=== PATIENT | male | born 1940 | race Caucasian/White ===

== ENCOUNTER 2020-11-05 03:50 | Observation (INO) | payer MEDICARE, OTHER ==
[2020-11-05] MEDS ORDERED: DUONEB 0.5-3 MG/3 ml Neb IH ONE ×2 (03:55→04:02)
[2020-11-05] MEDS ORDERED: solu-MEDROL 125 MG, Sterile H2O 10 ml 2 ML IV ONE ×2 (03:55)
[2020-11-05] MEDS ORDERED: Zithromax 500 MG/ 250 ML NaCl Premix 500 MG/250 ML IVPB IV STA (03:56)
[2020-11-05] MEDS ORDERED: ROCEPHIN 2 Gm-D5w 50ML BAG** 2 G/50 ML IVPB IV STA (03:56)
--- NOTE | 2020-11-05 04:14 | ERPHSYRPT ---
- History of Present Illness Time Seen by Provider: 11/05/20 03:50 Source: patient, EMS Exam Limitations: no limitations Physician History: 79 years old male with history of colon cancer status post resection with colostomy, diabetes mellitus, hypertension, coronary artery disease status post stenting, congestive heart failure, atrial fibrillation, COPD presented to the ER with chief complaint of increasing shortness of breath with associated cough productive of minimal clear white sputum. Reports some chest tightness with wheezing but no fever or chills reported on EMS arrival patient oxygen saturation more than upper 80s, given MDI inhaler and placed on oxygen and improved with 94%. Timing/Duration: day(s) (2), gradual onset, worse Activities at Onset: activity Severity of Dyspnea-Max: moderate Severity of Dyspnea-Current: moderate Possible Cause: unknown cause Modifying Factors: Improves With: albuterol inhaler. Worsens With: coughing, exertion Associated Symptoms: cough, wheezing, productive cough, tightness, No chest pain/discomfort, No fever Allergies/Adverse Reactions: No Known Drug Allergies Allergy (Verified 11/05/20 04:13) Home Medications: Amiodarone HCl 200 mg [Cordarone 200 MG] 200 mg PO UD 02/27/14 [History] Amlodipine Besylate 5 mg [Norvasc 5 mg] 5 mg PO DAILY 02/27/14 [History] Clopidogrel Bisulfate [Plavix] 75 mg PO DAILY 02/27/14 [History] Furosemide 20 mg PO UD 02/27/14 [History] Glimepiride 2 mg PO BID 02/27/14 [History] Lisinopril 10 mg [Zestril 10 MG] 10 mg PO DAILY 02/27/14 [History] Metoprolol Tartrate 50 mg PO BID 02/27/14 [History] Simvastatin [Zocor] 20 mg PO HS 02/27/14 [History] Tamsulosin HCl 0.4 mg [Flomax 0.4 MG] 0.4 mg PO BID 02/27/14 [History] Multivitamin [Multivitamins] 1 each PO DAILY 11/09/14 [History] Acetaminophen [Tylenol] 325 mg PO Q4H PRN PRN 11/05/20 [History] Aspirin 81 mg PO DAILY 11/05/20 [History] Calcium Carbonate [Calcium] 2 tab PO DAILY 11/05/20 [History] Cholecalciferol (Vitamin D3) [Vitamin D3] 5,000 unit PO UD 11/05/20 [History] Clotrimazole Cream 30 gm [Lotrimin Cream 30 gm] 30 gm TOP BID 11/05/20 [History] Fexofenadine/Pseudoephedrine [Cristina-D 24 Hour Tablet] 1 tab PO DAILY 11/05/20 [History] Finasteride 5 mg [Proscar 5 MG] 1 tab PO DAILY 11/05/20 [History] Gabapentin 300 mg [Neurontin 300 mg] 300 mg PO BID 11/05/20 [History] Metformin HCl 500 mg [Glucophage 500 MG] 500 mg PO BID 11/05/20 [History] Nitroglycerin 0.4 mg Tablet [Nitrostat 0.4 MG Tablet] 1 tab SL UD 11/05/20 [History] Hx Tetanus, Diphtheria Vaccination/Date Given: Yes (UNKNOWN) Hx Influenza Vaccination/Date Given: Yes Hx Pneumococcal Vaccination/Date Given: No - Review of Systems Constitutional: Fatigue Eyes: No Symptoms Ears, Nose, & Throat: No Symptoms Respiratory: Cough, Dyspnea, Dyspnea on Exertion (UMANA), Wheezing Cardiac: No Symptoms Abdominal/Gastrointestinal: No Symptoms Genitourinary Symptoms: No Symptoms Musculoskeletal: No Symptoms Skin: No Symptoms Neurological: No Symptoms Psychological: No Symptoms Endocrine: No Symptoms Hematologic/Lymphatic: No Symptoms Immunological/Allergic: No Symptoms - Past Medical History Pertinent Past Medical History: Yes Neurological History: Stroke ENT History: No Pertinent History Cardiac History: Arrhythmia, Coronary Artery Disease, High Cholesterol, Hypertension, Myocardial Infarction (ND), Peripheral Vascular Disease Respiratory History: CHF Endocrine Medical History: Diabetes Type II Musculoskeletal History: No Pertinent History GI Medical History: GERD, Hernia History: No Pertinent History Psycho-Social History: Depression Male Reproductive Disorders: Prostate Problems Other Medical History: PARTIAL PROSTATE REMOVED. HX OF AFIB. SEVERAL STENTS. COLON CANCER-REMISSION AT THIS TIME. anemia - Past Surgical History Past Surgical History: Yes Neuro Surgical History: No Pertinent History Cardiac: Cardiac Catheterization, Cardiac Stent Respiratory: No Pertinent History Gastrointestinal: Bowel Surgery, Colon Resection, Hernia Repair Genitourinary: No Pertinent History Musculoskeletal: No Pertinent History Male Surgical History: Prostate Surgery Other Surgical History: PART OF COLON REMOVED. COLOSTOMY - Social History Smoking Status: Former smoker Exposure to second hand smoke: No Alcohol Use: None Drug Use: none Patient Lives Alone: No Significant Family History: no pertinent family hx - Nursing Vital Signs Nursing Vital Signs: Initial Vital Signs Temperature 98.5 F 11/05/20 03:52 Pulse Rate 90 11/05/20 03:52 Respiratory Rate 28 H 11/05/20 03:52 Blood Pressure 129/50 11/05/20 03:52 O2 Sat by Pulse Oximetry 95 11/05/20 03:52 Pain Scale Pain Intensity 0 - Physical Exam General Appearance: no apparent distress, alert Eye Exam: PERRL/EOMI, eyes nml inspection Ears, Nose, Throat Exam: hearing grossly normal, normal ENT inspection, normal pharynx Neck Exam: normal inspection, supple, full range of motion Respiratory Exam: diminished breath sounds, rhonchi, wheezing Cardiovascular/Chest Exam: normal heart sounds, regular rate/rhythm Abdominal/Gastrointestinal Exam: soft, normal bowel sounds, other (Colostomy bag well applied) Extremity Exam: non-tender, normal range of motion Neurologic Exam: alert, oriented x 3, cooperative Skin Exam: normal color SpO2 Interpretation: O2 applied SpO2: 95 O2 Delivery: Nasal Cannula - Course EKG Interpreted by Me: RATE (89), Sinus Rhythm, NORMAL AXIS, Q-wave (Anterior), Non-specific ST Changes Ordered Tests: Active Orders 24 hr Category Date Time Status Oxygen-ED Only Nasal Cannula 2 lpm Care 11/05/20 03:55 Active CHEST 1 VIEW (PORTABLE) Stat Exams 11/05/20 03:55 Taken BLOOD CULTURE Stat Lab 11/05/20 04:15 Received CBC W DIFF Stat Lab 11/05/20 04:15 Completed CMP Stat Lab 11/05/20 04:15 Completed Lactic Acid Stat Lab 11/05/20 04:30 Completed MAGNESIUM Stat Lab 11/05/20 04:15 Completed NT PRO BNP Stat Lab 11/05/20 04:15 Completed TROPONIN Q3H Lab 11/05/20 04:15 Completed TROPONIN Q3H Lab 11/05/20 07:00 Ordered TROPONIN Q3H Lab 11/05/20 10:00 Ordered TROPONIN Q3H Lab 11/05/20 13:00 Ordered TROPONIN Q3H Lab 11/05/20 16:00 Ordered Respiratory Therapy Assessment DAILY RT 11/05/20 04:21 Completed Medication Summary Discontinued Medications Generic Name Dose Route Start Last Admin Trade Name Devon YAP Reason Stop Dose Admin Albuterol/Ipratropium 3 ml 11/05/20 03:55 11/05/20 04:22 Duoneb 0.5-3 Mg/3 Ml Neb IH 11/05/20 03:56 3 ml STAT ONE Administration Albuterol/Ipratropium Confirm 11/05/20 04:02 Duoneb 0.5-3 Mg/3 Ml Neb Administered 11/05/20 04:03 Dose 3 ml IH .STK-MED ONE Methylprednisolone Sodium 0 mg 11/05/20 03:55 11/05/20 04:22 Succinate 125 mg/ Sterile IV 11/05/20 03:56 125 mg Water 2 ml STAT ONE Administration Ceftriaxone Sodium/Dextrose 2 g in 50 mls @ 100 mls/hr 11/05/20 03:56 11/05/20 06:55 Rocephin 2 Gm-D5w 50ml Bag IV 11/05/20 04:25 Infused STAT STA Infusion Azithromycin 500 mg in 250 mls @ 250 mls/hr 11/05/20 03:56 11/05/20 06:55 Zithromax 500 Mg/ 250 Ml Nacl Premix IV 11/05/20 04:55 Infused STAT STA Infusion Azithromycin Confirm 11/05/20 04:15 Zithromax 500 Mg/ 250 Ml Nacl Premix Administered 11/05/20 04:16 Dose 500 mg in 250 mls @ ud IV .STK-MED ONE Ceftriaxone Sodium/Dextrose Confirm 11/05/20 04:15 Rocephin 2 Gm-D5w 50ml Bag Administered 11/05/20 04:16 Dose 2 g in 50 mls @ ud IV .STK-MED ONE Methylprednisolone Sodium Succinate Confirm 11/05/20 04:15 Solu-Medrol Administered 11/05/20 04:16 Dose 125 mg .ROUTE .STK-MED ONE Sterile Water Confirm 11/05/20 04:16 Sterile H2o 10 Ml Administered 11/05/20 04:17 Dose 10 ml IJ .STK-MED ONE Lab/Rad Data: Laboratory Result Diagrams 11/05/20 04:15 11/05/20 04:15 Laboratory Results 11/05/20 11/05/20 11/05/20 Range/Units 05:26 04:30 04:15 WBC (4.0-10.5) K/mm3 RBC (4.1-5.6) M/mm3 Hgb (12.5-18.0) gm/dl Hct (42-50) % MCV (78-100) fl MCH (26-32) pg MCHC (32-36) g/dl RDW (11.5-14.0) % Plt Count (150-450) K/mm3 MPV (7.5-11.0) fl Gran % (36.0-66.0) % Eos # (Auto) (0-0.5) Absolute Lymphs (auto) (1.0-4.6) Absolute Monos (auto) (0.0-1.3) Lymphocytes % (24.0-44.0) % Monocytes % (0.0-12.0) % Eosinophils % (0.00-5.0) % Basophils % (0.0-0.4) % Absolute Granulocytes (1.4-6.9) Basophils # (0-0.4) Sodium (137-145) mmol/L Potassium (3.5-5.1) mmol/L Chloride (98-107) mmol/L Carbon Dioxide (22-30) mmol/L Anion Gap (5-15) MEQ/L BUN (9-20) mg/dL Creatinine (0.66-1.25) mg/dL Estimated GFR ML/MIN Glucose (74-106) mg/dL Lactic Acid 1.3 (0.4-2.0) Calcium (8.4-10.2) mg/dL Magnesium (1.6-2.3) mg/dL Total Bilirubin (0.2-1.3) mg/dL AST (17-59) U/L ALT (0-50) U/L Alkaline Phosphatase (38-126) U/L Troponin I 0.026 (0.000-0.034) ng/mL NT-Pro-B Natriuret Pep (0-1800) pg/mL Serum Total Protein (6.3-8.2) g/dL Albumin (3.5-5.0) g/dL SARS-CoV-2 (PCR) NEGATIVE (NEGATIVE) 11/05/20 11/05/20 Range/Units 04:15 04:15 WBC 9.7 (4.0-10.5) K/mm3 RBC 3.88 L (4.1-5.6) M/mm3 Hgb 11.9 L (12.5-18.0) gm/dl Hct 37.9 L (42-50) % MCV 97.7 (78-100) fl MCH 30.7 (26-32) pg MCHC 31.4 L (32-36) g/dl RDW 14.1 H (11.5-14.0) % Plt Count 239 (150-450) K/mm3 MPV 9.9 (7.5-11.0) fl Gran % 71.4 H (36.0-66.0) % Eos # (Auto) 0.06 (0-0.5) Absolute Lymphs (auto) 1.67 (1.0-4.6) Absolute Monos (auto) 1.01 (0.0-1.3) Lymphocytes % 17.3 L (24.0-44.0) % Monocytes % 10.5 (0.0-12.0) % Eosinophils % 0.6 (0.00-5.0) % Basophils % 0.2 (0.0-0.4) % Absolute Granulocytes 6.90 (1.4-6.9) Basophils # 0.02 (0-0.4) Sodium 133 L (137-145) mmol/L Potassium 4.8 (3.5-5.1) mmol/L Chloride 100 (98-107) mmol/L Carbon Dioxide 22 (22-30) mmol/L Anion Gap 14.9 (5-15) MEQ/L BUN 26 H (9-20) mg/dL Creatinine 1.62 H (0.66-1.25) mg/dL Estimated GFR 43.8 ML/MIN Glucose 257 H (74-106) mg/dL Lactic Acid (0.4-2.0) Calcium 9.6 (8.4-10.2) mg/dL Magnesium 1.7 (1.6-2.3) mg/dL Total Bilirubin 0.70 (0.2-1.3) mg/dL AST 22 (17-59) U/L ALT 16 (0-50) U/L Alkaline Phosphatase 67 (38-126) U/L Troponin I (0.000-0.034) ng/mL NT-Pro-B Natriuret Pep 3560 H (0-1800) pg/mL Serum Total Protein 6.9 (6.3-8.2) g/dL Albumin 4.0 (3.5-5.0) g/dL SARS-CoV-2 (PCR) (NEGATIVE) - Progress Progress: improved Air Movement: good Progress Note: 11/05/20 06:53 79 years old is evaluated for increasing shortness of breath. Patient is on 2 L oxygen and saturation around 93%. Given DuoNeb and steroid. Chest x-ray showed bilateral airspace disease. Was normal white count. Mild FELICIA on CKD. Started on antibiotics. COVID-19 is negative. Discuss[address] with Dr. Chase and patient is being admitted. Blood Culture(s) Obtained: Yes Antibiotics given: Yes Discussed with DrRios: Jose Juan Will see patient in: hospital (observation) Counseled pt/family regarding: lab results, diagnosis, rad results - Departure Departure Disposition: Observation Clinical Impression: Bilateral pneumonia Qualifiers: Pneumonia type: due to unspecified organism Lung location: unspecified part of lung Qualified Code(s): J18.9 - Pneumonia, unspecified organism Respiratory failure Qualifiers: Chronicity: acute Respiratory failure complication: hypoxia Qualified Code(s): J96.01 - Acute respiratory failure with hypoxia Condition: Stable Critical Care Time: Yes Critical Care Time(excluding separately billable procedures): Critical 30-74 mins Referrals: DAIJA MARTE NP [Primary Care Provider] -
[2020-11-05] MEDS ORDERED: ROCEPHIN 2 Gm-D5w 50ML BAG** 2 G/50 ML IVPB IV ONE (04:15)
[2020-11-05] MEDS ORDERED: solu-MEDROL ONE ×2 (04:15→17:10)
[2020-11-05] MEDS ORDERED: Zithromax 500 MG/ 250 ML NaCl Premix 500 MG/250 ML IVPB IV ONE (04:15)
[2020-11-05] MEDS ORDERED: Sterile H2O 10 ml IJ ONE (04:16)
[2020-11-05 04:40] LABS: BASOPHIL % 0.2 % (0.0-0.4); Basophil (Absolute #) 0.02 (0-0.4); Eosinophil % 0.6 % (0.00-5.0); Eosinophil (Absolute #) 0.06 (0-0.5); Hematocrit 37.9 % (42-50); Hemoglobin 11.9 gm/dl (12.5-18.0); Lymphocyte (Absolute #) 1.67 (1.0-4.6); Lymphocytes % 17.3 % (24.0-44.0); Mean Cell Volume 97.7 fl (78-100); Mean Corpuscular Hemoglobin 30.7 pg (26-32); Mean Corpuscular Hgb Concent. 31.4 g/dl (32-36); Mean Platelet Volume 9.9 fl (7.5-11.0); Monocyte (Absolute #) 1.01 (0.0-1.3); Monocytes % 10.5 % (0.0-12.0); Neutrophil % 71.4 % (36.0-66.0); Platelet Count 239 K/mm3 (150-450); Red Blood Count 3.88 M/mm3 (4.1-5.6); Red Cell Distribution Width 14.1 % (11.5-14.0); White Blood Count 9.7 K/mm3 (4.0-10.5)
[2020-11-05 04:54] LABS: ANION GAP 14.9 MEQ/L (5-15); BILIRUBIN,TOTAL 0.7 mg/dL (0.2-1.3); Calcium 9.6 mg/dL (8.4-10.2); Creatinine 1 1.62 mg/dL (0.66-1.25); EST GLOMERULAR FILTRATION RATE 43.8 ML/MIN; MAGNESIUM 1.7 mg/dL (1.6-2.3); Potassium 4.8 mmol/L (3.5-5.1); Total Protein 6.9 g/dL (6.3-8.2)
[2020-11-05] MEDS ORDERED: DUONEB 0.5-3 MG/3 ml Neb IH SCH (08:17)
[2020-11-05] MEDS ORDERED: TYLENOL 325 MG PO PRN ×2 (08:17→10:42)
[2020-11-05] MEDS ORDERED: VITAMIN D PO SCH (10:00)
[2020-11-05] MEDS ORDERED: LASIX 20 MG PO SCH (10:00)
[2020-11-05] MEDS ORDERED: Cordarone 200 MG PO SCH (10:00)
[2020-11-05] MEDS ORDERED: Nitrostat 0.4 MG Tablet SL PRN (10:45)
[2020-11-05] MEDS ORDERED: NON-FORMULARY ITEM (Cholecalciferol (Vitamin D3) [Vitamin D3] 5,000 UNIT) PO SCH (10:45)
[2020-11-05] MEDS: PROTONIX 40 MG IV IV SCH (10:48)
[2020-11-05] MEDS: ENOXAPARIN SODIUM SQ SCH (10:48)
[2020-11-05] MEDS ORDERED: VENTOLIN COMMON CANISTER IH SCH (11:00)
[2020-11-05] MEDS: Ventolin Hfa MDI IH SCH ×4 (11:17→22:31)
[2020-11-05] MEDS: Zestril 10 MG PO SCH (11:41)
[2020-11-05] MEDS: Calcium 500MG W/Vit D Tablet PO SCH (11:41)
[2020-11-05] MEDS: THERAGRAN MULTIVITAMIN PO SCH (11:41)
[2020-11-05] MEDS: NEURONTIN 300 MG PO SCH ×2 (11:42→21:11)
[2020-11-05] MEDS: ECOTRIN 81 MG PO SCH (11:42)
[2020-11-05] MEDS: Proscar 5 MG PO SCH (11:42)
[2020-11-05] MEDS: Glucophage 500 MG PO SCH ×2 (11:42→17:18)
[2020-11-05] MEDS: NORVASC 5 MG PO SCH (11:42)
[2020-11-05] MEDS: Flomax 0.4 MG PO SCH ×2 (11:42→21:10)
[2020-11-05] MEDS: CLARITIN-D 24HR TABLET PO SCH (11:42)
[2020-11-05] MEDS: Lopressor 50 MG PO SCH ×2 (11:42→21:11)
[2020-11-05] MEDS: Amaryl 2 MG PO SCH ×2 (11:42→17:18)
[2020-11-05] MEDS: PLAVIX 75 MG Tablet PO SCH (11:42)
[2020-11-05] MEDS: solu-MEDROL 60 MG, Sterile H2O 10 ml 2 ML IV SCH ×6 (11:43→23:05)
[2020-11-05] MEDS: LOTRIMIN CREAM 30 GM TOP SCH ×2 (11:43→21:11)
[2020-11-05] MEDS: Sterile H2O 10 ml IJ SCH ×3 (11:47→23:06)
[2020-11-05] MEDS: HUMALOG SQ PRN ×3 (12:27→21:12)
--- NOTE | 2020-11-05 15:30 | XRAY ---
Indication: Short of breath. Suspect Covid 19. Comparison: December 10, 2014. Portable chest demonstrates new diffuse bilateral airspace disease without consolidation/large effusion. Heart not enlarged with stable subcarinal calcified node. Bony thorax intact again with mild osteopenia and degenerative changes.
--- NOTE | 2020-11-05 20:42 | PCM.HP ---
History of Present Illness - Chief Complaint Chief Complaint: c/o shortness of breath for 2-3 days History of Present Illness: is a 79 year old male.with history of colon cancer status post resection with colostomy, diabetes mellitus, hypertension, coronary artery disease status post stenting, congestive heart failure, atrial fibrillation, COPD presented to the ER with chief complaint of increasing shortness of breath with associated cough productive of minimal clear white sputum. Reports some chest tightness with wheezing but no fever or chills reported on EMS arrival patient oxygen saturation more than upper 80s, given MDI inhaler and placed on oxygen and improved with 94%. Timing/Duration: day(s) (2), gradual onset, worse Activities at Onset: activity Severity of Dyspnea-Max: moderate Severity of Dyspnea-Current: moderate Possible Cause: unknown cause Modifying Factors: Improves With: albuterol inhaler. Worsens With: coughing, exertion Associated Symptoms: cough, wheezing, productive cough, tightness, No chest pain/discomfort, No fever - Review of Systems Constitutional: No Fever, No Chills Eyes: No Symptoms Ears, Nose, & Throat: No Symptoms Respiratory: Cough, Orthopnea, Short Of Breath, Wheezing Cardiac: Chest Pain, No Edema, No Syncope Abdominal/Gastrointestinal: No Abdominal Pain, No Nausea, No Vomiting, No Diarr hea Genitourinary Symptoms: No Dysuria Musculoskeletal: No Back Pain, No Neck Pain Skin: No Rash Neurological: No Dizziness, No Focal Weakness, No Sensory Changes Psychological: No Symptoms Endocrine: No Symptoms Hematologic/Lymphatic: No Symptoms Immunological/Allergic: No Symptoms Medications & Allergies Home Medications: Home Medication List Amiodarone HCl 200 mg [Cordarone 200 MG] 200 mg PO UD 02/27/14 [History Confirmed 11/05/20] Amlodipine Besylate 5 mg [Norvasc 5 mg] 5 mg PO DAILY 02/27/14 [History Confirmed 11/05/20] Clopidogrel Bisulfate [Plavix] 75 mg PO DAILY 02/27/14 [History Confirmed 11/05/20] Furosemide 20 mg PO UD 02/27/14 [History Confirmed 11/05/20] Glimepiride 2 mg PO BID 02/27/14 [History Confirmed 11/05/20] Lisinopril 10 mg [Zestril 10 MG] 10 mg PO DAILY 02/27/14 [History Confirmed 11/05/20] Metoprolol Tartrate 50 mg PO BID 02/27/14 [History Confirmed 11/05/20] Simvastatin [Zocor] 20 mg PO HS 02/27/14 [History Confirmed 11/05/20] Tamsulosin HCl 0.4 mg [Flomax 0.4 MG] 0.4 mg PO BID 02/27/14 [History Confirmed 11/05/20] Multivitamin [Multivitamins] 1 each PO DAILY 11/09/14 [History Confirmed 11/05] Acetaminophen [Tylenol] 325 mg PO Q4H PRN PRN 11/05/20 [History Confirmed 11/05/20] Aspirin 81 mg PO DAILY 11/05/20 [History Confirmed 11/05/20] Calcium Carbonate [Calcium] 2 tab PO DAILY 11/05/20 [History Confirmed 11/05/20] Cholecalciferol (Vitamin D3) [Vitamin D3] 5,000 unit PO UD 11/05/20 [History Confirmed 11/05/20] Clotrimazole Cream 30 gm [Lotrimin Cream 30 gm] 30 gm TOP BID 11/05/20 [History Confirmed 11/05/20] Fexofenadine/Pseudoephedrine [Cristina-D 24 Hour Tablet] 1 tab PO DAILY 11/05/20 [History Confirmed 11/05/20] Finasteride 5 mg [Proscar 5 MG] 1 tab PO DAILY 11/05/20 [History Confirmed 11/05/20] Gabapentin 300 mg [Neurontin 300 mg] 300 mg PO BID 11/05/20 [History Confirmed 11/05/20] Metformin HCl 500 mg [Glucophage 500 MG] 500 mg PO TID 11/05/20 [History Confirmed 11/05/20] Nitroglycerin 0.4 mg Tablet [Nitrostat 0.4 MG Tablet] 1 tab SL UD 11/05/20 [History Confirmed 11/05/20] Allergies/Adverse Reactions: Allergies Allergy/AdvReac Type Severity Reaction Status Date / Time No Known Drug Allergies Allergy Verified 11/05/20 04:13 - Past Medical History Past Medical History: Yes Neurological History: Stroke ENT History: No Pertinent History Cardiac History: Arrhythmia, Coronary Artery Disease, High Cholesterol, Hypertension, Myocardial Infarction (MS), Peripheral Vascular Disease Respiratory History: CHF Endocrine Medical History: Diabetes Type II Musculoskelatal History: No Pertinent History GI Medical History: GERD, Hernia History: No Pertinent History Pyscho-Social History: Depression Male Reproductive Disorders: Prostate Problems Comment: PARTIAL PROSTATE REMOVED. HX OF AFIB. SEVERAL STENTS. COLON CANCER- REMISSION AT THIS TIME. anemia - Past Surgical History Past Surgical History: Yes Neuro Surgical History: No Pertinent History Cardiac History: Cardiac Catheterization, Cardiac Stent Respiratory Surgery: No Pertinent History GI Surgical History: Bowel Surgery, Colon Resection, Hernia Repair Genitourinary Surgical Hx: No Pertinent History Musculskeletal Surgical Hx: No Pertinent History Male Surgical History: Prostate Surgery Other Surgical History: PART OF COLON REMOVED. COLOSTOMY - Social History Smoking Status: Former smoker Exposure to second hand smoke: No Alcohol: None Drug Use: none Significant Family History: no pertinent family hx - Physical Exam Vital Signs: Vital Signs - 24 hr Temp Pulse Resp BP Pulse Ox 11/05/20 18:54 76 18 93 L 11/05/20 15:57 98.0 F 86 18 132/59 95 11/05/20 15:13 95 11/05/20 12:32 97.1 F 80 20 144/74 96 11/05/20 11:17 80 20 94 L 11/05/20 10:22 80 20 94 L 11/05/20 08:35 97.2 F 84 20 150/68 95 11/05/20 07:48 67 21 127/49 92 L 11/05/20 07:00 95 11/05/20 06:00 71 22 115/56 97 11/05/20 05:00 83 22 119/57 94 L 11/05/20 04:52 82 18 124/52 95 11/05/20 04:20 91 H 24 96 11/05/20 03:57 28 H 95 11/05/20 03:52 98.5 F 90 28 H 129/50 95 General Appearance: no apparent distress, alert Neurologic Exam: alert, oriented x 3, cooperative, normal mood/affect, No motor deficits Eye Exam: PERRL/EOMI, eyes nml inspection Ears, Nose, Throat Exam: normal ENT inspection, TMs normal, pharynx normal, moist mucous membranes Neck Exam: normal inspection, non-tender, supple, full range of motion Respiratory Exam: diminished breath sounds, crackles/rales, rhonchi, wheezing, No respiratory distress Cardiovascular Exam: regular rate/rhythm, normal heart sounds, normal peripheral pulses Gastrointestinal/Abdomen Exam: soft, normal bowel sounds, No tenderness, No mass Back Exam: normal inspection, normal range of motion, No CVA tenderness, No vertebral tenderness Extremity Exam: normal inspection, normal range of motion, pelvis stable Skin Exam: normal color, warm, dry, No rash Lymphatic Exam: No adenopathy Results - Labs Lab/Micro Results: Lab Results-Last 24 Hours 11/05/20 11/05/20 11/05/20 Range/Units 03:00 04:15 04:15 WBC 9.7 (4.0-10.5) K/mm3 RBC 3.88 L (4.1-5.6) M/mm3 Hgb 11.9 L (12.5-18.0) gm/dl Hct 37.9 L (42-50) % MCV 97.7 (78-100) fl MCH 30.7 (26-32) pg MCHC 31.4 L (32-36) g/dl RDW 14.1 H (11.5-14.0) % Plt Count 239 (150-450) K/mm3 MPV 9.9 (7.5-11.0) fl Gran % 71.4 H (36.0-66.0) % Eos # (Auto) 0.06 (0-0.5) Absolute Lymphs (auto) 1.67 (1.0-4.6) Absolute Monos (auto) 1.01 (0.0-1.3) Lymphocytes % 17.3 L (24.0-44.0) % Monocytes % 10.5 (0.0-12.0) % Eosinophils % 0.6 (0.00-5.0) % Basophils % 0.2 (0.0-0.4) % Absolute Granulocytes 6.90 (1.4-6.9) Basophils # 0.02 (0-0.4) Sodium 133 L (137-145) mmol/L Potassium 4.8 (3.5-5.1) mmol/L Chloride 100 (98-107) mmol/L Carbon Dioxide 22 (22-30) mmol/L Anion Gap 14.9 (5-15) MEQ/L BUN 26 H (9-20) mg/dL Creatinine 1.62 H (0.66-1.25) mg/dL Estimated GFR 43.8 ML/MIN Glucose 257 H (74-106) mg/dL POC Glucometer (74 to 106) mg/dL Hemoglobin A1c 7.42 H (4.5-6.0) % Lactic Acid (0.4-2.0) Calcium 9.6 (8.4-10.2) mg/dL Magnesium 1.7 (1.6-2.3) mg/dL Total Bilirubin 0.70 (0.2-1.3) mg/dL AST 22 (17-59) U/L ALT 16 (0-50) U/L Alkaline Phosphatase 67 (38-126) U/L Troponin I (0.000-0.034) ng/mL NT-Pro-B Natriuret Pep 3560 H (0-1800) pg/mL Serum Total Protein 6.9 (6.3-8.2) g/dL Albumin 4.0 (3.5-5.0) g/dL SARS-CoV-2 (PCR) (NEGATIVE) 11/05/20 11/05/20 11/05/20 Range/Units 04:15 04:30 05:26 WBC (4.0-10.5) K/mm3 RBC (4.1-5.6) M/mm3 Hgb (12.5-18.0) gm/dl Hct (42-50) % MCV (78-100) fl MCH (26-32) pg MCHC (32-36) g/dl RDW (11.5-14.0) % Plt Count (150-450) K/mm3 MPV (7.5-11.0) fl Gran % (36.0-66.0) % Eos # (Auto) (0-0.5) Absolute Lymphs (auto) (1.0-4.6) Absolute Monos (auto) (0.0-1.3) Lymphocytes % (24.0-44.0) % Monocytes % (0.0-12.0) % Eosinophils % (0.00-5.0) % Basophils % (0.0-0.4) % Absolute Granulocytes (1.4-6.9) Basophils # (0-0.4) Sodium (137-145) mmol/L Potassium (3.5-5.1) mmol/L Chloride (98-107) mmol/L Carbon Dioxide (22-30) mmol/L Anion Gap (5-15) MEQ/L BUN (9-20) mg/dL Creatinine (0.66-1.25) mg/dL Estimated GFR ML/MIN Glucose (74-106) mg/dL POC Glucometer (74 to 106) mg/dL Hemoglobin A1c (4.5-6.0) % Lactic Acid 1.3 (0.4-2.0) Calcium (8.4-10.2) mg/dL Magnesium (1.6-2.3) mg/dL Total Bilirubin (0.2-1.3) mg/dL AST (17-59) U/L ALT (0-50) U/L Alkaline Phosphatase (38-126) U/L Troponin I 0.026 (0.000-0.034) ng/mL NT-Pro-B Natriuret Pep (0-1800) pg/mL Serum Total Protein (6.3-8.2) g/dL Albumin (3.5-5.0) g/dL SARS-CoV-2 (PCR) NEGATIVE (NEGATIVE) 11/05/20 11/05/20 11/05/20 Range/Units 07:00 09:57 11:58 WBC (4.0-10.5) K/mm3 RBC (4.1-5.6) M/mm3 Hgb (12.5-18.0) gm/dl Hct (42-50) % MCV (78-100) fl MCH (26-32) pg MCHC (32-36) g/dl RDW (11.5-14.0) % Plt Count (150-450) K/mm3 MPV (7.5-11.0) fl Gran % (36.0-66.0) % Eos # (Auto) (0-0.5) Absolute Lymphs (auto) (1.0-4.6) Absolute Monos (auto) (0.0-1.3) Lymphocytes % (24.0-44.0) % Monocytes % (0.0-12.0) % Eosinophils % (0.00-5.0) % Basophils % (0.0-0.4) % Absolute Granulocytes (1.4-6.9) Basophils # (0-0.4) Sodium (137-145) mmol/L Potassium (3.5-5.1) mmol/L Chloride (98-107) mmol/L Carbon Dioxide (22-30) mmol/L Anion Gap (5-15) MEQ/L BUN (9-20) mg/dL Creatinine (0.66-1.25) mg/dL Estimated GFR ML/MIN Glucose (74-106) mg/dL POC Glucometer 461 H (74 to 106) mg/dL Hemoglobin A1c (4.5-6.0) % Lactic Acid (0.4-2.0) Calcium (8.4-10.2) mg/dL Magnesium (1.6-2.3) mg/dL Total Bilirubin (0.2-1.3) mg/dL AST (17-59) U/L ALT (0-50) U/L Alkaline Phosphatase (38-126) U/L Troponin I 0.038 H* 0.035 H (0.000-0.034) ng/mL NT-Pro-B Natriuret Pep (0-1800) pg/mL Serum Total Protein (6.3-8.2) g/dL Albumin (3.5-5.0) g/dL SARS-CoV-2 (PCR) (NEGATIVE) 11/05/20 11/05/20 11/05/20 Range/Units 13:15 16:10 16:30 WBC (4.0-10.5) K/mm3 RBC (4.1-5.6) M/mm3 Hgb (12.5-18.0) gm/dl Hct (42-50) % MCV (78-100) fl MCH (26-32) pg MCHC (32-36) g/dl RDW (11.5-14.0) % Plt Count (150-450) K/mm3 MPV (7.5-11.0) fl Gran % (36.0-66.0) % Eos # (Auto) (0-0.5) Absolute Lymphs (auto) (1.0-4.6) Absolute Monos (auto) (0.0-1.3) Lymphocytes % (24.0-44.0) % Monocytes % (0.0-12.0) % Eosinophils % (0.00-5.0) % Basophils % (0.0-0.4) % Absolute Granulocytes (1.4-6.9) Basophils # (0-0.4) Sodium (137-145) mmol/L Potassium (3.5-5.1) mmol/L Chloride (98-107) mmol/L Carbon Dioxide (22-30) mmol/L Anion Gap (5-15) MEQ/L BUN (9-20) mg/dL Creatinine (0.66-1.25) mg/dL Estimated GFR ML/MIN Glucose (74-106) mg/dL POC Glucometer 435 H (74 to 106) mg/dL Hemoglobin A1c (4.5-6.0) % Lactic Acid (0.4-2.0) Calcium (8.4-10.2) mg/dL Magnesium (1.6-2.3) mg/dL Total Bilirubin (0.2-1.3) mg/dL AST (17-59) U/L ALT (0-50) U/L Alkaline Phosphatase (38-126) U/L Troponin I 0.024 0.028 (0.000-0.034) ng/mL NT-Pro-B Natriuret Pep (0-1800) pg/mL Serum Total Protein (6.3-8.2) g/dL Albumin (3.5-5.0) g/dL SARS-CoV-2 (PCR) (NEGATIVE) Accuchecks Date 11/05/20 Date 11/05/20 Time 16:36 Time 11:30 - Radiology Impressions Radiology Exams & Impressions: Radiology Procedures Category Date Time Status CHEST 1 VIEW (PORTABLE) Stat Exams 11/05/20 03:55 Completed - Other Procedures and Tests Respiratory Therapy 11/05/20 08:17 Oxygen Nasal Cannula 2 lpm 11/06/20 07:00 Respiratory Therapy Assessment DAILY Assessment/Plan (1) Bilateral pneumonia Current Visit: Yes Status: Acute Qualifiers: Pneumonia type: due to unspecified organism Lung location: lower lobe of lung Qualified Code(s): J18.9 - Pneumonia, unspecified organism Assessment & Plan: Chief Complaint Diagnosis bilateral pneumonia Allergies Allergy/AdvReac Type Severity Reaction Status Date / Time No Known Drug Allergies Allergy Verified 11/05/20 04:13 Vital Signs (Last 24 hours) Temp Pulse Resp BP Pulse Ox 11/05/20 18:54 76 18 93 L 11/05/20 15:57 98.0 F 86 18 132/59 95 11/05/20 15:13 95 11/05/20 12:32 97.1 F 80 20 144/74 96 11/05/20 11:17 80 20 94 L 11/05/20 10:22 80 20 94 L 11/05/20 08:35 97.2 F 84 20 150/68 95 11/05/20 07:48 67 21 127/49 92 L 11/05/20 07:00 95 11/05/20 06:00 71 22 115/56 97 11/05/20 05:00 83 22 119/57 94 L 11/05/20 04:52 82 18 124/52 95 11/05/20 04:20 91 H 24 96 11/05/20 03:57 28 H 95 11/05/20 03:52 98.5 F 90 28 H 129/50 95 Home Medications Medication Instructions Recorded Confirmed Last Taken Type Acetaminophen [Tylenol] 325 mg PO Q4H PRN PRN 11/05/20 11/05/20 Unknown History Aspirin 81 mg PO DAILY 11/05/20 11/05/20 11/04/20 History Calcium Carbonate [Calcium] 2 tab PO DAILY 11/05/20 11/05/20 11/04/20 History Cholecalciferol (Vitamin D3) 5,000 unit PO UD 11/05/20 11/05/20 11/02/20 08:00 History [Vitamin D3] Clotrimazole Cream 30 gm 30 gm TOP BID 11/05/20 11/05/20 11/04/20 History [Lotrimin Cream 30 gm] Fexofenadine/Pseudoephedrine 1 tab PO DAILY 11/05/20 11/05/20 11/04/20 08:00 History [Cristina-D 24 Hour Tablet] Finasteride 5 mg [Proscar 5 1 tab PO DAILY 11/05/20 11/05/20 11/04/20 History MG] Gabapentin 300 mg [Neurontin 300 mg PO BID 11/05/20 11/05/20 11/04/20 18:00 History 300 mg] Metformin HCl 500 mg 500 mg PO TID 11/05/20 11/05/20 11/04/20 History [Glucophage 500 MG] Nitroglycerin 0.4 mg Tablet 1 tab SL UD 11/05/20 11/05/20 Unknown History [Nitrostat 0.4 MG Tablet] Current Medications Generic Name Dose Route Start Last Admin Trade Name Freq PRN Reason Stop Dose Admin Acetaminophen 325 mg 11/05/20 10:42 Tylenol 325 Mg PO 12/05/20 10:41 Q4H PRN PRN PAIN Albuterol Sulfate 4 gm 11/05/20 11:00 11/05/20 18:49 Ventolin Hfa Mdi IH 12/05/20 10:59 4 gm Q4HRT EDEL Administration Amiodarone HCl 200 mg 11/05/20 10:00 11/05/20 11:41 Cordarone 200 Mg PO 12/05/20 09:59 200 mg QOD EDEL Administration Amlodipine Besylate 5 mg 11/05/20 11:00 11/05/20 11:42 Norvasc 5 Mg PO 12/05/20 10:59 5 mg DAILY EDEL Administration Aspirin 81 mg 11/05/20 11:00 11/05/20 11:42 Ecotrin 81 Mg PO 12/05/20 10:59 81 mg DAILY EDEL Administration Calcium Carbonate 2 tab 11/05/20 11:00 11/05/20 11:41 Calcium 500mg W/Vit D Tablet PO 12/05/20 10:59 2 tab DAILY EDEL Administration Cholecalciferol 5,000 unit 11/05/20 10:00 11/05/20 11:54 Vitamin D PO 12/05/20 09:59 5,000 unit TuSa EDEL Administration Clopidogrel Bisulfate 75 mg 11/05/20 11:00 11/05/20 11:42 Plavix 75 Mg Tablet PO 12/05/20 10:59 75 mg DAILY EDEL Administration Clotrimazole 0 gm 11/05/20 11:00 11/05/20 11:43 Lotrimin Cream 30 Gm TOP 12/05/20 10:59 30 gm BID EDEL Administration Methylprednisolone Sodium 0 mg 11/05/20 12:00 11/05/20 17:21 Succinate 60 mg/ Sterile Water IV 12/05/20 11:59 60 mg 2 ml Q6HT EDEL Administration Enoxaparin Sodium 40 mg 11/05/20 10:00 11/05/20 10:48 Enoxaparin Sodium SQ 12/05/20 09:59 40 mg DAILY EDEL Administration Finasteride 5 mg 11/05/20 11:00 11/05/20 11:42 Proscar 5 Mg PO 12/05/20 10:59 5 mg DAILY EDEL Administration Furosemide 20 mg 11/05/20 10:00 11/05/20 11:41 Lasix 20 Mg PO 12/05/20 09:59 20 mg QOD EDEL Administration Gabapentin 300 mg 11/05/20 11:00 11/05/20 11:42 Neurontin 300 Mg PO 12/05/20 10:59 300 mg BID EDEL Administration Glimepiride 2 mg 11/05/20 11:00 11/05/20 17:18 Amaryl 2 Mg PO 12/05/20 10:59 2 mg BIDWM EDEL Administration Azithromycin 500 mg in 250 mls @ 250 mls/hr 11/06/20 10:00 Zithromax 500 Mg/ 250 Ml Nacl Premix IV 12/06/20 09:59 Q24H10 EDEL Ceftriaxone Sodium/Dextrose 1 g in 50 mls @ 100 mls/hr 11/06/20 10:00 Rocephin 1 Gm-D5w 50 Ml Bag IV 11/09/20 09:59 Q24H10 EDEL Insulin Human Lispro 0 unit 11/05/20 08:17 11/05/20 17:19 Humalog SQ 12/05/20 08:16 13 unit UD PRN Administration HYPERGLYCEMIA Lisinopril 10 mg 11/05/20 11:00 11/05/20 11:41 Zestril 10 Mg PO 12/05/20 10:59 10 mg DAILY EDEL Administration Loratadine/Pseudoephedrine Sulfate 1 each 11/05/20 11:00 11/05/20 11:42 Claritin-D 24hr Tablet PO 12/05/20 10:59 1 each DAILY EDEL Administration Metformin HCl 500 mg 11/05/20 12:00 11/05/20 17:18 Glucophage 500 Mg PO 12/05/20 11:59 500 mg TIDWM EDEL Administration Metoprolol Tartrate 50 mg 11/05/20 11:00 11/05/20 11:42 Lopressor 50 Mg PO 12/05/20 10:59 50 mg BID EDEL Administration Multivitamins Therapeutic 1 tab 11/05/20 11:00 11/05/20 11:41 Theragran Multivitamin PO 12/05/20 10:59 1 tab DAILY EDEL Administration Nitroglycerin 0.4 mg 11/05/20 10:45 Nitrostat 0.4 Mg Tablet SL 12/05/20 10:44 UD PRN Pantoprazole Sodium 40 mg 11/05/20 10:00 11/05/20 10:48 Protonix 40 Mg Iv IV 12/05/20 09:59 40 mg Q24H10 EDEL Administration Simvastatin 20 mg 11/05/20 22:00 Zocor 20mg PO 12/05/20 21:59 HS EDEL Sterile Water 2 ml 11/05/20 12:00 11/05/20 18:17 Sterile H2o 10 Ml IJ 12/05/20 11:59 2 ml Q6HT EDEL Administration Tamsulosin HCl 0.4 mg 11/05/20 11:00 11/05/20 11:42 Flomax 0.4 Mg PO 12/05/20 10:59 0.4 mg BID EDEL Administration Discontinued Medications Generic Name Dose Route Start Last Admin Trade Name Freq PRN Reason Stop Dose Admin Acetaminophen 650 mg 11/05/20 08:17 Tylenol 325 Mg PO 12/05/20 08:16 Q4H PRN PRN PAIN AND/OR FEVER Albuterol Sulfate 4 puff 11/05/20 11:00 Ventolin Common Canister IH 12/05/20 10:59 Q4HRT EDEL Albuterol/Ipratropium 3 ml 11/05/20 03:55 11/05/20 04:22 Duoneb 0.5-3 Mg/3 Ml Neb IH 11/05/20 03:56 3 ml STAT ONE Administration Albuterol/Ipratropium Confirm 11/05/20 04:02 Duoneb 0.5-3 Mg/3 Ml Neb Administered 11/05/20 04:03 Dose 3 ml IH .STK-MED ONE Albuterol/Ipratropium 3 ml 11/05/20 08:17 Duoneb 0.5-3 Mg/3 Ml Neb IH 12/05/20 08:16 Q4HRT EDEL Methylprednisolone Sodium 0 mg 11/05/20 03:55 11/05/20 04:22 Succinate 125 mg/ Sterile IV 11/05/20 03:56 125 mg Water 2 ml STAT ONE Administration Ceftriaxone Sodium/Dextrose 2 g in 50 mls @ 100 mls/hr 11/05/20 03:56 11/05/20 06:55 Rocephin 2 Gm-D5w 50ml Bag IV 11/05/20 04:25 Infused STAT STA Infusion Azithromycin 500 mg in 250 mls @ 250 mls/hr 11/05/20 03:56 11/05/20 06:55 Zithromax 500 Mg/ 250 Ml Nacl Premix IV 11/05/20 04:55 Infused STAT STA Infusion Azithromycin Confirm 11/05/20 04:15 Zithromax 500 Mg/ 250 Ml Nacl Premix Administered 11/05/20 04:16 Dose 500 mg in 250 mls @ ud IV .STK-MED ONE Ceftriaxone Sodium/Dextrose Confirm 11/05/20 04:15 Rocephin 2 Gm-D5w 50ml Bag Administered 11/05/20 04:16 Dose 2 g in 50 mls @ ud IV .STK-MED ONE Methylprednisolone Sodium Succinate Confirm 11/05/20 04:15 Solu-Medrol Administered 11/05/20 04:16 Dose 125 mg .ROUTE .STK-MED ONE Methylprednisolone Sodium Succinate Confirm 11/05/20 17:10 Solu-Medrol Administered 11/05/20 17:11 Dose 125 mg .ROUTE .STK-MED ONE Sterile Water Confirm 11/05/20 04:16 Sterile H2o 10 Ml Administered 11/05/20 04:17 Dose 10 ml IJ .STK-MED ONE Intake & Output (Last 24 hours) 11/03/20 11/04/20 11/05/20 11/06/20 11:59 11:59 11:59 11:59 Intake Total 2060 Output Total 850 Balance 1210 Weight 98.1 kg Microbiology Results (Last 24 hours) 11/05/20 04:15 Blood Blood Culture Gram Stain - Pending 11/05/20 04:15 Blood Blood Culture - Pending 11/05/20 04:20 Blood Blood Culture Gram Stain - Pending 11/05/20 04:20 Blood Blood Culture - Pending Laboratory Results (Last 24 hours) 11/05/20 11/05/20 11/05/20 16:30 16:10 13:15 WBC RBC Hgb Hct MCV MCH MCHC RDW Plt Count MPV Gran % Eos # (Auto) Absolute Lymphs (auto) Absolute Monos (auto) Lymphocytes % Monocytes % Eosinophils % Basophils % Absolute Granulocytes Basophils # Sodium Potassium Chloride Carbon Dioxide Anion Gap BUN Creatinine Estimated GFR Glucose POC Glucometer 435 H Hemoglobin A1c Lactic Acid Calcium Magnesium Total Bilirubin AST ALT Alkaline Phosphatase Troponin I 0.028 0.024 NT-Pro-B Natriuret Pep Serum Total Protein Albumin SARS-CoV-2 (PCR) 11/05/20 11/05/20 11/05/20 11:58 09:57 07:00 WBC RBC Hgb Hct MCV MCH MCHC RDW Plt Count MPV Gran % Eos # (Auto) Absolute Lymphs (auto) Absolute Monos (auto) Lymphocytes % Monocytes % Eosinophils % Basophils % Absolute Granulocytes Basophils # Sodium Potassium Chloride Carbon Dioxide Anion Gap BUN Creatinine Estimated GFR Glucose POC Glucometer 461 H Hemoglobin A1c Lactic Acid Calcium Magnesium Total Bilirubin AST ALT Alkaline Phosphatase Troponin I 0.035 H 0.038 H* NT-Pro-B Natriuret Pep Serum Total Protein Albumin SARS-CoV-2 (PCR) 11/05/20 11/05/20 11/05/20 05:26 04:30 04:15 WBC RBC Hgb Hct MCV MCH MCHC RDW Plt Count MPV Gran % Eos # (Auto) Absolute Lymphs (auto) Absolute Monos (auto) Lymphocytes % Monocytes % Eosinophils % Basophils % Absolute Granulocytes Basophils # Sodium Potassium Chloride Carbon Dioxide Anion Gap BUN Creatinine Estimated GFR Glucose POC Glucometer Hemoglobin A1c Lactic Acid 1.3 Calcium Magnesium Total Bilirubin AST ALT Alkaline Phosphatase Troponin I 0.026 NT-Pro-B Natriuret Pep Serum Total Protein Albumin SARS-CoV-2 (PCR) NEGATIVE 11/05/20 11/05/20 11/05/20 04:15 04:15 03:00 WBC 9.7 RBC 3.88 L Hgb 11.9 L Hct 37.9 L MCV 97.7 MCH 30.7 MCHC 31.4 L RDW 14.1 H Plt Count 239 MPV 9.9 Gran % 71.4 H Eos # (Auto) 0.06 Absolute Lymphs (auto) 1.67 Absolute Monos (auto) 1.01 Lymphocytes % 17.3 L Monocytes % 10.5 Eosinophils % 0.6 Basophils % 0.2 Absolute Granulocytes 6.90 Basophils # 0.02 Sodium 133 L Potassium 4.8 Chloride 100 Carbon Dioxide 22 Anion Gap 14.9 BUN 26 H Creatinine 1.62 H Estimated GFR 43.8 Glucose 257 H POC Glucometer Hemoglobin A1c 7.42 H Lactic Acid Calcium 9.6 Magnesium 1.7 Total Bilirubin 0.70 AST 22 ALT 16 Alkaline Phosphatase 67 Troponin I NT-Pro-B Natriuret Pep 3560 H Serum Total Protein 6.9 Albumin 4.0 SARS-CoV-2 (PCR) Orders (Last 24 hours) Category Date Time Status Bedrest ROUTINE Activity 11/05/20 08:17 Active Up With Assistance ROUTINE Activity 11/05/20 08:17 Active Code Status Order ROUTINE Care 11/05/20 08:17 Active Fall Protocol ROUTINE Care 11/05/20 08:17 Active IV Care Q6H Care 11/05/20 08:17 Active Oxygen-ED Only Nasal Cannula 2 lpm Care 11/05/20 03:55 Completed POCT Glucose Check ACHS Care 11/05/20 08:[address] in Observation ROUTINE Care 11/05/20 08:17 Active Torri Jeronimo ROUTINE Care 11/05/20 08:17 Active Telemetry q6h Care 11/05/20 08:17 Active Weight,Daily 0600 Care 11/05/20 08:17 Active 1800 Calorie Carbohydrate Diet [Consistent Carbohydrate Diet 11/06/20 Breakfast Active Diet 1800 Calorie] Consistent Carbohydrate Diet 1800 Calorie Diet 11/05/20 Breakfast Active CHEST 1 VIEW (PORTABLE) Stat Exams 11/05/20 03:55 Completed BLOOD CULTURE Stat Lab 11/05/20 04:15 Received CBC W DIFF AM.LAB Lab 11/06/20 04:00 Ordered CBC W DIFF Stat Lab 11/05/20 04:15 Completed CMP AM.LAB Lab 11/06/20 04:00 Ordered CMP Stat Lab 11/05/20 04:15 Completed HEMOGLOBIN A1C Urgent Lab 11/05/20 03:00 Completed Lactic Acid Stat Lab 11/05/20 04:30 Completed MAGNESIUM Stat Lab 11/05/20 04:15 Completed NT PRO BNP Stat Lab 11/05/20 04:15 Completed POCT GLUCOSE Stat Lab 11/05/20 11:58 Completed POCT GLUCOSE Stat Lab 11/05/20 16:30 Completed TROPONIN Q3H Lab 11/05/20 04:15 Completed TROPONIN Q3H Lab 11/05/20 07:00 Completed TROPONIN Q3H Lab 11/05/20 09:57 Completed TROPONIN Q3H Lab 11/05/20 13:15 Completed TROPONIN Q3H Lab 11/05/20 16:10 Completed Acetaminophen 325 mg [Tylenol 325 mg] Med 11/05/20 10:42 Active 325 mg PO Q4H PRN PRN Acetaminophen 325 mg [Tylenol 325 mg] Med 11/05/20 08:17 Discontinued 650 mg PO Q4H PRN PRN Albuterol 8 gm Mdi Hfa [Ventolin Hfa MDI] Med 11/05/20 11:00 Active 4 gm IH Q4HRT Albuterol Common Canister [Ventolin Common Canister* Med 11/05/20 11:00 Discontinued ] 4 puff IH Q4HRT Albuterol/Ipratropium 3ml Neb* [DUONEB 0.5-3 MG/3 ml Med 11/05/20 04:02 Discontinued Neb] 3 ml IH .STK-MED ONE Albuterol/Ipratropium 3ml Neb* [DUONEB 0.5-3 MG/3 ml Med 11/05/20 08:17 Discontinued Neb] 3 ml IH Q4HRT Albuterol/Ipratropium 3ml Neb* [DUONEB 0.5-3 MG/3 ml Med 11/05/20 03:55 Discontinued Neb] 3 ml IH STAT ONE Amiodarone HCl 200 mg [Cordarone 200 MG] Med 11/05/20 10:00 Active 200 mg PO QOD Amlodipine Besylate 5 mg [Norvasc 5 mg] Med 11/05/20 11:00 Active 5 mg PO DAILY Aspirin EC 81 mg [Ecotrin 81 mg] Med 11/05/20 11:00 Active 81 mg PO DAILY Azithromycin 500 mg/250 ml [Zithromax 500 MG/ 250 ML Med 11/06/20 10:00 Active NaCl Premix] 500 mg in 250 ml IV Q24H10 Azithromycin 500 mg/250 ml [Zithromax 500 MG/ 250 ML Med 11/05/20 03:56 Discontinued NaCl Premix] 500 mg in 250 ml IV STAT Azithromycin 500 mg/250 ml [Zithromax 500 MG/ 250 ML Med 11/05/20 04:15 Discontinued NaCl Premix] 500 mg in 250 ml IV UD Calcium Carb/Vitamin D 500 mg* [Calcium 500MG W/Vit D Med 11/05/20 11:00 Active Tablet] 2 tab PO DAILY Ceftriaxone 1 GM/50 ML PREMIX* [ROCEPHIN 1 Gm-D5w 50 ml Med 11/06/20 10:00 Active Bag] 1 g in 50 ml IV Q24H10 Ceftriaxone 2 GM/50 ML PREMIX* [ROCEPHIN 2 Gm-D5w 50ML Med 11/05/20 03:56 Discontinued BAG] 2 g in 50 ml IV STAT Ceftriaxone 2 GM/50 ML PREMIX* [ROCEPHIN 2 Gm-D5w 50ML Med 11/05/20 04:15 Discontinued BAG] 2 g in 50 ml IV UD Cholecalciferol (Vitamin D3) [Vitamin D] Med 11/05/20 10:00 Active 5,000 unit PO TuSa Clopidogrel Bisulfate 75 mg [PLAVIX 75 MG Tablet] Med 11/05/20 11:00 Active 75 mg PO DAILY Clotrimazole Cream 30 gm [Lotrimin Cream 30 gm] Med 11/05/20 11:00 Active 0 gm TOP BID Enoxaparin Sodium [Enoxaparin Sodium] Med 11/05/20 10:00 Active 40 mg SQ DAILY Finasteride 5 mg [Proscar 5 MG] Med 11/05/20 11:00 Active 5 mg PO DAILY Furosemide 20 mg [Lasix 20 mg] Med 11/05/20 10:00 Active 20 mg PO QOD Gabapentin 300 mg [Neurontin 300 mg] Med 11/05/20 11:00 Active 300 mg PO BID Glimepiride 2 mg [Amaryl 2 MG] Med 11/05/20 11:00 Active 2 mg PO BIDWM Insulin Lispro [Humalog] Med 11/05/20 08:17 Active See Dose Instructions SQ UD PRN Lisinopril 10 mg [Zestril 10 MG] Med 11/05/20 11:00 Active 10 mg PO DAILY Metformin HCl 500 mg [Glucophage 500 MG] Med 11/05/20 12:00 Active 500 mg PO TIDWM Methylprednis Sod Succ 125 mg* [solu-MEDROL] Med 11/05/20 04:15 Discontinued 125 mg .ROUTE .STK-MED ONE Methylprednis Sod Succ 125 mg* [solu-MEDROL] Med 11/05/20 17:10 Discontinued 125 mg .ROUTE .STK-MED ONE Methylprednis Sod Succ 125 mg* [solu-MEDROL] 125 mg Med 11/05/20 03:55 Discontinued Water For Injection,Sterile [Sterile H2O 10 ml] 2 ml IV STAT Methylprednis Sod Succ 125 mg* [solu-MEDROL] 60 mg Med 11/05/20 12:00 Active Water For Injection,Sterile [Sterile H2O 10 ml] 2 ml IV Q6HT Metoprolol Tartrate 50 mg [Lopressor 50 MG] Med 11/05/20 11:00 Active 50 mg PO BID Multivitamins,Therapeutic Tab* [Theragran Multivitamin* Med 11/05/20 11:00 Active ] 1 tab PO DAILY Nitroglycerin 0.4 mg Tablet [Nitrostat 0.4 MG Tablet Med 11/05/20 10:45 Active ] 0.4 mg SL UD PRN P-Ephed Sul/Loratadine 24Hr [Claritin-D 24Hr Tablet* Med 11/05/20 11:00 Active ] 1 each PO DAILY Pantoprazole 40 mg [Protonix 40 mg IV] Med 11/05/20 10:00 Active 40 mg IV Q24H10 Simvastatin 20Mg [Zocor 20Mg] Med 11/05/20 22:00 Active 20 mg PO HS Tamsulosin HCl 0.4 mg [Flomax 0.4 MG] Med 11/05/20 11:00 Active 0.4 mg PO BID Water For Injection,Sterile [Sterile H2O 10 ml] Med 11/05/20 04:16 Discontinued 10 ml IJ .STK-MED ONE Water For Injection,Sterile [Sterile H2O 10 ml] Med 11/05/20 12:00 Active 2 ml IJ Q6HT Oxygen Nasal Cannula 2 lpm RT 11/05/20 08:17 Active Pulse Oximetry ROUTINE RT 11/05/20 10:22 Active Respiratory Therapy Assessment DAILY RT 11/05/20 04:21 Completed Respiratory Therapy Assessment DAILY RT 11/06/20 07:00 Active Transfer Order Routine Transfer 11/05/20 Completed Patient Care Notes (Last 24 hours) 11/05/20 13:16 Pharmacy Note by Refugio Naylor Please be aware of possible drug interaction with Amiodarone and Zithromax. May prolong QT interval. Initialized on 11/05/20 13:16 - END OF NOTE 11/05/20 09:24 Nursing Note by Jazz Ledbetter called Dr Oviedo to report pt elevated troponin. left message, waiting for call back Initialized on 11/05/20 09:24 - END OF NOTE Code(s): J18.9 - PNEUMONIA, UNSPECIFIED ORGANISM (2) Respiratory failure Current Visit: Yes Status: Acute Qualifiers: Chronicity: acute on chronic Respiratory failure complication: hypoxia and hypercapnia Qualified Code(s): J96.21 - Acute and chronic respiratory failure with hypoxia; J96.22 - Acute and chronic respiratory failure with hypercapnia Code(s): J96.90 - RESPIRATORY FAILURE, UNSP, UNSP W HYPOXIA OR HYPERCAPNIA (3) CHF (congestive heart failure), NYHA class II Current Visit: No Status: Acute Code(s): I50.9 - HEART FAILURE, UNSPECIFIED
[2020-11-05] MEDS ORDERED: GLIMEPIRIDE 2 MG PO SCH (22:00)
[2020-11-05] MEDS ORDERED: ZOCOR 20MG PO SCH (22:00)
[2020-11-06] MEDS: Ventolin Hfa MDI IH SCH ×3 (02:24→10:16)
[2020-11-06] MEDS: solu-MEDROL 60 MG, Sterile H2O 10 ml 2 ML IV SCH ×2 (05:15)
[2020-11-06] MEDS: Sterile H2O 10 ml IJ SCH (05:16)
[2020-11-06] MEDS: HUMALOG SQ PRN (07:44)
[2020-11-06] MEDS: Glucophage 500 MG PO SCH (07:44)
[2020-11-06] MEDS: Amaryl 2 MG PO SCH (07:44)
[2020-11-06 08:07] LABS: Absolute Neutrophil Ct (ANC) 10.57 (1.4-6.9); BASOPHIL % 0.3 % (0.0-0.4); Basophil (Absolute #) 0.03 (0-0.4); Eosinophil (Absolute #) 0 (0-0.5); Hematocrit 37.7 % (42-50); Hemoglobin 11.8 gm/dl (12.5-18.0); Lymphocyte (Absolute #) 0.41 (1.0-4.6); Lymphocytes % 3.6 % (24.0-44.0); Mean Cell Volume 97.2 fl (78-100); Mean Corpuscular Hemoglobin 30.4 pg (26-32); Mean Corpuscular Hgb Concent. 31.3 g/dl (32-36); Mean Platelet Volume 10.1 fl (7.5-11.0); Monocyte (Absolute #) 0.33 (0.0-1.3); Monocytes % 2.9 % (0.0-12.0); Neutrophil % 93.2 % (36.0-66.0); Platelet Count 284 K/mm3 (150-450); Red Blood Count 3.88 M/mm3 (4.1-5.6); Red Cell Distribution Width 13.9 % (11.5-14.0); White Blood Count 11.3 K/mm3 (4.0-10.5)
[2020-11-06 08:57] VITALS: BP 141/60
[2020-11-06 09:15] LABS: ANION GAP 19.9 MEQ/L (5-15); BILIRUBIN,TOTAL 0.4 mg/dL (0.2-1.3); Calcium 9.5 mg/dL (8.4-10.2); Creatinine 1 1.68 mg/dL (0.66-1.25); Potassium 4.4 mmol/L (3.5-5.1)
[2020-11-06] MEDS: CLARITIN-D 24HR TABLET PO SCH (09:33)
[2020-11-06] MEDS: Calcium 500MG W/Vit D Tablet PO SCH (09:33)
[2020-11-06] MEDS: Flomax 0.4 MG PO SCH (09:34)
[2020-11-06] MEDS: NEURONTIN 300 MG PO SCH (09:34)
[2020-11-06] MEDS: PROTONIX 40 MG IV IV SCH (09:34)
[2020-11-06] MEDS: PLAVIX 75 MG Tablet PO SCH (09:34)
[2020-11-06] MEDS: ENOXAPARIN SODIUM SQ SCH (09:34)
[2020-11-06] MEDS: NORVASC 5 MG PO SCH (09:34)
[2020-11-06] MEDS: ECOTRIN 81 MG PO SCH (09:34)
[2020-11-06] MEDS: THERAGRAN MULTIVITAMIN PO SCH (09:34)
[2020-11-06] MEDS: Lopressor 50 MG PO SCH (09:34)
[2020-11-06] MEDS: Zestril 10 MG PO SCH (09:34)
[2020-11-06] MEDS: Proscar 5 MG PO SCH (09:35)
[2020-11-06] MEDS: LOTRIMIN CREAM 30 GM TOP SCH (09:35)
[2020-11-06] MEDS ORDERED: CALCIUM CARBONATE PO SCH (10:00)
[2020-11-06] MEDS ORDERED: PSEUDOEPHEDRINE PO SCH (10:00)
[2020-11-06] MEDS ORDERED: FEXOFENADINE PO SCH (10:00)
[2020-11-06] MEDS ORDERED: NON-FORMULARY ITEM (Aspirin [Aspirin] 81 MG) PO SCH (10:00)
[2020-11-06] MEDS ORDERED: ROCEPHIN 1 Gm-D5w 50 ml Bag** 1 G/50 ML IVPB IV SCH (10:00)
[2020-11-06] MEDS ORDERED: Zithromax 500 MG/ 250 ML NaCl Premix 500 MG/250 ML IVPB IV SCH (10:00)
[2020-11-06] MEDS ORDERED: NON-FORMULARY ITEM (Multivitamin [Multivitamins] 1 EACH) PO SCH (10:00)
[2020-11-06 10:18] VITALS: PULSE 67; O2SAT 96
[2020-11-06 11:43] LABS: Slide Review 1 YES
== END 2020-11-06 12:02 | disposition home or self-care (01) ==
LOC: ED 03:50 → MED SURG 08:05
PROVIDERS: ADMIT General Practice; ATTEND General Practice
DX: J18.9 Pneumonia, unspecified organism (principal); I50.9 Heart failure, unspecified; J96.21 Acute and chronic respiratory failure with hypoxia; J96.22 Acute and chronic respiratory failure with hypercapnia; E11.9 Type 2 diabetes mellitus without complications; I10 Essential (primary) hypertension; R07.89 Other chest pain; I25.10 Atherosclerotic heart disease of native coronary artery without angina pectoris; Z79.899 Other long term (current) drug therapy; Z79.01 Long term (current) use of anticoagulants; Z85.038 Personal history of other malignant neoplasm of large intestine; Z90.49 Acquired absence of other specified parts of digestive tract; E78.00 Pure hypercholesterolemia, unspecified; Z20.822 Contact with and (suspected) exposure to COVID-19
CPT/HCPCS: 36000; 36415; 71045; 80053; 82947; 83036; 83605; 83735; 83880; 84484; 85025; 87040; 93268; 94640; 94760; 96365; 96374; 99284; 99291; G0378; U0003; J0456; J0696; J1650; J1817; J2930; A9270-GY

== ENCOUNTER 2021-01-23 22:03 | Inpatient (IN) | payer MEDICARE, OTHER ==
[2021-01-23] MEDS ORDERED: DUONEB 0.5-3 MG/3 ml Neb IH ONE ×2 (22:13→22:29)
[2021-01-23] MEDS ORDERED: BABY ASPIRIN 81 MG CHEW PO ONE (22:14)
--- NOTE | 2021-01-23 22:18 | ERPHSYRPT ---
- History of Present Illness Time Seen by Provider: 01/23/21 22:05 Source: patient, EMS Exam Limitations: no limitations Physician History: 80-year-old male with multiple medical problems including coronary artery disease status post stenting, atrial fibrillation not anticoagulated, congestive heart failure, diabetes mellitus, COPD with chronic respiratory failure on 2 L oxygen presented in the ER with increasing shortness of breath since morning, initially with activity and now even resting. Patient report he was having increasing shortness of breath with minimal activity like going to the bathroom and this evening its got worse to the point that he was feeling short of breath even resting. Has minimal productive cough with some chest tightness but no pain. Denies any lower extremity swellings. No fever or chills reported. Did receive his booster Covid vaccine 2 days ago and was not feeling well since then. Timing/Duration: today, constant, gradual onset, worse Activities at Onset: activity, rest Severity of Dyspnea-Max: moderate Severity of Dyspnea-Current: moderate Possible Cause: unknown cause Modifying Factors: Improves With: albuterol nebulizer, oxygen, rest. Worsens With: coughing, exertion Associated Symptoms: cough, wheezing, tightness, No edema, No heart racing, No lightheadedness, No muscle spasms feet, No painful breathing Allergies/Adverse Reactions: No Known Drug Allergies Allergy (Verified 01/23/21 22:07) Home Medications: Amiodarone HCl 200 mg [Cordarone 200 MG] 200 mg PO UD 02/27/14 [History] Amlodipine Besylate 5 mg [Norvasc 5 mg] 5 mg PO DAILY 02/27/14 [History] Clopidogrel Bisulfate [Plavix] 75 mg PO DAILY 02/27/14 [History] Furosemide 20 mg PO UD 02/27/14 [History] Glimepiride 2 mg PO BID 02/27/14 [History] Lisinopril 10 mg [Zestril 10 MG] 10 mg PO DAILY 02/27/14 [History] Metoprolol Tartrate 50 mg PO BID 02/27/14 [History] Simvastatin [Zocor] 20 mg PO HS 02/27/14 [History] Tamsulosin HCl 0.4 mg [Flomax 0.4 MG] 0.4 mg PO BID 02/27/14 [History] Multivitamin [Multivitamins] 1 each PO DAILY 11/09/14 [History] Acetaminophen [Tylenol] 325 mg PO Q4H PRN PRN 11/05/20 [History] Aspirin 81 mg PO DAILY 11/05/20 [History] Calcium Carbonate [Calcium] 2 tab PO DAILY 11/05/20 [History] Cholecalciferol (Vitamin D3) [Vitamin D3] 5,000 unit PO UD 11/05/20 [History] Clotrimazole Cream 30 gm [Lotrimin Cream 30 gm] 30 gm TOP BID 11/05/20 [History] Fexofenadine/Pseudoephedrine [Cristina-D 24 Hour Tablet] 1 tab PO DAILY 11/05/20 [History] Finasteride 5 mg [Proscar 5 MG] 1 tab PO DAILY 11/05/20 [History] Gabapentin 300 mg [Neurontin 300 mg] 300 mg PO BID 11/05/20 [History] Metformin HCl 500 mg [Glucophage 500 MG] 500 mg PO TID 11/05/20 [History] Nitroglycerin 0.4 mg Tablet [Nitrostat 0.4 MG Tablet] 1 tab SL UD 11/05/20 [History] Hx Tetanus, Diphtheria Vaccination/Date Given: Yes (UNKNOWN) Hx Influenza Vaccination/Date Given: Yes Hx Pneumococcal Vaccination/Date Given: No Travel Risk - Vaccine Status Have you recieved a Covid-19 vaccination: Yes 3Rd Pressman: Cleo - Review of Systems Constitutional: Fatigue, Weakness Eyes: No Symptoms Ears, Nose, & Throat: No Symptoms Respiratory: Cough, Dyspnea, Dyspnea on Exertion (UMANA), Wheezing Cardiac: No Symptoms Abdominal/Gastrointestinal: No Symptoms Genitourinary Symptoms: No Symptoms Musculoskeletal: Arthralgias Skin: No Symptoms Neurological: No Symptoms Psychological: No Symptoms Endocrine: No Symptoms Hematologic/Lymphatic: No Symptoms Immunological/Allergic: No Symptoms - Past Medical History Pertinent Past Medical History: Yes Neurological History: Stroke ENT History: No Pertinent History Cardiac History: Arrhythmia, Coronary Artery Disease, High Cholesterol, Hypertension, Myocardial Infarction ([place]), Peripheral Vascular Disease Respiratory History: CHF Endocrine Medical History: Diabetes Type II Musculoskeletal History: No Pertinent History GI Medical History: GERD, Hernia History: No Pertinent History Psycho-Social History: Depression Male Reproductive Disorders: Prostate Problems Other Medical History: PARTIAL PROSTATE REMOVED. HX OF AFIB. SEVERAL STENTS. COLON CANCER-REMISSION AT THIS TIME. anemia - Past Surgical History Past Surgical History: Yes Neuro Surgical History: No Pertinent History Cardiac: Cardiac Catheterization, Cardiac Stent Respiratory: No Pertinent History Gastrointestinal: Bowel Surgery, Colon Resection, Hernia Repair Genitourinary: No Pertinent History Musculoskeletal: No Pertinent History Male Surgical History: Prostate Surgery Other Surgical History: PART OF COLON REMOVED. COLOSTOMY - Social History Smoking Status: Former smoker Exposure to second hand smoke: No Alcohol Use: None Drug Use: none Patient Lives Alone: No Significant Family History: no pertinent family hx - Nursing Vital Signs Nursing Vital Signs: Initial Vital Signs Temperature 99.4 F 01/23/21 22:08 Pulse Rate 92 H 01/23/21 22:08 Respiratory Rate 20 01/23/21 22:08 Blood Pressure 144/59 01/23/21 22:08 O2 Sat by Pulse Oximetry 95 01/23/21 22:08 Pain Scale Pain Intensity 0 - Physical Exam General Appearance: mild distress, alert Eye Exam: PERRL/EOMI, eyes nml inspection Ears, Nose, Throat Exam: hearing grossly normal, normal pharynx Neck Exam: normal inspection, supple, full range of motion Respiratory Exam: diminished breath sounds, wheezing Cardiovascular/Chest Exam: normal heart sounds, regular rate/rhythm Abdominal/Gastrointestinal Exam: soft, normal bowel sounds Extremity Exam: non-tender, normal range of motion, normal inspection, normal capillary refill Neurologic Exam: alert, oriented x 3, cooperative, web 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 developer II-XII nml as tested Skin Exam: normal color SpO2 Interpretation: normal, O2 applied SpO2: 94 O2 Delivery: Nasal Cannula - Course EKG Interpreted by Me: RATE (90), Sinus Rhythm, NORMAL AXIS, prolonged QT interval, Q-wave, Non-specific ST Changes Ordered Tests: Active Orders 24 hr Category Date Time Status 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 Machine 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 STAT Care 01/23/21 22:14 Active EKG-ER Only STAT Care 01/23/21 22:13 Active IV Insertion STAT Care 01/23/21 22:13 Active Oxygen-ED Only Nasal Cannula 2 lpm Care 01/23/21 22:13 Active CHEST 1 VIEW (PORTABLE) Stat Exams 01/23/21 22:14 Taken BLOOD CULTURE Stat Lab 01/23/21 22:35 Received CBC W DIFF Stat Lab 01/23/21 22:25 Completed CMP Stat Lab 01/23/21 22:25 Completed MAGNESIUM Stat Lab 01/23/21 22:25 Completed NT PRO BNP Stat Lab 01/23/21 22:25 Completed TROPONIN Q3H Lab 01/23/21 22:25 Completed TROPONIN Q3H Lab 01/24/21 01:15 Ordered TROPONIN Q3H Lab 01/24/21 04:15 Ordered TROPONIN Q3H Lab 01/24/21 07:15 Ordered TROPONIN Q3H Lab 01/24/21 10:15 Ordered Respiratory Therapy Assessment DAILY RT 01/23/21 22:28 Completed Transfer Order Routine Transfer 01/23/21 Ordered Medication Summary Generic Name Dose Route Start Last Admin Trade Name Freq PRN Reason Stop Dose Admin Azithromycin 500 mg in 250 mls @ 250 mls/hr 01/23/21 23:19 01/23/21 23:28 Zithromax 500 Mg/ 250 Ml Nacl Premix IV 01/24/21 00:18 250 mls/hr STAT STA 250 mls/hr Administration Discontinued Medications Generic Name Dose Route Start Last Admin Trade Name Freq PRN Reason Stop Dose Admin Albuterol/Ipratropium 3 ml 01/23/21 22:13 01/23/21 22:36 Ipratropium/Albuterol Sulfate 3 Ml Ampul.Neb IH 01/23/21 22:14 3 ml STAT ONE Administration Albuterol/Ipratropium Confirm 01/23/21 22:29 Ipratropium/Albuterol Sulfate 3 Ml Ampul.Neb Administered 01/23/21 22:30 Dose 3 ml IH .STK-MED ONE Aspirin 324 mg 01/23/21 22:14 01/23/21 23:33 Aspirin 81 Mg Tab.Chew PO 01/23/21 22:15 324 mg STAT ONE Administration Aspirin Confirm 01/23/21 23:27 Aspirin 81 Mg Tab.Chew Administered 01/23/21 23:28 Dose 324 mg .ROUTE .STK-MED ONE Furosemide 40 mg 01/23/21 23:19 01/23/21 23:32 Furosemide 40 Mg/4 Ml Vial IV 01/23/21 23:20 40 mg STAT ONE Administration Furosemide Confirm 01/23/21 23:27 Furosemide 40 Mg/4 Ml Vial Administered 01/23/21 23:28 Dose 40 mg .ROUTE .STK-MED ONE Ceftriaxone Sodium/Dextrose 2 g in 50 mls @ 100 mls/hr 01/23/21 23:19 01/23/21 23:32 Rocephin 2 Gm-D5w 50ml Bag IV 01/23/21 23:48 100 mls/hr STAT STA 100 mls/hr Administration Azithromycin Confirm 01/23/21 23:27 Zithromax 500 Mg/ 250 Ml Nacl Premix Administered 01/23/21 23:28 Dose 500 mg in 250 mls @ ud IV .STK-MED ONE Ceftriaxone Sodium/Dextrose Confirm 01/23/21 23:27 Rocephin 2 Gm-D5w 50ml Bag Administered 01/23/21 23:28 Dose 2 g in 50 mls @ ud IV .STK-MED ONE Lab/Rad Data: Laboratory Result Diagrams 01/23/21 22:25 01/23/21 22:25 Laboratory Results 01/23/21 01/23/21 01/23/21 Range/Units 22:25 22:25 22:25 WBC 12.8 H (4.0-10.5) K/mm3 RBC 3.92 L (4.1-5.6) M/mm3 Hgb 11.3 L (12.5-18.0) gm/dl Hct 37.5 L (42-50) % MCV 95.7 (78-100) fl MCH 28.8 (26-32) pg MCHC 30.1 L (32-36) g/dl RDW 14.5 H (11.5-14.0) % Plt Count 340 (150-450) K/mm3 MPV 9.2 (7.5-11.0) fl Gran % 81.3 H (36.0-66.0) % Eos # (Auto) 0.16 (0-0.5) Absolute Lymphs (auto) 1.03 (1.0-4.6) Absolute Monos (auto) 1.16 (0.0-1.3) Lymphocytes % 8.0 L (24.0-44.0) % Monocytes % 9.1 (0.0-12.0) % Eosinophils % 1.2 (0.00-5.0) % Basophils % 0.4 (0.0-0.4) % Absolute Granulocytes 10.41 H (1.4-6.9) Basophils # 0.05 (0-0.4) Sodium 135 L (137-145) mmol/L Potassium 4.1 (3.5-5.1) mmol/L Chloride 96 L (98-107) mmol/L Carbon Dioxide 25 (22-30) mmol/L Anion Gap 18.3 H (5-15) MEQ/L BUN 28 H (9-20) mg/dL Creatinine 1.70 H (0.66-1.25) mg/dL Estimated GFR 41.3 ML/MIN Glucose 247 H (74-106) mg/dL Calcium 9.0 (8.4-10.2) mg/dL Magnesium 1.6 (1.6-2.3) mg/dL Total Bilirubin 0.60 (0.2-1.3) mg/dL AST 18 (17-59) U/L ALT 15 (0-50) U/L Alkaline Phosphatase 77 (38-126) U/L Troponin I 0.018 (0.000-0.034) ng/mL NT-Pro-B Natriuret Pep 5030 H (0-1800) pg/mL Serum Total Protein 7.2 (6.3-8.2) g/dL Albumin 4.1 (3.5-5.0) g/dL - Progress Progress: improved Air Movement: good Progress Note: 01/23/21 23:46 given another breathing treatment along with a dose of Lasix. On reevaluation feeling better. EKG showed sinus rhythm with PACs and no acute ST elevation. Negative initial troponins. Elevated BNP. Chest x-ray showed bilateral airspace disease and given a dose of antibiotics. Discussed with Dr. Cain and patient is accepted for admission. Blood Culture(s) Obtained: Yes Antibiotics given: Yes Discussed with : Karl Counseled pt/family regarding: lab results, diagnosis, need for follow-up, rad results - Departure Departure Disposition: Observation Clinical Impression: Bilateral pneumonia, CHF (congestive heart failure) Condition: Stable Critical Care Time: No Referrals: DAIJA MARTE [employer] SALES REPRESENTATIVE [Primary Care Provider] - Follow up/PCP as directed Instructions: Heart Failure
[2021-01-23 22:40] LABS: Absolute Neutrophil Ct (ANC) 10.41 (1.4-6.9); BASOPHIL % 0.4 % (0.0-0.4); Basophil (Absolute #) 0.05 (0-0.4); Eosinophil % 1.2 % (0.00-5.0); Eosinophil (Absolute #) 0.16 (0-0.5); Hematocrit 37.5 % (42-50); Hemoglobin 11.3 gm/dl (12.5-18.0); Lymphocyte (Absolute #) 1.03 (1.0-4.6); Mean Cell Volume 95.7 fl (78-100); Mean Corpuscular Hemoglobin 28.8 pg (26-32); Mean Corpuscular Hgb Concent. 30.1 g/dl (32-36); Mean Platelet Volume 9.2 fl (7.5-11.0); Monocyte (Absolute #) 1.16 (0.0-1.3); Monocytes % 9.1 % (0.0-12.0); Neutrophil % 81.3 % (36.0-66.0); Platelet Count 340 K/mm3 (150-450); Red Blood Count 3.92 M/mm3 (4.1-5.6); Red Cell Distribution Width 14.5 % (11.5-14.0); White Blood Count 12.8 K/mm3 (4.0-10.5)
[2021-01-23 23:00] LABS: ALBUMIN 4.1 g/dL (3.5-5.0); ANION GAP 18.3 MEQ/L (5-15); BILIRUBIN,TOTAL 0.6 mg/dL (0.2-1.3); Creatinine 1 1.7 mg/dL (0.66-1.25); EST GLOMERULAR FILTRATION RATE 41.3 ML/MIN; MAGNESIUM 1.6 mg/dL (1.6-2.3); Potassium 4.1 mmol/L (3.5-5.1); Total Protein 7.2 g/dL (6.3-8.2)
[2021-01-23] MEDS ORDERED: Lasix 40 MG/4 ML IV ONE (23:19)
[2021-01-23] MEDS ORDERED: ROCEPHIN 2 Gm-D5w 50ML BAG** 2 G/50 ML IVPB IV STA (23:19)
[2021-01-23] MEDS ORDERED: Zithromax 500 MG/ 250 ML NaCl Premix 500 MG/250 ML IVPB IV STA (23:19)
[2021-01-23] MEDS ORDERED: Lasix 40 MG/4 ML ONE (23:27)
[2021-01-23] MEDS ORDERED: ROCEPHIN 2 Gm-D5w 50ML BAG** 2 G/50 ML IVPB IV ONE (23:27)
[2021-01-23] MEDS ORDERED: BABY ASPIRIN 81 MG CHEW ONE (23:27)
[2021-01-23] MEDS ORDERED: Zithromax 500 MG/ 250 ML NaCl Premix 500 MG/250 ML IVPB IV ONE (23:27)
[2021-01-24 01:15] LABS: INFLUENZA A NEGATIVE (NEGATIVE); INFLUENZA B NEGATIVE (NEGATIVE); RESPIRATORY SYNCTIAL VIRUS NEGATIVE (Negative); SARS-CoV-2 Xpert Express NEGATIVE (NEGATIVE)
[2021-01-24] MEDS ORDERED: MORPHINE SULFATE 2 MG INJ IV PRN (01:36)
[2021-01-24] MEDS ORDERED: Zofran 4 MG/2 ML VIAL IV PRN (01:36)
[2021-01-24] MEDS ORDERED: DUONEB 0.5-3 MG/3 ml Neb IH SCH (01:36)
[2021-01-24] MEDS ORDERED: DUONEB 0.5-3 MG/3 ml Neb IH PRN (04:32)
[2021-01-24 05:48] LABS: Absolute Neutrophil Ct (ANC) 5.89 (1.4-6.9); BASOPHIL % 0.4 % (0.0-0.4); Basophil (Absolute #) 0.03 (0-0.4); Eosinophil % 1.5 % (0.00-5.0); Eosinophil (Absolute #) 0.13 (0-0.5); Hematocrit 31.8 % (42-50); Hemoglobin 9.4 gm/dl (12.5-18.0); Lymphocyte (Absolute #) 1.25 (1.0-4.6); Lymphocytes % 14.7 % (24.0-44.0); Mean Cell Volume 96.7 fl (78-100); Mean Corpuscular Hemoglobin 28.6 pg (26-32); Mean Corpuscular Hgb Concent. 29.6 g/dl (32-36); Mean Platelet Volume 9.5 fl (7.5-11.0); Monocyte (Absolute #) 1.19 (0.0-1.3); Neutrophil % 69.4 % (36.0-66.0); Platelet Count 342 K/mm3 (150-450); Red Blood Count 3.29 M/mm3 (4.1-5.6); Red Cell Distribution Width 14.5 % (11.5-14.0); White Blood Count 8.5 K/mm3 (4.0-10.5)
[2021-01-24 06:10] LABS: ALBUMIN 3.2 g/dL (3.5-5.0); ANION GAP 15.6 MEQ/L (5-15); BILIRUBIN,TOTAL 0.5 mg/dL (0.2-1.3); Calcium 8.8 mg/dL (8.4-10.2); Creatinine 1 1.74 mg/dL (0.66-1.25); EST GLOMERULAR FILTRATION RATE 40.2 ML/MIN; Potassium 4.7 mmol/L (3.5-5.1); Total Protein 5.6 g/dL (6.3-8.2)
--- NOTE | 2021-01-24 09:08 | XRAY ---
Indication: Short of breath. Comparison: November 19, 2020. Portable apical lordotic chest demonstrates new diffuse bilateral airspace disease and tiny right effusion. Heart not enlarged for AP portable technique. Bony thorax intact. Comment: Preliminary interpretation made by C. No critical discrepancy.
--- NOTE | 2021-01-24 09:56 | PCM.HP ---
History of Present Illness - Chief Complaint Chief Complaint: pnuemonia History of Present Illness: is a 80 year old male who presented to the ER with acute onset of shortness of breath, he was having difficulty ambulating in the home, he was admitted for bilateral pneumonia 2 months ago and has been on oxygen therapy since then, was reduced to just at night but was wearing yesterday and continued to worsen. he has no cough or shortness, no chest pain. - Review of Systems Constitutional: No Symptoms Respiratory: Short Of Breath, No Cough Cardiac: PND, No Chest Pain, No Edema Abdominal/Gastrointestinal: No Abdominal Pain, No Nausea, No Vomiting, No Diarrhea Skin: No Rash All Other Systems: Reviewed and Negative Medications & Allergies Home Medications: Home Medication List Amiodarone HCl 200 mg [Cordarone 200 MG] 200 mg PO UD 02/27/14 [History Confirmed 01/24/21] Amlodipine Besylate 5 mg [Norvasc 5 mg] 5 mg PO DAILY 02/27/14 [History Confirmed 01/24/21] Clopidogrel Bisulfate [Plavix] 75 mg PO DAILY 02/27/14 [History Confirmed 01/24/21] Furosemide 20 mg PO UD 02/27/14 [History Confirmed 01/24/21] Glimepiride 2 mg PO BID 02/27/14 [History Confirmed 01/24/21] Lisinopril 10 mg [Zestril 10 MG] 10 mg PO DAILY 02/27/14 [History Confirmed 01/24/21] Metoprolol Tartrate 50 mg PO BID 02/27/14 [History Confirmed 01/24/21] Simvastatin [Zocor] 20 mg PO HS 02/27/14 [History Confirmed 01/24/21] Tamsulosin HCl 0.4 mg [Flomax 0.4 MG] 0.4 mg PO BID 02/27/14 [History Confirmed 01/24/21] Multivitamin [Multivitamins] 1 each PO DAILY 11/09/14 [History Confirmed 01/24/21] Acetaminophen [Tylenol] 325 mg PO Q4H PRN PRN 11/05/20 [History Confirmed ] Aspirin 81 mg PO DAILY 11/05/20 [History Confirmed 01/24/21] Calcium Carbonate [Calcium] 2 tab PO DAILY 11/05/20 [History Confirmed 01/24/21] Cholecalciferol (Vitamin D3) [Vitamin D3] 5,000 unit PO UD 11/05/20 [History Confirmed 01/24/21] Fexofenadine/Pseudoephedrine [Cristina-D 24 Hour Tablet] 1 tab PO DAILY 11/05/20 [History Confirmed 01/24/21] Finasteride 5 mg [Proscar 5 MG] 1 tab PO DAILY 11/05/20 [History Confirmed 01/24/21] Gabapentin 300 mg [Neurontin 300 mg] 300 mg PO BID 11/05/20 [History Confirmed 01/24/21] Metformin HCl 500 mg [Glucophage 500 MG] 500 mg PO TID 11/05/20 [History Confirmed 01/24/21] Nitroglycerin 0.4 mg Tablet [Nitrostat 0.4 MG Tablet] 1 tab SL UD 11/05/20 [History Confirmed 01/24/21] Allergies/Adverse Reactions: Allergies Allergy/AdvReac Type Severity Reaction Status Date / Time No Known Drug Allergies Allergy Verified 01/23/21 22:07 - Past Medical History Past Medical History: Yes Neurological History: Stroke ENT History: No Pertinent History Cardiac History: Arrhythmia, Coronary Artery Disease, High Cholesterol, Hypertension, Myocardial Infarction (OR), Peripheral Vascular Disease Respiratory History: CHF Endocrine Medical History: Diabetes Type II Musculoskelatal History: No Pertinent History GI Medical History: GERD, Hernia History: No Pertinent History Pyscho-Social History: Depression Male Reproductive Disorders: Prostate Problems Comment: PARTIAL PROSTATE REMOVED. HX OF AFIB. SEVERAL STENTS. COLON CANCER- REMISSION AT THIS TIME. anemia - Past Surgical History Past Surgical History: Yes Neuro Surgical History: No Pertinent History Cardiac History: Cardiac Catheterization, Cardiac Stent Respiratory Surgery: No Pertinent History GI Surgical History: Bowel Surgery, Colon Resection, Hernia Repair Genitourinary Surgical Hx: No Pertinent History Musculskeletal Surgical Hx: No Pertinent History Male Surgical History: Prostate Surgery Other Surgical History: PART OF COLON REMOVED. COLOSTOMY - Social History Smoking Status: Former smoker Exposure to second hand smoke: No Alcohol: None Drug Use: none Significant Family History: no pertinent family hx - Physical Exam Vital Signs: Vital Signs - 24 hr Temp Pulse Resp BP Pulse Ox 01/24/21 07:46 96.9 F 57 L 16 110/56 96 01/24/21 05:36 62 22 91 L 01/24/21 02:49 97.3 F 98 H 22 111/53 95 01/24/21 02:08 60 103/47 94 L 01/24/21 01:07 63 112/59 95 01/24/21 00:09 82 24 140/48 96 01/23/21 23:54 94 L 01/23/21 22:37 85 20 94 L 01/23/21 22:08 99.4 F 92 H 20 144/59 95 General Appearance: no apparent distress, alert Neurologic Exam: alert, oriented x 3 Respiratory Exam: crackles/rales, No respiratory distress, No accessory muscle use Cardiovascular Exam: regular rate/rhythm, normal heart sounds, normal peripheral pulses Gastrointestinal/Abdomen Exam: soft, normal bowel sounds, No tenderness, No mass Extremity Exam: normal inspection, normal range of motion, pelvis stable Skin Exam: normal color, warm, dry, No rash Results - Labs Lab/Micro Results: Lab Results-Last 24 Hours 01/23/21 01/23/21 01/23/21 Range/Units 22:25 22:25 22:25 WBC 12.8 H (4.0-10.5) K/mm3 RBC 3.92 L (4.1-5.6) M/mm3 Hgb 11.3 L (12.5-18.0) gm/dl Hct 37.5 L (42-50) % MCV 95.7 (78-100) fl MCH 28.8 (26-32) pg MCHC 30.1 L (32-36) g/dl RDW 14.5 H (11.5-14.0) % Plt Count 340 (150-450) K/mm3 MPV 9.2 (7.5-11.0) fl Gran % 81.3 H (36.0-66.0) % Eos # (Auto) 0.16 (0-0.5) Absolute Lymphs (auto) 1.03 (1.0-4.6) Absolute Monos (auto) 1.16 (0.0-1.3) Lymphocytes % 8.0 L (24.0-44.0) % Monocytes % 9.1 (0.0-12.0) % Eosinophils % 1.2 (0.00-5.0) % Basophils % 0.4 (0.0-0.4) % Absolute Granulocytes 10.41 H (1.4-6.9) Basophils # 0.05 (0-0.4) Sodium 135 L (137-145) mmol/L Potassium 4.1 (3.5-5.1) mmol/L Chloride 96 L (98-107) mmol/L Carbon Dioxide 25 (22-30) mmol/L Anion Gap 18.3 H (5-15) MEQ/L BUN 28 H (9-20) mg/dL Creatinine 1.70 H (0.66-1.25) mg/dL Estimated GFR 41.3 ML/MIN Glucose 247 H (74-106) mg/dL POC Glucometer (74 to 106) mg/dL Calcium 9.0 (8.4-10.2) mg/dL Magnesium 1.6 (1.6-2.3) mg/dL Total Bilirubin 0.60 (0.2-1.3) mg/dL AST 18 (17-59) U/L ALT 15 (0-50) U/L Alkaline Phosphatase 77 (38-126) U/L Troponin I 0.018 (0.000-0.034) ng/mL NT-Pro-B Natriuret Pep 5030 H (0-1800) pg/mL Serum Total Protein 7.2 (6.3-8.2) g/dL Albumin 4.1 (3.5-5.0) g/dL Influenza Type A Ag (NEGATIVE) Influenza Type B Ag (NEGATIVE) RSV (PCR) (Negative) SARS-CoV-2 (PCR) (NEGATIVE) 01/24/21 01/24/21 01/24/21 Range/Units 00:14 01:15 04:55 WBC (4.0-10.5) K/mm3 RBC (4.1-5.6) M/mm3 Hgb (12.5-18.0) gm/dl Hct (42-50) % MCV (78-100) fl MCH (26-32) pg MCHC (32-36) g/dl RDW (11.5-14.0) % Plt Count (150-450) K/mm3 MPV (7.5-11.0) fl Gran % (36.0-66.0) % Eos # (Auto) (0-0.5) Absolute Lymphs (auto) (1.0-4.6) Absolute Monos (auto) (0.0-1.3) Lymphocytes % (24.0-44.0) % Monocytes % (0.0-12.0) % Eosinophils % (0.00-5.0) % Basophils % (0.0-0.4) % Absolute Granulocytes (1.4-6.9) Basophils # (0-0.4) Sodium (137-145) mmol/L Potassium (3.5-5.1) mmol/L Chloride (98-107) mmol/L Carbon Dioxide (22-30) mmol/L Anion Gap (5-15) MEQ/L BUN (9-20) mg/dL Creatinine (0.66-1.25) mg/dL Estimated GFR ML/MIN Glucose (74-106) mg/dL POC Glucometer (74 to 106) mg/dL Calcium (8.4-10.2) mg/dL Magnesium (1.6-2.3) mg/dL Total Bilirubin (0.2-1.3) mg/dL AST (17-59) U/L ALT (0-50) U/L Alkaline Phosphatase (38-126) U/L Troponin I 0.020 0.050 H* (0.000-0.034) ng/mL NT-Pro-B Natriuret Pep (0-1800) pg/mL Serum Total Protein (6.3-8.2) g/dL Albumin (3.5-5.0) g/dL Influenza Type A Ag NEGATIVE (NEGATIVE) Influenza Type B Ag NEGATIVE (NEGATIVE) RSV (PCR) NEGATIVE (Negative) SARS-CoV-2 (PCR) NEGATIVE (NEGATIVE) 01/24/21 01/24/21 01/24/21 Range/Units 04:55 04:55 07:13 WBC 8.5 (4.0-10.5) K/mm3 RBC 3.29 L (4.1-5.6) M/mm3 Hgb 9.4 L (12.5-18.0) gm/dl Hct 31.8 L (42-50) % MCV 96.7 (78-100) fl MCH 28.6 (26-32) pg MCHC 29.6 L (32-36) g/dl RDW 14.5 H (11.5-14.0) % Plt Count 342 (150-450) K/mm3 MPV 9.5 (7.5-11.0) fl Gran % 69.4 H (36.0-66.0) % Eos # (Auto) 0.13 (0-0.5) Absolute Lymphs (auto) 1.25 (1.0-4.6) Absolute Monos (auto) 1.19 (0.0-1.3) Lymphocytes % 14.7 L (24.0-44.0) % Monocytes % 14.0 H (0.0-12.0) % Eosinophils % 1.5 (0.00-5.0) % Basophils % 0.4 (0.0-0.4) % Absolute Granulocytes 5.89 (1.4-6.9) Basophils # 0.03 (0-0.4) Sodium 136 L (137-145) mmol/L Potassium 4.7 (3.5-5.1) mmol/L Chloride 100 (98-107) mmol/L Carbon Dioxide 25 (22-30) mmol/L Anion Gap 15.6 H (5-15) MEQ/L BUN 29 H (9-20) mg/dL Creatinine 1.74 H (0.66-1.25) mg/dL Estimated GFR 40.2 ML/MIN Glucose 150 H (74-106) mg/dL POC Glucometer 146 H (74 to 106) mg/dL Calcium 8.8 (8.4-10.2) mg/dL Magnesium (1.6-2.3) mg/dL Total Bilirubin 0.50 (0.2-1.3) mg/dL AST 16 L (17-59) U/L ALT 13 (0-50) U/L Alkaline Phosphatase 55 (38-126) U/L Troponin I (0.000-0.034) ng/mL NT-Pro-B Natriuret Pep (0-1800) pg/mL Serum Total Protein 5.6 L (6.3-8.2) g/dL Albumin 3.2 L (3.5-5.0) g/dL Influenza Type A Ag (NEGATIVE) Influenza Type B Ag (NEGATIVE) RSV (PCR) (Negative) SARS-CoV-2 (PCR) (NEGATIVE) 01/24/21 Range/Units 07:15 WBC (4.0-10.5) K/mm3 RBC (4.1-5.6) M/mm3 Hgb (12.5-18.0) gm/dl Hct (42-50) % MCV (78-100) fl MCH (26-32) pg MCHC (32-36) g/dl RDW (11.5-14.0) % Plt Count (150-450) K/mm3 MPV (7.5-11.0) fl Gran % (36.0-66.0) % Eos # (Auto) (0-0.5) Absolute Lymphs (auto) (1.0-4.6) Absolute Monos (auto) (0.0-1.3) Lymphocytes % (24.0-44.0) % Monocytes % (0.0-12.0) % Eosinophils % (0.00-5.0) % Basophils % (0.0-0.4) % Absolute Granulocytes (1.4-6.9) Basophils # (0-0.4) Sodium (137-145) mmol/L Potassium (3.5-5.1) mmol/L Chloride (98-107) mmol/L Carbon Dioxide (22-30) mmol/L Anion Gap (5-15) MEQ/L BUN (9-20) mg/dL Creatinine (0.66-1.25) mg/dL Estimated GFR ML/MIN Glucose (74-106) mg/dL POC Glucometer (74 to 106) mg/dL Calcium (8.4-10.2) mg/dL Magnesium (1.6-2.3) mg/dL Total Bilirubin (0.2-1.3) mg/dL AST (17-59) U/L ALT (0-50) U/L Alkaline Phosphatase (38-126) U/L Troponin I 0.059 H* (0.000-0.034) ng/mL NT-Pro-B Natriuret Pep (0-1800) pg/mL Serum Total Protein (6.3-8.2) g/dL Albumin (3.5-5.0) g/dL Influenza Type A Ag (NEGATIVE) Influenza Type B Ag (NEGATIVE) RSV (PCR) (Negative) SARS-CoV-2 (PCR) (NEGATIVE) Accuchecks Date 01/24/21 Time 07:44 - Radiology Impressions Radiology Exams & Impressions: Radiology Procedures Category Date Time Status CHEST 1 VIEW (PORTABLE) Stat Exams 01/23/21 22:14 Completed - Other Procedures and Tests Respiratory Therapy 01/23/21 22:28 Respiratory Therapy Assessment DAILY 01/24/21 01:36 Oxygen Nasal Cannula 2 lpm Assessment/Plan (1) Acute exacerbation of CHF (congestive heart failure) Current Visit: Yes Status: Acute Assessment & Plan: xray reviewed by me, appears to have more congestion and minimal patchy airspace disease, no signs of current pneumonia and recent hospital stay noted. I feel like CHF is the primary issue and not pneumonia at this time. will diurese, resume lisinopril 10mg daily and metoprolol 50mg bid, will monitor Code(s): I50.9 - HEART FAILURE, UNSPECIFIED (2) CAD (coronary artery disease) Current Visit: No Status: Acute Code(s): I25.10 - ATHSCL HEART DISEASE OF [place] CORONARY ARTERY W/O ANG PCTRS
[2021-01-24] MEDS: PROTONIX 40 MG IV IV SCH (11:16)
[2021-01-24] MEDS: Klor Con 10 MEQ PO SCH ×2 (11:16→21:03)
[2021-01-24] MEDS: Lasix 20 MG/2 ML IV SCH ×2 (11:16→17:30)
[2021-01-24] MEDS ORDERED: TYLENOL 325 MG PO PRN (11:44)
[2021-01-24] MEDS ORDERED: Cordarone 200 MG PO SCH (11:45)
[2021-01-24] MEDS ORDERED: Nitrostat 0.4 MG Tablet SL PRN (11:45)
[2021-01-24] MEDS: Zestril 10 MG PO SCH (12:56)
[2021-01-24] MEDS: Cordarone 200 MG PO SCH (12:56)
[2021-01-24] MEDS: Lopressor 50 MG PO SCH ×2 (12:57→21:03)
[2021-01-24] MEDS: ECOTRIN 81 MG PO SCH (12:57)
[2021-01-24] MEDS: Flomax 0.4 MG PO SCH ×2 (12:57→21:03)
[2021-01-24] MEDS: PLAVIX 75 MG Tablet PO SCH (12:57)
[2021-01-24] MEDS: NORVASC 5 MG PO SCH (12:57)
[2021-01-24] MEDS: NEURONTIN 300 MG PO SCH ×2 (12:57→21:03)
[2021-01-24] MEDS ORDERED: Proscar 5 MG PO SCH (13:00)
[2021-01-24] MEDS: HUMALOG SQ PRN ×3 (13:04→20:58)
[2021-01-24] MEDS: Tessalon Perles 100 MG PO PRN (17:30)
[2021-01-24] MEDS: TYLENOL 325 MG PO PRN (20:09)
[2021-01-24] MEDS: ZOCOR 20MG PO SCH (21:03)
[2021-01-24] MEDS: ROCEPHIN 1 Gm-D5w 50 ml Bag** 1 G/50 ML IVPB IV SCH (21:03)
[2021-01-24] MEDS: Proscar 5 MG PO SCH (21:04)
[2021-01-24] MEDS: Zithromax 500 MG/ 250 ML NaCl Premix 500 MG/250 ML IVPB IV SCH (21:38)
[2021-01-24 23:17] LABS: Appearance TURBID (CLEAR); Bacteria RARE /HPF (NEGATIVE); Bilirubin NEGATIVE (NEGATIVE); Blood NEGATIVE Ery/ul (0-5); Glucose NEGATIVE (NEGATIVE); Ketones NEGATIVE (NEGATIVE); Leukocyte Esterase LARGE (NEGATIVE); Mucus SLIGHT /HPF (NEGATIVE); Nitrite NEGATIVE (NEGATIVE); Protein,Urine Dip 30 (Negative); Urobilinogen NEGATIVE mg/dL (0-1); WBC >100 /HPF (0-5)
[2021-01-25] MEDS: Tessalon Perles 100 MG PO PRN ×2 (05:39→21:30)
[2021-01-25 06:44] LABS: BASOPHIL % 0.4 % (0.0-0.4); Basophil (Absolute #) 0.03 (0-0.4); Eosinophil % 5.4 % (0.00-5.0); Eosinophil (Absolute #) 0.45 (0-0.5); Hematocrit 32.8 % (42-50); Hemoglobin 9.6 gm/dl (12.5-18.0); Lymphocyte (Absolute #) 1.23 (1.0-4.6); Lymphocytes % 14.8 % (24.0-44.0); Mean Cell Volume 96.2 fl (78-100); Mean Corpuscular Hemoglobin 28.2 pg (26-32); Mean Corpuscular Hgb Concent. 29.3 g/dl (32-36); Mean Platelet Volume 9.3 fl (7.5-11.0); Monocyte (Absolute #) 0.89 (0.0-1.3); Monocytes % 10.7 % (0.0-12.0); Neutrophil % 68.7 % (36.0-66.0); Platelet Count 349 K/mm3 (150-450); Red Blood Count 3.41 M/mm3 (4.1-5.6); Red Cell Distribution Width 14.6 % (11.5-14.0); White Blood Count 8.3 K/mm3 (4.0-10.5)
[2021-01-25 08:11] LABS: ANION GAP 16.5 MEQ/L (5-15); Calcium 8.7 mg/dL (8.4-10.2); Creatinine 1 1.92 mg/dL (0.66-1.25); EST GLOMERULAR FILTRATION RATE 35.9 ML/MIN; Potassium 4.3 mmol/L (3.5-5.1); TROPONIN 0.026 ng/mL (0.000-0.034)
[2021-01-25] MEDS: Lasix 20 MG/2 ML IV SCH ×2 (08:51→16:09)
[2021-01-25] MEDS: Lopressor 50 MG PO SCH ×2 (08:52→21:17)
[2021-01-25] MEDS: Klor Con 10 MEQ PO SCH ×2 (08:52→21:17)
[2021-01-25] MEDS: ECOTRIN 81 MG PO SCH (08:52)
[2021-01-25] MEDS: Flomax 0.4 MG PO SCH ×2 (08:52→21:17)
[2021-01-25] MEDS: NORVASC 5 MG PO SCH (08:52)
[2021-01-25] MEDS: PLAVIX 75 MG Tablet PO SCH (08:52)
[2021-01-25] MEDS: NEURONTIN 300 MG PO SCH ×2 (08:52→21:17)
[2021-01-25] MEDS: PROTONIX 40 MG IV IV SCH (08:52)
[2021-01-25] MEDS: Zestril 10 MG PO SCH (08:53)
[2021-01-25] MEDS ORDERED: NON-FORMULARY ITEM (Aspirin [Aspirin] 81 MG Tablet) PO SCH (10:00)
--- NOTE | 2021-01-25 11:37 | PCM.NOTE ---
Date and Time: 01/25/21 1132 Subjective Assessment: Ptn C/O feeling weak. Was up in chair this morning and is back in bed. Troponins were mildly elevated but wnl this morning. BNP is elevated but down to 3,000 from 5,000. Admitted with pneumonia dg but has CHF. Is followed by Dr Marcio Lutz and states he had an ECHO just 3 weeks ago at [facility]. Denies chest pain. States appetite is ok and denies abd pain. Has colostomy bag Hx colon cancer. Objective Exam General Appearance: no apparent distress (low energy) Neurologic Exam: alert, oriented x 3, cooperative, normal mood/affect (a little lethargic) Skin Exam: warm, dry, pale Neck Exam: normal inspection Respiratory Exam: diminished breath sounds (no rales or ronchi or wheezing,is still requiring O2) Cardiovascular Exam: bradycardia (regular,no pitting edema) Gastrointestinal/Abdomen Exam: soft, normal bowel sounds, other (colostomy with soft brown stool) Extremity Exam: normal inspection Back Exam: normal inspection OBJECTIVE DATA Vital Signs: Vital Signs - 24 hr Temp Pulse Resp BP Pulse Ox 01/25/21 08:20 87 16 96 01/25/21 08:00 97.1 F 59 L 19 106/51 96 01/25/21 04:00 97.0 F 56 L 18 107/54 97 01/25/21 00:00 97.1 F 57 L 18 104/53 92 L 01/24/21 19:45 97.3 F 63 20 122/56 94 L 01/24/21 18:40 63 20 94 L 01/24/21 16:00 97.3 F 61 16 122/56 98 01/24/21 15:08 92 L Pain Assessment - Last Documented Pain Intensity 0 Pain Scale Used 0-10 Pain Scale Intake and Output: Intake & Output 01/22/21 01/23/21 01/24/21 01/25/21 11:59 11:59 11:59 11:59 Intake Total 240 1440 Output Total 200 2300 Balance 40 -860 Weight 72.7 kg 80.5 kg Lab Results: Lab Results-Last 24 Hours 01/24/21 01/24/21 01/24/21 Range/Units 16:30 20:54 23:09 WBC (4.0-10.5) K/mm3 RBC (4.1-5.6) M/mm3 Hgb (12.5-18.0) gm/dl Hct (42-50) % MCV (78-100) fl MCH (26-32) pg MCHC (32-36) g/dl RDW (11.5-14.0) % Plt Count (150-450) K/mm3 MPV (7.5-11.0) fl Gran % (36.0-66.0) % Eos # (Auto) (0-0.5) Absolute Lymphs (auto) (1.0-4.6) Absolute Monos (auto) (0.0-1.3) Lymphocytes % (24.0-44.0) % Monocytes % (0.0-12.0) % Eosinophils % (0.00-5.0) % Basophils % (0.0-0.4) % Absolute Granulocytes (1.4-6.9) Basophils # (0-0.4) Sodium (137-145) mmol/L Potassium (3.5-5.1) mmol/L Chloride (98-107) mmol/L Carbon Dioxide (22-30) mmol/L Anion Gap (5-15) MEQ/L BUN (9-20) mg/dL Creatinine (0.66-1.25) mg/dL Estimated GFR ML/MIN Glucose (74-106) mg/dL POC Glucometer 158 H 164 H (74 to 106) mg/dL Calcium (8.4-10.2) mg/dL Troponin I (0.000-0.034) ng/mL NT-Pro-B Natriuret Pep (0-1800) pg/mL Urine Color YELLOW (YELLOW) Urine Appearance TURBID (CLEAR) Urine pH 5.0 (5-6) Ur Specific [place] 1.010 (1.005-1.025) Urine Protein 30 (Negative) Urine Ketones NEGATIVE (NEGATIVE) Urine Blood NEGATIVE (0-5) Tobias/ul Urine Nitrite NEGATIVE (NEGATIVE) Urine Bilirubin NEGATIVE (NEGATIVE) Urine Urobilinogen NEGATIVE (0-1) mg/dL Ur Leukocyte Esterase LARGE (NEGATIVE) Urine WBC (Auto) >100 (0-5) /HPF Urine RBC (Auto) 6-10 (0-2) /HPF Urine Bacteria (Auto) RARE (NEGATIVE) /HPF Urine Mucus (Auto) SLIGHT (NEGATIVE) /HPF Urine Culture Reflexed YES (NO) Urine Glucose NEGATIVE (NEGATIVE) mg/dL 01/25/21 01/25/21 01/25/21 Range/Units 06:00 06:00 07:47 WBC 8.3 (4.0-10.5) K/mm3 RBC 3.41 L (4.1-5.6) M/mm3 Hgb 9.6 L (12.5-18.0) gm/dl Hct 32.8 L (42-50) % MCV 96.2 (78-100) fl MCH 28.2 (26-32) pg MCHC 29.3 L (32-36) g/dl RDW 14.6 H (11.5-14.0) % Plt Count 349 (150-450) K/mm3 MPV 9.3 (7.5-11.0) fl Gran % 68.7 H (36.0-66.0) % Eos # (Auto) 0.45 (0-0.5) Absolute Lymphs (auto) 1.23 (1.0-4.6) Absolute Monos (auto) 0.89 (0.0-1.3) Lymphocytes % 14.8 L (24.0-44.0) % Monocytes % 10.7 (0.0-12.0) % Eosinophils % 5.4 H (0.00-5.0) % Basophils % 0.4 (0.0-0.4) % Absolute Granulocytes 5.70 (1.4-6.9) Basophils # 0.03 (0-0.4) Sodium 141 (137-145) mmol/L Potassium 4.3 (3.5-5.1) mmol/L Chloride 101 (98-107) mmol/L Carbon Dioxide 28 (22-30) mmol/L Anion Gap 16.5 H (5-15) MEQ/L BUN 34 H (9-20) mg/dL Creatinine 1.92 H (0.66-1.25) mg/dL Estimated GFR 35.9 ML/MIN Glucose 116 H (74-106) mg/dL POC Glucometer 108 H (74 to 106) mg/dL Calcium 8.7 (8.4-10.2) mg/dL Troponin I 0.026 (0.000-0.034) ng/mL NT-Pro-B Natriuret Pep 3330 H (0-1800) pg/mL Urine Color (YELLOW) Urine Appearance (CLEAR) Urine pH (5-6) Ur Specific [place] (1.005-1.025) Urine Protein (Negative) Urine Ketones (NEGATIVE) Urine Blood (0-5) Tobias/ul Urine Nitrite (NEGATIVE) Urine Bilirubin (NEGATIVE) Urine Urobilinogen (0-1) mg/dL Ur Leukocyte Esterase (NEGATIVE) Urine WBC (Auto) (0-5) /HPF Urine RBC (Auto) (0-2) /HPF Urine Bacteria (Auto) (NEGATIVE) /HPF Urine Mucus (Auto) (NEGATIVE) /HPF Urine Culture Reflexed (NO) Urine Glucose (NEGATIVE) mg/dL 01/25/21 01/25/21 Range/Units 07:50 11:27 WBC (4.0-10.5) K/mm3 RBC (4.1-5.6) M/mm3 Hgb (12.5-18.0) gm/dl Hct (42-50) % MCV (78-100) fl MCH (26-32) pg MCHC (32-36) g/dl RDW (11.5-14.0) % Plt Count (150-450) K/mm3 MPV (7.5-11.0) fl Gran % (36.0-66.0) % Eos # (Auto) (0-0.5) Absolute Lymphs (auto) (1.0-4.6) Absolute Monos (auto) (0.0-1.3) Lymphocytes % (24.0-44.0) % Monocytes % (0.0-12.0) % Eosinophils % (0.00-5.0) % Basophils % (0.0-0.4) % Absolute Granulocytes (1.4-6.9) Basophils # (0-0.4) Sodium (137-145) mmol/L Potassium (3.5-5.1) mmol/L Chloride (98-107) mmol/L Carbon Dioxide (22-30) mmol/L Anion Gap (5-15) MEQ/L BUN (9-20) mg/dL Creatinine (0.66-1.25) mg/dL Estimated GFR ML/MIN Glucose (74-106) mg/dL POC Glucometer 129 H 239 H (74 to 106) mg/dL Calcium (8.4-10.2) mg/dL Troponin I (0.000-0.034) ng/mL NT-Pro-B Natriuret Pep (0-1800) pg/mL Urine Color (YELLOW) Urine Appearance (CLEAR) Urine pH (5-6) Ur Specific [place] (1.005-1.025) Urine Protein (Negative) Urine Ketones (NEGATIVE) Urine Blood (0-5) Tobias/ul Urine Nitrite (NEGATIVE) Urine Bilirubin (NEGATIVE) Urine Urobilinogen (0-1) mg/dL Ur Leukocyte Esterase (NEGATIVE) Urine WBC (Auto) (0-5) /HPF Urine RBC (Auto) (0-2) /HPF Urine Bacteria (Auto) (NEGATIVE) /HPF Urine Mucus (Auto) (NEGATIVE) /HPF Urine Culture Reflexed (NO) Urine Glucose (NEGATIVE) mg/dL Radiology Exams: Radiology Procedures Category Date Time Status CHEST 1 VIEW (PORTABLE) Stat Exams 01/23/21 22:14 Completed Assessment/Plan (1) CHF (congestive heart failure) Current Visit: Yes Status: Acute Qualifiers: Heart failure type: unspecified Assessment & Plan: ECHO results requested done 3 weeks ago. (Dr Marcio Lutz is [facility]) Code(s): I50.9 - HEART FAILURE, UNSPECIFIED (2) Lethargy Current Visit: Yes Status: Acute Assessment & Plan: CHF,UTI,elevated troponins now wnl-not able to go home safely. Will admit to inpatient. Code(s): R53.83 - OTHER FATIGUE (3) UTI (urinary tract infection) Current Visit: No Status: Acute Assessment & Plan: 100 WBC in UA yesterday,cult is pending Code(s): N39.0 - URINARY TRACT INFECTION, SITE NOT SPECIFIED (4) Elevated troponin Current Visit: Yes Status: Resolved Code(s): R77.8 - OTHER SPECIFIED ABNORMALITIES OF PLASMA PROTEINS
[2021-01-25] MEDS: TYLENOL 325 MG PO PRN ×2 (17:39→23:05)
[2021-01-25] MEDS: HUMALOG SQ PRN ×2 (17:40→21:18)
[2021-01-25] MEDS: ROCEPHIN 1 Gm-D5w 50 ml Bag** 1 G/50 ML IVPB IV SCH (21:17)
[2021-01-25] MEDS: ZOCOR 20MG PO SCH (21:17)
[2021-01-25] MEDS: Proscar 5 MG PO SCH (21:18)
[2021-01-25] MEDS: Zithromax 500 MG/ 250 ML NaCl Premix 500 MG/250 ML IVPB IV SCH (21:18)
[2021-01-26] MEDS: Klor Con 10 MEQ PO SCH ×2 (08:54→21:08)
[2021-01-26] MEDS: Lasix 20 MG/2 ML IV SCH (08:54)
[2021-01-26] MEDS: Cordarone 200 MG PO SCH (08:54)
[2021-01-26] MEDS: Lopressor 50 MG PO SCH ×2 (08:54→21:08)
[2021-01-26] MEDS: Zestril 10 MG PO SCH (08:54)
[2021-01-26] MEDS: ECOTRIN 81 MG PO SCH (08:54)
[2021-01-26] MEDS: PROTONIX 40 MG IV IV SCH (08:54)
[2021-01-26] MEDS: Flomax 0.4 MG PO SCH ×2 (08:54→21:08)
[2021-01-26] MEDS: PLAVIX 75 MG Tablet PO SCH (08:54)
[2021-01-26] MEDS: NORVASC 5 MG PO SCH (08:54)
[2021-01-26] MEDS: NEURONTIN 300 MG PO SCH ×2 (08:54→21:08)
[2021-01-26] MEDS: Tessalon Perles 100 MG PO PRN (08:56)
[2021-01-26] MEDS: HUMALOG SQ PRN ×2 (13:01→21:11)
[2021-01-26] MEDS: TYLENOL 325 MG PO PRN ×2 (14:05→19:51)
[2021-01-26] MEDS ORDERED: DUONEB 0.5-3 MG/3 ml Neb IH SCH (15:30)
--- NOTE | 2021-01-26 15:30 | PCM.NOTE ---
Date and Time: 01/26/21 1516 Subjective Assessment: Patient c/o dry cough-"wearing me out", nonproductive. Objective Exam General Appearance: mild distress (coughing spell dry,non productive), other (girlfriend at bedside) Neurologic Exam: alert, oriented x 3, cooperative Skin Exam: warm, dry, pale Eye Exam: eyes nml inspection Ears, Nose, Throat Exam: normal ENT inspection Neck Exam: normal inspection Respiratory Exam: wheezing (eew left mid) Cardiovascular Exam: other (rate 60) Gastrointestinal/Abdomen Exam: distention (nontender) Extremity Exam: pedal edema (1+/4) Back Exam: other (no CVA) OBJECTIVE DATA Vital Signs: Vital Signs - 24 hr Temp Pulse Resp BP BP Pulse Ox 01/26/21 12:00 97 F 62 20 135/63 95 01/26/21 08:00 97.3 F 68 17 118/57 92 L 01/26/21 04:00 97.5 F 61 17 110/54 93 L 01/25/21 23:47 97.7 F 59 L 24 109/53 92 L 01/25/21 20:15 66 20 96 01/25/21 20:00 97.7 F 66 24 123/60 94 L 01/25/21 16:00 97.5 F 65 22 122/58 Pain Assessment - Last Documented Pain Intensity 0 Pain Scale Used FLACC Intake and Output: Intake & Output 01/24/21 01/25/21 01/26/21 01/27/21 11:59 11:59 11:59 11:59 Intake Total 240 1440 2561 360 Output Total 200 2600 2400 800 Balance 40 -1160 161 -440 Weight 72.7 kg 80.5 kg 83.8 kg Lab Results: Lab Results-Last 24 Hours 01/25/21 01/25/21 01/26/21 Range/Units 16:24 20:49 06:54 POC Glucometer 249 H 203 H 154 H (74 to 106) mg/dL 01/26/21 Range/Units 12:19 POC Glucometer 232 H (74 to 106) mg/dL Assessment/Plan (1) CHF (congestive heart failure) Current Visit: Yes Status: Acute Qualifiers: Heart failure type: unspecified Code(s): I50.9 - HEART FAILURE, UNSPECIFIED (2) Lethargy Current Visit: Yes Status: Acute Code(s): R53.83 - OTHER FATIGUE (3) UTI (urinary tract infection) Current Visit: No Status: Acute Assessment & Plan: gram neg bacteria growing Code(s): N39.0 - URINARY TRACT INFECTION, SITE NOT SPECIFIED (4) Elevated troponin Current Visit: Yes Status: Resolved Code(s): R77.8 - OTHER SPECIFIED ABNORMALITIES OF PLASMA PROTEINS (5) Wheezing Current Visit: Yes Status: Acute Assessment & Plan: RT albuterol neb QID Code(s): R06.2 - WHEEZING
[2021-01-26 16:22] LABS: Absolute Neutrophil Ct (ANC) 5.18 (1.4-6.9); BASOPHIL % 0.5 % (0.0-0.4); Basophil (Absolute #) 0.04 (0-0.4); Eosinophil (Absolute #) 0.24 (0-0.5); Hematocrit 32.4 % (42-50); Hemoglobin 9.7 gm/dl (12.5-18.0); Lymphocyte (Absolute #) 1.54 (1.0-4.6); Lymphocytes % 19.5 % (24.0-44.0); Mean Cell Volume 95.6 fl (78-100); Mean Corpuscular Hemoglobin 28.6 pg (26-32); Mean Corpuscular Hgb Concent. 29.9 g/dl (32-36); Monocyte (Absolute #) 0.88 (0.0-1.3); Monocytes % 11.2 % (0.0-12.0); Neutrophil % 65.8 % (36.0-66.0); Platelet Count 331 K/mm3 (150-450); Red Blood Count 3.39 M/mm3 (4.1-5.6); Red Cell Distribution Width 14.5 % (11.5-14.0); White Blood Count 7.9 K/mm3 (4.0-10.5)
[2021-01-26 16:40] LABS: ALBUMIN 3.4 g/dL (3.5-5.0); ANION GAP 12.1 MEQ/L (5-15); BILIRUBIN,TOTAL 0.5 mg/dL (0.2-1.3); Calcium 8.2 mg/dL (8.4-10.2); Creatinine 1 1.59 mg/dL (0.66-1.25); EST GLOMERULAR FILTRATION RATE 44.6 ML/MIN; Potassium 4.6 mmol/L (3.5-5.1); Total Protein 5.9 g/dL (6.3-8.2)
[2021-01-26] MEDS: Robitussin 100 MG/5 ML PO PRN ×2 (17:29→21:12)
[2021-01-26] MEDS ORDERED: PROVENTIL 2.5 MG/3 ML NEB IH SCH (19:00)
[2021-01-26] MEDS: DUONEB 0.5-3 MG/3 ml Neb IH SCH (19:13)
[2021-01-26] MEDS: Zithromax 500 MG/ 250 ML NaCl Premix 500 MG/250 ML IVPB IV SCH (21:08)
[2021-01-26] MEDS: ZOCOR 20MG PO SCH (21:08)
[2021-01-26] MEDS: Proscar 5 MG PO SCH (21:09)
[2021-01-26] MEDS: ROCEPHIN 1 Gm-D5w 50 ml Bag** 1 G/50 ML IVPB IV SCH (21:09)
[2021-01-27] MEDS: DUONEB 0.5-3 MG/3 ml Neb IH SCH ×4 (01:40→18:52)
[2021-01-27 06:04] LABS: Absolute Neutrophil Ct (ANC) 4.81 (1.4-6.9); BASOPHIL % 0.4 % (0.0-0.4); Basophil (Absolute #) 0.03 (0-0.4); Eosinophil % 4.2 % (0.00-5.0); Eosinophil (Absolute #) 0.29 (0-0.5); Hemoglobin 8.7 gm/dl (12.5-18.0); Lymphocytes % 14.5 % (24.0-44.0); Mean Cell Volume 97.1 fl (78-100); Mean Corpuscular Hemoglobin 28.2 pg (26-32); Monocyte (Absolute #) 0.77 (0.0-1.3); Monocytes % 11.2 % (0.0-12.0); Neutrophil % 69.7 % (36.0-66.0); Platelet Count 318 K/mm3 (150-450); Red Blood Count 3.09 M/mm3 (4.1-5.6); Red Cell Distribution Width 14.5 % (11.5-14.0); White Blood Count 6.9 K/mm3 (4.0-10.5)
[2021-01-27 06:32] LABS: ANION GAP 13.3 MEQ/L (5-15); Calcium 7.9 mg/dL (8.4-10.2); Creatinine 1 1.74 mg/dL (0.66-1.25); EST GLOMERULAR FILTRATION RATE 40.2 ML/MIN; Potassium 4.5 mmol/L (3.5-5.1)
[2021-01-27] MEDS: Robitussin 100 MG/5 ML PO PRN ×3 (07:18→22:12)
--- NOTE | 2021-01-27 08:42 | PCM.NOTE ---
Date and Time: 01/27/21 0840 Subjective Assessment: patient feeling poorly still but states he has improved, he is weak Objective Exam General Appearance: no apparent distress Neurologic Exam: alert, oriented x 3 Respiratory Exam: crackles/rales, No respiratory distress Cardiovascular Exam: regular rate/rhythm, normal heart sounds Gastrointestinal/Abdomen Exam: soft, No tenderness, No mass Extremity Exam: normal inspection, normal range of motion OBJECTIVE DATA Vital Signs: Vital Signs - 24 hr Temp Pulse Resp BP Pulse Ox 01/27/21 07:53 97.7 F 62 16 118/56 95 01/27/21 07:25 68 24 94 L 01/27/21 04:00 97.5 F 60 24 114/53 91 L 01/27/21 01:43 67 20 88 L 01/27/21 00:00 97.1 F 56 L 20 107/53 91 L 01/26/21 20:00 97.8 F 85 24 126/62 92 L 01/26/21 19:18 68 24 91 L 01/26/21 15:33 61 22 95 01/26/21 15:29 97.4 F 64 20 127/61 96 01/26/21 12:00 97 F 62 20 135/63 95 Pain Assessment - Last Documented Pain Intensity 8 Pain Scale Used [facility] Intake and Output: Intake & Output 01/24/21 01/25/21 01/26/21 01/27/21 11:59 11:59 11:59 11:59 Intake Total 240 1440 2561 2048 Output Total 200 2600 2400 1950 Balance 40 -1160 161 98 Weight 72.7 kg 80.5 kg 83.8 kg 86 kg Lab Results: Lab Results-Last 24 Hours 01/26/21 01/26/21 01/26/21 Range/Units 12:19 16:11 16:11 WBC 7.9 (4.0-10.5) K/mm3 RBC 3.39 L (4.1-5.6) M/mm3 Hgb 9.7 L (12.5-18.0) gm/dl Hct 32.4 L (42-50) % MCV 95.6 (78-100) fl MCH 28.6 (26-32) pg MCHC 29.9 L (32-36) g/dl RDW 14.5 H (11.5-14.0) % Plt Count 331 (150-450) K/mm3 MPV 9.0 (7.5-11.0) fl Gran % 65.8 (36.0-66.0) % Eos # (Auto) 0.24 (0-0.5) Absolute Lymphs (auto) 1.54 (1.0-4.6) Absolute Monos (auto) 0.88 (0.0-1.3) Lymphocytes % 19.5 L (24.0-44.0) % Monocytes % 11.2 (0.0-12.0) % Eosinophils % 3.0 (0.00-5.0) % Basophils % 0.5 (0.0-0.4) % Absolute Granulocytes 5.18 (1.4-6.9) Basophils # 0.04 (0-0.4) Sodium (137-145) mmol/L Potassium (3.5-5.1) mmol/L Chloride (98-107) mmol/L Carbon Dioxide (22-30) mmol/L Anion Gap (5-15) MEQ/L BUN (9-20) mg/dL Creatinine (0.66-1.25) mg/dL Estimated GFR ML/MIN Glucose (74-106) mg/dL POC Glucometer 232 H (74 to 106) mg/dL Calcium (8.4-10.2) mg/dL Total Bilirubin (0.2-1.3) mg/dL AST (17-59) U/L ALT (0-50) U/L Alkaline Phosphatase (38-126) U/L NT-Pro-B Natriuret Pep 4340 H (0-1800) pg/mL Serum Total Protein (6.3-8.2) g/dL Albumin (3.5-5.0) g/dL 01/26/21 01/26/21 01/26/21 Range/Units 16:11 16:32 19:53 WBC (4.0-10.5) K/mm3 RBC (4.1-5.6) M/mm3 Hgb (12.5-18.0) gm/dl Hct (42-50) % MCV (78-100) fl MCH (26-32) pg MCHC (32-36) g/dl RDW (11.5-14.0) % Plt Count (150-450) K/mm3 MPV (7.5-11.0) fl Gran % (36.0-66.0) % Eos # (Auto) (0-0.5) Absolute Lymphs (auto) (1.0-4.6) Absolute Monos (auto) (0.0-1.3) Lymphocytes % (24.0-44.0) % Monocytes % (0.0-12.0) % Eosinophils % (0.00-5.0) % Basophils % (0.0-0.4) % Absolute Granulocytes (1.4-6.9) Basophils # (0-0.4) Sodium 134 L (137-145) mmol/L Potassium 4.6 (3.5-5.1) mmol/L Chloride 99 (98-107) mmol/L Carbon Dioxide 27 (22-30) mmol/L Anion Gap 12.1 (5-15) MEQ/L BUN 35 H (9-20) mg/dL Creatinine 1.59 H (0.66-1.25) mg/dL Estimated GFR 44.6 ML/MIN Glucose 138 H (74-106) mg/dL POC Glucometer 124 H 236 H (74 to 106) mg/dL Calcium 8.2 L (8.4-10.2) mg/dL Total Bilirubin 0.50 (0.2-1.3) mg/dL AST 20 (17-59) U/L ALT 18 (0-50) U/L Alkaline Phosphatase 62 (38-126) U/L NT-Pro-B Natriuret Pep (0-1800) pg/mL Serum Total Protein 5.9 L (6.3-8.2) g/dL Albumin 3.4 L (3.5-5.0) g/dL 01/27/21 01/27/21 01/27/21 Range/Units 04:43 04:43 06:51 WBC 6.9 (4.0-10.5) K/mm3 RBC 3.09 L (4.1-5.6) M/mm3 Hgb 8.7 L (12.5-18.0) gm/dl Hct 30.0 L (42-50) % MCV 97.1 (78-100) fl MCH 28.2 (26-32) pg MCHC 29.0 L (32-36) g/dl RDW 14.5 H (11.5-14.0) % Plt Count 318 (150-450) K/mm3 MPV 10.0 (7.5-11.0) fl Gran % 69.7 H (36.0-66.0) % Eos # (Auto) 0.29 (0-0.5) Absolute Lymphs (auto) 1.00 (1.0-4.6) Absolute Monos (auto) 0.77 (0.0-1.3) Lymphocytes % 14.5 L (24.0-44.0) % Monocytes % 11.2 (0.0-12.0) % Eosinophils % 4.2 (0.00-5.0) % Basophils % 0.4 (0.0-0.4) % Absolute Granulocytes 4.81 (1.4-6.9) Basophils # 0.03 (0-0.4) Sodium 135 L (137-145) mmol/L Potassium 4.5 (3.5-5.1) mmol/L Chloride 99 (98-107) mmol/L Carbon Dioxide 27 (22-30) mmol/L Anion Gap 13.3 (5-15) MEQ/L BUN 33 H (9-20) mg/dL Creatinine 1.74 H (0.66-1.25) mg/dL Estimated GFR 40.2 ML/MIN Glucose 161 H (74-106) mg/dL POC Glucometer 189 H (74 to 106) mg/dL Calcium 7.9 L (8.4-10.2) mg/dL Total Bilirubin (0.2-1.3) mg/dL AST (17-59) U/L ALT (0-50) U/L Alkaline Phosphatase (38-126) U/L NT-Pro-B Natriuret Pep (0-1800) pg/mL Serum Total Protein (6.3-8.2) g/dL Albumin (3.5-5.0) g/dL Assessment/Plan (1) Acute exacerbation of CHF (congestive heart failure) Current Visit: Yes Status: Acute Assessment & Plan: increase lasix from 20mg to 40mg IV daily Code(s): I50.9 - HEART FAILURE, UNSPECIFIED (2) CAD (coronary artery disease) Current Visit: No Status: Acute Code(s): I25.10 - ATHSCL HEART DISEASE OF [place] CORONARY ARTERY W/O ANG PCTRS (3) Pseudomonas urinary tract infection Current Visit: Yes Status: Acute Assessment & Plan: start meropenem, stop rocephin/zithromax Code(s): N39.0 - URINARY TRACT INFECTION, SITE NOT SPECIFIED; B96.5 - PSEUDOM ONAS ([place]) CAUSING DISEASES CLASSD ELSWHR
[2021-01-27] MEDS: PROTONIX 40 MG IV IV SCH (08:58)
[2021-01-27] MEDS: Zestril 10 MG PO SCH (08:58)
[2021-01-27] MEDS: NEURONTIN 300 MG PO SCH ×2 (08:58→22:10)
[2021-01-27] MEDS: Lopressor 50 MG PO SCH ×2 (08:58→22:10)
[2021-01-27] MEDS: Klor Con 10 MEQ PO SCH ×2 (08:58→22:10)
[2021-01-27] MEDS: Flomax 0.4 MG PO SCH ×2 (08:58→22:10)
[2021-01-27] MEDS: NORVASC 5 MG PO SCH (08:58)
[2021-01-27] MEDS: PLAVIX 75 MG Tablet PO SCH (08:58)
[2021-01-27] MEDS: ECOTRIN 81 MG PO SCH (08:58)
--- NOTE | 2021-01-27 09:11 | XRAY ---
Indication: Short of breath. CHF. Pneumonia. Comparison: January 23, 2021. Portable apical lordotic chest now demonstrates borderline cardiomegaly and tiny left effusion concerning for mild cardiac decompensation/fluid overload. Remaining chest unchanged again demonstrating diffuse bilateral airspace disease and tiny right effusion.
[2021-01-27] MEDS: Lasix 40 MG/4 ML IV SCH (09:16)
[2021-01-27] MEDS ORDERED: Lasix 20 MG/2 ML IV SCH (10:00)
[2021-01-27] MEDS: HUMALOG SQ PRN ×3 (12:07→22:28)
[2021-01-27] MEDS: TYLENOL 325 MG PO PRN ×2 (12:08→22:24)
[2021-01-27] MEDS: MERREM 500MG 500 MG in Sodium Chloride 100ML MINI-BAG PLUS 100 ML IV SCH ×2 (13:37→22:18)
[2021-01-27] MEDS: ZOCOR 20MG PO SCH (22:10)
[2021-01-27] MEDS: Proscar 5 MG PO SCH (22:10)
[2021-01-27] MEDS: Tessalon Perles 100 MG PO PRN (23:50)
[2021-01-28] MEDS: DUONEB 0.5-3 MG/3 ml Neb IH SCH ×4 (01:58→18:15)
[2021-01-28] MEDS: MERREM 500MG 500 MG in Sodium Chloride 100ML MINI-BAG PLUS 100 ML IV SCH ×3 (05:32→21:10)
[2021-01-28] MEDS: TYLENOL 325 MG PO PRN ×2 (05:41→16:50)
[2021-01-28 06:24] LABS: Hemoglobin 8.7 gm/dl (12.5-18.0); Mean Cell Volume 96.8 fl (78-100); Mean Corpuscular Hemoglobin 28.1 pg (26-32); Mean Platelet Volume 9.4 fl (7.5-11.0); Platelet Count 342 K/mm3 (150-450); Red Cell Distribution Width 14.5 % (11.5-14.0); White Blood Count 6.4 K/mm3 (4.0-10.5)
[2021-01-28 07:16] LABS: ANION GAP 12.8 MEQ/L (5-15); Creatinine 1 1.52 mg/dL (0.66-1.25); Potassium 4.5 mmol/L (3.5-5.1)
--- NOTE | 2021-01-28 08:54 | PCM.NOTE ---
Date and Time: 01/28/21850 Subjective Assessment: Pt continues to cough, like a tickle in his throat per RT. Vin po. Up with assistance. At home, lives with his friend. - Review of Systems Constitutional: Fatigue, No Fever Respiratory: Cough, Short Of Breath Objective Exam General Appearance: no apparent distress, obese Neurologic Exam: alert, oriented x 3, cooperative Skin Exam: normal color, warm, dry, No rash Eye Exam: eyes nml inspection Ears, Nose, Throat Exam: moist mucous membranes Neck Exam: normal inspection Respiratory Exam: lungs clear, diminished breath sounds (good air exchange), No crackles/rales, No rhonchi, No wheezing Cardiovascular Exam: regular rate/rhythm, normal heart sounds, No murmur Gastrointestinal/Abdomen Exam: soft, normal bowel sounds, No tenderness, No mass, No guarding, No rebound Extremity Exam: other (dry skin anterior lower legs bilat), No pedal edema, No swelling OBJECTIVE DATA Vital Signs: Vital Signs - 24 hr Temp Pulse Resp BP BP Pulse Ox 01/28/21 07:42 97.7 F 80 22 128/59 92 L 01/28/21 05:48 70 20 92 L 01/28/21 04:00 97.5 F 64 20 125/59 94 L 01/28/21 01:58 60 16 91 L 01/28/21 00:00 97.3 F 62 20 100/49 91 L 01/27/21 20:00 97.5 F 80 24 132/60 94 L 01/27/21 18:52 96 H 18 95 01/27/21 16:00 97 F 60 18 129/59 94 L 01/27/21 13:07 58 L 22 93 L 01/27/21 12:00 96 F 63 16 118/58 95 Pain Assessment - Last Documented Pain Intensity 3 Pain Scale Used 0-10 Pain Scale Intake and Output: Intake & Output 01/25/21 01/26/21 01/27/21 01/28/21 11:59 11:59 11:59 11:59 Intake Total 1440 2561 2288 720 Output Total 2600 2400 2150 2500 Balance -1160 161 138 -1780 Weight 80.5 kg 83.8 kg 86 kg 97.5 kg Lab Results: Lab Results-Last 24 Hours 01/27/21 01/27/21 01/27/21 Range/Units 10:59 15:56 22:24 WBC (4.0-10.5) K/mm3 RBC (4.1-5.6) M/mm3 Hgb (12.5-18.0) gm/dl Hct (42-50) % MCV (78-100) fl MCH (26-32) pg MCHC (32-36) g/dl RDW (11.5-14.0) % Plt Count (150-450) K/mm3 MPV (7.5-11.0) fl Sodium (137-145) mmol/L Potassium (3.5-5.1) mmol/L Chloride (98-107) mmol/L Carbon Dioxide (22-30) mmol/L Anion Gap (5-15) MEQ/L BUN (9-20) mg/dL Creatinine (0.66-1.25) mg/dL Estimated GFR ML/MIN Glucose (74-106) mg/dL POC Glucometer 296 H 225 H 247 H (74 to 106) mg/dL Calcium (8.4-10.2) mg/dL NT-Pro-B Natriuret Pep (0-1800) pg/mL 01/28/21 01/28/21 01/28/21 Range/Units 05:14 05:14 05:14 WBC 6.4 (4.0-10.5) K/mm3 RBC 3.10 L (4.1-5.6) M/mm3 Hgb 8.7 L (12.5-18.0) gm/dl Hct 30.0 L (42-50) % MCV 96.8 (78-100) fl MCH 28.1 (26-32) pg MCHC 29.0 L (32-36) g/dl RDW 14.5 H (11.5-14.0) % Plt Count 342 (150-450) K/mm3 MPV 9.4 (7.5-11.0) fl Sodium 135 L (137-145) mmol/L Potassium 4.5 (3.5-5.1) mmol/L Chloride 101 (98-107) mmol/L Carbon Dioxide 26 (22-30) mmol/L Anion Gap 12.8 (5-15) MEQ/L BUN 30 H (9-20) mg/dL Creatinine 1.52 H (0.66-1.25) mg/dL Estimated GFR 47.0 ML/MIN Glucose 183 H (74-106) mg/dL POC Glucometer (74 to 106) mg/dL Calcium 8.0 L (8.4-10.2) mg/dL NT-Pro-B Natriuret Pep 4100 H (0-1800) pg/mL Radiology Exams: Radiology Procedures Category Date Time Status CHEST 1 VIEW (PORTABLE) Routine Exams 01/27/21 08:42 Completed Multi-Disciplinary Progress Notes: Multi-Disciplinary Progress Notes 01/27/21 13:11 Case Management Note by Cheyenne Verduzco REFERRAL FAXED TO [facility] AT THIS TIME Initialized on 01/27/21 13:11 - END OF NOTE Assessment/Plan (1) Cough Current Visit: Yes Status: Acute Assessment & Plan: Will d/c ACEi in the event it is contributing. otherwise, has signs (incl BNP elevation) of CHF exacerbation. WBC nl. Code(s): R05.9 - COUGH, UNSPECIFIED (2) Acute exacerbation of CHF (congestive heart failure) Current Visit: Yes Status: Acute Code(s): I50.9 - HEART FAILURE, UNSPECIFIED (3) Renal insufficiency Current Visit: No Status: Chronic Assessment & Plan: eGFR 47.0, which is the highest since he's been admitted. (4) Muscular deconditioning Current Visit: Yes Status: Acute Assessment & Plan: consult PT Code(s): R29.898 - OTH SYMPTOMS AND SIGNS INVOLVING THE MUSCULOSKELETAL SYSTEM
[2021-01-28] MEDS: NEURONTIN 300 MG PO SCH ×2 (09:01→21:11)
[2021-01-28] MEDS: NORVASC 5 MG PO SCH (09:01)
[2021-01-28] MEDS: Tessalon Perles 100 MG PO PRN (09:01)
[2021-01-28] MEDS: Flomax 0.4 MG PO SCH ×2 (09:01→21:11)
[2021-01-28] MEDS: PLAVIX 75 MG Tablet PO SCH (09:02)
[2021-01-28] MEDS: Lopressor 50 MG PO SCH ×2 (09:02→21:11)
[2021-01-28] MEDS: ECOTRIN 81 MG PO SCH (09:02)
[2021-01-28] MEDS: Klor Con 10 MEQ PO SCH ×2 (09:02→21:11)
[2021-01-28] MEDS: Lasix 40 MG/4 ML IV SCH (09:02)
[2021-01-28] MEDS: PROTONIX 40 MG IV IV SCH (09:02)
[2021-01-28] MEDS: Cordarone 200 MG PO SCH (09:02)
[2021-01-28] MEDS: Robitussin 100 MG/5 ML PO PRN ×2 (09:03→16:50)
[2021-01-28] MEDS: APRESOLINE 20 MG/ML INJ IV SCH ×4 (09:24→21:36)
[2021-01-28 11:20] LABS: Eosinophil 3 % (0.00-3.0); Lymphocytes 17 % (24-44); Monocyte 6 % (0.0-12.0); Neutrophils 74 % (36.-66.); Total Cells Counted 100
[2021-01-28 11:22] LABS: ANISOCYTOSIS 1+; Platelet Estimate NORMAL (NORMAL)
[2021-01-28] MEDS: HUMALOG SQ PRN ×2 (12:40→21:12)
[2021-01-28] MEDS: ZOCOR 20MG PO SCH (21:11)
[2021-01-28] MEDS: Proscar 5 MG PO SCH (21:12)
[2021-01-29] MEDS: DUONEB 0.5-3 MG/3 ml Neb IH SCH ×4 (00:06→19:18)
[2021-01-29] MEDS: Tessalon Perles 100 MG PO PRN ×2 (05:01→19:50)
[2021-01-29] MEDS: MERREM 500MG 500 MG in Sodium Chloride 100ML MINI-BAG PLUS 100 ML IV SCH ×3 (05:01→21:42)
[2021-01-29 05:35] LABS: Absolute Neutrophil Ct (ANC) 4.81 (1.4-6.9); BASOPHIL % 0.9 % (0.0-0.4); Basophil (Absolute #) 0.06 (0-0.4); Eosinophil (Absolute #) 0.35 (0-0.5); Hematocrit 31.3 % (42-50); Hemoglobin 9.2 gm/dl (12.5-18.0); Lymphocyte (Absolute #) 1.04 (1.0-4.6); Mean Cell Volume 96.6 fl (78-100); Mean Corpuscular Hemoglobin 28.4 pg (26-32); Mean Corpuscular Hgb Concent. 29.4 g/dl (32-36); Mean Platelet Volume 9.1 fl (7.5-11.0); Monocyte (Absolute #) 0.68 (0.0-1.3); Monocytes % 9.8 % (0.0-12.0); Neutrophil % 69.3 % (36.0-66.0); Platelet Count 379 K/mm3 (150-450); Red Blood Count 3.24 M/mm3 (4.1-5.6); Red Cell Distribution Width 14.5 % (11.5-14.0); White Blood Count 6.9 K/mm3 (4.0-10.5)
[2021-01-29 06:05] LABS: ANION GAP 12.9 MEQ/L (5-15); Calcium 8.2 mg/dL (8.4-10.2); Creatinine 1 1.42 mg/dL (0.66-1.25); EST GLOMERULAR FILTRATION RATE 50.9 ML/MIN; Potassium 4.7 mmol/L (3.5-5.1)
--- NOTE | 2021-01-29 09:10 | PCM.NOTE ---
Date and Time: 01/29/21 09 Subjective Assessment: patient reports he is feeling better, still weak and had some trouble breathing this morning. requiring oxygen via nasal cannula, only wore oxygen at night prior to admission. Objective Exam General Appearance: no apparent distress Neurologic Exam: alert, oriented x 3 Respiratory Exam: crackles/rales Cardiovascular Exam: regular rate/rhythm, normal heart sounds Gastrointestinal/Abdomen Exam: soft, No tenderness, No mass Extremity Exam: normal inspection, normal range of motion OBJECTIVE DATA Vital Signs: Vital Signs - 24 hr Temp Pulse Resp BP BP Pulse Ox 01/29/21 06:58 96.9 F 86 18 124/59 93 L 01/29/21 06:48 77 22 95 01/29/21 04:00 98.1 F 59 L 16 126/61 125/59 93 L 01/29/21 00:07 94 H 18 91 L 01/28/21 23:43 96.9 F 61 18 133/59 90 L 01/28/21 19:47 96.5 F 81 19 130/60 93 L 01/28/21 18:15 70 20 95 01/28/21 16:00 97.9 F 65 20 148/62 95 01/28/21 13:03 74 18 94 L 01/28/21 12:00 97.5 F 80 20 134/61 95 Pain Assessment - Last Documented Pain Intensity 3 Pain Scale Used 0-10 Pain Scale Intake and Output: Intake & Output 01/26/21 01/27/21 01/28/21 01/29/21 11:59 11:59 11:59 11:59 Intake Total 2561 2288 950 735 Output Total 2400 2150 2500 1950 Balance 161 138 -1550 -1215 Weight 83.8 kg 86 kg 97.5 kg Lab Results: Lab Results-Last 24 Hours 01/28/21 01/28/21 01/28/21 Range/Units 05:14 12:03 15:55 WBC (4.0-10.5) K/mm3 RBC (4.1-5.6) M/mm3 Hgb (12.5-18.0) gm/dl Hct (42-50) % MCV (78-100) fl MCH (26-32) pg MCHC (32-36) g/dl RDW (11.5-14.0) % Plt Count (150-450) K/mm3 MPV (7.5-11.0) fl Gran % (36.0-66.0) % Eos # (Auto) (0-0.5) Absolute Lymphs (auto) (1.0-4.6) Absolute Monos (auto) (0.0-1.3) Lymphocytes % (24.0-44.0) % Monocytes % (0.0-12.0) % Eosinophils % (0.00-5.0) % Basophils % (0.0-0.4) % Absolute Granulocytes (1.4-6.9) Segmented Neutrophils 74 H (36.-66.) % Lymphocytes (Manual) 17 L (24-44) % Monocytes (Manual) 6 (0.0-12.0) % Eosinophils (Manual) 3 (0.00-3.0) % Basophils # (0-0.4) Platelet Estimate NORMAL (NORMAL) RBC Morphology ABNORMAL Anisocytosis 1+ Sodium (137-145) mmol/L Potassium (3.5-5.1) mmol/L Chloride (98-107) mmol/L Carbon Dioxide (22-30) mmol/L Anion Gap (5-15) MEQ/L BUN (9-20) mg/dL Creatinine (0.66-1.25) mg/dL Estimated GFR ML/MIN Glucose (74-106) mg/dL POC Glucometer 256 H 168 H (74 to 106) mg/dL Calcium (8.4-10.2) mg/dL 01/28/21 01/29/21 01/29/21 Range/Units 20:25 05:24 05:24 WBC 6.9 (4.0-10.5) K/mm3 RBC 3.24 L (4.1-5.6) M/mm3 Hgb 9.2 L (12.5-18.0) gm/dl Hct 31.3 L (42-50) % MCV 96.6 (78-100) fl MCH 28.4 (26-32) pg MCHC 29.4 L (32-36) g/dl RDW 14.5 H (11.5-14.0) % Plt Count 379 (150-450) K/mm3 MPV 9.1 (7.5-11.0) fl Gran % 69.3 H (36.0-66.0) % Eos # (Auto) 0.35 (0-0.5) Absolute Lymphs (auto) 1.04 (1.0-4.6) Absolute Monos (auto) 0.68 (0.0-1.3) Lymphocytes % 15.0 L (24.0-44.0) % Monocytes % 9.8 (0.0-12.0) % Eosinophils % 5.0 (0.00-5.0) % Basophils % 0.9 (0.0-0.4) % Absolute Granulocytes 4.81 (1.4-6.9) Segmented Neutrophils (36.-66.) % Lymphocytes (Manual) (24-44) % Monocytes (Manual) (0.0-12.0) % Eosinophils (Manual) (0.00-3.0) % Basophils # 0.06 (0-0.4) Platelet Estimate (NORMAL) RBC Morphology Anisocytosis Sodium 135 L (137-145) mmol/L Potassium 4.7 (3.5-5.1) mmol/L Chloride 101 (98-107) mmol/L Carbon Dioxide 26 (22-30) mmol/L Anion Gap 12.9 (5-15) MEQ/L BUN 26 H (9-20) mg/dL Creatinine 1.42 H (0.66-1.25) mg/dL Estimated GFR 50.9 ML/MIN Glucose 179 H (74-106) mg/dL POC Glucometer 229 H (74 to 106) mg/dL Calcium 8.2 L (8.4-10.2) mg/dL 01/29/21 Range/Units 07:13 WBC (4.0-10.5) K/mm3 RBC (4.1-5.6) M/mm3 Hgb (12.5-18.0) gm/dl Hct (42-50) % MCV (78-100) fl MCH (26-32) pg MCHC (32-36) g/dl RDW (11.5-14.0) % Plt Count (150-450) K/mm3 MPV (7.5-11.0) fl Gran % (36.0-66.0) % Eos # (Auto) (0-0.5) Absolute Lymphs (auto) (1.0-4.6) Absolute Monos (auto) (0.0-1.3) Lymphocytes % (24.0-44.0) % Monocytes % (0.0-12.0) % Eosinophils % (0.00-5.0) % Basophils % (0.0-0.4) % Absolute Granulocytes (1.4-6.9) Segmented Neutrophils (36.-66.) % Lymphocytes (Manual) (24-44) % Monocytes (Manual) (0.0-12.0) % Eosinophils (Manual) (0.00-3.0) % Basophils # (0-0.4) Platelet Estimate (NORMAL) RBC Morphology Anisocytosis Sodium (137-145) mmol/L Potassium (3.5-5.1) mmol/L Chloride (98-107) mmol/L Carbon Dioxide (22-30) mmol/L Anion Gap (5-15) MEQ/L BUN (9-20) mg/dL Creatinine (0.66-1.25) mg/dL Estimated GFR ML/MIN Glucose (74-106) mg/dL POC Glucometer 188 H (74 to 106) mg/dL Calcium (8.4-10.2) mg/dL Radiology Exams: Radiology Procedures Category Date Time Status CHEST 1 VIEW (PORTABLE) Routine Exams 01/27/21 08:42 Completed Multi-Disciplinary Progress Notes: Multi-Disciplinary Progress Notes 01/28/21 12:09 Case Management Note by Cheyenne Verduzco NO CHANGE IN DC PLANS AT THIS TIME. WILL CONTINUE TO FOLLOW Initialized on 01/28/21 12:09 - END OF NOTE 01/28/21 12:07 Case Management Note by Cheyenne Verduzco ACCEPTED PATIENT. THEY WILL NEED NOTIFIED AT TIME OF DC AT [phone]. THEY WILL NEED FAXED THE DC INSTRUCTIONS, DC MED LIST, DC SUMMARY (IF AVAILABLE) TO [phone] Initialized on 01/28/21 12:07 - END OF NOTE Assessment/Plan (1) Acute exacerbation of CHF (congestive heart failure) Current Visit: Yes Status: Acute Assessment & Plan: increase lasix from 40mg iv daily to bid, repeat chest xray tomorrow. patient still has some crackles and signs of vascular congestion but seems to be near euvolemic. likely home tomorrow or Wednesday with [facility] Code(s): I50.9 - HEART FAILURE, UNSPECIFIED (2) CAD (coronary artery disease) Current Visit: No Status: Acute Code(s): I25.10 - ATHSCL HEART DISEASE OF [place] CORONARY ARTERY W/O ANG PCTRS (3) Pseudomonas urinary tract infection Current Visit: Yes Status: Acute Assessment & Plan: day 3 of meropenem, po route not feasible based on culture, would like for him to complete 3-5 days of parenteral therapy based on simple cystitis caused by pseudomonas guidelines. will continue treatment, might be able to discharge tomorrow or Wednesday depending on volume status. Code(s): N39.0 - URINARY TRACT INFECTION, SITE NOT SPECIFIED; B96.5 - PSEUDOMONAS ([place]) CAUSING DISEASES CLASSD ELSWHR
[2021-01-29] MEDS: NORVASC 5 MG PO SCH (09:31)
[2021-01-29] MEDS: PLAVIX 75 MG Tablet PO SCH (09:31)
[2021-01-29] MEDS: PROTONIX 40 MG IV IV SCH (09:31)
[2021-01-29] MEDS: Lasix 40 MG/4 ML IV SCH ×2 (09:31→16:17)
[2021-01-29] MEDS: NEURONTIN 300 MG PO SCH ×2 (09:31→21:43)
[2021-01-29] MEDS: Klor Con 10 MEQ PO SCH ×2 (09:31→21:43)
[2021-01-29] MEDS: Flomax 0.4 MG PO SCH ×2 (09:31→21:43)
[2021-01-29] MEDS: Lopressor 50 MG PO SCH ×2 (09:31→21:43)
[2021-01-29] MEDS: ECOTRIN 81 MG PO SCH (09:31)
[2021-01-29] MEDS: APRESOLINE 20 MG/ML INJ IV SCH ×4 (09:42→21:48)
[2021-01-29] MEDS: HUMALOG SQ PRN ×2 (12:12→21:42)
[2021-01-29] MEDS: Proscar 5 MG PO SCH (21:43)
[2021-01-29] MEDS: ZOCOR 20MG PO SCH (21:43)
[2021-01-30] MEDS: DUONEB 0.5-3 MG/3 ml Neb IH SCH ×2 (00:27→05:37)
[2021-01-30] MEDS: MERREM 500MG 500 MG in Sodium Chloride 100ML MINI-BAG PLUS 100 ML IV SCH (05:04)
[2021-01-30 06:04] LABS: Hematocrit 30.8 % (42-50); Hemoglobin 8.9 gm/dl (12.5-18.0); Mean Cell Volume 96.9 fl (78-100); Mean Corpuscular Hgb Concent. 28.9 g/dl (32-36); Mean Platelet Volume 9.1 fl (7.5-11.0); Platelet Count 428 K/mm3 (150-450); Red Blood Count 3.18 M/mm3 (4.1-5.6); Red Cell Distribution Width 14.6 % (11.5-14.0); White Blood Count 7.5 K/mm3 (4.0-10.5)
[2021-01-30] MEDS: Tessalon Perles 100 MG PO PRN (06:08)
[2021-01-30 06:23] LABS: ANION GAP 10.5 MEQ/L (5-15); Calcium 8.4 mg/dL (8.4-10.2); Creatinine 1 1.38 mg/dL (0.66-1.25); EST GLOMERULAR FILTRATION RATE 52.6 ML/MIN; Potassium 5.1 mmol/L (3.5-5.1)
[2021-01-30 08:12] LABS: Eosinophil 4 % (0.00-3.0); Lymphocytes 17 % (24-44); Monocyte 6 % (0.0-12.0); Neutrophils 73 % (36.-66.); Platelet Estimate NORMAL (NORMAL); Total Cells Counted 100
[2021-01-30] MEDS: HUMALOG SQ PRN (08:17)
[2021-01-30 08:28] VITALS: BP 135/59; PULSE 64; O2SAT 95
--- NOTE | 2021-01-30 08:43 | PCM.DS ---
Discharge Summary Date of Admission: 01/25/21 11:40 Admitting Physician: NATHANIEL BAUTISTA Primary Care Provider: DAIJA MARTE NP Allergies Allergies No Known Drug Allergies Allergy (Verified 01/23/21 22:07) Hospital Summary - Hospital Course Hospital Course: patient was admitted with swelling and shortness of breath, treated for chf exacerbation. also grew pseudomonas in urine culture, simple cystitis fully treated with 4 days of therapy now. he is doing well, was on 2L oxygen during the night but will go home on 2L at all times. - Vitals & Intake/Output Vital Signs: Vital Signs Temperature 97.7 F 01/30/21 08:00 Pulse Rate 64 01/30/21 08:00 Respiratory Rate 21 01/30/21 08:00 Blood Pressure 135/59 01/30/21 08:00 O2 Sat by Pulse Oximetry 95 01/30/21 08:00 Intake & Output: Intake & Output 01/27/21 01/28/21 01/29/21 01/30/21 11:59 11:59 11:59 11:59 Intake Total 2288 157 821 3970 Output Total 2150 2500 1950 2160 Balance 138 -1550 -1095 -580 Weight 86 kg 97.5 kg 98.9 kg - Lab Result Diagrams: 01/30/21 05:51 01/30/21 05:51 Lab Results-Last 24 Hrs: Lab Results-Last 24 Hours 01/29/21 01/29/21 01/29/21 Range/Units 11:25 16:02 21:27 WBC (4.0-10.5) K/mm3 RBC (4.1-5.6) M/mm3 Hgb (12.5-18.0) gm/dl Hct (42-50) % MCV (78-100) fl MCH (26-32) pg MCHC (32-36) g/dl RDW (11.5-14.0) % Plt Count (150-450) K/mm3 MPV (7.5-11.0) fl Segmented Neutrophils (36.-66.) % Lymphocytes (Manual) (24-44) % Monocytes (Manual) (0.0-12.0) % Eosinophils (Manual) (0.00-3.0) % Platelet Estimate (NORMAL) RBC Morphology Sodium (137-145) mmol/L Potassium (3.5-5.1) mmol/L Chloride (98-107) mmol/L Carbon Dioxide (22-30) mmol/L Anion Gap (5-15) MEQ/L BUN (9-20) mg/dL Creatinine (0.66-1.25) mg/dL Estimated GFR ML/MIN Glucose (74-106) mg/dL POC Glucometer 301 H 123 H 193 H (74 to 106) mg/dL Calcium (8.4-10.2) mg/dL NT-Pro-B Natriuret Pep (0-1800) pg/mL 01/30/21 01/30/21 01/30/21 Range/Units 05:51 05:51 07:31 WBC 7.5 (4.0-10.5) K/mm3 RBC 3.18 L (4.1-5.6) M/mm3 Hgb 8.9 L (12.5-18.0) gm/dl Hct 30.8 L (42-50) % MCV 96.9 (78-100) fl MCH 28.0 (26-32) pg MCHC 28.9 L (32-36) g/dl RDW 14.6 H (11.5-14.0) % Plt Count 428 (150-450) K/mm3 MPV 9.1 (7.5-11.0) fl Segmented Neutrophils 73 H (36.-66.) % Lymphocytes (Manual) 17 L (24-44) % Monocytes (Manual) 6 (0.0-12.0) % Eosinophils (Manual) 4 H (0.00-3.0) % Platelet Estimate NORMAL (NORMAL) RBC Morphology NORMAL Sodium 136 L (137-145) mmol/L Potassium 5.1 (3.5-5.1) mmol/L Chloride 101 (98-107) mmol/L Carbon Dioxide 30 (22-30) mmol/L Anion Gap 10.5 (5-15) MEQ/L BUN 23 H (9-20) mg/dL Creatinine 1.38 H (0.66-1.25) mg/dL Estimated GFR 52.6 ML/MIN Glucose 184 H (74-106) mg/dL POC Glucometer 200 H (74 to 106) mg/dL Calcium 8.4 (8.4-10.2) mg/dL NT-Pro-B Natriuret Pep 4160 H (0-1800) pg/mL Micro Results-Entire Visit: Microbiology 01/23/21 22:25 Blood Culture Gram Stain - Final Blood Not Reportable Blood Culture - Final NO GROWTH 01/23/21 22:35 Blood Culture Gram Stain - Final Blood Not Reportable Blood Culture - Final NO GROWTH 01/24/21 23:09 Urine Culture - Final Urine, Void Pseudomonas Aeruginosa Accuchecks Date 01/30/21 Date 01/29/21 Date 01/29/21 Time 07:00 Time 12:11 Time 12:11 - Radiology Exams Ordered Rad Exams-Entire Visit: Radiology Procedures Category Date Time Status CHEST 1 VIEW (PORTABLE) Routine Exams 01/30/21 07:00 Taken - Procedures and Test Procedures and Tests throughout Hospitalization: Therapy Orders & Screens 01/23/21 22:28 Respiratory Therapy Assessment DAILY Comment: 01/24/21 01:36 Oxygen Nasal Cannula 2 lpm Comment: 01/24/21 03:05 RT Screen per Nursing Assess ONCE Comment: Protocol Order Physician Instructions: Greater than 3 points order RT Admission Screen Reason For Exam: Triggered on Admission Diagnosis: pnuemonia Diagnosis: pnuemonia Pneumonia: Yes Home O2: Yes Asthma: No CHF: Yes Home CPAP/BIPAP: No Home Nebs/MDI: No Total Points: 11 01/28/21 08:54 PT Eval & Treat (MD Order) ONCE Reason for Eval:: deconditioning; pt lives at home Diagnosis: pnuemonia, chf Discharge Exam General Appearance: no apparent distress, alert Neurologic Exam: alert, oriented x 3 Respiratory Exam: normal breath sounds, lungs clear, No respiratory distress Cardiovascular Exam: regular rate/rhythm, normal heart sounds Gastrointestinal/Abdomen Exam: soft, No tenderness, No mass Extremity Exam: normal inspection, normal range of motion Skin Exam: normal color, warm, dry Final Diagnosis/Problem List - Final Discharge Diagnosis/Problem (1) Acute exacerbation of CHF (congestive heart failure) Current Visit: Yes Status: Acute Assessment & Plan: appears euvolemic at this time, advised to wear 2L oxygen at all times at home and f/u with Dr Shavon Harp in 1 week Code(s): I50.9 - HEART FAILURE, UNSPECIFIED (2) CAD (coronary artery disease) Current Visit: No Status: Acute Code(s): I25.10 - ATHSCL HEART DISEASE OF [place] CORONARY ARTERY W/O ANG PCTRS (3) Pseudomonas urinary tract infection Current Visit: Yes Status: Acute Assessment & Plan: completed 4 days of meropenem based on culture Code(s): N39.0 - URINARY TRACT INFECTION, SITE NOT SPECIFIED; B96.5 - PSEUDOMONAS (MALLEI) CAUSING DISEASES CLASSD [id number] - Discharge Disposition: Home, Self-Care Condition: Stable Prescriptions: New Furosemide 20 mg [Lasix 20 mg] 20 mg PO DAILY #30 tablet Potassium Chloride 10 meq PO DAILY #30 tab Continue Amiodarone HCl 200 mg [Cordarone 200 MG] 200 mg PO UD Tamsulosin HCl 0.4 mg [Flomax 0.4 MG] 0.4 mg PO BID Simvastatin [Zocor] 20 mg PO HS Metoprolol Tartrate 50 mg PO BID Amlodipine Besylate 5 mg [Norvasc 5 mg] 5 mg PO DAILY Clopidogrel Bisulfate [Plavix] 75 mg PO DAILY Glimepiride 2 mg PO BID Lisinopril 10 mg [Zestril 10 MG] 10 mg PO DAILY Multivitamin [Multivitamins] 1 each PO DAILY Nitroglycerin 0.4 mg Tablet [Nitrostat 0.4 MG Tablet] 1 tab SL UD Metformin HCl 500 mg [Glucophage 500 MG] 500 mg PO TID Gabapentin 300 mg [Neurontin 300 mg] 300 mg PO BID Finasteride 5 mg [Proscar 5 MG] 1 tab PO HS Fexofenadine/Pseudoephedrine [Cristina-D 24 Hour Tablet] 1 tab PO DAILY Cholecalciferol (Vitamin D3) [Vitamin D3] 5,000 unit PO UD Calcium Carbonate [Calcium] 2 tab PO DAILY Aspirin 81 mg PO DAILY Acetaminophen [Tylenol] 325 mg PO Q4H PRN PRN PRN Reason: Pain Discontinued Furosemide 20 mg PO UD Instructions: Heart Failure, Adult (DC) Additional Instructions: [facility] WILL FOLLOW UP AFTER DC. THEIR PHONE NUMBER IS [phone] Follow up with: TOMAS HARP [CONSULTING PHYSICIAN] - DAIJA MARTE NP [Primary Care Provider] -
--- NOTE | 2021-01-30 08:46 | XRAY ---
Indication: Follow-up CHF. Comparison: January 27, 2021. Portable chest again demonstrates borderline cardiomegaly with interval worsening moderate diffuse bilateral interstitial pulmonary edema and worsening small bibasilar effusions again favoring cardiac decompensation/fluid overload. Superimposed pneumonia not completely excluded.
[2021-01-30] MEDS: PROTONIX 40 MG IV IV SCH (09:39)
[2021-01-30] MEDS: PLAVIX 75 MG Tablet PO SCH (09:40)
[2021-01-30] MEDS: ECOTRIN 81 MG PO SCH (09:40)
[2021-01-30] MEDS: Lasix 40 MG/4 ML IV SCH (09:40)
[2021-01-30] MEDS: Flomax 0.4 MG PO SCH (09:40)
[2021-01-30] MEDS: Lopressor 50 MG PO SCH (09:40)
[2021-01-30] MEDS: Klor Con 10 MEQ PO SCH (09:40)
[2021-01-30] MEDS: NORVASC 5 MG PO SCH (09:40)
[2021-01-30] MEDS: NEURONTIN 300 MG PO SCH (09:40)
[2021-01-30] MEDS: Cordarone 200 MG PO SCH (09:41)
== END 2021-01-30 10:50 | disposition home health service (06) | DRG 292 ==
LOC: ED 22:03 → MED SURG 01-24 01:34 → OBSVTOIN 01-25 11:40
PROVIDERS: ADMIT Family Medicine; ATTEND Family Medicine
DX: I11.0 Hypertensive heart disease with heart failure (principal); N39.0 Urinary tract infection, site not specified; I25.10 Atherosclerotic heart disease of native coronary artery without angina pectoris; B96.5 Pseudomonas (aeruginosa) (mallei) (pseudomallei) as the cause of diseases classified elsewhere; R53.1 Weakness; N28.9 Disorder of kidney and ureter, unspecified; R29.898 Other symptoms and signs involving the musculoskeletal system; E11.9 Type 2 diabetes mellitus without complications; E78.00 Pure hypercholesterolemia, unspecified; I25.2 Old myocardial infarction; I73.9 Peripheral vascular disease, unspecified; R77.8 Other specified abnormalities of plasma proteins; R79.89 Other specified abnormal findings of blood chemistry; Z79.899 Other long term (current) drug therapy; Z85.038 Personal history of other malignant neoplasm of large intestine; Z20.828 Contact with and (suspected) exposure to other viral communicable diseases; Z79.01 Long term (current) use of anticoagulants
CPT/HCPCS: 0241U; 36000; 36415; 71045; 80048; 80053; 81001; 82947; 83735; 83880; 84484; 85025; 87040; 87077; 87086; 87186; 93005; 93041; 93268; 94640; 94760; 96360; 96374; 97161; 97530; 99285; G0378; J0456; J0696; J1817; J1940; A9270-GY

== ENCOUNTER 2021-07-03 19:41 | Emergency (ER) | payer MEDICARE, OTHER ==
[2021-07-03 22:14] VITALS: BP 160/88
--- NOTE | 2021-07-03 22:33 | ERPHSYRPT ---
- History of Present Illness Time Seen by Provider: 07/03/21 22:10 Source: patient Exam Limitations: no limitations Patient Subjective Stated Complaint: pt states he had midline placed today for antibiotic infusion outpatient, states he thinks it is bleeding too much and w ants it checked out. Triage Nursing Assessment: pt is alert and oriented, no sighns of swelling, pt states he is not having any pain, though there is blood under the dressing originall placed. Physician History: Patient is a 80-year-old male presents to our ED for evaluation of a midline that was placed today at [facility] for IV antibiotics. Patient has a history of pseudomonal infection in his urine. The midline was placed today. Patient was at home and felt it was bleeding more than expected. Upon arrival there was a small clot near the insertion site. No signs of infection. Extremity neurovascular intact distally. Compartments are soft. Cap refill less than 2 seconds. No active bleeding. Patient on Plavix. No other blood thinners. No dizziness. No weakness. No nausea or vomiting. No chest pain or shortness of breath. Patient otherwise feels well. at bedside. They will start infusions here at [facility]. Infusions will start tomorrow morning. They voiced no other complaints or concerns at this time. Timing/Duration: today Severity: mild Modifying Factors: Improves With: nothing Associated Symptoms: denies symptoms Allergies/Adverse Reactions: No Known Drug Allergies Allergy (Verified 07/03/21 22:14) Home Medications: Amiodarone HCl 200 mg [Cordarone 200 MG] 200 mg PO UD 02/27/14 [History] Amlodipine Besylate 5 mg [Norvasc 5 mg] 5 mg PO DAILY 02/27/14 [History] Clopidogrel Bisulfate [Plavix] 75 mg PO DAILY 02/27/14 [History] Metoprolol Tartrate 50 mg PO BID 02/27/14 [History] Tamsulosin HCl 0.4 mg [Flomax 0.4 MG] 0.4 mg PO BID 02/27/14 [History] Multivitamin [Multivitamins] 1 each PO DAILY 11/09/14 [History] Acetaminophen [Tylenol] 325 mg PO Q4H PRN PRN 11/05/20 [History] Aspirin 81 mg PO DAILY 11/05/20 [History] Cholecalciferol (Vitamin D3) [Vitamin D3] 5,000 unit PO UD 11/05/20 [History] Finasteride 5 mg [Proscar 5 MG] 1 tab PO HS 11/05/20 [History] Gabapentin 300 mg [Neurontin 300 mg] 300 mg PO BID 11/05/20 [History] Nitroglycerin 0.4 mg Tablet [Nitrostat 0.4 MG Tablet] 1 tab SL UD 11/05/20 [History] Albuterol Sulfate [Albuterol Sulfate Hfa] 8.5 gm IH Q6HPRN PRN 05/22/21 [History] Amiodarone HCl 200 mg PO UD 05/22/21 [History] Ascorbic Acid 500 mg [Vitamin C 500 MG] 500 mg PO DAILY 05/22/21 [History] Atorvastatin Calcium [Lipitor] 40 mg PO DAILY 05/22/21 [History] Baclofen 10 mg [Lioresal 10 mg] 10 mg PO TID 05/22/21 [History] Glimepiride [Amaryl] 1 mg PO BID 05/22/21 [History] Hydrocodone/Acetaminophen [Hydrocodone-Acetamin 5-300 mg] 1 each PO TIDPRN PRN 05/22/21 [History] Insulin Glargine,Hum.rec.anlog [Basaglar Kwikpen U-100] 40 unit SQ UD 05/22/21 [History] Isosorbide Mononitrate 30 mg [Imdur 30 MG] 30 mg PO DAILY 05/22/21 [Hi story] Lidocaine 1 each TP DAILY 05/22/21 [History] Tramadol HCl [Ultram] 50 mg PO Q8H 05/22/21 [History] Hx Tetanus, Diphtheria Vaccination/Date Given: No Hx Influenza Vaccination/Date Given: Yes Hx Pneumococcal Vaccination/Date Given: Yes Immunizations Up to Date: Yes Travel Risk - International Travel Have you traveled outside of the country in past 3 weeks: No - Coronavirus Screening Are you exhibiting any of the following symptoms?: No Close contact with a COVID-19 positive Pt in past 14-21 Days: No - Vaccine Status Have you recieved a Covid-19 vaccination: Yes Impregnation Operator: Moderna - Vaccination Dates Date of 2cond Vaccination (if applicable): unknown - Review of Systems Constitutional: No Symptoms, No Fever, No Chills Eyes: No Symptoms Ears, Nose, & Throat: No Symptoms Respiratory: No Symptoms, No Cough, No Dyspnea Cardiac: No Symptoms, No Chest Pain, No Edema, No Syncope Abdominal/Gastrointestinal: No Symptoms, No Abdominal Pain, No Nausea, No Vomiting, No Diarrhea Genitourinary Symptoms: No Symptoms, No Dysuria Musculoskeletal: No Symptoms, No Back Pain, No Neck Pain Skin: No Symptoms, No Rash Neurological: No Symptoms, No Dizziness, No Focal Weakness, No Sensory Changes Psychological: No Symptoms Endocrine: No Symptoms Hematologic/Lymphatic: No Symptoms Immunological/Allergic: No Symptoms All Other Systems: Reviewed and Negative - Past Medical History Pertinent Past Medical History: Yes Neurological History: Stroke ENT History: No Pertinent History Cardiac History: Arrhythmia, Coronary Artery Disease, High Cholesterol, Hyperten chayo, Myocardial Infarction (ME), Peripheral Vascular Disease Respiratory History: CHF Endocrine Medical History: Diabetes Type II Musculoskeletal History: No Pertinent History GI Medical History: Colorectal Cancer, GERD, Hernia History: No Pertinent History Psycho-Social History: Depression Male Reproductive Disorders: Prostate Problems Other Medical History: PARTIAL PROSTATE REMOVED. HX OF AFIB. SEVERAL STENTS. COLON CANCER-REMISSION AT THIS TIME. anemia - Past Surgical History Past Surgical History: Yes Neuro Surgical History: No Pertinent History Cardiac: Cardiac Catheterization, Cardiac Stent Respiratory: No Pertinent History Gastrointestinal: Bowel Surgery, Colon Resection, Hernia Repair Genitourinary: No Pertinent History Musculoskeletal: No Pertinent History Male Surgical History: Prostate Surgery Other Surgical History: PART OF COLON REMOVED. COLOSTOMY. femoral stents in legs - Social History Smoking Status: Former smoker Exposure to second hand smoke: No Alcohol Use: None Drug Use: none Patient Lives Alone: No Significant Family History: no pertinent family hx - Nursing Vital Signs Nursing Vital Signs: Initial Vital Signs Temperature 97.3 F 07/03/21 22:04 Pulse Rate 65 07/03/21 22:04 Respiratory Rate 18 07/03/21 22:04 Blood Pressure 160/88 07/03/21 22:04 O2 Sat by Pulse Oximetry 96 07/03/21 22:04 Pain Scale Pain Intensity 0 - Physical Exam General Appearance: no apparent distress, alert Eye Exam: PERRL/EOMI, eyes nml inspection Ears, Nose, Throat Exam: normal ENT inspection, TMs normal, pharynx normal, moist mucous membranes Neck Exam: normal inspection, non-tender, supple, full range of motion Respiratory Exam: normal breath sounds, lungs clear, airway intact, No respira tory distress Cardiovascular Exam: regular rate/rhythm, normal heart sounds, normal peripheral pulses Gastrointestinal/Abdomen Exam: soft, normal bowel sounds, other (Colostomy due to history of colon cancer), No tenderness, No mass Back Exam: normal inspection, normal range of motion, No CVA tenderness, No vertebral tenderness Extremity Exam: normal inspection, normal range of motion, pelvis stable Neurologic Exam: alert, oriented x 3, cooperative, normal mood/affect, nml cerebellar function, nml station & gait, sensation nml, No motor deficits Skin Exam: normal color, warm, dry, No rash Lymphatic Exam: No adenopathy SpO2 Interpretation: normal SpO2: 96 O2 Delivery: Room Air - Course Nursing assessment & vital signs reviewed: Yes - Progress Progress: improved Progress Note: Dressing was replaced by nursing staff. A Tegaderm was placed along with Coban. Patient observed for period of time. Bleeding resolved. Involved extremity neurovascular intact distally. Patient feels well. No dizziness. Vital stable. at bedside. They voiced no other complaints or concerns at this time. They state they are ready for discharge. They will follow-up in clinic tomorrow morning for an infusion. Portions of this note were created with voice recognition technology. There may be grammatical, spelling, punctuation or sound alike errors 07/03/21 22:32 Counseled pt/family regarding: lab results, diagnosis, need for follow-up - Departure Departure Disposition: Home Clinical Impression: Central line complication Condition: Stable Critical Care Time: No Referrals: DAIJA MARTE DAMPENER OPERATOR [Primary Care Provider] - Follow up/PCP as directed Additional Instructions: Discharge/Care Plan SHMUEL BENITEZ JALEN was seen on 07/03/21 in the Emergency Room. The patient was counseled regarding Diagnosis,Lab results, Imaging studies, need for follow up and when to return to the Emergency Room. Prescriptions given: Discharge Note I have spoken with the patient and/or caregivers. I have explained the patient's condition, diagnosis and treatment plan based on the information available to me at this time. I have answered the patient's and/or caregiver's questions and addressed any concerns. The patient and/or caregivers have as good understanding of the patient's diagnosis, condition and treatment plan as can be expected at this point. The vital signs have been stable. The patient's condition is stable and appropriate for discharge from the emergency department. The patient will pursue further outpatient evaluation with the primary care physician or other designated or consulting physician as outlined in the discharge instructions. The patient and/or caregivers are agreeable to this plan of care and follow-up instructions have been explained in detail. The patient and/or caregivers have received these instruction. The patient/and or caregivers are aware that any significant change in condition or worsening of symptoms should prompt an immediate return to this or the closest emergency department or call 911.
[2021-07-03 22:38] VITALS: PULSE 57; O2SAT 95
== END 2021-07-03 22:39 | disposition home or self-care (01) ==
LOC: ED 19:41
DX: T82.838A Hemorrhage due to vascular prosthetic devices, implants and grafts, initial encounter (principal); E78.5 Hyperlipidemia, unspecified; I10 Essential (primary) hypertension; E11.9 Type 2 diabetes mellitus without complications; Z79.01 Long term (current) use of anticoagulants; Z79.4 Long term (current) use of insulin; Z79.891 Long term (current) use of opiate analgesic; Z79.899 Other long term (current) drug therapy
CPT/HCPCS: 99283

== ENCOUNTER 2021-10-09 16:22 | Emergency (ER) | payer MEDICARE, OTHER ==
[2021-10-09 17:09] LABS: Absolute Neutrophil Ct (ANC) 9.72 x10^3/uL (1.4-6.9); Basophil (Absolute #) 0.04 x10^3/uL (0-0.4); Eosinophil % 1.5 % (0.00-5.0); Eosinophil (Absolute #) 0.19 x10^3/uL (0-0.5); Hematocrit 31.7 % (42-50); Lymphocyte (Absolute #) 1.65 x10^3/uL (1.0-4.6); Lymphocytes % 12.9 % (24.0-44.0); Mean Cell Volume 89.5 fL (78-100); Mean Corpuscular Hemoglobin 28.2 pg (26-32); Mean Corpuscular Hgb Concent. 31.5 g/dL (32-36); Mean Platelet Volume 9.4 fL (7.5-11.0); Monocyte (Absolute #) 1.16 x10^3/uL (0.0-1.3); Neutrophil % 75.8 % (36.0-66.0); Platelet Count 351 x10^3/uL (150-450); Red Blood Count 3.54 x10^6/uL (4.1-5.6); Red Cell Distribution Width 14.7 % (11.5-14.0); White Blood Count 12.8 x10^3/uL (4.0-10.5)
[2021-10-09 17:30] LABS: ALBUMIN 3.8 g/dL (3.5-5.0); ANION GAP 15.7 MEQ/L (5-15); BILIRUBIN,TOTAL 0.7 mg/dL (0.2-1.3); Calcium 9.4 mg/dL (8.4-10.2); Creatinine 1 2.21 mg/dL (0.66-1.25); EST GLOMERULAR FILTRATION RATE 30.5 ML/MIN; Potassium 3.9 mmol/L (3.5-5.1); Total Protein 7.4 g/dL (6.3-8.2)
--- NOTE | 2021-10-09 18:35 | ERPHSYRPT ---
- History of Present Illness Time Seen by Provider: 10/09/21 16:40 Source: patient Exam Limitations: no limitations Patient Subjective Stated Complaint: C/O cough and SOB for the past few days. States he had 2 cardiac stents placed last Wednesday at [facility]. Cardiol ogist is Dr. Marcio Lutz. Denies any pain or fever. Triage Nursing Assessment: Patient noted to be SOB and has an occassional, deep, dry, cough. Skin warm and loose. Patient able to voice wants and needs. Patient placed on 02 @ 3L per N/C once he arrived to ED. He arrived wearing 02 @ 2L per N/C at home and was sating 90% on the 2L. Patient states he never wears 02 during the daytime; only uses oxygen at noc normally. Physician History: Patient is a 80-year-old male presents to emergency department for evaluation of shortness of breath and a cough. Patient states he had 2 cardiac stents placed on Wednesday. Since then patient has had a ongoing cough. Cough is dry nonproductive. Patient also experiencing mild shortness of breath. No fabián chest pain. No nausea vomiting or diaphoresis. Patient's ultrasound technician is Dr. Lutz. Symptoms are mild to moderate in intensity. No specific worsening improving factors. Patient voices no other complaints or concerns at this time. \Portions of this note were created with voice recognition technology. There may be grammatical, spelling, punctuation or sound alike errors Timing/Duration: today Severity: moderate Modifying Factors: Improves With: nothing Allergies/Adverse Reactions: No Known Drug Allergies Allergy (Verified 10/09/21 16:24) Home Medications: Amiodarone HCl 200 mg [Cordarone 200 MG] 200 mg PO UD 02/27/14 [History] Amlodipine Besylate 5 mg [Norvasc 5 mg] 5 mg PO DAILY 02/27/14 [History] Clopidogrel Bisulfate [Plavix] 75 mg PO DAILY 02/27/14 [History] Metoprolol Tartrate 50 mg PO BID 02/27/14 [History] Multivitamin [Multivitamins] 1 each PO DAILY 11/09/14 [History] Acetaminophen [Tylenol] 325 mg PO Q4H PRN PRN 11/05/20 [History] Cholecalciferol (Vitamin D3) [Vitamin D3] 5,000 unit PO UD 11/05/20 [History] Finasteride 5 mg [Proscar 5 MG] 1 tab PO HS 11/05/20 [History] Gabapentin [Neurontin ] 300 mg PO BID 11/05/20 [History] Nitroglycerin 0.4 mg Tablet [Nitrostat 0.4 MG Tablet] 1 tab SL UD 11/05/20 [History] Albuterol Sulfate [Albuterol Sulfate Hfa] 8.5 gm IH Q6HPRN PRN 05/22/21 [History] Amiodarone HCl 200 mg PO UD 05/22/21 [History] Ascorbic Acid 500 mg [Vitamin C 500 MG] 500 mg PO DAILY 05/22/21 [History] Atorvastatin Calcium [Lipitor] 40 mg PO DAILY 05/22/21 [History] Glimepiride [Amaryl] 2 mg PO BID 05/22/21 [History] Hydrocodone/Acetaminophen [Hydrocodone-Acetamin 5-300 mg] 1 each PO TIDPRN PRN 05/22/21 [History] Insulin Glargine,Hum.rec.anlog [Basaglar Kwikpen U-100] 40 unit SQ UD 05/22/21 [History] Isosorbide Mononitrate 30 mg [Imdur 30 MG] 30 mg PO DAILY 05/22/21 [Hist ory] Lidocaine 1 each TP DAILY 05/22/21 [History] Hx Tetanus, Diphtheria Vaccination/Date Given: Yes Hx Influenza Vaccination/Date Given: Yes Hx Pneumococcal Vaccination/Date Given: Yes Immunizations Up to Date: Yes Travel Risk - International Travel Have you traveled outside of the country in past 3 weeks: No - Coronavirus Screening Are you exhibiting any of the following symptoms?: Yes Symptoms: Cough: New Onset, Shortness of Breath Close contact with a COVID-19 positive Pt in past 14-21 Days: No - Vaccine Status Have you recieved a Covid-19 vaccination: Yes Firestopper Technician: Moderna - Vaccination Dates Date of 2cond Vaccination (if applicable): 2020 - Review of Systems Constitutional: No Symptoms, No Fever, No Chills Eyes: No Symptoms Ears, Nose, & Throat: No Symptoms Respiratory: No Symptoms, No Cough, No Dyspnea Cardiac: No Chest Pain, No Edema, No Syncope Abdominal/Gastrointestinal: No Symptoms, No Abdominal Pain, No Nausea, No Vomiting, No Diarrhea Genitourinary Symptoms: No Symptoms, No Dysuria Musculoskeletal: No Symptoms, No Back Pain, No Neck Pain Skin: No Symptoms, No Rash Neurological: No Symptoms, No Dizziness, No Focal Weakness, No Sensory Changes Psychological: No Symptoms Endocrine: No Symptoms Hematologic/Lymphatic: No Symptoms Immunological/Allergic: No Symptoms All Other Systems: Reviewed and Negative - Past Medical History Pertinent Past Medical History: Yes Neurological History: Stroke ENT History: No Pertinent History Cardiac History: Arrhythmia, Coronary Artery Disease, High Cholesterol, Hyper tension, Myocardial Infarction (NH), Peripheral Vascular Disease Respiratory History: CHF Endocrine Medical History: Diabetes Type II Musculoskeletal History: No Pertinent History GI Medical History: Colorectal Cancer, GERD, Hernia History: No Pertinent History Psycho-Social History: Depression Male Reproductive Disorders: Prostate Problems Other Medical History: HX OF AFIB. COLON CANCER-REMISSION AT THIS TIME. anemia - Past Surgical History Past Surgical History: Yes Neuro Surgical History: No Pertinent History Cardiac: Cardiac Catheterization, Cardiac Stent Respiratory: No Pertinent History Gastrointestinal: Bowel Surgery, Colon Resection, Hernia Repair Genitourinary: No Pertinent History Musculoskeletal: No Pertinent History Male Surgical History: Prostate Surgery Other Surgical History: PART OF COLON REMOVED. COLOSTOMY. femoral stents in legs - Social History Smoking Status: Former smoker Exposure to second hand smoke: No Alcohol Use: None Drug Use: none Patient Lives Alone: No Significant Family History: no pertinent family hx - Nursing Vital Signs Nursing Vital Signs: Initial Vital Signs Temperature 99.2 F 10/09/21 16:24 Pulse Rate 76 10/09/21 16:24 Respiratory Rate 24 10/09/21 16:24 Blood Pressure 151/70 10/09/21 16:24 O2 Sat by Pulse Oximetry 96 10/09/21 16:24 Pain Scale Pain Intensity 4 - Physical Exam General Appearance: no apparent distress, alert Eye Exam: PERRL/EOMI, eyes nml inspection Ears, Nose, Throat Exam: normal ENT inspection, TMs normal, pharynx normal, moist mucous membranes Neck Exam: normal inspection, non-tender, supple, full range of motion Respiratory Exam: normal breath sounds, lungs clear, airway intact, No respiratory distress Cardiovascular Exam: regular rate/rhythm, normal heart sounds, normal peripheral pulses Gastrointestinal/Abdomen Exam: soft, normal bowel sounds, No tenderness, No mass Back Exam: normal inspection, normal range of motion, No CVA tenderness, No vertebral tenderness Extremity Exam: normal inspection, normal range of motion, pelvis stable Neurologic Exam: alert, oriented x 3, cooperative, normal mood/affect, nml cerebellar function, nml station & gait, sensation nml, No motor deficits Skin Exam: normal color, warm, dry, No rash Lymphatic Exam: No adenopathy SpO2 Interpretation: normal SpO2: 95 O2 Delivery: Room Air - Course Nursing assessment & vital signs reviewed: Yes EKG Interpreted by Me: RATE (65), Sinus Rhythm, NORMAL AXIS (Incomplete left bundle branch block) - Radiology Exams Chest X-ray Interpretation: Teleradiologist Report (CHF, worse than 02-18. Also new right base superimposed pneumonia) Ordered Tests: Active Orders 24 hr Category Date Time Status Librarian Helper STAT Care 10/09/21 16:57 Active EKG-ER Only STAT Care 10/09/21 16:57 Active IV Insertion STAT Care 10/09/21 16:57 Active Pulse Oximetry (ED) STAT Care 10/09/21 16:57 Active CHEST 1 VIEW (PORTABLE) Stat Exams 10/09/21 16:58 Taken BLOOD CULTURE Stat Lab 10/09/21 19:05 Received CBC W DIFF Stat Lab 10/09/21 17:00 Completed CMP Stat Lab 10/09/21 16:57 Completed NT PRO BNP Stat Lab 10/09/21 16:57 Completed POCT GLUCOSE Stat Lab 10/09/21 17:22 Completed TROPONIN Q4H Lab 10/09/21 17:00 Completed TROPONIN Q4H Lab 10/09/21 21:25 Completed TROPONIN Q4H Lab 10/10/21 01:00 Ordered Medication Summary Generic Name Dose Route Start Last Admin Trade Name Freq PRN Reason Stop Dose Admin Acetaminophen 1,000 mg 10/09/21 21:17 10/09/21 21:19 Acetaminophen 500 Mg Tablet PO 11/08/21 21:16 1,000 mg Q4H PRN PRN Administration HEADACHE Discontinued Medications Generic Name Dose Route Start Last Admin Trade Name Freq PRN Reason Stop Dose Admin Furosemide 20 mg 10/10/21 10:00 Furosemide 20 Mg/Vial IV 11/09/21 09:59 DAILY EDEL Furosemide Confirm 10/09/21 18:48 Furosemide 40 Mg/4 Ml Vial Administered 10/09/21 18:49 Dose 40 mg .ROUTE .STK-MED ONE Furosemide 20 mg 10/09/21 19:00 10/09/21 19:01 Furosemide 40 Mg/4 Ml Vial IV 10/09/21 19:01 20 mg STAT ONE Administration Ceftriaxone Sodium/Dextrose 2 g in 50 mls @ 100 mls/hr 10/09/21 19:13 10/09/21 19:59 Rocephin 2 Gm-D5w 50ml Bag IV 10/09/21 19:42 Infused STAT STA Infusion Azithromycin 500 mg in 250 mls @ 250 mls/hr 10/09/21 19:13 10/09/21 21:04 Zithromax 500 Mg/ 250 Ml Nacl Premix IV 10/09/21 20:12 Infused STAT STA Infusion Ceftriaxone Sodium/Dextrose Confirm 10/09/21 19:24 Rocephin 2 Gm-D5w 50ml Bag Administered 10/09/21 19:25 Dose 2 g in 50 mls @ ud IV .STK-MED ONE Azithromycin Confirm 10/09/21 20:08 Zithromax 500 Mg/ 250 Ml Nacl Premix Administered 10/09/21 20:09 Dose 500 mg in 250 mls @ ud IV .STK-MED ONE Lab/Rad Data: Laboratory Result Diagrams 10/09/21 17:00 10/09/21 16:57 Laboratory Results 10/09/21 10/09/21 10/09/21 Range/Units 21:25 19:05 17:22 WBC (4.0-10.5) x10^3/uL RBC (4.1-5.6) x10^6/uL Hgb (12.5-18.0) g/dL Hct (42-50) % MCV (78-100) fL MCH (26-32) pg MCHC (32-36) g/dL RDW (11.5-14.0) % Plt Count (150-450) x10^3/uL MPV (7.5-11.0) fL Gran % (36.0-66.0) % Immature Gran % (Auto) (0.00-0.4) % Nucleat RBC Rel Count (0.00-0.1) % Eos # (Auto) (0-0.5) x10^3/uL Immature Gran # (Auto) (0.00-0.03) x10^3u/L Absolute Lymphs (auto) (1.0-4.6) x10^3/uL Absolute Monos (auto) (0.0-1.3) x10^3/uL Absolute Nucleated RBC (0.00-0.01) x10^3u/L Lymphocytes % (24.0-44.0) % Monocytes % (0.0-12.0) % Eosinophils % (0.00-5.0) % Basophils % (0.0-0.4) % Absolute Granulocytes (1.4-6.9) x10^3/uL Basophils # (0-0.4) x10^3/uL Sodium (137-145) mmol/L Potassium (3.5-5.1) mmol/L Chloride (98-107) mmol/L Carbon Dioxide (22-30) mmol/L Anion Gap (5-15) MEQ/L BUN (9-20) mg/dL Creatinine (0.66-1.25) mg/dL Estimated GFR ML/MIN Glucose (74-106) mg/dL POC Glucometer 152 H (74 to 106) mg/dL Calcium (8.4-10.2) mg/dL Total Bilirubin (0.2-1.3) mg/dL AST (17-59) U/L ALT (0-50) U/L Alkaline Phosphatase (38-126) U/L Troponin I 0.031 (0.000-0.034) ng/mL NT-Pro-B Natriuret Pep (0-1800) pg/mL Serum Total Protein (6.3-8.2) g/dL Albumin (3.5-5.0) g/dL Influenza Type A Ag NEGATIVE (NEGATIVE) Influenza Type B Ag NEGATIVE (NEGATIVE) RSV (PCR) NEGATIVE (Negative) SARS-CoV-2 (PCR) NEGATIVE (NEGATIVE) 10/09/21 10/09/21 10/09/21 Range/Units 17:00 17:00 16:57 WBC 12.8 H (4.0-10.5) x10^3/uL RBC 3.54 L (4.1-5.6) x10^6/uL Hgb 10.0 L (12.5-18.0) g/dL Hct 31.7 L (42-50) % MCV 89.5 (78-100) fL MCH 28.2 (26-32) pg MCHC 31.5 L (32-36) g/dL RDW 14.7 H (11.5-14.0) % Plt Count 351 (150-450) x10^3/uL MPV 9.4 (7.5-11.0) fL Gran % 75.8 H (36.0-66.0) % Immature Gran % (Auto) 0.5 H (0.00-0.4) % Nucleat RBC Rel Count 0.0 (0.00-0.1) % Eos # (Auto) 0.19 (0-0.5) x10^3/uL Immature Gran # (Auto) 0.07 H (0.00-0.03) x10^3u/L Absolute Lymphs (auto) 1.65 (1.0-4.6) x10^3/uL Absolute Monos (auto) 1.16 (0.0-1.3) x10^3/uL Absolute Nucleated RBC 0.00 (0.00-0.01) x10^3u/L Lymphocytes % 12.9 L (24.0-44.0) % Monocytes % 9.0 (0.0-12.0) % Eosinophils % 1.5 (0.00-5.0) % Basophils % 0.3 (0.0-0.4) % Absolute Granulocytes 9.72 H (1.4-6.9) x10^3/uL Basophils # 0.04 (0-0.4) x10^3/uL Sodium 132 L (137-145) mmol/L Potassium 3.9 (3.5-5.1) mmol/L Chloride 97 L (98-107) mmol/L Carbon Dioxide 24 (22-30) mmol/L Anion Gap 15.7 H (5-15) MEQ/L BUN 27 H (9-20) mg/dL Creatinine 2.21 H (0.66-1.25) mg/dL Estimated GFR 30.5 ML/MIN Glucose 169 H (74-106) mg/dL POC Glucometer (74 to 106) mg/dL Calcium 9.4 (8.4-10.2) mg/dL Total Bilirubin 0.70 (0.2-1.3) mg/dL AST 22 (17-59) U/L ALT 17 (0-50) U/L Alkaline Phosphatase 89 (38-126) U/L Troponin I 0.023 (0.000-0.034) ng/mL NT-Pro-B Natriuret Pep 6510 H (0-1800) pg/mL Serum Total Protein 7.4 (6.3-8.2) g/dL Albumin 3.8 (3.5-5.0) g/dL Influenza Type A Ag (NEGATIVE) Influenza Type B Ag (NEGATIVE) RSV (PCR) (Negative) SARS-CoV-2 (PCR) (NEGATIVE) - Progress Progress: improved Progress Note: Case discussed with Dr. Abel who advised transfer to patient's ultrasound technician. Patient's ultrasound technician is Dr. Lutz. Dr. Lutz is currently being covered by Dr. Cheng. Case discussed with Dr. Cheng who accepts transfer. Case discussed with hospitalist Dr. Peter who accepts transfer. Plan of care discussed with patient. He agrees to transfer to [facility] for further evaluation and t reatment. Portions of this note were created with voice recognition technology. There may be grammatical, spelling, punctuation or sound alike errors 10/09/21 20:25 Discussed with : August Will see patient in: other Counseled pt/family regarding: lab results, diagnosis, rad results - Departure Departure Disposition: Transfer Clinical Impression: Cough, Shortness of breath, Leukocytosis, Normocytic anemia, Hyponatremia, Acute renal injury, Elevated brain natriuretic peptide (BNP) level, Pulmonary congestion, Pneumonia, Hypoxia Condition: Stable Critical Care Time: No Referrals: DAIJA MARTE PACKING ROOM SUPERVISOR [Primary Care Provider] - Follow up/PCP as directed
[2021-10-09] MEDS ORDERED: Lasix 40 MG/4 ML ONE (18:48)
[2021-10-09] MEDS ORDERED: Lasix 40 MG/4 ML IV ONE (19:00)
[2021-10-09] MEDS ORDERED: Zithromax 500 MG/ 250 ML NaCl Premix 500 MG/250 ML IVPB IV STA (19:13)
[2021-10-09] MEDS ORDERED: ROCEPHIN 2 Gm-D5w 50ML BAG** 2 G/50 ML IVPB IV STA (19:13)
[2021-10-09] MEDS ORDERED: ROCEPHIN 2 Gm-D5w 50ML BAG** 2 G/50 ML IVPB IV ONE (19:24)
[2021-10-09 19:51] LABS: INFLUENZA A NEGATIVE (NEGATIVE); INFLUENZA B NEGATIVE (NEGATIVE); RESPIRATORY SYNCTIAL VIRUS NEGATIVE (Negative); SARS-CoV-2 Xpert Express NEGATIVE (NEGATIVE)
[2021-10-09] MEDS ORDERED: Zithromax 500 MG/ 250 ML NaCl Premix 500 MG/250 ML IVPB IV ONE (20:08)
[2021-10-09] MEDS ORDERED: TYLENOL EXTRA STRENGTH 500 MG PO PRN (21:17)
[2021-10-09] MEDS ORDERED: TYLENOL EXTRA STRENGTH 500 MG ONE (21:18)
[2021-10-09 22:03] VITALS: BP 144/69; O2SAT 95
[2021-10-09 23:42] VITALS: PULSE 69
[2021-10-10] MEDS ORDERED: Zofran 4 MG/2 ML VIAL ONE (07:25)
[2021-10-10] MEDS ORDERED: MORPHINE SULFATE 2 MG INJ ONE (07:25)
--- NOTE | 2021-10-10 08:37 | XRAY ---
Indication: Cough and short of breath 3 days. History CHF. Comparison: January 30, 2021. Portable chest again demonstrates cardiomegaly, pulmonary edema, and small bibasilar effusions worsened on the right again favoring cardiac decompensation/CHF. New right base superimposed patchy airspace disease. Bony thorax intact.
[2021-10-10] MEDS ORDERED: Lasix 20 MG/2 ML IV SCH (10:00)
== END 2021-10-09 23:00 | disposition short-term general hospital (02) ==
LOC: ED 16:22
DX: J18.9 Pneumonia, unspecified organism (principal); N17.9 Acute kidney failure, unspecified; R05.9 Cough, unspecified; R06.02 Shortness of breath; D72.829 Elevated white blood cell count, unspecified; D64.9 Anemia, unspecified; E87.1 Hypo-osmolality and hyponatremia; R79.89 Other specified abnormal findings of blood chemistry; R09.89 Other specified symptoms and signs involving the circulatory and respiratory systems; R09.02 Hypoxemia; E78.5 Hyperlipidemia, unspecified; I10 Essential (primary) hypertension; E11.9 Type 2 diabetes mellitus without complications; Z79.02 Long term (current) use of antithrombotics/antiplatelets; Z79.891 Long term (current) use of opiate analgesic; Z79.4 Long term (current) use of insulin; Z79.899 Other long term (current) drug therapy; Z20.828 Contact with and (suspected) exposure to other viral communicable diseases
CPT/HCPCS: 0241U; 36000; 36415; 71045; 80053; 82947; 83880; 84484; 85025; 87040; 93005; 93041; 94760; 96365; 96367; 96374; 99285; 96375; J0456; J0696; J1940; J2270; J2405; A9270-GY

== ENCOUNTER 2022-02-28 22:46 | Inpatient (IN) | payer MEDICARE, OTHER ==
[2022-02-28] MEDS ORDERED: DUONEB 0.5-3 MG/3 ml Neb IH ONE (22:51)
[2022-02-28] MEDS: DUONEB 0.5-3 MG/3 ml Neb IH ONE (22:54)
[2022-02-28] MEDS ORDERED: solu-MEDROL 125 MG, Sterile H2O 10 ml 2 ML IV ONE ×2 (22:56)
[2022-02-28 23:13] LABS: A-aADO2 183; ABG POTASSIUM 4.2 (3.5-5.1); ARTERIAL BLD GAS O2 SATURATION 97.6 % (95-100); ARTERIAL BLOOD GAS BASE EXCESS 10.1 (-2.0-2.0); ARTERIAL BLOOD GAS FIO2 44 %; ARTERIAL BLOOD GAS PCO2 38 mmHg (35-45); ARTERIAL BLOOD GAS PO2 83 mmHg (75-100); CARBOXYHEMOGLOBIN 3.1 % THgb (0.0-6.9); HCO3- 33.2 (22-28); HGB O2 SAT 93.7 g/dF (94-100); Lactic Acid 0.7 (0.4-2.0); Methhemoglobin 0.9 % (1.4-1.5); paO2 pAO1 0.31
[2022-02-28 23:14] LABS: ABG SITE LEFT RADIAL; ALLEN TEST OK? YES; ARTERIAL BLOOD GAS pH 7.55 (7.35-7.45)
[2022-02-28 23:19] LABS: Absolute Neutrophil Ct (ANC) 8.49 x10^3/uL (1.4-6.9); BASOPHIL % 0.6 % (0.0-0.4); Basophil (Absolute #) 0.06 x10^3/uL (0-0.4); Eosinophil % 2.1 % (0.00-5.0); Eosinophil (Absolute #) 0.22 x10^3/uL (0-0.5); Hemoglobin 9.4 g/dL (12.5-18.0); IMMATURE GRAN # 0.04 x10^3u/L (0.00-0.03); IMMATURE GRAN % 0.4 % (0.00-0.4); Lymphocyte (Absolute #) 0.87 x10^3/uL (1.0-4.6); Lymphocytes % 8.3 % (24.0-44.0); Mean Cell Volume 87.9 fL (78-100); Mean Corpuscular Hemoglobin 25.8 pg (26-32); Mean Corpuscular Hgb Concent. 29.4 g/dL (32-36); Mean Platelet Volume 8.9 fL (7.5-11.0); Monocyte (Absolute #) 0.86 x10^3/uL (0.0-1.3); Monocytes % 8.2 % (0.0-12.0); Neutrophil % 80.4 % (36.0-66.0); Platelet Count 392 x10^3/uL (150-450); Red Blood Count 3.64 x10^6/uL (4.1-5.6); Red Cell Distribution Width 15.9 % (11.5-14.0); White Blood Count 10.5 x10^3/uL (4.0-10.5)
[2022-02-28] MEDS ORDERED: solu-MEDROL ONE (23:28)
[2022-02-28] MEDS ORDERED: Sterile H2O 10 ml IJ ONE (23:28)
[2022-02-28 23:39] LABS: ALBUMIN 4.1 g/dL (3.5-5.0); ANION GAP 12.3 MEQ/L (5-15); BILIRUBIN,TOTAL 0.6 mg/dL (0.2-1.3); Calcium 9.3 mg/dL (8.4-10.2); Creatinine 1 2.43 mg/dL (0.66-1.25); EST GLOMERULAR FILTRATION RATE 27.3 ML/MIN; Potassium 4.1 mmol/L (3.5-5.1); Total Protein 7.9 g/dL (6.3-8.2)
[2022-02-28] MEDS ORDERED: Zithromax 500 MG/ 250 ML NaCl Premix 500 MG/250 ML IVPB IV STA (23:53)
[2022-02-28] MEDS ORDERED: ROCEPHIN 2 Gm-D5w 50ML BAG** 2 G/50 ML IVPB IV STA (23:53)
[2022-02-28 23:55] LABS: INFLUENZA A NEGATIVE (NEGATIVE); INFLUENZA B NEGATIVE (NEGATIVE); RESPIRATORY SYNCTIAL VIRUS NEGATIVE (Negative); SARS-CoV-2 Xpert Express NEGATIVE (NEGATIVE)
[2022-02-28] MEDS ORDERED: Lasix 40 MG/4 ML IV ONE (23:58)
--- NOTE | 2022-03-01 00:09 | ERPHSYRPT ---
- History of Present Illness Time Seen by Provider: 02/28/22 22:56 Source: patient, EMS Exam Limitations: no limitations Patient Subjective Stated Complaint: shortness of breath Triage Nursing Assessment: pt arrived via ambulance, c/o shortness of breath since around 7pm tonight. Pt has a productive cough, creamy yellow/brown tinge in color, thick. Pt has expiratory fine wheezes ant and post, bilat lobes. Heart tones reg. Pt denies any chest pain, nausea or vomiting. Pt is alert and oriented x4, pleasant and cooperative. Pt wears 2-3L of oxygen at home at all times but today has been wearing 4L. Pt is currently on 6L n/c in the ER. Physician History: 81 years old male with history of coronary artery disease status post stenting, congestive heart failure, hypertension, hyperlipidemia, diabetes mellitus, COPD, respiratory failure on 2-3 L oxygen all the time presented in the ER with chief complaint of sudden worsening shortness of breath since 7 PM. Patient also reports coughing up clear to yellow sputum moderate in amount with generalized chest tightness and pressure all over with wheezing. Patient oxygen saturation was in mid 80s despite being on 4 L oxygen and still feeling short of breath. He is increased to 6 L oxygen, given Nitropaste and feeling better on presentation and currently in mid 90s. No lower extremity swelling. Timing/Duration: hour(s) (4), constant, sudden, worse Activities at Onset: rest Severity of Dyspnea-Max: severe Severity of Dyspnea-Current: severe Possible Cause: unknown cause Modifying Factors: Improves With: oxygen. Worsens With: coughing Associated Symptoms: cough, chest pain/discomfort, wheezing, productive cough, tightness Allergies/Adverse Reactions: No Known Drug Allergies Allergy (Verified 02/28/22 23:11) Home Medications: Amiodarone HCl 200 mg [Cordarone 200 MG] 200 mg PO UD 02/27/14 [History] Amlodipine Besylate 5 mg [Norvasc 5 mg] 10 mg PO DAILY 02/27/14 [History] Clopidogrel Bisulfate [Plavix] 75 mg PO DAILY 02/27/14 [History] Metoprolol Tartrate 50 mg PO BID 02/27/14 [History] Multivitamin [Multivitamins] 1 each PO DAILY 11/09/14 [History] Finasteride 5 mg [Proscar 5 MG] 5 mg PO DAILY 11/05/20 [History] Gabapentin [Neurontin ] 300 mg PO BID 11/05/20 [History] Nitroglycerin 0.4 mg Tablet [Nitrostat 0.4 MG Tablet] 1 tab SL UD 11/05/20 [History] Albuterol Sulfate [Albuterol Sulfate Hfa] 2 inh IH Q6HPRN PRN 05/22/21 [History] Ascorbic Acid 500 mg [Vitamin C 500 MG] 500 mg PO UD 05/22/21 [History] Atorvastatin Calcium [Lipitor] 40 mg PO HS 05/22/21 [History] Insulin Glargine,Hum.rec.anlog [Basaglar Kwikpen U-100] 40 unit SQ DAILY 05/22/21 [History] Lidocaine 1 each TP DAILY PRN PRN 05/22/21 [History] Acetaminophen 500 mg [Tylenol Extra Strength 500 mg] 500 mg PO Q4H PRN PRN 03/01/22 [History] Aspirin EC 81 mg [Ecotrin 81 mg] 81 mg PO DAILY 03/01/22 [History] Calcium Carbonate [Calcium] 600 mg PO BID 03/01/22 [History] Cholecalciferol (Vitamin D3) [Vitamin D] 4,000 unit PO UD 03/01/22 [History] Ferrous Sulfate 325 mg [Feosol 325 mg] 325 mg PO BID 03/01/22 [History] Fosfomycin Tromethamine 3 gm PO UD 03/01/22 [History] Furosemide 20 mg [Lasix 20 mg] 40 mg PO BID 03/01/22 [History] Insulin Lispro [Insulin Lispro Kwikpen U-100] 1 unit SQ UD 03/01/22 [History] Isosorbide Mononitrate [Isosorbide Mononitrate ER] 30 mg PO DAILY 03/01/22 [History] Tamsulosin HCl 0.4 mg [Flomax 0.4 MG] 0.4 mg PO HS 03/01/22 [History] Hx Tetanus, Diphtheria Vaccination/Date Given: Yes Hx Influenza Vaccination/Date Given: Yes Hx Pneumococcal Vaccination/Date Given: Yes Immunizations Up to Date: Yes Travel Risk - International Travel Have you traveled outside of the country in past 3 weeks: No - Coronavirus Screening Are you exhibiting any of the following symptoms?: Yes Symptoms: Cough: New Onset, Shortness of Breath Close contact with a COVID-19 positive Pt in past 14-21 Days: No - Vaccine Status Have you recieved a Covid-19 vaccination: Yes Event Technician: Moderna - Vaccination Dates Date of 2cond Vaccination (if applicable): 2020 - Review of Systems Constitutional: Fatigue Eyes: No Symptoms Ears, Nose, & Throat: No Symptoms Respiratory: Cough, Dyspnea, Dyspnea on Exertion (UMANA), Wheezing Cardiac: Chest Pain Abdominal/Gastrointestinal: No Symptoms Genitourinary Symptoms: No Symptoms Musculoskeletal: Arthralgias Skin: No Symptoms Neurological: No Symptoms Psychological: No Symptoms Endocrine: No Symptoms Hematologic/Lymphatic: No Symptoms Immunological/Allergic: No Symptoms - Past Medical History Pertinent Past Medical History: Yes Neurological History: Stroke ENT History: No Pertinent History Cardiac History: Arrhythmia, Coronary Artery Disease, High Cholesterol, Hypertension, Myocardial Infarction (NH), Peripheral Vascular Disease Respiratory History: CHF Endocrine Medical History: Diabetes Type II Musculoskeletal History: No Pertinent History GI Medical History: Colorectal Cancer, GERD, Hernia History: No Pertinent History Psycho-Social History: Depression Male Reproductive Disorders: Prostate Problems Other Medical History: HX OF AFIB. COLON CANCER-REMISSION AT THIS TIME. anemia - Past Surgical History Past Surgical History: Yes Neuro Surgical History: No Pertinent History Cardiac: Cardiac Catheterization, Cardiac Stent Respiratory: No Pertinent History Gastrointestinal: Bowel Surgery, Colon Resection, Hernia Repair Genitourinary: No Pertinent History Musculoskeletal: No Pertinent History Male Surgical History: Prostate Surgery Other Surgical History: PART OF COLON REMOVED. COLOSTOMY. femoral stents in legs - Social History Smoking Status: Former smoker Exposure to second hand smoke: No Alcohol Use: None Drug Use: none Patient Lives Alone: No Significant Family History: no pertinent family hx - Nursing Vital Signs Nursing Vital Signs: Initial Vital Signs Pulse Rate 59 L 02/28/22 22:47 Respiratory Rate 26 H 02/28/22 22:47 Blood Pressure 141/65 02/28/22 22:47 O2 Sat by Pulse Oximetry 92 L 02/28/22 22:47 Pain Scale Pain Intensity 0 - Physical Exam General Appearance: no apparent distress, alert Eye Exam: PERRL/EOMI Ears, Nose, Throat Exam: hearing grossly normal, pharyngeal erythema Neck Exam: normal inspection, non-tender, supple, full range of motion Respiratory Exam: respiratory distress, diminished breath sounds, crackles/rales, rhonchi, wheezing Cardiovascular/Chest Exam: normal heart sounds, regular rate/rhythm Abdominal/Gastrointestinal Exam: soft, normal bowel sounds Extremity Exam: non-tender, normal range of motion Neurologic Exam: alert, oriented x 3, 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, 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 Skin Exam: normal color SpO2 Interpretation: hypoxic, O2 applied SpO2: 92 O2 Delivery: Nasal Cannula - Course EKG Interpreted by Me: RATE (56 accelerated junctional rhythm) Ordered Tests: Medication Summary Generic Name Dose Route Start Last Admin Trade Name Freq PRN Reason Stop Dose Admin Acetaminophen 500 mg 03/01/22 09:17 03/02/22 00:41 Acetaminophen 500 Mg Tablet PO 03/31/22 09:16 500 mg Q4H PRN PRN Administration PAIN Albuterol Sulfate 2.5 mg 03/01/22 13:00 03/02/22 18:51 Albuterol Solution 2.5 Mg/0.5 Ml Ud Solution IH 03/31/22 12:59 2.5 mg Q6HRT EDEL Administration Albuterol Sulfate 2 puff 03/01/22 09:17 Albuterol Common Canister Inhaler IH 03/31/22 09:16 Q6HPRN PRN SHORTNESS OF BREATH/WHEEZING Amiodarone HCl 200 mg 03/02/22 10:00 03/02/22 08:18 Amiodarone Hcl 200 Mg Tab PO 04/01/22 09:59 200 mg QOD EDEL Administration Amlodipine Besylate 10 mg 03/01/22 10:00 03/02/22 08:19 Amlodipine Besylate 5 Mg Tablet PO 03/31/22 09:59 10 mg DAILY EDEL Administration Aspirin 81 mg 03/01/22 10:00 03/02/22 08:18 Aspirin 81 Mg Tablet.Ec PO 03/31/22 09:59 81 mg DAILY EDEL Administration Calcium Carbonate 1 tab 03/01/22 10:00 03/02/22 21:17 Calcium Carbonate 500 Mg/Vitamin D 1 Tab Tablet PO 03/31/22 09:59 1 tab BID EDEL Administration Clopidogrel Bisulfate 75 mg 03/01/22 10:00 03/02/22 08:18 Clopidogrel Bisulfate 75 Mg Tablet PO 03/31/22 09:59 75 mg DAILY EDEL Administration Methylprednisolone Sodium 0 mg 03/03/22 06:00 Succinate 40 mg/ Sterile Water IV 04/02/22 05:59 1 ml Q8HT EDEL Doxycycline Hyclate 100 mg 03/02/22 22:00 03/02/22 21:17 Doxycycline Hyclate 100 Mg Tablet PO 04/01/22 21:59 100 mg BID EDEL Administration Enoxaparin Sodium 30 mg 03/03/22 10:00 Enoxaparin Sodium 30 Mg/0.3 Ml Syringe SQ 04/02/22 09:59 DAILY EDEL Ferrous Sulfate 325 mg 03/01/22 10:00 03/02/22 21:18 Ferrous Sulfate 325 Mg Tablet PO 03/31/22 09:59 325 mg BID EDEL Administration Finasteride 5 mg 03/01/22 10:00 03/02/22 08:19 Finasteride 5 Mg Tablet PO 03/31/22 09:59 5 mg DAILY EDEL Administration Furosemide 80 mg 03/03/22 10:00 Furosemide 40 Mg/4 Ml Vial IV 04/02/22 09:59 DAILY [facility] Gabapentin 300 mg 03/01/22 10:00 03/02/22 21:17 Gabapentin 300 Mg Capsule PO 03/31/22 09:59 300 mg BID EDEL Administration Ceftriaxone Sodium/Dextrose 1 g in 50 mls @ 100 mls/hr 03/01/22 22:00 03/02/22 21:17 Rocephin 1 Gm-D5w 50 Ml Bag IV 03/04/22 09:59 100 mls/hr QPM EDEL Administration Insulin Glargine 50 unit 03/02/22 11:13 03/02/22 11:35 Insulin Glargine 1 Unit SQ 04/01/22 09:59 50 unit DAILY EDEL Administration Insulin Human Lispro 0 unit 03/02/22 16:38 03/02/22 21:45 Insulin Lispro 1 Unit SQ 04/01/22 16:37 20 unit UD PRN Administration HYPERGLYCEMIA Ipratropium [place] 0.5 mg 03/01/22 13:00 03/02/22 18:50 Ipratropium [place] 0.5 Mg/Neb IH 03/31/22 12:59 0.5 mg Q6HRT EDEL Administration Isosorbide Mononitrate 30 mg 03/01/22 10:00 03/02/22 08:18 Isosorbide Mononitrate 30 Mg Tab PO 03/31/22 09:59 30 mg DAILY EDEL Administration Ketoconazole 1 gm 03/02/22 13:15 03/02/22 20:06 Ketoconazole 15 Gm Tube Cream TOP 04/01/22 13:14 1 gm BID EDEL Administration Lidocaine 1 patch 03/01/22 09:33 Lidocaine Hcl 1 Patch Patch TP 03/31/22 09:32 DAILY PRN PRN PAIN Metoprolol Tartrate 50 mg 03/01/22 10:00 03/02/22 21:18 Metoprolol Tartrate 50 Mg Tablet PO 03/31/22 09:59 50 mg BID EDEL Administration Miscellaneous Information 1 each 03/01/22 09:45 Medication Intervention 1 Each Each 03/31/22 09:44 .RN TO CHECK EDEL Nitroglycerin 0.4 mg 03/01/22 09:30 Nitroglycerin 0.4 Mg Tablet Bottle SL 03/31/22 09:29 UD PRN Ondansetron HCl 4 mg 03/01/22 01:39 Ondansetron Hcl 4 Mg/2 Ml Vial IV 03/31/22 01:38 Q6H PRN PRN NAUSEA/VOMITING Potassium Chloride 10 meq 03/01/22 10:00 03/02/22 08:18 Potassium Chloride Tab 10 Meq Tab PO 03/31/22 09:59 10 meq DAILY EDEL Administration Simvastatin 40 mg 03/01/22 22:00 03/02/22 21:17 Simvastatin 20 Mg Tablet PO 03/31/22 21:59 40 mg HS EDEL Administration Tamsulosin HCl 0.4 mg 03/01/22 22:00 03/02/22 21:17 Tamsulosin Hcl 0.4 Mg Cap PO 03/31/22 21:59 0.4 mg HS EDEL Administration Discontinued Medications Generic Name Dose Route Start Last Admin Trade Name Freq PRN Reason Stop Dose Admin Albuterol Sulfate 2.5 mg 03/01/22 07:30 03/01/22 09:04 Albuterol Sulfate 2.5 Mg/3 Ml Neb IH 03/31/22 07:29 Not Given Q6HRT EDEL Albuterol/Ipratropium Confirm 02/28/22 22:51 Ipratropium/Albuterol Sulfate 3 Ml Ampul.Neb Administered 02/28/22 22:52 Dose 3 ml IH .STK-MED ONE Albuterol/Ipratropium 3 ml 02/28/22 22:56 03/01/22 07:36 Ipratropium/Albuterol Sulfate 3 Ml Ampul.Neb IH 02/28/22 22:57 Not Given STAT ONE Albuterol/Ipratropium 3 ml 03/01/22 01:39 03/01/22 07:36 Ipratropium/Albuterol Sulfate 3 Ml Ampul.Neb IH 03/31/22 01:38 3 ml Q6HRT EDEL Administration Methylprednisolone Sodium 0 mg 02/28/22 22:56 02/28/22 23:29 Succinate 125 mg/ Sterile IV 02/28/22 22:57 125 mg Water 2 ml STAT ONE Administration Methylprednisolone Sodium 0 mg 03/01/22 06:00 03/02/22 11:35 Succinate 60 mg/ Sterile Water IV 03/31/22 05:59 60 mg 2 ml Q6HT EDEL Administration Enoxaparin Sodium 30 mg 03/02/22 15:43 03/02/22 17:10 Enoxaparin Sodium 30 Mg/0.3 Ml Syringe SQ 03/02/22 15:44 30 mg ONCE ONE Administration Furosemide 40 mg 02/28/22 23:58 03/01/22 00:37 Furosemide 40 Mg/4 Ml Vial IV 02/28/22 23:59 40 mg STAT ONE Administration Furosemide Confirm 03/01/22 00:33 Furosemide 40 Mg/4 Ml Vial Administered 03/01/22 00:34 Dose 40 mg .ROUTE .STK-MED ONE Furosemide 40 mg 03/01/22 13:40 03/02/22 08:20 Furosemide 40 Mg/4 Ml Vial IV 03/31/22 13:39 40 mg DAILY EDEL Administration Furosemide 80 mg 03/02/22 10:00 Furosemide 40 Mg/4 Ml Vial IV 04/01/22 09:59 DAILY EDEL Furosemide 40 mg 03/02/22 09:37 03/02/22 10:17 Furosemide 40 Mg/4 Ml Vial IV 03/02/22 09:38 40 mg ONCE ONE Administration Ceftriaxone Sodium/Dextrose 2 g in 50 mls @ 100 mls/hr 02/28/22 23:53 03/01/22 00:30 Rocephin 2 Gm-D5w 50ml Bag IV 03/01/22 00:22 Not Given STAT STA Azithromycin 500 mg in 250 mls @ 250 mls/hr 02/28/22 23:53 03/01/22 00:35 Zithromax 500 Mg/ 250 Ml Nacl Premix IV 03/01/22 00:52 250 ml/hr STAT STA 250 mls/hr Administration Ceftriaxone Sodium/Dextrose 1 g in 50 mls @ 100 mls/hr 03/01/22 10:00 03/01/22 00:36 Rocephin 1 Gm-D5w 50 Ml Bag IV 03/04/22 09:59 100 mls/hr Q24H10 EDEL 100 mls/hr Administration Azithromycin Confirm 03/01/22 00:33 Zithromax 500 Mg/ 250 Ml Nacl Premix Administered 03/01/22 00:34 Dose 500 mg in 250 mls @ ud IV .STK-MED ONE Azithromycin 500 mg in 250 mls @ 250 mls/hr 03/01/22 22:00 03/01/22 21:17 Zithromax 500 Mg/ 250 Ml Nacl Premix IV 03/31/22 21:59 250 mls/hr QPM EDEL Administration Ceftriaxone Sodium/Dextrose Confirm 03/01/22 00:33 Rocephin 1 Gm-D5w 50 Ml Bag Administered 03/01/22 00:34 Dose 1 g in 50 mls @ ud IV .STK-MED ONE Insulin Glargine 40 unit 03/01/22 10:00 03/02/22 11:12 Insulin Glargine 1 Unit SQ 03/31/22 09:59 Not Given DAILY [facility] Insulin Glargine 50 unit 03/02/22 11:03 Insulin Glargine 1 Unit SQ 04/01/22 09:59 DAILY [facility] Insulin Human Lispro 0 unit 03/01/22 01:39 03/02/22 11:34 Insulin Lispro 1 Unit SQ 03/31/22 01:38 15 unit UD PRN Administration HYPERGLYCEMIA Methylprednisolone Sodium Succinate Confirm 02/28/22 23:28 Methylprednis Sod Succ 125 Mg/2 Ml Vial Administered 02/28/22 23:29 Dose 125 mg .ROUTE .STK-MED ONE Methylprednisolone Sodium Succinate Confirm 03/01/22 05:37 Methylprednis Sod Succ 125 Mg/2 Ml Vial Administered 03/01/22 05:38 Dose 125 mg .ROUTE .STK-MED ONE Methylprednisolone Sodium Succinate Confirm 03/02/22 11:26 Methylprednis Sod Succ 125 Mg/2 Ml Vial Administered 03/02/22 11:27 Dose 125 mg .ROUTE .STK-MED ONE Sterile Water Confirm 02/28/22 23:28 Water For Injection,Sterile 10 Ml Vial Administered 02/28/22 23:29 Dose 10 ml IJ .STK-MED ONE Sterile Water Confirm 03/01/22 05:37 Water For Injection,Sterile 10 Ml Vial Administered 03/01/22 05:38 Dose 10 ml IJ .STK-MED ONE Lab/Rad Data: Laboratory Result Diagrams 03/01/22 07:14 03/01/22 07:14 Laboratory Results 03/01/22 03/01/22 03/01/22 Range/Units 11:26 07:26 07:14 WBC (4.0-10.5) x10^3/uL RBC (4.1-5.6) x10^6/uL Hgb (12.5-18.0) g/dL Hct (42-50) % MCV (78-100) fL MCH (26-32) pg MCHC (32-36) g/dL RDW (11.5-14.0) % Plt Count (150-450) x10^3/uL MPV (7.5-11.0) fL Gran % (36.0-66.0) % Immature Gran % (Auto) (0.00-0.4) % Nucleat RBC Rel Count (0.00-0.1) % Eos # (Auto) (0-0.5) x10^3/uL Immature Gran # (Auto) (0.00-0.03) x10^3u/L Absolute Lymphs (auto) (1.0-4.6) x10^3/uL Absolute Monos (auto) (0.0-1.3) x10^3/uL Absolute Nucleated RBC (0.00-0.01) x10^3u/L Lymphocytes % (24.0-44.0) % Monocytes % (0.0-12.0) % Eosinophils % (0.00-5.0) % Basophils % (0.0-0.4) % Absolute Granulocytes (1.4-6.9) x10^3/uL Basophils # (0-0.4) x10^3/uL Puncture Site pCO2 (35-45) mmHg pO2 (75-100) mmHg Base Excess (-2.0-2.0) O2 Saturation (94-100) g/dF ABG pH (7.35-7.45) ABG HCO3 (22-28) ABG O2 Sat (Measured) (95-100) % Tone Test A-a Gradient a/A Ratio Hemoglobin Carboxyhemoglobin (0.0-6.9) % THgb Methemoglobin (1.4-1.5) % Potassium (3.5-5.1) Temperature C POC O2 Flow Rate % Sodium (137-145) mmol/L Chloride (98-107) mmol/L Carbon Dioxide (22-30) mmol/L Anion Gap (5-15) MEQ/L BUN (9-20) mg/dL Creatinine (0.66-1.25) mg/dL Estimated GFR ML/MIN Glucose (74-106) mg/dL POC Glucometer 387 H 278 H (74 to 106) mg/dL Hemoglobin A1c 7.85 H (4.5-6.0) % Lactic Acid (0.4-2.0) Calcium (8.4-10.2) mg/dL Magnesium (1.6-2.3) mg/dL Total Bilirubin (0.2-1.3) mg/dL AST (17-59) U/L ALT (0-50) U/L Alkaline Phosphatase (38-126) U/L Troponin I (0.000-0.034) ng/mL NT-Pro-B Natriuret Pep (0-1800) pg/mL Serum Total Protein (6.3-8.2) g/dL Albumin (3.5-5.0) g/dL Procalcitonin (0.030-0.080) ng/mL Urinalys Dipstick Clnc Urine Color (YELLOW) Urine Appearance (CLEAR) Urine pH (5-6) Ur Specific [place] (1.005-1.025) POC Urine Protein Conf (Negative) Urine Ketones (NEGATIVE) Urine Nitrite (NEGATIVE) Urine Bilirubin (NEGATIVE) Urine Urobilinogen (0-1) mg/dL Urine Leukocytes (NEGATIVE) Urine WBC (Auto) (0-5) /HPF Urine RBC (Auto) (0-2) /HPF U Epithel Cells (Auto) (FEW) /HPF Urine Bacteria (Auto) (NEGATIVE) /HPF Urine RBC (0-5) Tobias/ul Ur Culture Indicated? Urine Glucose (NEGATIVE) mg/dL Influenza Type A Ag (NEGATIVE) Influenza Type B Ag (NEGATIVE) RSV (PCR) (Negative) SARS-CoV-2 (PCR) (NEGATIVE) Slides for Path Review 03/01/22 03/01/22 03/01/22 Range/Units 07:14 07:14 07:14 WBC 8.2 (4.0-10.5) x10^3/uL RBC 3.31 L (4.1-5.6) x10^6/uL Hgb 8.8 L (12.5-18.0) g/dL Hct 28.8 L (42-50) % MCV 87.0 (78-100) fL MCH 26.6 (26-32) pg MCHC 30.6 L (32-36) g/dL RDW 15.9 H (11.5-14.0) % Plt Count 344 (150-450) x10^3/uL MPV 8.9 (7.5-11.0) fL Gran % 94.6 H (36.0-66.0) % Immature Gran % (Auto) 0.4 (0.00-0.4) % Nucleat RBC Rel Count 0.0 (0.00-0.1) % Eos # (Auto) 0 (0-0.5) x10^3/uL Immature Gran # (Auto) 0.03 (0.00-0.03) x10^3u/L Absolute Lymphs (auto) 0.35 L (1.0-4.6) x10^3/uL Absolute Monos (auto) 0.05 (0.0-1.3) x10^3/uL Absolute Nucleated RBC 0.00 (0.00-0.01) x10^3u/L Lymphocytes % 4.3 L (24.0-44.0) % Monocytes % 0.6 (0.0-12.0) % Eosinophils % 0.0 (0.00-5.0) % Basophils % 0.1 (0.0-0.4) % Absolute Granulocytes 7.77 H (1.4-6.9) x10^3/uL Basophils # 0.01 (0-0.4) x10^3/uL Puncture Site pCO2 (35-45) mmHg pO2 (75-100) mmHg Base Excess (-2.0-2.0) O2 Saturation (94-100) g/dF ABG pH (7.35-7.45) ABG HCO3 (22-28) ABG O2 Sat (Measured) (95-100) % Tone Test A-a Gradient a/A Ratio Hemoglobin Carboxyhemoglobin (0.0-6.9) % THgb Methemoglobin (1.4-1.5) % Potassium 4.2 (3.5-5.1) Temperature C POC O2 Flow Rate % Sodium 135 L (137-145) mmol/L Chloride 98 (98-107) mmol/L Carbon Dioxide 29 (22-30) mmol/L Anion Gap 11.9 (5-15) MEQ/L BUN 44 H (9-20) mg/dL Creatinine 2.22 H (0.66-1.25) mg/dL Estimated GFR 30.3 ML/MIN Glucose 311 H (74-106) mg/dL POC Glucometer (74 to 106) mg/dL Hemoglobin A1c (4.5-6.0) % Lactic Acid (0.4-2.0) Calcium 9.0 (8.4-10.2) mg/dL Magnesium (1.6-2.3) mg/dL Total Bilirubin 0.50 (0.2-1.3) mg/dL AST 19 (17-59) U/L ALT 16 (0-50) U/L Alkaline Phosphatase 66 (38-126) U/L Troponin I < 0.012 (0.000-0.034) ng/mL NT-Pro-B Natriuret Pep (0-1800) pg/mL Serum Total Protein 7.3 (6.3-8.2) g/dL Albumin 3.7 (3.5-5.0) g/dL Procalcitonin (0.030-0.080) ng/mL Urinalys Dipstick Clnc Urine Color (YELLOW) Urine Appearance (CLEAR) Urine pH (5-6) Ur Specific [place] (1.005-1.025) POC Urine Protein Conf (Negative) Urine Ketones (NEGATIVE) Urine Nitrite (NEGATIVE) Urine Bilirubin (NEGATIVE) Urine Urobilinogen (0-1) mg/dL Urine Leukocytes (NEGATIVE) Urine WBC (Auto) (0-5) /HPF Urine RBC (Auto) (0-2) /HPF U Epithel Cells (Auto) (FEW) /HPF Urine Bacteria (Auto) (NEGATIVE) /HPF Urine RBC (0-5) Tobias/ul Ur Culture Indicated? Urine Glucose (NEGATIVE) mg/dL Influenza Type A Ag (NEGATIVE) Influenza Type B Ag (NEGATIVE) RSV (PCR) (Negative) SARS-CoV-2 (PCR) (NEGATIVE) Slides for Path Review YES 03/01/22 02/28/22 02/28/22 Range/Units 03:03 23:45 23:00 WBC (4.0-10.5) x10^3/uL RBC (4.1-5.6) x10^6/uL Hgb (12.5-18.0) g/dL Hct (42-50) % MCV (78-100) fL MCH (26-32) pg MCHC (32-36) g/dL RDW (11.5-14.0) % Plt Count (150-450) x10^3/uL MPV (7.5-11.0) fL Gran % (36.0-66.0) % Immature Gran % (Auto) (0.00-0.4) % Nucleat RBC Rel Count (0.00-0.1) % Eos # (Auto) (0-0.5) x10^3/uL Immature Gran # (Auto) (0.00-0.03) x10^3u/L Absolute Lymphs (auto) (1.0-4.6) x10^3/uL Absolute Monos (auto) (0.0-1.3) x10^3/uL Absolute Nucleated RBC (0.00-0.01) x10^3u/L Lymphocytes % (24.0-44.0) % Monocytes % (0.0-12.0) % Eosinophils % (0.00-5.0) % Basophils % (0.0-0.4) % Absolute Granulocytes (1.4-6.9) x10^3/uL Basophils # (0-0.4) x10^3/uL Puncture Site pCO2 (35-45) mmHg pO2 (75-100) mmHg Base Excess (-2.0-2.0) O2 Saturation (94-100) g/dF ABG pH (7.35-7.45) ABG HCO3 (22-28) ABG O2 Sat (Measured) (95-100) % Tone Test A-a Gradient a/A Ratio Hemoglobin Carboxyhemoglobin (0.0-6.9) % THgb Methemoglobin (1.4-1.5) % Potassium (3.5-5.1) Temperature C POC O2 Flow Rate % Sodium (137-145) mmol/L Chloride (98-107) mmol/L Carbon Dioxide (22-30) mmol/L Anion Gap (5-15) MEQ/L BUN (9-20) mg/dL Creatinine (0.66-1.25) mg/dL Estimated GFR ML/MIN Glucose (74-106) mg/dL POC Glucometer (74 to 106) mg/dL Hemoglobin A1c (4.5-6.0) % Lactic Acid (0.4-2.0) Calcium (8.4-10.2) mg/dL Magnesium (1.6-2.3) mg/dL Total Bilirubin (0.2-1.3) mg/dL AST (17-59) U/L ALT (0-50) U/L Alkaline Phosphatase (38-126) U/L Troponin I < 0.012 (0.000-0.034) ng/mL NT-Pro-B Natriuret Pep (0-1800) pg/mL Serum Total Protein (6.3-8.2) g/dL Albumin (3.5-5.0) g/dL Procalcitonin (0.030-0.080) ng/mL Urinalys Dipstick Clnc MAIN LAB Urine Color YELLOW (YELLOW) Urine Appearance CLEAR (CLEAR) Urine pH 5.5 (5-6) Ur Specific [place] 1.015 (1.005-1.025) POC Urine Protein Conf 30 A (Negative) Urine Ketones NEGATIVE (NEGATIVE) Urine Nitrite POSITIVE A (NEGATIVE) Urine Bilirubin NEGATIVE (NEGATIVE) Urine Urobilinogen 0.2 (0-1) mg/dL Urine Leukocytes LARGE A (NEGATIVE) Urine WBC (Auto) >100 A (0-5) /HPF Urine RBC (Auto) 26-50 A (0-2) /HPF U Epithel Cells (Auto) RARE (FEW) /HPF Urine Bacteria (Auto) MODERATE A (NEGATIVE) /HPF Urine RBC MODERATE A (0-5) Tobias/ul Ur Culture Indicated? YES Urine Glucose NEGATIVE (NEGATIVE) mg/dL Influenza Type A Ag NEGATIVE (NEGATIVE) Influenza Type B Ag NEGATIVE (NEGATIVE) RSV (PCR) NEGATIVE (Negative) SARS-CoV-2 (PCR) NEGATIVE (NEGATIVE) Slides for Path Review 02/28/22 02/28/22 02/28/22 Range/Units 23:00 23:00 23:00 WBC (4.0-10.5) x10^3/uL RBC (4.1-5.6) x10^6/uL Hgb (12.5-18.0) g/dL Hct (42-50) % MCV (78-100) fL MCH (26-32) pg MCHC (32-36) g/dL RDW (11.5-14.0) % Plt Count (150-450) x10^3/uL MPV (7.5-11.0) fL Gran % (36.0-66.0) % Immature Gran % (Auto) (0.00-0.4) % Nucleat RBC Rel Count (0.00-0.1) % Eos # (Auto) (0-0.5) x10^3/uL Immature Gran # (Auto) (0.00-0.03) x10^3u/L Absolute Lymphs (auto) (1.0-4.6) x10^3/uL Absolute Monos (auto) (0.0-1.3) x10^3/uL Absolute Nucleated RBC (0.00-0.01) x10^3u/L Lymphocytes % (24.0-44.0) % Monocytes % (0.0-12.0) % Eosinophils % (0.00-5.0) % Basophils % (0.0-0.4) % Absolute Granulocytes (1.4-6.9) x10^3/uL Basophils # (0-0.4) x10^3/uL Puncture Site pCO2 (35-45) mmHg pO2 (75-100) mmHg Base Excess (-2.0-2.0) O2 Saturation (94-100) g/dF ABG pH (7.35-7.45) ABG HCO3 (22-28) ABG O2 Sat (Measured) (95-100) % Tone Test A-a Gradient a/A Ratio Hemoglobin Carboxyhemoglobin (0.0-6.9) % THgb Methemoglobin (1.4-1.5) % Potassium (3.5-5.1) Temperature C POC O2 Flow Rate % Sodium (137-145) mmol/L Chloride (98-107) mmol/L Carbon Dioxide (22-30) mmol/L Anion Gap (5-15) MEQ/L BUN (9-20) mg/dL Creatinine (0.66-1.25) mg/dL Estimated GFR ML/MIN Glucose (74-106) mg/dL POC Glucometer (74 to 106) mg/dL Hemoglobin A1c (4.5-6.0) % Lactic Acid (0.4-2.0) Calcium (8.4-10.2) mg/dL Magnesium 2.0 (1.6-2.3) mg/dL Total Bilirubin (0.2-1.3) mg/dL AST (17-59) U/L ALT (0-50) U/L Alkaline Phosphatase (38-126) U/L Troponin I < 0.012 (0.000-0.034) ng/mL NT-Pro-B Natriuret Pep (0-1800) pg/mL Serum Total Protein (6.3-8.2) g/dL Albumin (3.5-5.0) g/dL Procalcitonin 0.121 H (0.030-0.080) ng/mL Urinalys Dipstick Clnc Urine Color (YELLOW) Urine Appearance (CLEAR) Urine pH (5-6) Ur Specific [place] (1.005-1.025) POC Urine Protein Conf (Negative) Urine Ketones (NEGATIVE) Urine Nitrite (NEGATIVE) Urine Bilirubin (NEGATIVE) Urine Urobilinogen (0-1) mg/dL Urine Leukocytes (NEGATIVE) Urine WBC (Auto) (0-5) /HPF Urine RBC (Auto) (0-2) /HPF U Epithel Cells (Auto) (FEW) /HPF Urine Bacteria (Auto) (NEGATIVE) /HPF Urine RBC (0-5) Tobias/ul Ur Culture Indicated? Urine Glucose (NEGATIVE) mg/dL Influenza Type A Ag (NEGATIVE) Influenza Type B Ag (NEGATIVE) RSV (PCR) (Negative) SARS-CoV-2 (PCR) (NEGATIVE) Slides for Path Review 02/28/22 02/28/22 02/28/22 Range/Units 23:00 23:00 23:00 WBC 10.5 (4.0-10.5) x10^3/uL RBC 3.64 L (4.1-5.6) x10^6/uL Hgb 9.4 L (12.5-18.0) g/dL Hct 32.0 L (42-50) % MCV 87.9 (78-100) fL MCH 25.8 L (26-32) pg MCHC 29.4 L (32-36) g/dL RDW 15.9 H (11.5-14.0) % Plt Count 392 (150-450) x10^3/uL MPV 8.9 (7.5-11.0) fL Gran % 80.4 H (36.0-66.0) % Immature Gran % (Auto) 0.4 (0.00-0.4) % Nucleat RBC Rel Count 0.0 (0.00-0.1) % Eos # (Auto) 0.22 (0-0.5) x10^3/uL Immature Gran # (Auto) 0.04 H (0.00-0.03) x10^3u/L Absolute Lymphs (auto) 0.87 L (1.0-4.6) x10^3/uL Absolute Monos (auto) 0.86 (0.0-1.3) x10^3/uL Absolute Nucleated RBC 0.00 (0.00-0.01) x10^3u/L Lymphocytes % 8.3 L (24.0-44.0) % Monocytes % 8.2 (0.0-12.0) % Eosinophils % 2.1 (0.00-5.0) % Basophils % 0.6 (0.0-0.4) % Absolute Granulocytes 8.49 H (1.4-6.9) x10^3/uL Basophils # 0.06 (0-0.4) x10^3/uL Puncture Site LEFT RADIAL pCO2 38 (35-45) mmHg pO2 83 (75-100) mmHg Base Excess 10.1 H (-2.0-2.0) O2 Saturation 93.7 L (94-100) g/dF ABG pH 7.55 H* (7.35-7.45) ABG HCO3 33.2 H* (22-28) ABG O2 Sat (Measured) 97.6 (95-100) % Tone Test YES A-a Gradient 183 a/A Ratio 0.31 Hemoglobin 10.0 Carboxyhemoglobin 3.1 (0.0-6.9) % THgb Methemoglobin 0.9 L (1.4-1.5) % Potassium 4.1 4.2 (3.5-5.1) Temperature 37.0 C POC O2 Flow Rate 44 % Sodium 139 (137-145) mmol/L Chloride 99 (98-107) mmol/L Carbon Dioxide 32 H (22-30) mmol/L Anion Gap 12.3 (5-15) MEQ/L BUN 49 H (9-20) mg/dL Creatinine 2.43 H (0.66-1.25) mg/dL Estimated GFR 27.3 ML/MIN Glucose 187 H (74-106) mg/dL POC Glucometer (74 to 106) mg/dL Hemoglobin A1c (4.5-6.0) % Lactic Acid 0.7 (0.4-2.0) Calcium 9.3 (8.4-10.2) mg/dL Magnesium 2.0 (1.6-2.3) mg/dL Total Bilirubin 0.60 (0.2-1.3) mg/dL AST 45 (17-59) U/L ALT 17 (0-50) U/L Alkaline Phosphatase 75 (38-126) U/L Troponin I (0.000-0.034) ng/mL NT-Pro-B Natriuret Pep 7330 H (0-1800) pg/mL Serum Total Protein 7.9 (6.3-8.2) g/dL Albumin 4.1 (3.5-5.0) g/dL Procalcitonin (0.030-0.080) ng/mL Urinalys Dipstick Clnc Urine Color (YELLOW) Urine Appearance (CLEAR) Urine pH (5-6) Ur Specific [place] (1.005-1.025) POC Urine Protein Conf (Negative) Urine Ketones (NEGATIVE) Urine Nitrite (NEGATIVE) Urine Bilirubin (NEGATIVE) Urine Urobilinogen (0-1) mg/dL Urine Leukocytes (NEGATIVE) Urine WBC (Auto) (0-5) /HPF Urine RBC (Auto) (0-2) /HPF U Epithel Cells (Auto) (FEW) /HPF Urine Bacteria (Auto) (NEGATIVE) /HPF Urine RBC (0-5) Tobias/ul Ur Culture Indicated? Urine Glucose (NEGATIVE) mg/dL Influenza Type A Ag (NEGATIVE) Influenza Type B Ag (NEGATIVE) RSV (PCR) (Negative) SARS-CoV-2 (PCR) (NEGATIVE) Slides for Path Review - Progress Progress: improved, re-examined Air Movement: fair Progress Note: 03/01/22 00:20 81 years old is evaluated for worsening shortness of breath. Patient was on 6 L with diffuse wheezing on presentation, given Solu-Medrol and DuoNeb, on reevaluation feeling better and also given Lasix. He is weaned down to 4 L oxygen with sats in low 90s. Chest x-ray showed bilateral airspace disease with some congestion and cardiomegaly reviewed by me, official report is pending. Started on Rocephin and Zithromax. Patient is a normal white count, chemistries showed's CKD with creatinine of 2.4. Has negative initial troponin under BNP of 7300s. Has negative COVID-19. Patient discussed with Dr. Cordova and is being admitted. Blood Culture(s) Obtained: Yes Antibiotics given: Yes Discussed with : Mallika Will see patient in: hospital (observation) Counseled pt/family regarding: lab results, diagnosis, rad results - Departure Departure Disposition: Observation Clinical Impression: Respiratory failure Bilateral pneumonia Qualifiers: Pneumonia type: due to unspecified organism Lung location: unspecified part of lung Qualified Code(s): J18.9 - Pneumonia, unspecified organism Acute exacerbation of CHF (congestive heart failure) Qualifiers: Heart failure type: unspecified Qualified Code(s): I50.9 - Heart failure, unspecified Condition: Fair Critical Care Time: Yes Critical Care Time(excluding separately billable procedures): Critical 30-74 mins
[2022-03-01] MEDS ORDERED: Zithromax 500 MG/ 250 ML NaCl Premix 500 MG/250 ML IVPB IV ONE (00:33)
[2022-03-01] MEDS ORDERED: Lasix 40 MG/4 ML ONE (00:33)
[2022-03-01] MEDS ORDERED: ROCEPHIN 1 Gm-D5w 50 ml Bag** 1 G/50 ML IVPB IV ONE (00:33)
[2022-03-01 01:03] LABS: Appearance CLEAR (CLEAR); Bilirubin NEGATIVE (NEGATIVE); Glucose NEGATIVE (NEGATIVE); Ketones NEGATIVE (NEGATIVE); Ph 5.5 (5-6); Protein,Urine Dip 30 (Negative); RBC MODERATE Ery/ul (0-5); Specific Gravity 1.015 (1.005-1.025)
[2022-03-01 01:04] LABS: Dipstick done @ ? MAIN LAB; Nitrite POSITIVE (NEGATIVE); Urobilinogen 0.2 mg/dL (0-1)
[2022-03-01 01:06] LABS: Bacteria MODERATE /HPF (NEGATIVE); Epithelial Cells RARE /HPF (FEW); RBC 26-50 /HPF (0-2); WBC >100 /HPF (0-5)
[2022-03-01 01:07] LABS: Urine Cultured Indicated? YES
[2022-03-01] MEDS ORDERED: Zofran 4 MG/2 ML VIAL IV PRN (01:39)
[2022-03-01] MEDS: DUONEB 0.5-3 MG/3 ml Neb IH SCH ×2 (02:20→07:36)
[2022-03-01] MEDS ORDERED: Sterile H2O 10 ml IJ ONE (05:37)
[2022-03-01] MEDS ORDERED: solu-MEDROL ONE (05:37)
[2022-03-01] MEDS: solu-MEDROL 60 MG, Sterile H2O 10 ml 2 ML IV SCH ×8 (06:05→23:31)
[2022-03-01 07:19] LABS: Absolute Neutrophil Ct (ANC) 7.77 x10^3/uL (1.4-6.9); BASOPHIL % 0.1 % (0.0-0.4); Basophil (Absolute #) 0.01 x10^3/uL (0-0.4); Eosinophil (Absolute #) 0 x10^3/uL (0-0.5); Hematocrit 28.8 % (42-50); Hemoglobin 8.8 g/dL (12.5-18.0); IMMATURE GRAN # 0.03 x10^3u/L (0.00-0.03); IMMATURE GRAN % 0.4 % (0.00-0.4); Lymphocyte (Absolute #) 0.35 x10^3/uL (1.0-4.6); Lymphocytes % 4.3 % (24.0-44.0); Mean Corpuscular Hemoglobin 26.6 pg (26-32); Mean Corpuscular Hgb Concent. 30.6 g/dL (32-36); Mean Platelet Volume 8.9 fL (7.5-11.0); Monocyte (Absolute #) 0.05 x10^3/uL (0.0-1.3); Monocytes % 0.6 % (0.0-12.0); Neutrophil % 94.6 % (36.0-66.0); Platelet Count 344 x10^3/uL (150-450); Red Blood Count 3.31 x10^6/uL (4.1-5.6); Red Cell Distribution Width 15.9 % (11.5-14.0); White Blood Count 8.2 x10^3/uL (4.0-10.5)
[2022-03-01] MEDS ORDERED: PROVENTIL 2.5 MG/3 ML NEB IH SCH (07:30)
[2022-03-01 07:33] LABS: ALBUMIN 3.7 g/dL (3.5-5.0); ANION GAP 11.9 MEQ/L (5-15); BILIRUBIN,TOTAL 0.5 mg/dL (0.2-1.3); Creatinine 1 2.22 mg/dL (0.66-1.25); EST GLOMERULAR FILTRATION RATE 30.3 ML/MIN; Potassium 4.2 mmol/L (3.5-5.1); Total Protein 7.3 g/dL (6.3-8.2)
[2022-03-01] MEDS: DUONEB 0.5-3 MG/3 ml Neb IH ONE (07:36)
[2022-03-01 08:05] LABS: Slide Review 1 YES
--- NOTE | 2022-03-01 09:13 | XRAY ---
Indication: Short of breath. Comparison: October 09, 2021 Portable chest again demonstrates cardiomegaly, diffuse bilateral pulmonary edema, and small bibasilar effusions favoring cardiac decompensation/CHF. Superimposed pneumonia not completely excluded. Bony thorax intact.
[2022-03-01] MEDS ORDERED: VENTOLIN COMMON CANISTER IH PRN (09:17)
[2022-03-01] MEDS ORDERED: LIDOCAINE TP PRN (09:17)
[2022-03-01] MEDS ORDERED: FOSFOMYCIN TROMETHAMINE 3 GM PO SCH (09:30)
[2022-03-01] MEDS ORDERED: Nitrostat 0.4 MG Tablet SL PRN (09:30)
[2022-03-01] MEDS ORDERED: Lidoderm Patch 5% TP PRN (09:33)
[2022-03-01] MEDS ORDERED: MEDICATION INTERVENTION MC SCH (09:45)
[2022-03-01] MEDS: Calcium 500MG W/Vit D Tablet PO SCH ×2 (09:46→21:17)
[2022-03-01] MEDS: ECOTRIN 81 MG PO SCH (09:46)
[2022-03-01] MEDS: FEOSOL 325 MG PO SCH ×2 (09:46→21:16)
[2022-03-01] MEDS: PLAVIX Tablet PO SCH (09:46)
[2022-03-01] MEDS: Proscar 5 MG PO SCH (09:46)
[2022-03-01] MEDS: NORVASC 5 MG PO SCH (09:46)
[2022-03-01] MEDS: Imdur 30 MG PO SCH (09:46)
[2022-03-01] MEDS: Lopressor 50 MG PO SCH ×2 (09:47→21:17)
[2022-03-01] MEDS: NEURONTIN PO SCH ×2 (09:47→21:17)
[2022-03-01] MEDS: Lantus Insulin SQ SCH (09:47)
[2022-03-01] MEDS: Klor Con PO SCH (09:47)
[2022-03-01] MEDS: HUMALOG SQ PRN ×4 (09:54→21:11)
[2022-03-01] MEDS ORDERED: NON-FORMULARY ITEM (Insulin Glargine,Hum.Rec.Anlog [Basaglar Kwikpen U-100] 100 UNIT/ML In SQ SCH (10:00)
[2022-03-01] MEDS ORDERED: NON-FORMULARY ITEM (Calcium Carbonate [Calcium] 600 MG Tablet) PO SCH (10:00)
[2022-03-01] MEDS ORDERED: ROCEPHIN 1 Gm-D5w 50 ml Bag** 1 G/50 ML IVPB IV SCH (10:00)
[2022-03-01] MEDS ORDERED: NON-FORMULARY ITEM (Potassium Chloride [Potassium Chloride] 10 MEQ Tablet.Er) PO SCH (10:00)
[2022-03-01] MEDS: PROVENTIL Solution 2.5 MG/0.5 ML IH SCH ×2 (13:36→18:25)
[2022-03-01] MEDS: Atrovent 0.5MG NEBULE IH SCH ×2 (13:37→18:25)
--- NOTE | 2022-03-01 13:38 | PCM.HP ---
History of Present Illness - Chief Complaint Chief Complaint: Bilateral pneumonia, CHF History of Present Illness: is a 81 year old male pt with no local md with hx CAD (stents), PVD, CHF, afib, HTN, hyperlipidemia, DM, COPD, chr hypox resp failure, recurrent UTI, hx colon ca (in 2003 - in remission, with colostomy), GERD, depression, hernia who was admitted through ER for PNA, CHF exacerbation. Pt arrived via EMS, SOB since 7pm the day prior with prod cough and chest pressure. Better with nitro in ER. He is on 2-3L O2 at home, but up to 4L recently. Tells me he was first sick yest but really was not feeling bad. Cough was bad with prod of clear sputum until yest and is now cloudy. no fever. denies cp to me. does c/o salazar. Was increasing insulin (long acting) to 50 units/d from 40 units/d but has had several lows in the past 2 weeks. - Review of Systems Respiratory: Cough, Short Of Breath Cardiac: Chest Pain, Orthopnea (possibly - sleeps in chair) Genitourinary Symptoms: Other (nocturia 2-3x/night) All Other Systems: Reviewed and Negative Medications & Allergies Home Medications: Home Medication List Amiodarone HCl 200 mg [Cordarone 200 MG] 200 mg PO UD 02/27/14 [History Confirmed 03/01/22] Amlodipine Besylate 5 mg [Norvasc 5 mg] 10 mg PO DAILY 02/27/14 [History Confirmed 03/01/22] Clopidogrel Bisulfate [Plavix] 75 mg PO DAILY 02/27/14 [History Confirmed 03/01/22] Metoprolol Tartrate 50 mg PO BID 02/27/14 [History Confirmed 03/01/22] Multivitamin [Multivitamins] 1 each PO DAILY 11/09/14 [History Confirmed 03/01/22] Finasteride 5 mg [Proscar 5 MG] 5 mg PO DAILY 11/05/20 [History Confirmed 03/01/22] Gabapentin [Neurontin ] 300 mg PO BID 11/05/20 [History Confirmed 03/01/22] Nitroglycerin 0.4 mg Tablet [Nitrostat 0.4 MG Tablet] 1 tab SL UD 11/05/20 [History Confirmed 03/01/22] Potassium Chloride 10 meq PO DAILY #30 tab 01/30/21 [Rx Confirmed 03/01/22] Albuterol Sulfate [Albuterol Sulfate Hfa] 2 inh IH Q6HPRN PRN 05/22/21 [History Confirmed 03/01/22] Ascorbic Acid 500 mg [Vitamin C 500 MG] 500 mg PO UD 05/22/21 [History Confirmed 03/01/22] Atorvastatin Calcium [Lipitor] 40 mg PO HS 05/22/21 [History Confirmed 03/01/22] Insulin Glargine,Hum.rec.anlog [Basaglar Kwikpen U-100] 40 unit SQ DAILY 05/22/21 [History Confirmed 03/01/22] Lidocaine 1 each TP DAILY PRN PRN 05/22/21 [History Confirmed 03/01/22] Acetaminophen 500 mg [Tylenol Extra Strength 500 mg] 500 mg PO Q4H PRN PRN 03/01/22 [History Confirmed 03/01/22] Aspirin EC 81 mg [Ecotrin 81 mg] 81 mg PO DAILY 03/01/22 [History Confirmed 03/01/22] Calcium Carbonate [Calcium] 600 mg PO BID 03/01/22 [History Confirmed 03/01/22] Cholecalciferol (Vitamin D3) [Vitamin D] 4,000 unit PO UD 03/01/22 [History Confirmed 03/01/22] Ferrous Sulfate 325 mg [Feosol 325 mg] 325 mg PO BID 03/01/22 [History Confirmed 03/01/22] Fosfomycin Tromethamine 3 gm PO UD 03/01/22 [History Confirmed 03/01/22] Furosemide 20 mg [Lasix 20 mg] 40 mg PO BID 03/01/22 [History Confirmed 03/01/22] Insulin Lispro [Insulin Lispro Kwikpen U-100] 1 unit SQ UD 03/01/22 [History Confirmed 03/01/22] Isosorbide Mononitrate [Isosorbide Mononitrate ER] 30 mg PO DAILY 03/01/22 [History Confirmed 03/01/22] Tamsulosin HCl 0.4 mg [Flomax 0.4 MG] 0.4 mg PO HS 03/01/22 [History Confirmed 03/01/22] Allergies/Adverse Reactions: Allergies Allergy/AdvReac Type Severity Reaction Status Date / Time No Known Drug Allergies Allergy Verified 02/28/22 23:11 - Past Medical History Past Medical History: Yes Neurological History: Stroke ENT History: No Pertinent History Cardiac History: Arrhythmia, Coronary Artery Disease, High Cholesterol, Hypertension, Myocardial Infarction ([place]), Peripheral Vascular Disease Respiratory History: CHF Endocrine Medical History: Diabetes Type II Musculoskelatal History: No Pertinent History GI Medical History: Colorectal Cancer, GERD, Hernia History: No Pertinent History Pyscho-Social History: Depression Male Reproductive Disorders: Prostate Problems Comment: HX OF AFIB. COLON CANCER-REMISSION AT THIS TIME. anemia - Past Surgical History Past Surgical History: Yes Neuro Surgical History: No Pertinent History Cardiac History: Cardiac Catheterization, Cardiac Stent Respiratory Surgery: No Pertinent History GI Surgical History: Bowel Surgery, Colon Resection, Hernia Repair Genitourinary Surgical Hx: No Pertinent History Musculskeletal Surgical Hx: No Pertinent History Male Surgical History: Prostate Surgery Other Surgical History: PART OF COLON REMOVED. COLOSTOMY. femoral stents in legs - Social History Smoking Status: Former smoker Exposure to second hand smoke: No Alcohol: None Drug Use: none Significant Family History: no pertinent family hx - Physical Exam Vital Signs: Vital Signs - 24 hr Temp Pulse Resp BP Pulse Ox 03/01/22 11:58 97.5 F 66 18 131/62 90 L 03/01/22 08:58 69 16 100 03/01/22 07:39 97.3 F 69 18 140/65 90 L 03/01/22 02:22 97.6 F 66 20 131/63 91 L 03/01/22 02:20 67 20 91 L 03/01/22 01:06 64 20 151/57 93 L 03/01/22 00:21 92 L 03/01/22 00:00 59 L 19 147/60 95 02/28/22 23:00 58 L 22 141/65 92 L 02/28/22 22:54 57 L 20 93 L 02/28/22 22:53 20 94 L 02/28/22 22:50 97.4 F 02/28/22 22:47 59 L 26 H 141/65 92 L General Appearance: no apparent distress, alert Neurologic Exam: oriented x 3, cooperative Eye Exam: eyes nml inspection Ears, Nose, Throat Exam: moist mucous membranes Neck Exam: normal inspection Respiratory Exam: diminished breath sounds (fair to good air exchange), No crackles/rales, No rhonchi, No wheezing Cardiovascular Exam: regular rate/rhythm, normal heart sounds, No murmur Gastrointestinal/Abdomen Exam: soft, normal bowel sounds, No tenderness, No distention, No mass, No guarding, No rebound Extremity Exam: normal inspection, No pedal edema, No swelling Skin Exam: normal color, warm, dry, No rash Results - Labs Lab/Micro Results: Lab Results-Last 24 Hours 02/28/22 02/28/22 02/28/22 Range/Units 23:00 23:00 23:00 WBC 10.5 (4.0-10.5) x10^3/uL RBC 3.64 L (4.1-5.6) x10^6/uL Hgb 9.4 L (12.5-18.0) g/dL Hct 32.0 L (42-50) % MCV 87.9 (78-100) fL MCH 25.8 L (26-32) pg MCHC 29.4 L (32-36) g/dL RDW 15.9 H (11.5-14.0) % Plt Count 392 (150-450) x10^3/uL MPV 8.9 (7.5-11.0) fL Gran % 80.4 H (36.0-66.0) % Immature Gran % (Auto) 0.4 (0.00-0.4) % Nucleat RBC Rel Count 0.0 (0.00-0.1) % Eos # (Auto) 0.22 (0-0.5) x10^3/uL Immature Gran # (Auto) 0.04 H (0.00-0.03) x10^3u/L Absolute Lymphs (auto) 0.87 L (1.0-4.6) x10^3/uL Absolute Monos (auto) 0.86 (0.0-1.3) x10^3/uL Absolute Nucleated RBC 0.00 (0.00-0.01) x10^3u/L Lymphocytes % 8.3 L (24.0-44.0) % Monocytes % 8.2 (0.0-12.0) % Eosinophils % 2.1 (0.00-5.0) % Basophils % 0.6 (0.0-0.4) % Absolute Granulocytes 8.49 H (1.4-6.9) x10^3/uL Basophils # 0.06 (0-0.4) x10^3/uL Puncture Site LEFT RADIAL pCO2 38 (35-45) mmHg pO2 83 (75-100) mmHg Base Excess 10.1 H (-2.0-2.0) O2 Saturation 93.7 L (94-100) g/dF ABG pH 7.55 H* (7.35-7.45) ABG HCO3 33.2 H* (22-28) ABG O2 Sat (Measured) 97.6 (95-100) % Tone Test YES A-a Gradient 183 a/A Ratio 0.31 Hemoglobin 10.0 Carboxyhemoglobin 3.1 (0.0-6.9) % THgb Methemoglobin 0.9 L (1.4-1.5) % Potassium 4.2 4.1 (3.5-5.1) Temperature 37.0 C POC O2 Flow Rate 44 % Sodium 139 (137-145) mmol/L Chloride 99 (98-107) mmol/L Carbon Dioxide 32 H (22-30) mmol/L Anion Gap 12.3 (5-15) MEQ/L BUN 49 H (9-20) mg/dL Creatinine 2.43 H (0.66-1.25) mg/dL Estimated GFR 27.3 ML/MIN Glucose 187 H (74-106) mg/dL POC Glucometer (74 to 106) mg/dL Lactic Acid 0.7 (0.4-2.0) Calcium 9.3 (8.4-10.2) mg/dL Magnesium 2.0 (1.6-2.3) mg/dL Total Bilirubin 0.60 (0.2-1.3) mg/dL AST 45 (17-59) U/L ALT 17 (0-50) U/L Alkaline Phosphatase 75 (38-126) U/L Troponin I (0.000-0.034) ng/mL NT-Pro-B Natriuret Pep 7330 H (0-1800) pg/mL Serum Total Protein 7.9 (6.3-8.2) g/dL Albumin 4.1 (3.5-5.0) g/dL Procalcitonin (0.030-0.080) ng/mL Urinalys Dipstick Clnc Urine Color (YELLOW) Urine Appearance (CLEAR) Urine pH (5-6) Ur Specific [place] (1.005-1.025) POC Urine Protein Conf (Negative) Urine Ketones (NEGATIVE) Urine Nitrite (NEGATIVE) Urine Bilirubin (NEGATIVE) Urine Urobilinogen (0-1) mg/dL Urine Leukocytes (NEGATIVE) Urine WBC (Auto) (0-5) /HPF Urine RBC (Auto) (0-2) /HPF U Epithel Cells (Auto) (FEW) /HPF Urine Bacteria (Auto) (NEGATIVE) /HPF Urine RBC (0-5) Tobias/ul Ur Culture Indicated? Urine Glucose (NEGATIVE) mg/dL Influenza Type A Ag (NEGATIVE) Influenza Type B Ag (NEGATIVE) RSV (PCR) (Negative) SARS-CoV-2 (PCR) (NEGATIVE) Slides for Path Review 02/28/22 02/28/22 02/28/22 Range/Units 23:00 23:00 23:00 WBC (4.0-10.5) x10^3/uL RBC (4.1-5.6) x10^6/uL Hgb (12.5-18.0) g/dL Hct (42-50) % MCV (78-100) fL MCH (26-32) pg MCHC (32-36) g/dL RDW (11.5-14.0) % Plt Count (150-450) x10^3/uL MPV (7.5-11.0) fL Gran % (36.0-66.0) % Immature Gran % (Auto) (0.00-0.4) % Nucleat RBC Rel Count (0.00-0.1) % Eos # (Auto) (0-0.5) x10^3/uL Immature Gran # (Auto) (0.00-0.03) x10^3u/L Absolute Lymphs (auto) (1.0-4.6) x10^3/uL Absolute Monos (auto) (0.0-1.3) x10^3/uL Absolute Nucleated RBC (0.00-0.01) x10^3u/L Lymphocytes % (24.0-44.0) % Monocytes % (0.0-12.0) % Eosinophils % (0.00-5.0) % Basophils % (0.0-0.4) % Absolute Granulocytes (1.4-6.9) x10^3/uL Basophils # (0-0.4) x10^3/uL Puncture Site pCO2 (35-45) mmHg pO2 (75-100) mmHg Base Excess (-2.0-2.0) O2 Saturation (94-100) g/dF ABG pH (7.35-7.45) ABG HCO3 (22-28) ABG O2 Sat (Measured) (95-100) % Tone Test A-a Gradient a/A Ratio Hemoglobin Carboxyhemoglobin (0.0-6.9) % THgb Methemoglobin (1.4-1.5) % Potassium (3.5-5.1) Temperature C POC O2 Flow Rate % Sodium (137-145) mmol/L Chloride (98-107) mmol/L Carbon Dioxide (22-30) mmol/L Anion Gap (5-15) MEQ/L BUN (9-20) mg/dL Creatinine (0.66-1.25) mg/dL Estimated GFR ML/MIN Glucose (74-106) mg/dL POC Glucometer (74 to 106) mg/dL Lactic Acid (0.4-2.0) Calcium (8.4-10.2) mg/dL Magnesium 2.0 (1.6-2.3) mg/dL Total Bilirubin (0.2-1.3) mg/dL AST (17-59) U/L ALT (0-50) U/L Alkaline Phosphatase (38-126) U/L Troponin I < 0.012 (0.000-0.034) ng/mL NT-Pro-B Natriuret Pep (0-1800) pg/mL Serum Total Protein (6.3-8.2) g/dL Albumin (3.5-5.0) g/dL Procalcitonin 0.121 H (0.030-0.080) ng/mL Urinalys Dipstick Clnc Urine Color (YELLOW) Urine Appearance (CLEAR) Urine pH (5-6) Ur Specific [place] (1.005-1.025) POC Urine Protein Conf (Negative) Urine Ketones (NEGATIVE) Urine Nitrite (NEGATIVE) Urine Bilirubin (NEGATIVE) Urine Urobilinogen (0-1) mg/dL Urine Leukocytes (NEGATIVE) Urine WBC (Auto) (0-5) /HPF Urine RBC (Auto) (0-2) /HPF U Epithel Cells (Auto) (FEW) /HPF Urine Bacteria (Auto) (NEGATIVE) /HPF Urine RBC (0-5) Tobias/ul Ur Culture Indicated? Urine Glucose (NEGATIVE) mg/dL Influenza Type A Ag (NEGATIVE) Influenza Type B Ag (NEGATIVE) RSV (PCR) (Negative) SARS-CoV-2 (PCR) (NEGATIVE) Slides for Path Review 02/28/22 02/28/22 03/01/22 Range/Units 23:00 23:45 03:03 WBC (4.0-10.5) x10^3/uL RBC (4.1-5.6) x10^6/uL Hgb (12.5-18.0) g/dL Hct (42-50) % MCV (78-100) fL MCH (26-32) pg MCHC (32-36) g/dL RDW (11.5-14.0) % Plt Count (150-450) x10^3/uL MPV (7.5-11.0) fL Gran % (36.0-66.0) % Immature Gran % (Auto) (0.00-0.4) % Nucleat RBC Rel Count (0.00-0.1) % Eos # (Auto) (0-0.5) x10^3/uL Immature Gran # (Auto) (0.00-0.03) x10^3u/L Absolute Lymphs (auto) (1.0-4.6) x10^3/uL Absolute Monos (auto) (0.0-1.3) x10^3/uL Absolute Nucleated RBC (0.00-0.01) x10^3u/L Lymphocytes % (24.0-44.0) % Monocytes % (0.0-12.0) % Eosinophils % (0.00-5.0) % Basophils % (0.0-0.4) % Absolute Granulocytes (1.4-6.9) x10^3/uL Basophils # (0-0.4) x10^3/uL Puncture Site pCO2 (35-45) mmHg pO2 (75-100) mmHg Base Excess (-2.0-2.0) O2 Saturation (94-100) g/dF ABG pH (7.35-7.45) ABG HCO3 (22-28) ABG O2 Sat (Measured) (95-100) % Tone Test A-a Gradient a/A Ratio Hemoglobin Carboxyhemoglobin (0.0-6.9) % THgb Methemoglobin (1.4-1.5) % Potassium (3.5-5.1) Temperature C POC O2 Flow Rate % Sodium (137-145) mmol/L Chloride (98-107) mmol/L Carbon Dioxide (22-30) mmol/L Anion Gap (5-15) MEQ/L BUN (9-20) mg/dL Creatinine (0.66-1.25) mg/dL Estimated GFR ML/MIN Glucose (74-106) mg/dL POC Glucometer (74 to 106) mg/dL Lactic Acid (0.4-2.0) Calcium (8.4-10.2) mg/dL Magnesium (1.6-2.3) mg/dL Total Bilirubin (0.2-1.3) mg/dL AST (17-59) U/L ALT (0-50) U/L Alkaline Phosphatase (38-126) U/L Troponin I < 0.012 (0.000-0.034) ng/mL NT-Pro-B Natriuret Pep (0-1800) pg/mL Serum Total Protein (6.3-8.2) g/dL Albumin (3.5-5.0) g/dL Procalcitonin (0.030-0.080) ng/mL Urinalys Dipstick Clnc MAIN LAB Urine Color YELLOW (YELLOW) Urine Appearance CLEAR (CLEAR) Urine pH 5.5 (5-6) Ur Specific [place] 1.015 (1.005-1.025) POC Urine Protein Conf 30 A (Negative) Urine Ketones NEGATIVE (NEGATIVE) Urine Nitrite POSITIVE A (NEGATIVE) Urine Bilirubin NEGATIVE (NEGATIVE) Urine Urobilinogen 0.2 (0-1) mg/dL Urine Leukocytes LARGE A (NEGATIVE) Urine WBC (Auto) >100 A (0-5) /HPF Urine RBC (Auto) 26-50 A (0-2) /HPF U Epithel Cells (Auto) RARE (FEW) /HPF Urine Bacteria (Auto) MODERATE A (NEGATIVE) /HPF Urine RBC MODERATE A (0-5) Tobias/ul Ur Culture Indicated? YES Urine Glucose NEGATIVE (NEGATIVE) mg/dL Influenza Type A Ag NEGATIVE (NEGATIVE) Influenza Type B Ag NEGATIVE (NEGATIVE) RSV (PCR) NEGATIVE (Negative) SARS-CoV-2 (PCR) NEGATIVE (NEGATIVE) Slides for Path Review 03/01/22 03/01/22 03/01/22 Range/Units 07:14 07:14 07:14 WBC 8.2 (4.0-10.5) x10^3/uL RBC 3.31 L (4.1-5.6) x10^6/uL Hgb 8.8 L (12.5-18.0) g/dL Hct 28.8 L (42-50) % MCV 87.0 (78-100) fL MCH 26.6 (26-32) pg MCHC 30.6 L (32-36) g/dL RDW 15.9 H (11.5-14.0) % Plt Count 344 (150-450) x10^3/uL MPV 8.9 (7.5-11.0) fL Gran % 94.6 H (36.0-66.0) % Immature Gran % (Auto) 0.4 (0.00-0.4) % Nucleat RBC Rel Count 0.0 (0.00-0.1) % Eos # (Auto) 0 (0-0.5) x10^3/uL Immature Gran # (Auto) 0.03 (0.00-0.03) x10^3u/L Absolute Lymphs (auto) 0.35 L (1.0-4.6) x10^3/uL Absolute Monos (auto) 0.05 (0.0-1.3) x10^3/uL Absolute Nucleated RBC 0.00 (0.00-0.01) x10^3u/L Lymphocytes % 4.3 L (24.0-44.0) % Monocytes % 0.6 (0.0-12.0) % Eosinophils % 0.0 (0.00-5.0) % Basophils % 0.1 (0.0-0.4) % Absolute Granulocytes 7.77 H (1.4-6.9) x10^3/uL Basophils # 0.01 (0-0.4) x10^3/uL Puncture Site pCO2 (35-45) mmHg pO2 (75-100) mmHg Base Excess (-2.0-2.0) O2 Saturation (94-100) g/dF ABG pH (7.35-7.45) ABG HCO3 (22-28) ABG O2 Sat (Measured) (95-100) % Tone Test A-a Gradient a/A Ratio Hemoglobin Carboxyhemoglobin (0.0-6.9) % THgb Methemoglobin (1.4-1.5) % Potassium 4.2 (3.5-5.1) Temperature C POC O2 Flow Rate % Sodium 135 L (137-145) mmol/L Chloride 98 (98-107) mmol/L Carbon Dioxide 29 (22-30) mmol/L Anion Gap 11.9 (5-15) MEQ/L BUN 44 H (9-20) mg/dL Creatinine 2.22 H (0.66-1.25) mg/dL Estimated GFR 30.3 ML/MIN Glucose 311 H (74-106) mg/dL POC Glucometer (74 to 106) mg/dL Lactic Acid (0.4-2.0) Calcium 9.0 (8.4-10.2) mg/dL Magnesium (1.6-2.3) mg/dL Total Bilirubin 0.50 (0.2-1.3) mg/dL AST 19 (17-59) U/L ALT 16 (0-50) U/L Alkaline Phosphatase 66 (38-126) U/L Troponin I < 0.012 (0.000-0.034) ng/mL NT-Pro-B Natriuret Pep (0-1800) pg/mL Serum Total Protein 7.3 (6.3-8.2) g/dL Albumin 3.7 (3.5-5.0) g/dL Procalcitonin (0.030-0.080) ng/mL Urinalys Dipstick Clnc Urine Color (YELLOW) Urine Appearance (CLEAR) Urine pH (5-6) Ur Specific [place] (1.005-1.025) POC Urine Protein Conf (Negative) Urine Ketones (NEGATIVE) Urine Nitrite (NEGATIVE) Urine Bilirubin (NEGATIVE) Urine Urobilinogen (0-1) mg/dL Urine Leukocytes (NEGATIVE) Urine WBC (Auto) (0-5) /HPF Urine RBC (Auto) (0-2) /HPF U Epithel Cells (Auto) (FEW) /HPF Urine Bacteria (Auto) (NEGATIVE) /HPF Urine RBC (0-5) Tobias/ul Ur Culture Indicated? Urine Glucose (NEGATIVE) mg/dL Influenza Type A Ag (NEGATIVE) Influenza Type B Ag (NEGATIVE) RSV (PCR) (Negative) SARS-CoV-2 (PCR) (NEGATIVE) Slides for Path Review YES 03/01/22 03/01/22 Range/Units 07:26 11:26 WBC (4.0-10.5) x10^3/uL RBC (4.1-5.6) x10^6/uL Hgb (12.5-18.0) g/dL Hct (42-50) % MCV (78-100) fL MCH (26-32) pg MCHC (32-36) g/dL RDW (11.5-14.0) % Plt Count (150-450) x10^3/uL MPV (7.5-11.0) fL Gran % (36.0-66.0) % Immature Gran % (Auto) (0.00-0.4) % Nucleat RBC Rel Count (0.00-0.1) % Eos # (Auto) (0-0.5) x10^3/uL Immature Gran # (Auto) (0.00-0.03) x10^3u/L Absolute Lymphs (auto) (1.0-4.6) x10^3/uL Absolute Monos (auto) (0.0-1.3) x10^3/uL Absolute Nucleated RBC (0.00-0.01) x10^3u/L Lymphocytes % (24.0-44.0) % Monocytes % (0.0-12.0) % Eosinophils % (0.00-5.0) % Basophils % (0.0-0.4) % Absolute Granulocytes (1.4-6.9) x10^3/uL Basophils # (0-0.4) x10^3/uL Puncture Site pCO2 (35-45) mmHg pO2 (75-100) mmHg Base Excess (-2.0-2.0) O2 Saturation (94-100) g/dF ABG pH (7.35-7.45) ABG HCO3 (22-28) ABG O2 Sat (Measured) (95-100) % Tone Test A-a Gradient a/A Ratio Hemoglobin Carboxyhemoglobin (0.0-6.9) % THgb Methemoglobin (1.4-1.5) % Potassium (3.5-5.1) Temperature C POC O2 Flow Rate % Sodium (137-145) mmol/L Chloride (98-107) mmol/L Carbon Dioxide (22-30) mmol/L Anion Gap (5-15) MEQ/L BUN (9-20) mg/dL Creatinine (0.66-1.25) mg/dL Estimated GFR ML/MIN Glucose (74-106) mg/dL POC Glucometer 278 H 387 H (74 to 106) mg/dL Lactic Acid (0.4-2.0) Calcium (8.4-10.2) mg/dL Magnesium (1.6-2.3) mg/dL Total Bilirubin (0.2-1.3) mg/dL AST (17-59) U/L ALT (0-50) U/L Alkaline Phosphatase (38-126) U/L Troponin I (0.000-0.034) ng/mL NT-Pro-B Natriuret Pep (0-1800) pg/mL Serum Total Protein (6.3-8.2) g/dL Albumin (3.5-5.0) g/dL Procalcitonin (0.030-0.080) ng/mL Urinalys Dipstick Clnc Urine Color (YELLOW) Urine Appearance (CLEAR) Urine pH (5-6) Ur Specific [place] (1.005-1.025) POC Urine Protein Conf (Negative) Urine Ketones (NEGATIVE) Urine Nitrite (NEGATIVE) Urine Bilirubin (NEGATIVE) Urine Urobilinogen (0-1) mg/dL Urine Leukocytes (NEGATIVE) Urine WBC (Auto) (0-5) /HPF Urine RBC (Auto) (0-2) /HPF U Epithel Cells (Auto) (FEW) /HPF Urine Bacteria (Auto) (NEGATIVE) /HPF Urine RBC (0-5) Tobias/ul Ur Culture Indicated? Urine Glucose (NEGATIVE) mg/dL Influenza Type A Ag (NEGATIVE) Influenza Type B Ag (NEGATIVE) RSV (PCR) (Negative) SARS-CoV-2 (PCR) (NEGATIVE) Slides for Path Review Microbiology 02/28/22 23:00 Gram Stain - Final Sputum - Expectorant Accuchecks Date 03/01/22 Date 03/01/22 Time 11:26 Time 07:26 - Radiology Impressions Radiology Exams & Impressions: Radiology Procedures Category Date Time Status CHEST 1 VIEW (PORTABLE) Stat Exams 02/28/22 22:56 Completed - Other Procedures and Tests Respiratory Therapy 02/28/22 23:17 Respiratory Therapy Assessment DAILY 03/01/22 01:39 Oxygen Nasal Cannula 4 lpm Assessment/Plan (1) Bilateral pneumonia Current Visit: Yes Status: Acute Qualifiers: Pneumonia type: due to unspecified organism Lung location: unspecified part of lung Qualified Code(s): J18.9 - Pneumonia, unspecified organism Assessment & Plan: on rocephin/zithromax IV day #2. IV steroid 60 mg q6h. Code(s): J18.9 - PNEUMONIA, UNSPECIFIED ORGANISM (2) Acute exacerbation of CHF (congestive heart failure) Current Visit: Yes Status: Acute Assessment & Plan: IV lasix Code(s): I50.9 - HEART FAILURE, UNSPECIFIED (3) Chronic hypoxemic respiratory failure Current Visit: Yes Status: Chronic (4) Recurrent UTI Current Visit: Yes Status: Chronic Assessment & Plan: Presumed, as he is on fosomycin and I have continued that. 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 Code(s): E11.9 - TYPE 2 DIABETES MELLITUS WITHOUT COMPLICATIONS (6) HTN (hypertension) Current Visit: No Status: Acute Qualifiers: Hypertension type: primary hypertension Qualified Code(s): I10 - Essential (primary) hypertension Code(s): I10 - ESSENTIAL (PRIMARY) HYPERTENSION
[2022-03-01] MEDS: Lasix 40 MG/4 ML IV SCH (14:58)
[2022-03-01] MEDS: Flomax 0.4 MG PO SCH (21:16)
[2022-03-01] MEDS: ZOCOR 20MG PO SCH (21:17)
[2022-03-01] MEDS ORDERED: LIPITOR 40MG PO SCH (22:00)
[2022-03-01] MEDS ORDERED: Zithromax 500 MG/ 250 ML NaCl Premix 500 MG/250 ML IVPB IV SCH (22:00)
[2022-03-01] MEDS: ROCEPHIN 1 Gm-D5w 50 ml Bag** 1 G/50 ML IVPB IV SCH (22:22)
[2022-03-02] MEDS: Atrovent 0.5MG NEBULE IH SCH ×4 (00:21→18:50)
[2022-03-02] MEDS: PROVENTIL Solution 2.5 MG/0.5 ML IH SCH ×4 (00:21→18:51)
[2022-03-02] MEDS: TYLENOL EXTRA STRENGTH 500 MG PO PRN (00:41)
[2022-03-02 04:54] LABS: Absolute Neutrophil Ct (ANC) 9.37 x10^3/uL (1.4-6.9); BASOPHIL % 0.1 % (0.0-0.4); Basophil (Absolute #) 0.01 x10^3/uL (0-0.4); Eosinophil (Absolute #) 0 x10^3/uL (0-0.5); Hematocrit 26.5 % (42-50); IMMATURE GRAN # 0.05 x10^3u/L (0.00-0.03); IMMATURE GRAN % 0.5 % (0.00-0.4); Lymphocyte (Absolute #) 0.41 x10^3/uL (1.0-4.6); Lymphocytes % 4.1 % (24.0-44.0); Mean Corpuscular Hgb Concent. 30.2 g/dL (32-36); Mean Platelet Volume 9.4 fL (7.5-11.0); Monocyte (Absolute #) 0.14 x10^3/uL (0.0-1.3); Monocytes % 1.4 % (0.0-12.0); Neutrophil % 93.9 % (36.0-66.0); Platelet Count 362 x10^3/uL (150-450); Red Blood Count 3.08 x10^6/uL (4.1-5.6); Red Cell Distribution Width 15.8 % (11.5-14.0)
[2022-03-02 05:26] LABS: Calcium 8.5 mg/dL (8.4-10.2); Creatinine 1 2.24 mg/dL (0.66-1.25); Potassium 4.6 mmol/L (3.5-5.1)
[2022-03-02 06:10] LABS: Slide Review 1 YES
[2022-03-02] MEDS: solu-MEDROL 60 MG, Sterile H2O 10 ml 2 ML IV SCH ×4 (06:17→11:35)
[2022-03-02] MEDS: HUMALOG SQ PRN ×4 (06:22→21:45)
[2022-03-02] MEDS: Imdur 30 MG PO SCH (08:18)
[2022-03-02] MEDS: ECOTRIN 81 MG PO SCH (08:18)
[2022-03-02] MEDS: Klor Con PO SCH (08:18)
[2022-03-02] MEDS: Cordarone 200 MG PO SCH (08:18)
[2022-03-02] MEDS: PLAVIX Tablet PO SCH (08:18)
[2022-03-02] MEDS: Calcium 500MG W/Vit D Tablet PO SCH ×2 (08:18→21:17)
[2022-03-02] MEDS: NEURONTIN PO SCH ×2 (08:19→21:17)
[2022-03-02] MEDS: Lopressor 50 MG PO SCH ×2 (08:19→21:18)
[2022-03-02] MEDS: Proscar 5 MG PO SCH (08:19)
[2022-03-02] MEDS: FEOSOL 325 MG PO SCH ×2 (08:19→21:18)
[2022-03-02] MEDS: NORVASC 5 MG PO SCH (08:19)
[2022-03-02] MEDS: Lasix 40 MG/4 ML IV SCH (08:20)
[2022-03-02] MEDS ORDERED: Lasix 40 MG/4 ML IV ONE (09:37)
[2022-03-02] MEDS ORDERED: Lasix 40 MG/4 ML IV SCH (10:00)
[2022-03-02] MEDS ORDERED: Lantus Insulin SQ SCH (11:03)
[2022-03-02] MEDS: Lantus Insulin SQ SCH ×2 (11:12→11:35)
[2022-03-02] MEDS ORDERED: solu-MEDROL ONE (11:26)
--- NOTE | 2022-03-02 13:20 | PCM.NOTE ---
Date and Time: 03/02/22 1316 Subjective Assessment: He is c/o L foot pain, plantar surface, distally and at the heel, resolved by putting lotion on it. no other complaints today. On O2. Vin po. - Review of Systems Constitutional: No Fever Respiratory: Cough, Short Of Breath Objective Exam General Appearance: no apparent distress, alert Neurologic Exam: oriented x 3, cooperative Skin Exam: normal color, warm, dry, other (L foot, plantar surface, with scattered peeling skin in annular pattern. The distal dorsum of L great toe with a crease in it, no open skin, no erythema. nttp completely throughout.) OBJECTIVE DATA Vital Signs: Vital Signs - 24 hr Temp Pulse Resp BP Pulse Ox 03/02/22 12:00 97.1 F 59 L 19 129/58 92 L 03/02/22 07:22 65 16 98 03/02/22 07:13 97.1 F 65 18 140/65 97 03/02/22 04:00 97.4 F 64 20 136/62 94 L 03/02/22 00:20 58 L 16 91 L 03/02/22 00:00 97.6 F 59 L 18 124/56 94 L 03/01/22 20:39 97.7 F 70 19 154/65 95 03/01/22 18:25 88 18 90 L 03/01/22 16:00 97.3 F 66 18 137/63 93 L 03/01/22 13:39 68 18 91 L Pain Assessment - Last Documented Pain Intensity 0 Pain Scale Used 0-10 Pain Scale Intake and Output: Intake & Output 02/28/22 03/01/22 03/02/22 03/03/22 11:59 11:59 11:59 11:59 Intake Total 600 1573 Output Total 1250 1850 Balance -650 -277 Weight 93.4 kg 94.2 kg Lab Results: Lab Results-Last 24 Hours 03/01/22 03/01/22 03/01/22 Range/Units 07:14 15:58 20:42 WBC (4.0-10.5) x10^3/uL RBC (4.1-5.6) x10^6/uL Hgb (12.5-18.0) g/dL Hct (42-50) % MCV (78-100) fL MCH (26-32) pg MCHC (32-36) g/dL RDW (11.5-14.0) % Plt Count (150-450) x10^3/uL MPV (7.5-11.0) fL Gran % (36.0-66.0) % Immature Gran % (Auto) (0.00-0.4) % Nucleat RBC Rel Count (0.00-0.1) % Eos # (Auto) (0-0.5) x10^3/uL Immature Gran # (Auto) (0.00-0.03) x10^3u/L Absolute Lymphs (auto) (1.0-4.6) x10^3/uL Absolute Monos (auto) (0.0-1.3) x10^3/uL Absolute Nucleated RBC (0.00-0.01) x10^3u/L Lymphocytes % (24.0-44.0) % Monocytes % (0.0-12.0) % Eosinophils % (0.00-5.0) % Basophils % (0.0-0.4) % Absolute Granulocytes (1.4-6.9) x10^3/uL Basophils # (0-0.4) x10^3/uL Sodium (137-145) mmol/L Potassium (3.5-5.1) mmol/L Chloride (98-107) mmol/L Carbon Dioxide (22-30) mmol/L Anion Gap (5-15) MEQ/L BUN (9-20) mg/dL Creatinine (0.66-1.25) mg/dL Estimated GFR ML/MIN Glucose (74-106) mg/dL POC Glucometer 365 H 440 H (74 to 106) mg/dL Hemoglobin A1c 7.85 H (4.5-6.0) % Calcium (8.4-10.2) mg/dL NT-Pro-B Natriuret Pep (0-1800) pg/mL Slides for Path Review 03/02/22 03/02/22 03/02/22 Range/Units 04:23 04:23 07:46 WBC 10.0 (4.0-10.5) x10^3/uL RBC 3.08 L (4.1-5.6) x10^6/uL Hgb 8.0 L (12.5-18.0) g/dL Hct 26.5 L (42-50) % MCV 86.0 (78-100) fL MCH 26.0 (26-32) pg MCHC 30.2 L (32-36) g/dL RDW 15.8 H (11.5-14.0) % Plt Count 362 (150-450) x10^3/uL MPV 9.4 (7.5-11.0) fL Gran % 93.9 H (36.0-66.0) % Immature Gran % (Auto) 0.5 H (0.00-0.4) % Nucleat RBC Rel Count 0.0 (0.00-0.1) % Eos # (Auto) 0 (0-0.5) x10^3/uL Immature Gran # (Auto) 0.05 H (0.00-0.03) x10^3u/L Absolute Lymphs (auto) 0.41 L (1.0-4.6) x10^3/uL Absolute Monos (auto) 0.14 (0.0-1.3) x10^3/uL Absolute Nucleated RBC 0.00 (0.00-0.01) x10^3u/L Lymphocytes % 4.1 L (24.0-44.0) % Monocytes % 1.4 (0.0-12.0) % Eosinophils % 0.0 (0.00-5.0) % Basophils % 0.1 (0.0-0.4) % Absolute Granulocytes 9.37 H (1.4-6.9) x10^3/uL Basophils # 0.01 (0-0.4) x10^3/uL Sodium 131 L (137-145) mmol/L Potassium 4.6 (3.5-5.1) mmol/L Chloride 95 L (98-107) mmol/L Carbon Dioxide 28 (22-30) mmol/L Anion Gap 13.0 (5-15) MEQ/L BUN 60 H (9-20) mg/dL Creatinine 2.24 H (0.66-1.25) mg/dL Estimated GFR 30.0 ML/MIN Glucose 451 H (74-106) mg/dL POC Glucometer 419 H (74 to 106) mg/dL Hemoglobin A1c (4.5-6.0) % Calcium 8.5 (8.4-10.2) mg/dL NT-Pro-B Natriuret Pep 93596 H (0-1800) pg/mL Slides for Path Review YES 03/02/22 Range/Units 11:29 WBC (4.0-10.5) x10^3/uL RBC (4.1-5.6) x10^6/uL Hgb (12.5-18.0) g/dL Hct (42-50) % MCV (78-100) fL MCH (26-32) pg MCHC (32-36) g/dL RDW (11.5-14.0) % Plt Count (150-450) x10^3/uL MPV (7.5-11.0) fL Gran % (36.0-66.0) % Immature Gran % (Auto) (0.00-0.4) % Nucleat RBC Rel Count (0.00-0.1) % Eos # (Auto) (0-0.5) x10^3/uL Immature Gran # (Auto) (0.00-0.03) x10^3u/L Absolute Lymphs (auto) (1.0-4.6) x10^3/uL Absolute Monos (auto) (0.0-1.3) x10^3/uL Absolute Nucleated RBC (0.00-0.01) x10^3u/L Lymphocytes % (24.0-44.0) % Monocytes % (0.0-12.0) % Eosinophils % (0.00-5.0) % Basophils % (0.0-0.4) % Absolute Granulocytes (1.4-6.9) x10^3/uL Basophils # (0-0.4) x10^3/uL Sodium (137-145) mmol/L Potassium (3.5-5.1) mmol/L Chloride (98-107) mmol/L Carbon Dioxide (22-30) mmol/L Anion Gap (5-15) MEQ/L BUN (9-20) mg/dL Creatinine (0.66-1.25) mg/dL Estimated GFR ML/MIN Glucose (74-106) mg/dL POC Glucometer 455 H (74 to 106) mg/dL Hemoglobin A1c (4.5-6.0) % Calcium (8.4-10.2) mg/dL NT-Pro-B Natriuret Pep (0-1800) pg/mL Slides for Path Review Radiology Exams: Radiology Procedures Category Date Time Status CHEST 1 VIEW (PORTABLE) Stat Exams 02/28/22 22:56 Completed Assessment/Plan (1) Bilateral pneumonia Current Visit: Yes Status: Acute Qualifiers: Pneumonia type: due to unspecified organism Lung location: unspecified part of lung Qualified Code(s): J18.9 - Pneumonia, unspecified organism Assessment & Plan: On day #2 rocephin and zithromax. Improving, but will likely be here several days. Code(s): J18.9 - PNEUMONIA, UNSPECIFIED ORGANISM (2) Acute exacerbation of CHF (congestive heart failure) Current Visit: Yes Status: Acute Qualifiers: Heart failure type: unspecified Qualified Code(s): I50.9 - Heart failure, unspecified Assessment & Plan: BNP 12,800 today - increased lasix from 40mg IV daily to 80mg IV daily (given in 2 doses of 40mg IV each today). Code(s): I50.9 - HEART FAILURE, UNSPECIFIED (3) Chronic hypoxemic respiratory failure Current Visit: Yes Status: Chronic (4) Recurrent UTI Current Visit: Yes Status: Chronic Assessment & Plan: Has UTI currently, CNR on culture, sensitivity pending. 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 Code(s): E11.9 - TYPE 2 DIABETES MELLITUS WITHOUT COMPLICATIONS (6) HTN (hypertension) Current Visit: No Status: Chronic Qualifiers: Hypertension type: primary hypertension Qualified Code(s): I10 - Essential (primary) hypertension Code(s): I10 - ESSENTIAL (PRIMARY) HYPERTENSION
[2022-03-02] MEDS: Nizoral CREAM TOP SCH ×2 (14:13→20:06)
[2022-03-02] MEDS ORDERED: ENOXAPARIN SODIUM SQ ONE (15:43)
[2022-03-02] MEDS: Vibramycin 100 MG PO SCH (21:17)
[2022-03-02] MEDS: ZOCOR 20MG PO SCH (21:17)
[2022-03-02] MEDS: Flomax 0.4 MG PO SCH (21:17)
[2022-03-02] MEDS: ROCEPHIN 1 Gm-D5w 50 ml Bag** 1 G/50 ML IVPB IV SCH (21:17)
[2022-03-03] MEDS: PROVENTIL Solution 2.5 MG/0.5 ML IH SCH ×2 (00:45→05:31)
[2022-03-03] MEDS: Atrovent 0.5MG NEBULE IH SCH ×2 (00:45→05:31)
[2022-03-03 05:11] LABS: Absolute Neutrophil Ct (ANC) 11.52 x10^3/uL (1.4-6.9); BASOPHIL % 0.1 % (0.0-0.4); Basophil (Absolute #) 0.01 x10^3/uL (0-0.4); Eosinophil (Absolute #) 0 x10^3/uL (0-0.5); Hematocrit 27.4 % (42-50); Hemoglobin 8.6 g/dL (12.5-18.0); IMMATURE GRAN # 0.08 x10^3u/L (0.00-0.03); IMMATURE GRAN % 0.6 % (0.00-0.4); Lymphocyte (Absolute #) 0.44 x10^3/uL (1.0-4.6); Lymphocytes % 3.5 % (24.0-44.0); Mean Cell Volume 84.6 fL (78-100); Mean Corpuscular Hemoglobin 26.5 pg (26-32); Mean Corpuscular Hgb Concent. 31.4 g/dL (32-36); Mean Platelet Volume 9.1 fL (7.5-11.0); Monocyte (Absolute #) 0.44 x10^3/uL (0.0-1.3); Monocytes % 3.5 % (0.0-12.0); Neutrophil % 92.3 % (36.0-66.0); Platelet Count 388 x10^3/uL (150-450); Red Blood Count 3.24 x10^6/uL (4.1-5.6); Red Cell Distribution Width 15.9 % (11.5-14.0); White Blood Count 12.5 x10^3/uL (4.0-10.5)
[2022-03-03 05:41] LABS: Calcium 8.7 mg/dL (8.4-10.2); Creatinine 1 2.16 mg/dL (0.66-1.25); EST GLOMERULAR FILTRATION RATE 31.3 ML/MIN
[2022-03-03] MEDS: solu-MEDROL 40 MG, Sterile H2O 10 ml 1 ML IV SCH ×6 (05:49→21:39)
[2022-03-03 05:56] LABS: Slide Review 1 YES
[2022-03-03] MEDS: Klor Con PO SCH (08:11)
[2022-03-03] MEDS: NORVASC 5 MG PO SCH (08:11)
[2022-03-03] MEDS: NEURONTIN PO SCH ×2 (08:12→21:39)
[2022-03-03] MEDS: Cordarone 200 MG PO SCH (08:12)
[2022-03-03] MEDS: Vibramycin 100 MG PO SCH ×2 (08:12→21:42)
[2022-03-03] MEDS: FEOSOL 325 MG PO SCH ×2 (08:12→08:13)
[2022-03-03] MEDS: Imdur 30 MG PO SCH (08:12)
[2022-03-03] MEDS: PLAVIX Tablet PO SCH (08:12)
[2022-03-03] MEDS: Lopressor 50 MG PO SCH ×2 (08:12→21:42)
[2022-03-03] MEDS: Lasix 40 MG/4 ML IV SCH (08:13)
[2022-03-03] MEDS: Calcium 500MG W/Vit D Tablet PO SCH ×2 (08:13→21:40)
[2022-03-03] MEDS: ENOXAPARIN SODIUM SQ SCH (08:14)
[2022-03-03] MEDS: HUMALOG SQ PRN ×4 (08:15→22:44)
[2022-03-03] MEDS: Lantus Insulin SQ SCH (08:15)
[2022-03-03] MEDS: Proscar 5 MG PO SCH (08:16)
[2022-03-03] MEDS: Nizoral CREAM TOP SCH ×2 (08:16→21:43)
[2022-03-03] MEDS: ECOTRIN 81 MG PO SCH (08:18)
--- NOTE | 2022-03-03 09:38 | PCM.NOTE ---
Date and Time: 03/03/22932 Subjective Assessment: Still c/o pain of distal L great toe, although he said the ketoconazole helped. - Review of Systems Constitutional: No Fever Respiratory: Cough, Short Of Breath Objective Exam General Appearance: no apparent distress, alert Neurologic Exam: oriented x 3, cooperative Skin Exam: normal color, warm, dry, No rash Eye Exam: eyes nml inspection Ears, Nose, Throat Exam: moist mucous membranes Neck Exam: normal inspection Respiratory Exam: diminished breath sounds (good air exchange), wheezing (faint expiratory, scattered), No crackles/rales, No rhonchi Cardiovascular Exam: regular rate/rhythm, normal heart sounds, No murmur Gastrointestinal/Abdomen Exam: soft, normal bowel sounds, other (ostomy present), No tenderness, No distention, No mass, No guarding, No rebound Extremity Exam: normal inspection, other (L great toe nttp, no erythema, no edema or crepitus, no fluctuance. crease that was present yesterday is absent today.), No pedal edema, No swelling OBJECTIVE DATA Vital Signs: Vital Signs - 24 hr Temp Pulse Resp BP Pulse Ox 03/03/22 07:30 97.7 F 56 L 15 131/61 94 L 03/03/22 05:33 53 L 16 91 L 03/03/22 04:00 96.5 F 64 17 136/63 94 L 03/03/22 00:45 63 18 88 L 03/02/22 23:25 97.2 F 67 17 139/64 96 03/02/22 22:13 92 L 03/02/22 19:46 96.9 F 64 17 143/63 100 03/02/22 18:52 68 16 94 L 03/02/22 15:40 97.3 F 64 18 133/60 96 03/02/22 13:43 66 16 94 L 03/02/22 12:00 97.1 F 59 L 19 129/58 92 L Pain Assessment - Last Documented Pain Intensity 4 Pain Scale Used 0-10 Pain Scale Intake and Output: Intake & Output 02/28/22 03/01/22 03/02/22 03/03/22 11:59 11:59 11:59 11:59 Intake Total 600 1573 1020 Output Total 1250 1850 1400 Balance -476 -592 -414 Weight 93.4 kg 94.2 kg Lab Results: Lab Results-Last 24 Hours 03/02/22 03/02/22 03/02/22 Range/Units 11:29 16:22 16:26 WBC (4.0-10.5) x10^3/uL RBC (4.1-5.6) x10^6/uL Hgb (12.5-18.0) g/dL Hct (42-50) % MCV (78-100) fL MCH (26-32) pg MCHC (32-36) g/dL RDW (11.5-14.0) % Plt Count (150-450) x10^3/uL MPV (7.5-11.0) fL Gran % (36.0-66.0) % Immature Gran % (Auto) (0.00-0.4) % Nucleat RBC Rel Count (0.00-0.1) % Eos # (Auto) (0-0.5) x10^3/uL Immature Gran # (Auto) (0.00-0.03) x10^3u/L Absolute Lymphs (auto) (1.0-4.6) x10^3/uL Absolute Monos (auto) (0.0-1.3) x10^3/uL Absolute Nucleated RBC (0.00-0.01) x10^3u/L Lymphocytes % (24.0-44.0) % Monocytes % (0.0-12.0) % Eosinophils % (0.00-5.0) % Basophils % (0.0-0.4) % Absolute Granulocytes (1.4-6.9) x10^3/uL Basophils # (0-0.4) x10^3/uL Sodium (137-145) mmol/L Potassium (3.5-5.1) mmol/L Chloride (98-107) mmol/L Carbon Dioxide (22-30) mmol/L Anion Gap (5-15) MEQ/L BUN (9-20) mg/dL Creatinine (0.66-1.25) mg/dL Estimated GFR ML/MIN Glucose (74-106) mg/dL POC Glucometer 455 H 513 H* 470 H (74 to 106) mg/dL Calcium (8.4-10.2) mg/dL NT-Pro-B Natriuret Pep (0-1800) pg/mL Slides for Path Review 03/02/22 03/03/22 03/03/22 Range/Units 21:29 04:51 04:51 WBC 12.5 H (4.0-10.5) x10^3/uL RBC 3.24 L (4.1-5.6) x10^6/uL Hgb 8.6 L (12.5-18.0) g/dL Hct 27.4 L (42-50) % MCV 84.6 (78-100) fL MCH 26.5 (26-32) pg MCHC 31.4 L (32-36) g/dL RDW 15.9 H (11.5-14.0) % Plt Count 388 (150-450) x10^3/uL MPV 9.1 (7.5-11.0) fL Gran % 92.3 H (36.0-66.0) % Immature Gran % (Auto) 0.6 H (0.00-0.4) % Nucleat RBC Rel Count 0.0 (0.00-0.1) % Eos # (Auto) 0 (0-0.5) x10^3/uL Immature Gran # (Auto) 0.08 H (0.00-0.03) x10^3u/L Absolute Lymphs (auto) 0.44 L (1.0-4.6) x10^3/uL Absolute Monos (auto) 0.44 (0.0-1.3) x10^3/uL Absolute Nucleated RBC 0.00 (0.00-0.01) x10^3u/L Lymphocytes % 3.5 L (24.0-44.0) % Monocytes % 3.5 (0.0-12.0) % Eosinophils % 0.0 (0.00-5.0) % Basophils % 0.1 (0.0-0.4) % Absolute Granulocytes 11.52 H (1.4-6.9) x10^3/uL Basophils # 0.01 (0-0.4) x10^3/uL Sodium 133 L (137-145) mmol/L Potassium 4.0 (3.5-5.1) mmol/L Chloride 95 L (98-107) mmol/L Carbon Dioxide 29 (22-30) mmol/L Anion Gap 12.0 (5-15) MEQ/L BUN 65 H (9-20) mg/dL Creatinine 2.16 H (0.66-1.25) mg/dL Estimated GFR 31.3 ML/MIN Glucose 346 H (74-106) mg/dL POC Glucometer 464 H (74 to 106) mg/dL Calcium 8.7 (8.4-10.2) mg/dL NT-Pro-B Natriuret Pep 9190 H (0-1800) pg/mL Slides for Path Review YES 03/03/22 Range/Units 07:00 WBC (4.0-10.5) x10^3/uL RBC (4.1-5.6) x10^6/uL Hgb (12.5-18.0) g/dL Hct (42-50) % MCV (78-100) fL MCH (26-32) pg MCHC (32-36) g/dL RDW (11.5-14.0) % Plt Count (150-450) x10^3/uL MPV (7.5-11.0) fL Gran % (36.0-66.0) % Immature Gran % (Auto) (0.00-0.4) % Nucleat RBC Rel Count (0.00-0.1) % Eos # (Auto) (0-0.5) x10^3/uL Immature Gran # (Auto) (0.00-0.03) x10^3u/L Absolute Lymphs (auto) (1.0-4.6) x10^3/uL Absolute Monos (auto) (0.0-1.3) x10^3/uL Absolute Nucleated RBC (0.00-0.01) x10^3u/L Lymphocytes % (24.0-44.0) % Monocytes % (0.0-12.0) % Eosinophils % (0.00-5.0) % Basophils % (0.0-0.4) % Absolute Granulocytes (1.4-6.9) x10^3/uL Basophils # (0-0.4) x10^3/uL Sodium (137-145) mmol/L Potassium (3.5-5.1) mmol/L Chloride (98-107) mmol/L Carbon Dioxide (22-30) mmol/L Anion Gap (5-15) MEQ/L BUN (9-20) mg/dL Creatinine (0.66-1.25) mg/dL Estimated GFR ML/MIN Glucose (74-106) mg/dL POC Glucometer 302 H (74 to 106) mg/dL Calcium (8.4-10.2) mg/dL NT-Pro-B Natriuret Pep (0-1800) pg/mL Slides for Path Review Radiology Exams: Radiology Procedures Category Date Time Status TOE(S) (MIN 2 VIEWS) Routine Exams 03/03/22 09:10 Ordered Assessment/Plan (1) Bilateral pneumonia Current Visit: Yes Status: Acute Qualifiers: Pneumonia type: due to unspecified organism Lung location: unspecified part of lung Qualified Code(s): J18.9 - Pneumonia, unspecified organism Assessment & Plan: Improving, now on 2L NC instead of 3L. On rocephin/zithromax day #3. Code(s): J18.9 - PNEUMONIA, UNSPECIFIED ORGANISM (2) Acute exacerbation of CHF (congestive heart failure) Current Visit: Yes Status: Acute Qualifiers: Heart failure type: unspecified Qualified Code(s): I50.9 - Heart failure, unspecified Assessment & Plan: BNP is down to 9190 from 12,800 yesterday. On 80mg IV lasix daily. Code(s): I50.9 - HEART FAILURE, UNSPECIFIED (3) Atrial fibrillation Current Visit: Yes Status: Acute Qualifiers: Atrial fibrillation type: paroxysmal Qualified Code(s): I48.0 - Paroxysmal atrial fibrillation Assessment & Plan: reported last night; not apparent on exam today. Will repeat EKG. He thought he had a hx of same, but we could not find on any medical records, so did start him on lovenox last night (pt already on plavix and asa). Cardiology teleconsult today, thank you. 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 Diabetes mellitus complication status: with kidney complications Diabetes mellitus complication detail: with chronic kidney disease Code(s): E11.9 - TYPE 2 DIABETES MELLITUS WITHOUT COMPLICATIONS (7) HTN (hypertension) Current Visit: No Status: Chronic Qualifiers: Hypertension type: primary hypertension Qualified Code(s): I10 - Essential (primary) hypertension Code(s): I10 - ESSENTIAL (PRIMARY) HYPERTENSION (8) Anemia Current Visit: Yes Status: Acute Qualifiers: Anemia type: due to chronic kidney disease Chronic kidney disease stage: stage 4 (severe) Qualified Code(s): N18.4 - Chronic kidney disease, stage 4 (severe); D63.1 - Anemia in chronic kidney disease Assessment & Plan: Hgb 8.0 yesterday, and 8.6 today. Will watch closely since now on plavix, asa, and lovenox. check FiOB and iron studies, but could be related to renal insufficiency. Code(s): D64.9 - ANEMIA, UNSPECIFIED (9) Chronic renal insufficiency Current Visit: Yes Status: Acute Qualifiers: Chronic kidney disease stage: stage 4 (severe) Qualified Code(s): N18.4 - Chronic kidney disease, stage 4 (severe) Code(s): N18.9 - CHRONIC KIDNEY DISEASE, UNSPECIFIED
--- NOTE | 2022-03-03 10:11 | XRAY ---
Indication: Left great toe pain. No known injury. Comparison: None 3 portable views left great toe demonstrates osteopenia. No other bony, articular, or soft tissue abnormalities.
[2022-03-03 10:47] LABS: Iron 38 ug/dL (49-181); Iron Saturation 16 % (20-39); TIBC 237 ug/dL (261-497)
[2022-03-03] MEDS ORDERED: PROVENTIL 2.5 MG/3 ML NEB IH ONE (12:01)
[2022-03-03] MEDS: PROVENTIL 2.5 MG/3 ML NEB IH SCH ×2 (12:35→18:53)
[2022-03-03] MEDS ORDERED: solu-MEDROL ONE (13:33)
[2022-03-03] MEDS: Piperacillin/Tazobactam 2.25 GM 2.25 GM in Sodium Chloride 100ML MINI-BAG PLUS 100 ML IV SCH ×2 (17:00→22:48)
[2022-03-03] MEDS: Flomax 0.4 MG PO SCH (21:39)
[2022-03-03] MEDS: TYLENOL EXTRA STRENGTH 500 MG PO PRN (21:40)
[2022-03-03] MEDS: ZOCOR 20MG PO SCH (21:42)
[2022-03-04] MEDS: PROVENTIL 2.5 MG/3 ML NEB IH SCH ×4 (00:15→18:48)
[2022-03-04] MEDS: Piperacillin/Tazobactam 2.25 GM 2.25 GM in Sodium Chloride 100ML MINI-BAG PLUS 100 ML IV SCH ×4 (05:18→23:57)
[2022-03-04] MEDS: solu-MEDROL 40 MG, Sterile H2O 10 ml 1 ML IV SCH ×2 (05:18)
[2022-03-04 05:37] LABS: Absolute Neutrophil Ct (ANC) 8.87 x10^3/uL (1.4-6.9); BASOPHIL % 0.1 % (0.0-0.4); Basophil (Absolute #) 0.01 x10^3/uL (0-0.4); Eosinophil (Absolute #) 0 x10^3/uL (0-0.5); Hematocrit 29.4 % (42-50); Hemoglobin 8.9 g/dL (12.5-18.0); IMMATURE GRAN # 0.12 x10^3u/L (0.00-0.03); IMMATURE GRAN % 1.2 % (0.00-0.4); Lymphocyte (Absolute #) 0.38 x10^3/uL (1.0-4.6); Lymphocytes % 3.9 % (24.0-44.0); Mean Cell Volume 86.5 fL (78-100); Mean Corpuscular Hemoglobin 26.2 pg (26-32); Mean Corpuscular Hgb Concent. 30.3 g/dL (32-36); Mean Platelet Volume 9.5 fL (7.5-11.0); Monocyte (Absolute #) 0.32 x10^3/uL (0.0-1.3); Monocytes % 3.3 % (0.0-12.0); Neutrophil % 91.5 % (36.0-66.0); Platelet Count 404 x10^3/uL (150-450); Red Cell Distribution Width 15.8 % (11.5-14.0); White Blood Count 9.7 x10^3/uL (4.0-10.5)
[2022-03-04 06:37] LABS: Slide Review 1 YES
[2022-03-04 06:53] LABS: Calcium 8.9 mg/dL (8.4-10.2); Creatinine 1 1.92 mg/dL (0.66-1.25); EST GLOMERULAR FILTRATION RATE 35.8 ML/MIN; Potassium 4.6 mmol/L (3.5-5.1)
[2022-03-04] MEDS: Lopressor 50 MG PO SCH ×2 (10:08→21:30)
[2022-03-04] MEDS: Vibramycin 100 MG PO SCH ×2 (10:08→21:31)
[2022-03-04] MEDS: FEOSOL 325 MG PO SCH ×2 (10:08→21:31)
[2022-03-04] MEDS: Klor Con PO SCH (10:08)
[2022-03-04] MEDS: ECOTRIN 81 MG PO SCH (10:08)
[2022-03-04] MEDS: Calcium 500MG W/Vit D Tablet PO SCH ×2 (10:08→21:30)
[2022-03-04] MEDS: NEURONTIN PO SCH ×2 (10:08→21:30)
[2022-03-04] MEDS: NORVASC 5 MG PO SCH (10:08)
[2022-03-04] MEDS: PLAVIX Tablet PO SCH (10:08)
[2022-03-04] MEDS: Imdur 30 MG PO SCH (10:08)
[2022-03-04] MEDS: Lantus Insulin SQ SCH (10:09)
[2022-03-04] MEDS: Lasix 40 MG/4 ML IV SCH (10:09)
[2022-03-04] MEDS: Nizoral CREAM TOP SCH ×2 (10:10→21:33)
[2022-03-04] MEDS: Proscar 5 MG PO SCH (10:10)
[2022-03-04] MEDS: ENOXAPARIN SODIUM SQ SCH (10:10)
[2022-03-04] MEDS: HUMALOG SQ PRN ×3 (11:42→21:45)
[2022-03-04] MEDS ORDERED: Lantus Insulin SQ ONE (11:55)
--- NOTE | 2022-03-04 11:55 | PCM.NOTE ---
Date and Time: 03/04/22 1149 Subjective Assessment: Pt walked down the ray and back with desat to 84%. It was noted in the chart that pt was on 2L NC then back up to 3L, but apparently he was just on 3L NC the whole time. - Review of Systems Constitutional: No Fever Respiratory: Cough, Short Of Breath Objective Exam General Appearance: no apparent distress, alert, other (SOB initially, immed after walk, but recovered within a few minutes.) Neurologic Exam: oriented x 3, cooperative Skin Exam: normal color, warm, dry, No rash Eye Exam: eyes nml inspection Ears, Nose, Throat Exam: moist mucous membranes Neck Exam: normal inspection Respiratory Exam: diminished breath sounds (good air exchange), No crackles/rales, No rhonchi, No wheezing Cardiovascular Exam: regular rate/rhythm, normal heart sounds, No murmur Gastrointestinal/Abdomen Exam: soft, normal bowel sounds, No tenderness, No distention, No mass, No guarding, No rebound Extremity Exam: No pedal edema, No swelling Back Exam: normal inspection, No rash OBJECTIVE DATA Vital Signs: Vital Signs - 24 hr Temp Pulse Resp BP Pulse Ox 03/04/22 08:20 51 L 20 96 03/04/22 07:27 97.3 F 50 L 17 133/60 96 03/04/22 04:00 97.9 F 58 L 16 126/57 96 03/04/22 00:15 60 20 96 03/03/22 23:46 97.7 F 60 18 137/63 97 03/03/22 20:00 97.3 F 70 20 136/62 97 03/03/22 18:55 67 18 95 03/03/22 16:00 97.6 F 64 17 136/57 94 L 03/03/22 12:40 62 16 96 Pain Assessment - Last Documented Pain Intensity 0 Pain Scale Used 0-10 Pain Scale Intake and Output: Intake & Output 03/01/22 03/02/22 03/03/22 03/04/22 11:59 11:59 11:59 11:59 Intake Total 600 1573 1020 1380 Output Total 1250 1850 1400 3200 Balance -553 -603 -282 -6087 Weight 93.4 kg 94.2 kg 94.2 kg Lab Results: Lab Results-Last 24 Hours 03/03/22 03/03/22 03/03/22 Range/Units 07:56 16:16 16:20 WBC (4.0-10.5) x10^3/uL RBC (4.1-5.6) x10^6/uL Hgb (12.5-18.0) g/dL Hct (42-50) % MCV (78-100) fL MCH (26-32) pg MCHC (32-36) g/dL RDW (11.5-14.0) % Plt Count (150-450) x10^3/uL MPV (7.5-11.0) fL Gran % (36.0-66.0) % Immature Gran % (Auto) (0.00-0.4) % Nucleat RBC Rel Count (0.00-0.1) % Eos # (Auto) (0-0.5) x10^3/uL Immature Gran # (Auto) (0.00-0.03) x10^3u/L Absolute Lymphs (auto) (1.0-4.6) x10^3/uL Absolute Monos (auto) (0.0-1.3) x10^3/uL Absolute Nucleated RBC (0.00-0.01) x10^3u/L Lymphocytes % (24.0-44.0) % Monocytes % (0.0-12.0) % Eosinophils % (0.00-5.0) % Basophils % (0.0-0.4) % Absolute Granulocytes (1.4-6.9) x10^3/uL Basophils # (0-0.4) x10^3/uL Sodium (137-145) mmol/L Potassium (3.5-5.1) mmol/L Chloride (98-107) mmol/L Carbon Dioxide (22-30) mmol/L Anion Gap (5-15) MEQ/L BUN (9-20) mg/dL Creatinine (0.66-1.25) mg/dL Estimated GFR ML/MIN Glucose (74-106) mg/dL POC Glucometer 506 H* 450 H (50 to 500) mg/dL Calcium (8.4-10.2) mg/dL NT-Pro-B Natriuret Pep (0-1800) pg/mL Stool Occult Blood NEGATIVE (NEGATIVE) Slides for Path Review 03/03/22 03/04/22 03/04/22 Range/Units 21:41 04:33 04:33 WBC 9.7 (4.0-10.5) x10^3/uL RBC 3.40 L (4.1-5.6) x10^6/uL Hgb 8.9 L (12.5-18.0) g/dL Hct 29.4 L (42-50) % MCV 86.5 (78-100) fL MCH 26.2 (26-32) pg MCHC 30.3 L (32-36) g/dL RDW 15.8 H (11.5-14.0) % Plt Count 404 (150-450) x10^3/uL MPV 9.5 (7.5-11.0) fL Gran % 91.5 H (36.0-66.0) % Immature Gran % (Auto) 1.2 H (0.00-0.4) % Nucleat RBC Rel Count 0.0 (0.00-0.1) % Eos # (Auto) 0 (0-0.5) x10^3/uL Immature Gran # (Auto) 0.12 H (0.00-0.03) x10^3u/L Absolute Lymphs (auto) 0.38 L (1.0-4.6) x10^3/uL Absolute Monos (auto) 0.32 (0.0-1.3) x10^3/uL Absolute Nucleated RBC 0.00 (0.00-0.01) x10^3u/L Lymphocytes % 3.9 L (24.0-44.0) % Monocytes % 3.3 (0.0-12.0) % Eosinophils % 0.0 (0.00-5.0) % Basophils % 0.1 (0.0-0.4) % Absolute Granulocytes 8.87 H (1.4-6.9) x10^3/uL Basophils # 0.01 (0-0.4) x10^3/uL Sodium 135 L (137-145) mmol/L Potassium 4.6 (3.5-5.1) mmol/L Chloride 97 L (98-107) mmol/L Carbon Dioxide 30 (22-30) mmol/L Anion Gap 13.0 (5-15) MEQ/L BUN 64 H (9-20) mg/dL Creatinine 1.92 H (0.66-1.25) mg/dL Estimated GFR 35.8 ML/MIN Glucose 371 H (74-106) mg/dL POC Glucometer 461 H (50 to 500) mg/dL Calcium 8.9 (8.4-10.2) mg/dL NT-Pro-B Natriuret Pep 8670 H (0-1800) pg/mL Stool Occult Blood (NEGATIVE) Slides for Path Review YES 03/04/22 03/04/22 Range/Units 07:06 11:30 WBC (4.0-10.5) x10^3/uL RBC (4.1-5.6) x10^6/uL Hgb (12.5-18.0) g/dL Hct (42-50) % MCV (78-100) fL MCH (26-32) pg MCHC (32-36) g/dL RDW (11.5-14.0) % Plt Count (150-450) x10^3/uL MPV (7.5-11.0) fL Gran % (36.0-66.0) % Immature Gran % (Auto) (0.00-0.4) % Nucleat RBC Rel Count (0.00-0.1) % Eos # (Auto) (0-0.5) x10^3/uL Immature Gran # (Auto) (0.00-0.03) x10^3u/L Absolute Lymphs (auto) (1.0-4.6) x10^3/uL Absolute Monos (auto) (0.0-1.3) x10^3/uL Absolute Nucleated RBC (0.00-0.01) x10^3u/L Lymphocytes % (24.0-44.0) % Monocytes % (0.0-12.0) % Eosinophils % (0.00-5.0) % Basophils % (0.0-0.4) % Absolute Granulocytes (1.4-6.9) x10^3/uL Basophils # (0-0.4) x10^3/uL Sodium (137-145) mmol/L Potassium (3.5-5.1) mmol/L Chloride (98-107) mmol/L Carbon Dioxide (22-30) mmol/L Anion Gap (5-15) MEQ/L BUN (9-20) mg/dL Creatinine (0.66-1.25) mg/dL Estimated GFR ML/MIN Glucose (74-106) mg/dL POC Glucometer 334 H 359 H (50 to 500) mg/dL Calcium (8.4-10.2) mg/dL NT-Pro-B Natriuret Pep (0-1800) pg/mL Stool Occult Blood (NEGATIVE) Slides for Path Review Radiology Exams: Radiology Procedures Category Date Time Status TOE(S) (MIN 2 VIEWS) Routine Exams 03/03/22 09:10 Completed Multi-Disciplinary Progress Notes: Multi-Disciplinary Progress Notes 03/04/22 10:44 Case Management Note by Cheyenne Verduczo NO CHANGE IN DC PLANS- PATIENT CONTINUES TO PLAN TO DC HOME WITH SIG OTHER AND HHC AT TIME OF DC Initialized on 03/04/22 10:44 - END OF NOTE 03/03/22 13:46 Case Management Note by Cheyenne Verduzco PATIENT HAS [facility]. THEY WILL NEED CONTACTED AT TIME OF DC AT [phone]. THEY WILL NEED FAXED THE DC INSTRUCTIONS, DC MED LIST AND DC SUMMARY ( IF AVAILABLE) [phone] Initialized on 03/03/22 13:46 - END OF NOTE Assessment/Plan (1) Bilateral pneumonia Current Visit: Yes Status: Acute Qualifiers: Pneumonia type: due to unspecified organism Lung location: unspecified part of lung Qualified Code(s): J18.9 - Pneumonia, unspecified organism Assessment & Plan: On zosyn day #2 and doxycycline day #3. Improving. Code(s): J18.9 - PNEUMONIA, UNSPECIFIED ORGANISM (2) Acute exacerbation of CHF (congestive heart failure) Current Visit: Yes Status: Acute Qualifiers: Heart failure type: unspecified Qualified Code(s): I50.9 - Heart failure, unspecified Assessment & Plan: On 80mg IV lasix for the past 2 days. Improving, while maintaining his renal function at about his baseline. Code(s): I50.9 - HEART FAILURE, UNSPECIFIED (3) Atrial fibrillation Current Visit: Yes Status: Acute Qualifiers: Atrial fibrillation type: paroxysmal Qualified Code(s): I48.0 - Paroxysmal atrial fibrillation Assessment & Plan: He had afib on EKG from yesterday, but on 02/28/22 EKG looks like sinus rhythm. Would appreciate cardiology recommendations regarding blood thinner (home meds include plavix and aspirin; lovenox added here in hospital). Code(s): I48.91 - UNSPECIFIED ATRIAL FIBRILLATION (4) Chronic hypoxemic respiratory failure Current Visit: Yes Status: Chronic (5) Recurrent UTI Current Visit: Yes Status: Chronic Assessment & Plan: treating for current UTI with zosyn (pseudomonas). Code(s): N39.0 - URINARY TRACT INFECTION, SITE NOT SPECIFIED (6) Diabetes mellitus Current Visit: Yes Status: Chronic Qualifiers: Diabetes mellitus type: type 2 Diabetes mellitus prison insulin use: with prison use Diabetes mellitus complication status: with kidney complications Diabetes mellitus complication detail: with chronic kidney disease Assessment & Plan: increase lantus to 60 units/d Code(s): E11.9 - TYPE 2 DIABETES MELLITUS WITHOUT COMPLICATIONS (7) HTN (hypertension) Current Visit: No Status: Chronic Qualifiers: Hypertension type: primary hypertension Qualified Code(s): I10 - Essential (primary) hypertension Code(s): I10 - ESSENTIAL (PRIMARY) HYPERTENSION (8) Anemia Current Visit: Yes Status: Acute Qualifiers: Anemia type: due to chronic kidney disease Chronic kidney disease stage: stage 4 (severe) Qualified Code(s): N18.4 - Chronic kidney disease, stage 4 (severe); D63.1 - Anemia in chronic kidney disease Assessment & Plan: hgb up to 8.9. Code(s): D64.9 - ANEMIA, UNSPECIFIED (9) Chronic renal insufficiency Current Visit: Yes Status: Acute Qualifiers: Chronic kidney disease stage: stage 4 (severe) Qualified Code(s): N18.4 - Chronic kidney disease, stage 4 (severe) Code(s): N18.9 - CHRONIC KIDNEY DISEASE, UNSPECIFIED
[2022-03-04] MEDS: DELTASONE 20 MG PO SCH (14:04)
--- NOTE | 2022-03-04 14:45 | CONS ---
TELE-CARDIOLOGY CONSULT DATE: 03/04/2022 REASON FOR TELE-CARDIOLOGY CONSULT: Atrial fibrillation, congestive heart failure. HISTORY: Rai Lenz is an 81-year-old gentleman with history of chronic systolic congestive heart failure, coronary artery disease, chronic kidney disease, diabetes mellitus type II and chronic hypoxemic respiratory failure with chronic obstructive pulmonary disease who presented to the [facility] with progressive shortness of breath and was found in new atrial fibrillation. He is currently being treated for chronic obstructive pulmonary disease exacerbation as well as urinary tract infection with pseudomonas aeruginosa. He is currently on broad spectrum antibiotics and breathing has improved. He is on 2 liters of oxygen which is near his baseline. Heart rate has improved and is currently in the 50's and 60's and he persists in atrial fibrillation. He was previously on clopidogrel. He is not on anticoagulation currently. He does have a history of previous CVA as well. Currently he denies any orthopnea or paroxysmal nocturnal dyspnea but does still have some shortness of breath getting up to go to the bathroom. He denies any chest pain. Cardiac enzymes were negative on presentation. PAST MEDICAL HISTORY: As noted in the history of present illness. FAMILY/SOCIAL HISTORY: He is retired and lives with his spouse. He is a smokeless tobacco user. ALLERGIES: NKDA. MEDICATIONS: Medications reviewed with nurse during tele-cardiology consultation. PHYSICAL EXAMINATION: He is in no acute distress via video conference. He is resting comfortably in bed. No gross neurologic issues. LAB DATA AND TESTS: Laboratory data reviewed. Cardiac enzymes are negative. Hemoglobin 8.9, PLT count is 104,000. UA was abnormal. Urine culture is positive for greater than 100,000 colony forming units of pseudomonas aeruginosa. Iron levels are low. White blood cell count 12.5. Creatinine 2.16. NT-Pro-BNP is elevated at 9190. Cardiac troponins are negative. EKG demonstrates atrial fibrillation with rate control with poor R-wave progression, possible old anterior myocardial infarction. IMPRESSION: 1) Persistent atrial fibrillation with elevated thromboembolic risk. 2) Acute chronic obstructive pulmonary disease exacerbation. 3) Urinary tract infection with pseudomonas aeruginosa. 4) Iron deficiency anemia. 5) History of colon cancer. 6) Chronic kidney disease. 7) History of CVA. 8) Diabetes. RECOMMENDATIONS: At this time his thromboembolic risk is certainly elevated. He has been on clopidogrel. Will discontinue clopidogrel and start him on Eliquis 2.5 mg b.i.d. In addition, will need to closely monitor hemoglobin as an outpatient. He may also need further evaluation of his iron deficiency anemia. Continue rate control agents. 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 He can follow up with Dr. Rosibel uLtz after discharge and if it is more convenient for him in the future, I would be happy to follow him in my outreach clinic in [place] if he so wishes. Thank you Dr. Tanya Gutierrez for allowing me to participate in the care of your patient.
[2022-03-04] MEDS: ZOCOR 20MG PO SCH (21:30)
[2022-03-04] MEDS: TYLENOL EXTRA STRENGTH 500 MG PO PRN (21:31)
[2022-03-04] MEDS: Flomax 0.4 MG PO SCH (21:31)
[2022-03-05] MEDS: PROVENTIL 2.5 MG/3 ML NEB IH SCH ×4 (02:27→18:10)
[2022-03-05 05:26] LABS: Absolute Neutrophil Ct (ANC) 8.99 x10^3/uL (1.4-6.9); BASOPHIL % 0.1 % (0.0-0.4); Basophil (Absolute #) 0.01 x10^3/uL (0-0.4); Eosinophil (Absolute #) 0 x10^3/uL (0-0.5); Hematocrit 28.6 % (42-50); Hemoglobin 8.8 g/dL (12.5-18.0); IMMATURE GRAN # 0.18 x10^3u/L (0.00-0.03); IMMATURE GRAN % 1.8 % (0.00-0.4); Lymphocyte (Absolute #) 0.49 x10^3/uL (1.0-4.6); Lymphocytes % 4.8 % (24.0-44.0); Mean Cell Volume 84.4 fL (78-100); Mean Corpuscular Hgb Concent. 30.8 g/dL (32-36); Mean Platelet Volume 9.5 fL (7.5-11.0); Monocyte (Absolute #) 0.52 x10^3/uL (0.0-1.3); Monocytes % 5.1 % (0.0-12.0); Neutrophil % 88.2 % (36.0-66.0); Platelet Count 402 x10^3/uL (150-450); Red Blood Count 3.39 x10^6/uL (4.1-5.6); Red Cell Distribution Width 16.1 % (11.5-14.0); White Blood Count 10.2 x10^3/uL (4.0-10.5)
[2022-03-05] MEDS: Piperacillin/Tazobactam 2.25 GM 2.25 GM in Sodium Chloride 100ML MINI-BAG PLUS 100 ML IV SCH ×4 (05:30→23:54)
[2022-03-05 05:58] LABS: ANION GAP 11.5 MEQ/L (5-15); Calcium 8.8 mg/dL (8.4-10.2); Creatinine 1 1.97 mg/dL (0.66-1.25); EST GLOMERULAR FILTRATION RATE 34.8 ML/MIN; Potassium 4.1 mmol/L (3.5-5.1)
[2022-03-05 05:59] LABS: Slide Review 1 YES
[2022-03-05] MEDS: HUMALOG SQ PRN ×4 (08:22→22:16)
[2022-03-05] MEDS: Lantus Insulin SQ SCH (08:22)
[2022-03-05] MEDS: Lasix 40 MG/4 ML IV SCH (09:22)
[2022-03-05] MEDS: Vibramycin 100 MG PO SCH ×2 (09:23→21:24)
[2022-03-05] MEDS: ECOTRIN 81 MG PO SCH (09:23)
[2022-03-05] MEDS: Calcium 500MG W/Vit D Tablet PO SCH ×2 (09:23→21:24)
[2022-03-05] MEDS: ELIQUIS 2.5 MG TABLET PO SCH ×2 (09:23→21:25)
[2022-03-05] MEDS: Lopressor 50 MG PO SCH ×2 (09:23→21:27)
[2022-03-05] MEDS: DELTASONE 20 MG PO SCH (09:23)
[2022-03-05] MEDS: Proscar 5 MG PO SCH (09:23)
[2022-03-05] MEDS: Imdur 30 MG PO SCH (09:23)
[2022-03-05] MEDS: FEOSOL 325 MG PO SCH ×2 (09:23→21:24)
[2022-03-05] MEDS: Klor Con PO SCH (09:23)
[2022-03-05] MEDS: NORVASC 5 MG PO SCH (09:23)
[2022-03-05] MEDS: NEURONTIN PO SCH ×2 (09:23→21:25)
[2022-03-05] MEDS: Nizoral CREAM TOP SCH ×2 (09:24→21:25)
[2022-03-05] MEDS: Cordarone 200 MG PO SCH (09:28)
--- NOTE | 2022-03-05 13:32 | PCM.NOTE ---
Date and Time: 03/05/22 1326 Subjective Assessment: Pt without complaints, doing well. Eating breakfast. - Review of Systems Constitutional: No Fever Respiratory: Cough, Short Of Breath Objective Exam General Appearance: no apparent distress, alert Neurologic Exam: oriented x 3, cooperative Skin Exam: normal color, warm, dry, No rash Eye Exam: eyes nml inspection Ears, Nose, Throat Exam: moist mucous membranes Neck Exam: normal inspection Respiratory Exam: diminished breath sounds (good air exchange), No crackles/rales, No rhonchi, No wheezing Cardiovascular Exam: regular rate/rhythm, normal heart sounds, No murmur Gastrointestinal/Abdomen Exam: soft, normal bowel sounds, No tenderness, No distention, No mass, No guarding, No rebound Extremity Exam: normal inspection, No pedal edema, No swelling Back Exam: normal inspection, No rash OBJECTIVE DATA Vital Signs: Vital Signs - 24 hr Temp Pulse Resp BP Pulse Ox 03/05/22 12:26 52 L 18 93 L 03/05/22 11:19 97.3 F 61 19 143/67 97 03/05/22 07:57 97.8 F 49 L 20 138/65 98 03/05/22 07:44 52 L 16 94 L 03/05/22 04:00 98.0 F 52 L 20 138/63 98 03/05/22 02:28 50 L 21 98 03/04/22 23:41 97.8 F 62 21 143/63 97 03/04/22 20:00 97.9 F 59 L 16 133/59 97 03/04/22 18:50 59 L 16 97 03/04/22 16:00 97.5 F 58 L 17 131/60 95 03/04/22 13:52 82 18 94 L Pain Assessment - Last Documented Pain Intensity 0 Pain Scale Used 0-10 Pain Scale Intake and Output: Intake & Output 03/03/22 03/04/22 03/05/22 03/06/22 11:59 11:59 11:59 11:59 Intake Total 1020 1380 1840 480 Output Total 1400 3200 3250 750 Balance -252 -1820 -1410 -508 Weight 94.2 kg 95.8 kg Lab Results: Lab Results-Last 24 Hours 03/04/22 03/04/22 03/05/22 Range/Units 16:07 21:41 04:46 WBC 10.2 (4.0-10.5) x10^3/uL RBC 3.39 L (4.1-5.6) x10^6/uL Hgb 8.8 L (12.5-18.0) g/dL Hct 28.6 L (42-50) % MCV 84.4 (78-100) fL MCH 26.0 (26-32) pg MCHC 30.8 L (32-36) g/dL RDW 16.1 H (11.5-14.0) % Plt Count 402 (150-450) x10^3/uL MPV 9.5 (7.5-11.0) fL Gran % 88.2 H (36.0-66.0) % Immature Gran % (Auto) 1.8 H (0.00-0.4) % Nucleat RBC Rel Count 0.0 (0.00-0.1) % Eos # (Auto) 0 (0-0.5) x10^3/uL Immature Gran # (Auto) 0.18 H (0.00-0.03) x10^3u/L Absolute Lymphs (auto) 0.49 L (1.0-4.6) x10^3/uL Absolute Monos (auto) 0.52 (0.0-1.3) x10^3/uL Absolute Nucleated RBC 0.00 (0.00-0.01) x10^3u/L Lymphocytes % 4.8 L (24.0-44.0) % Monocytes % 5.1 (0.0-12.0) % Eosinophils % 0.0 (0.00-5.0) % Basophils % 0.1 (0.0-0.4) % Absolute Granulocytes 8.99 H (1.4-6.9) x10^3/uL Basophils # 0.01 (0-0.4) x10^3/uL Sodium (137-145) mmol/L Potassium (3.5-5.1) mmol/L Chloride (98-107) mmol/L Carbon Dioxide (22-30) mmol/L Anion Gap (5-15) MEQ/L BUN (9-20) mg/dL Creatinine (0.66-1.25) mg/dL Estimated GFR ML/MIN Glucose (74-106) mg/dL POC Glucometer 392 H 363 H (74 to 106) mg/dL Calcium (8.4-10.2) mg/dL NT-Pro-B Natriuret Pep (0-1800) pg/mL Slides for Path Review YES 03/05/22 03/05/22 03/05/22 Range/Units 04:46 07:14 11:35 WBC (4.0-10.5) x10^3/uL RBC (4.1-5.6) x10^6/uL Hgb (12.5-18.0) g/dL Hct (42-50) % MCV (78-100) fL MCH (26-32) pg MCHC (32-36) g/dL RDW (11.5-14.0) % Plt Count (150-450) x10^3/uL MPV (7.5-11.0) fL Gran % (36.0-66.0) % Immature Gran % (Auto) (0.00-0.4) % Nucleat RBC Rel Count (0.00-0.1) % Eos # (Auto) (0-0.5) x10^3/uL Immature Gran # (Auto) (0.00-0.03) x10^3u/L Absolute Lymphs (auto) (1.0-4.6) x10^3/uL Absolute Monos (auto) (0.0-1.3) x10^3/uL Absolute Nucleated RBC (0.00-0.01) x10^3u/L Lymphocytes % (24.0-44.0) % Monocytes % (0.0-12.0) % Eosinophils % (0.00-5.0) % Basophils % (0.0-0.4) % Absolute Granulocytes (1.4-6.9) x10^3/uL Basophils # (0-0.4) x10^3/uL Sodium 135 L (137-145) mmol/L Potassium 4.1 (3.5-5.1) mmol/L Chloride 97 L (98-107) mmol/L Carbon Dioxide 30 (22-30) mmol/L Anion Gap 11.5 (5-15) MEQ/L BUN 60 H (9-20) mg/dL Creatinine 1.97 H (0.66-1.25) mg/dL Estimated GFR 34.8 ML/MIN Glucose 225 H (74-106) mg/dL POC Glucometer 174 H 287 H (74 to 106) mg/dL Calcium 8.8 (8.4-10.2) mg/dL NT-Pro-B Natriuret Pep 8640 H (0-1800) pg/mL Slides for Path Review Multi-Disciplinary Progress Notes: Multi-Disciplinary Progress Notes 03/05/22 12:52 Case Management Note by Cheyenne Verduzco S/Carmen PATIENT AND SIG OTHER- THEY BOTH PLAN FOR PATIENT TO DC HOME WITH HIS SIG OTHER AND HHC AT TIME OF DC. WE DISCUSSED SWINGBED A POSSIBILITY BUT PATIENT DECLINES. Initialized on 03/05/22 12:52 - END OF NOTE Assessment/Plan (1) Bilateral pneumonia Current Visit: Yes Status: Acute Qualifiers: Pneumonia type: due to unspecified organism Lung location: unspecified part of lung Qualified Code(s): J18.9 - Pneumonia, unspecified organism Assessment & Plan: Improving. Still on 3 L NC. On zosyn day #3. Code(s): J18.9 - PNEUMONIA, UNSPECIFIED ORGANISM (2) Acute exacerbation of CHF (congestive heart failure) Current Visit: Yes Status: Acute Qualifiers: Heart failure type: unspecified Qualified Code(s): I50.9 - Heart failure, unspecified Assessment & Plan: On 80mg IV lasix daily and renal function continues to improve slightly. Code(s): I50.9 - HEART FAILURE, UNSPECIFIED (3) Atrial fibrillation Current Visit: Yes Status: Acute Qualifiers: Atrial fibrillation type: paroxysmal Qualified Code(s): I48.0 - Paroxysmal atrial fibrillation Assessment & Plan: Per cardiology, thank you, he is now off of plavix and on Eliquis. Code(s): I48.91 - UNSPECIFIED ATRIAL FIBRILLATION (4) Chronic hypoxemic respiratory failure Current Visit: Yes Status: Chronic (5) Recurrent UTI Current Visit: Yes Status: Chronic Assessment & Plan: on Zosyn day #3 - would like him to finish 5d of treatment. Pt was on fosfomycin at admission, presumable for pseudomonal prophylaxis. Unsure if the pseudomonas was actually infectious but will go ahead and treat. Would like him to f/u with infectious disease outpatient (was seeing them prior to admission). Code(s): N39.0 - URINARY TRACT INFECTION, SITE NOT SPECIFIED (6) Diabetes mellitus Current Visit: Yes Status: Chronic Qualifiers: Diabetes mellitus type: type 2 Diabetes mellitus fci insulin use: with fci use Diabetes mellitus complication status: with kidney complications Diabetes mellitus complication detail: with chronic kidney disease Code(s): E11.9 - TYPE 2 DIABETES MELLITUS WITHOUT COMPLICATIONS (7) HTN (hypertension) Current Visit: No Status: Chronic Qualifiers: Hypertension type: primary hypertension Qualified Code(s): I10 - Essential (primary) hypertension Code(s): I10 - ESSENTIAL (PRIMARY) HYPERTENSION (8) Anemia Current Visit: Yes Status: Chronic Qualifiers: Anemia type: due to chronic kidney disease Chronic kidney disease stage: stage 4 (severe) Qualified Code(s): N18.4 - Chronic kidney disease, stage 4 (severe); D63.1 - Anemia in chronic kidney disease Code(s): D64.9 - ANEMIA, UNSPECIFIED (9) Chronic renal insufficiency Current Visit: Yes Status: Chronic Qualifiers: Chronic kidney disease stage: stage 4 (severe) Qualified Code(s): N18.4 - Chronic kidney disease, stage 4 (severe) Code(s): N18.9 - CHRONIC KIDNEY DISEASE, UNSPECIFIED
[2022-03-05] MEDS: Flomax 0.4 MG PO SCH (21:24)
[2022-03-05] MEDS: ZOCOR 20MG PO SCH (21:25)
[2022-03-06] MEDS: PROVENTIL 2.5 MG/3 ML NEB IH SCH ×4 (00:05→18:49)
[2022-03-06 06:14] LABS: Absolute Neutrophil Ct (ANC) 8.54 x10^3/uL (1.4-6.9); BASOPHIL % 0.2 % (0.0-0.4); Basophil (Absolute #) 0.02 x10^3/uL (0-0.4); Eosinophil (Absolute #) 0 x10^3/uL (0-0.5); Hematocrit 29.8 % (42-50); Hemoglobin 9.2 g/dL (12.5-18.0); IMMATURE GRAN # 0.25 x10^3u/L (0.00-0.03); IMMATURE GRAN % 2.5 % (0.00-0.4); Lymphocyte (Absolute #) 0.54 x10^3/uL (1.0-4.6); Lymphocytes % 5.4 % (24.0-44.0); Mean Cell Volume 85.6 fL (78-100); Mean Corpuscular Hemoglobin 26.4 pg (26-32); Mean Corpuscular Hgb Concent. 30.9 g/dL (32-36); Mean Platelet Volume 9.8 fL (7.5-11.0); Monocyte (Absolute #) 0.61 x10^3/uL (0.0-1.3); Monocytes % 6.1 % (0.0-12.0); Neutrophil % 85.8 % (36.0-66.0); Platelet Count 396 x10^3/uL (150-450); Red Blood Count 3.48 x10^6/uL (4.1-5.6); Red Cell Distribution Width 16.2 % (11.5-14.0)
[2022-03-06] MEDS: Piperacillin/Tazobactam 2.25 GM 2.25 GM in Sodium Chloride 100ML MINI-BAG PLUS 100 ML IV SCH ×4 (06:42→23:07)
[2022-03-06 06:50] LABS: ANION GAP 9.3 MEQ/L (5-15); Calcium 8.5 mg/dL (8.4-10.2); Creatinine 1 1.73 mg/dL (0.66-1.25); EST GLOMERULAR FILTRATION RATE 40.4 ML/MIN
[2022-03-06] MEDS: Lantus Insulin SQ SCH (07:42)
[2022-03-06 08:54] LABS: Slide Review 1 YES
[2022-03-06] MEDS: ELIQUIS 2.5 MG TABLET PO SCH ×2 (09:16→22:08)
[2022-03-06] MEDS: Imdur 30 MG PO SCH (09:16)
[2022-03-06] MEDS: Klor Con PO SCH (09:16)
[2022-03-06] MEDS: FEOSOL 325 MG PO SCH ×2 (09:17→22:08)
[2022-03-06] MEDS: NORVASC 5 MG PO SCH (09:17)
[2022-03-06] MEDS: Calcium 500MG W/Vit D Tablet PO SCH ×2 (09:17→22:08)
[2022-03-06] MEDS: Vibramycin 100 MG PO SCH ×2 (09:17→22:08)
[2022-03-06] MEDS: DELTASONE 20 MG PO SCH (09:17)
[2022-03-06] MEDS: ECOTRIN 81 MG PO SCH (09:17)
[2022-03-06] MEDS: Lopressor 50 MG PO SCH ×2 (09:17→22:08)
[2022-03-06] MEDS: NEURONTIN PO SCH ×2 (09:17→22:08)
[2022-03-06] MEDS: Lasix 40 MG/4 ML IV SCH (09:18)
[2022-03-06] MEDS: HUMALOG SQ PRN ×4 (09:18→22:09)
[2022-03-06] MEDS: Nizoral CREAM TOP SCH ×3 (13:49→22:11)
[2022-03-06] MEDS: Proscar 5 MG PO SCH (13:54)
--- NOTE | 2022-03-06 15:42 | PCM.NOTE ---
Date and Time: 03/06/22 1537 Subjective Assessment: He is tolerating po well. Currently no pain in the great toe. Breathing is ok. Still on 3L NC. - Review of Systems Constitutional: No Fever Respiratory: Cough, Short Of Breath Objective Exam General Appearance: no apparent distress, alert Neurologic Exam: oriented x 3, cooperative Skin Exam: normal color, warm, dry, No rash Eye Exam: eyes nml inspection Ears, Nose, Throat Exam: moist mucous membranes Neck Exam: normal inspection Respiratory Exam: lungs clear, diminished breath sounds (good air exchange), No crackles/rales, No rhonchi, No wheezing Cardiovascular Exam: regular rate/rhythm, normal heart sounds, No murmur Gastrointestinal/Abdomen Exam: soft, normal bowel sounds, other (ostomy bag LLQ), No tenderness, No distention, No mass, No guarding, No rebound Extremity Exam: normal inspection, No pedal edema, No swelling Back Exam: normal inspection, No rash OBJECTIVE DATA Vital Signs: Vital Signs - 24 hr Temp Pulse Resp BP Pulse Ox 03/06/22 13:02 54 L 20 98 03/06/22 11:47 97.6 F 52 L 16 146/66 92 L 03/06/22 07:31 97.5 F 69 18 154/62 98 03/06/22 06:07 62 17 95 03/06/22 04:00 98.4 F 50 L 16 143/65 95 03/06/22 00:05 55 L 16 95 03/06/22 00:00 98.1 F 55 L 14 138/64 95 03/05/22 20:00 97.5 F 57 L 18 158/58 97 03/05/22 18:10 63 20 97 03/05/22 15:43 97.5 F 56 L 17 134/63 Pain Assessment - Last Documented Pain Intensity 0 Pain Scale Used 0-10 Pain Scale Intake and Output: Intake & Output 03/04/22 03/05/22 03/06/22 03/07/22 11:59 11:59 11:59 11:59 Intake Total 1380 1840 2737 Output Total 3200 3250 3270 550 Balance -5170 -1410 -533 -550 Weight 94.2 kg 95.8 kg 95.2 kg Lab Results: Lab Results-Last 24 Hours 03/05/22 03/05/22 03/06/22 Range/Units 15:51 21:38 05:30 WBC 10.0 (4.0-10.5) x10^3/uL RBC 3.48 L (4.1-5.6) x10^6/uL Hgb 9.2 L (12.5-18.0) g/dL Hct 29.8 L (42-50) % MCV 85.6 (78-100) fL MCH 26.4 (26-32) pg MCHC 30.9 L (32-36) g/dL RDW 16.2 H (11.5-14.0) % Plt Count 396 (150-450) x10^3/uL MPV 9.8 (7.5-11.0) fL Gran % 85.8 H (36.0-66.0) % Immature Gran % (Auto) 2.5 H (0.00-0.4) % Nucleat RBC Rel Count 0.0 (0.00-0.1) % Eos # (Auto) 0 (0-0.5) x10^3/uL Immature Gran # (Auto) 0.25 H (0.00-0.03) x10^3u/L Absolute Lymphs (auto) 0.54 L (1.0-4.6) x10^3/uL Absolute Monos (auto) 0.61 (0.0-1.3) x10^3/uL Absolute Nucleated RBC 0.00 (0.00-0.01) x10^3u/L Lymphocytes % 5.4 L (24.0-44.0) % Monocytes % 6.1 (0.0-12.0) % Eosinophils % 0.0 (0.00-5.0) % Basophils % 0.2 (0.0-0.4) % Absolute Granulocytes 8.54 H (1.4-6.9) x10^3/uL Basophils # 0.02 (0-0.4) x10^3/uL Sodium (137-145) mmol/L Potassium (3.5-5.1) mmol/L Chloride (98-107) mmol/L Carbon Dioxide (22-30) mmol/L Anion Gap (5-15) MEQ/L BUN (9-20) mg/dL Creatinine (0.66-1.25) mg/dL Estimated GFR ML/MIN Glucose (74-106) mg/dL POC Glucometer 340 H 325 H (74 to 106) mg/dL Calcium (8.4-10.2) mg/dL NT-Pro-B Natriuret Pep (0-1800) pg/mL Slides for Path Review YES 03/06/22 03/06/22 03/06/22 Range/Units 05:30 07:19 11:30 WBC (4.0-10.5) x10^3/uL RBC (4.1-5.6) x10^6/uL Hgb (12.5-18.0) g/dL Hct (42-50) % MCV (78-100) fL MCH (26-32) pg MCHC (32-36) g/dL RDW (11.5-14.0) % Plt Count (150-450) x10^3/uL MPV (7.5-11.0) fL Gran % (36.0-66.0) % Immature Gran % (Auto) (0.00-0.4) % Nucleat RBC Rel Count (0.00-0.1) % Eos # (Auto) (0-0.5) x10^3/uL Immature Gran # (Auto) (0.00-0.03) x10^3u/L Absolute Lymphs (auto) (1.0-4.6) x10^3/uL Absolute Monos (auto) (0.0-1.3) x10^3/uL Absolute Nucleated RBC (0.00-0.01) x10^3u/L Lymphocytes % (24.0-44.0) % Monocytes % (0.0-12.0) % Eosinophils % (0.00-5.0) % Basophils % (0.0-0.4) % Absolute Granulocytes (1.4-6.9) x10^3/uL Basophils # (0-0.4) x10^3/uL Sodium 137 (137-145) mmol/L Potassium 4.0 (3.5-5.1) mmol/L Chloride 98 (98-107) mmol/L Carbon Dioxide 34 H (22-30) mmol/L Anion Gap 9.3 (5-15) MEQ/L BUN 51 H (9-20) mg/dL Creatinine 1.73 H (0.66-1.25) mg/dL Estimated GFR 40.4 ML/MIN Glucose 255 H (74-106) mg/dL POC Glucometer 216 H 239 H (74 to 106) mg/dL Calcium 8.5 (8.4-10.2) mg/dL NT-Pro-B Natriuret Pep 7590 H (0-1800) pg/mL Slides for Path Review Multi-Disciplinary Progress Notes: Multi-Disciplinary Progress Notes 03/06/22 14:52 Case Management Note by Cheyenne Verduzco/W DR. GUTIERREZ- SHE WANTED TO GO AHEAD AND SEND IN RX FOR ELIQUIS TO BE SURE IT IS COVERED BY HIS INSURANCE. RX SENT TO [facility]. CALLED TO CHECK [facility]ONG RX IS $15 Initialized on 03/06/22 14:52 - END OF NOTE 03/06/22 13:18 Case Management Note by Cheyenne Verduzco/Carmen PATIENT- HE CONTINUES TO PLAN TO RETURN HOME WITH SIG OTHER. HE HAS HHC THRU [facility] ALREADY SET UP. HE ALSO ALREADY HAS HOME OXYGEN AT 3L/NC WITH PORTABILITY. NO NEW NEEDS IDENTIFIED AT THIS TIME. PLANS TO DC TOMORROW Initialized on 03/06/22 13:18 - END OF NOTE Assessment/Plan (1) Bilateral pneumonia Current Visit: Yes Status: Acute Qualifiers: Pneumonia type: due to unspecified organism Lung location: unspecified part of lung Qualified Code(s): J18.9 - Pneumonia, unspecified organism Assessment & Plan: on zosyn day #4 Code(s): J18.9 - PNEUMONIA, UNSPECIFIED ORGANISM (2) Recurrent UTI Current Visit: Yes Status: Chronic Assessment & Plan: Being treated currently with the zosyn for pseudomonal UTI - will do 5d of treatment (day #5 on Wednesday, tomorrow). He was on fosfomycin at admission, he thinks from ID (Dr. Dobbins). He wanted to go to Dr. Byers after discharge, so records were sent to Dr. Byers's office to see if he will accept. Code(s): N39.0 - URINARY TRACT INFECTION, SITE NOT SPECIFIED (3) Acute exacerbation of CHF (congestive heart failure) Current Visit: Yes Status: Acute Qualifiers: Heart failure type: unspecified Qualified Code(s): I50.9 - Heart failure, unspecified Assessment & Plan: on IV lasix 80mg/d. Has improved, though home O2 was 2L NC. [facility] home tomorrow. Code(s): I50.9 - HEART FAILURE, UNSPECIFIED (4) Atrial fibrillation Current Visit: Yes Status: Acute Qualifiers: Atrial fibrillation type: paroxysmal Qualified Code(s): I48.0 - Paroxysmal atrial fibrillation Assessment & Plan: New dx here. Changed from plavix to Eliquis per cardiology; discharge planning to call today and ensure that Eliquis is covered. 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 Will need lantus decreased again to home dose upon discharge. Code(s): E11.9 - TYPE 2 DIABETES MELLITUS WITHOUT COMPLICATIONS (7) HTN (hypertension) Current Visit: No Status: Chronic Qualifiers: Hypertension type: primary hypertension Qualified Code(s): I10 - Essential (primary) hypertension Code(s): I10 - ESSENTIAL (PRIMARY) HYPERTENSION (8) Anemia Current Visit: Yes Status: Chronic Qualifiers: Anemia type: due to chronic kidney disease Chronic kidney disease stage: stage 4 (severe) Qualified Code(s): N18.4 - Chronic kidney disease, stage 4 (severe); D63.1 - Anemia in chronic kidney disease Assessment & Plan: hgb 9.2 today Code(s): D64.9 - ANEMIA, UNSPECIFIED (9) Chronic renal insufficiency Current Visit: Yes Status: Chronic Qualifiers: Chronic kidney disease stage: stage 4 (severe) Qualified Code(s): N18.4 - Chronic kidney disease, stage 4 (severe) Code(s): N18.9 - CHRONIC KIDNEY DISEASE, UNSPECIFIED (10) Gout Current Visit: Yes Status: Acute Qualifiers: Gout site: toe Gout etiology: unspecified cause Chronicity: acute Laterality: left Qualified Code(s): M10.9 - Gout, unspecified Assessment & Plan: Being treated with the IV steroids; discussed that he'll need po allopurinol after he's done with them. New dx for him. Uric acid was 11. Code(s): M10.9 - GOUT, UNSPECIFIED
[2022-03-06] MEDS: ZOCOR 20MG PO SCH (22:08)
[2022-03-06] MEDS: Flomax 0.4 MG PO SCH (22:08)
[2022-03-06] MEDS: TYLENOL EXTRA STRENGTH 500 MG PO PRN (23:07)
[2022-03-07] MEDS: PROVENTIL 2.5 MG/3 ML NEB IH SCH ×3 (00:44→14:50)
[2022-03-07] MEDS: Piperacillin/Tazobactam 2.25 GM 2.25 GM in Sodium Chloride 100ML MINI-BAG PLUS 100 ML IV SCH ×2 (05:36→12:18)
[2022-03-07] MEDS: Lantus Insulin SQ SCH (07:59)
[2022-03-07] MEDS: DELTASONE 20 MG PO SCH (09:56)
[2022-03-07] MEDS: ECOTRIN 81 MG PO SCH (09:56)
[2022-03-07] MEDS: Calcium 500MG W/Vit D Tablet PO SCH (09:58)
[2022-03-07] MEDS: Cordarone 200 MG PO SCH (09:58)
[2022-03-07] MEDS: Imdur 30 MG PO SCH (09:59)
[2022-03-07] MEDS: Lasix 40 MG/4 ML IV SCH (09:59)
[2022-03-07] MEDS: ELIQUIS 2.5 MG TABLET PO SCH (10:06)
[2022-03-07] MEDS: FEOSOL 325 MG PO SCH (10:06)
[2022-03-07] MEDS: NORVASC 5 MG PO SCH (10:06)
[2022-03-07] MEDS: Lopressor 50 MG PO SCH (10:06)
[2022-03-07] MEDS: Klor Con PO SCH (10:06)
[2022-03-07] MEDS: Vibramycin 100 MG PO SCH (10:07)
[2022-03-07] MEDS: NEURONTIN PO SCH (10:08)
[2022-03-07] MEDS: Proscar 5 MG PO SCH (10:08)
[2022-03-07] MEDS: Nizoral CREAM TOP SCH (10:09)
[2022-03-07] MEDS: HUMALOG SQ PRN (12:17)
[2022-03-07 15:27] VITALS: BP 137/63; PULSE 59; O2SAT 91
[2022-03-08] MEDS ORDERED: Lantus Insulin SQ SCH (08:00)
--- NOTE | 2022-03-27 19:38 | PCM.DS ---
Discharge Summary Date of Admission: 03/01/22 13:33 Date of Discharge: 03/07/2022 Admitting Physician: KOMLA GUTIERREZ Consults: Consults on Case 03/02/22 15:43 Consult Cardiology ROUTINE Primary Care Provider: DAIJA MARTE NP Allergies Allergies No Known Drug Allergies Allergy (Verified 02/28/22 23:11) Hospital Summary - Hospital Course Hospital Course: Pt. admitted with bilateral pneumonia, the patient improved very slowly and by today was ready for discharge to home. - Vitals & Intake/Output Vital Signs: Vital Signs Temperature 97.3 F 03/07/22 15:26 Pulse Rate 59 L 03/07/22 15:26 Respiratory Rate 16 03/07/22 15:26 Blood Pressure 137/63 03/07/22 15:26 O2 Sat by Pulse Oximetry 91 L 03/07/22 15:26 - Lab Result Diagrams: 03/06/22 05:30 03/06/22 05:30 Micro Results-Entire Visit: Microbiology 02/28/22 23:05 Blood Culture Gram Stain - Final Blood Not Reportable Blood Culture - Final NO GROWTH 02/28/22 23:00 Blood Culture Gram Stain - Final Blood Not Reportable Blood Culture - Final NO GROWTH 02/28/22 23:45 Urine Culture - Final Urine, Void Pseudomonas Aeruginosa 02/28/22 23:00 Gram Stain - Final Sputum - Expectorant Sputum Culture - Final ORGANISMS ISOLATED ARE CONSISTENT WITH NORMAL RESP MARI MODERATE GROWTH, NO PREDOMINANT ORGANISM - Procedures and Test Procedures and Tests throughout Hospitalization: Therapy Orders & Screens 02/28/22 23:17 Respiratory Therapy Assessment DAILY Comment: 03/01/22 01:39 Oxygen Nasal Cannula 4 lpm Comment: 03/01/22 02:43 RT Screen per Nursing Assess ONCE Comment: Protocol Order Physician Instructions: Greater than 3 points order RT Admission Screen Reason For Exam: Triggered on Admission Diagnosis: Bilateral pneumonia, CHF Diagnosis: Bilateral pneumonia, CHF Pneumonia: Yes Home O2: Yes Asthma: No CHF: Yes Home CPAP/BIPAP: No Home Nebs/MDI: Yes Total Points: 16 03/02/22 13:41 EKG ROUTINE Comment: Diagnosis: Bilateral pneumonia, CHF 03/03/22 16:39 PT Eval & Treat (MD Order) ONCE Reason for Eval:: WEAKNESS Diagnosis: Bilateral pneumonia, CHF 03/04/22 11:48 EKG ROUTINE Comment: question of afib Diagnosis: Bilateral pneumonia, CHF Discharge Exam General Appearance: no apparent distress, alert Neurologic Exam: alert, oriented x 3, cooperative, normal mood/affect, nml cerebellar function, sensation nml, No motor deficits Eye Exam: PERRL, EOMI, eyes nml inspection Ears, Nose, Throat Exam: normal ENT inspection, pharynx normal, moist mucous membranes Neck Exam: normal inspection, non-tender, supple, full range of motion Respiratory Exam: normal breath sounds, lungs clear, No respiratory distress Cardiovascular Exam: regular rate/rhythm, normal heart sounds Gastrointestinal/Abdomen Exam: soft, No tenderness, No mass Male Genitalia Exam: deferred Rectal Exam: deferred Back Exam: normal inspection, normal range of motion, No CVA tenderness, No vertebral tenderness Extremity Exam: normal inspection, normal range of motion Skin Exam: normal color, warm, dry Final Diagnosis/Problem List - Final Discharge Diagnosis/Problem (1) Pneumonia Status: Acute Code(s): J18.9 - PNEUMONIA, UNSPECIFIED ORGANISM (2) Respiratory failure Status: Acute Code(s): J96.90 - RESPIRATORY FAILURE, UNSP, UNSP W HYPOXIA OR HYPERCAPNIA - Discharge Discharge Date: 03/07/22 Disposition: Home, Self-Care Condition: Fair Prescriptions: New Apixaban [Eliquis 2.5 mg Tablet] 2.5 mg PO BID #60 tablet No Action Amiodarone HCl 200 mg [Cordarone 200 MG] 200 mg PO UD Multivitamin [Multivitamins] 1 each PO DAILY Nitroglycerin 0.4 mg Tablet [Nitrostat 0.4 MG Tablet] 1 tab SL UD Gabapentin [Neurontin ] 300 mg PO BID Finasteride 5 mg [Proscar 5 MG] 5 mg PO DAILY Potassium Chloride 10 meq PO DAILY #30 tab Ascorbic Acid 500 mg [Vitamin C 500 MG] 500 mg PO UD Insulin Glargine,Hum.rec.anlog [Ivisaglелена Anthony U-100] 40 unit SQ DAILY Albuterol Sulfate [Albuterol Sulfate Hfa] 2 inh IH Q6HPRN PRN PRN Reason: Shortness Of Breath/Wheezing Lidocaine 1 each TP DAILY PRN PRN PRN Reason: Pain Atorvastatin Calcium [Lipitor] 40 mg PO HS Calcium Carbonate [Calcium] 600 mg PO BID Aspirin EC 81 mg [Ecotrin 81 mg] 81 mg PO DAILY Insulin Lispro [Insulin Lispro Kwikpen U-100] 1 unit SQ UD Tamsulosin HCl 0.4 mg [Flomax 0.4 MG] 0.4 mg PO HS Cholecalciferol (Vitamin D3) [Vitamin D] 4,000 unit PO UD Acetaminophen 500 mg [Tylenol Extra Strength 500 mg] 500 mg PO Q4H PRN PRN PRN Reason: Pain Isosorbide Mononitrate [Isosorbide Mononitrate ER] 30 mg PO DAILY Amlodipine Besylate 10 mg PO DAILY Allopurinol 100 mg [Zyloprim 100 mg] 100 mg PO DAILY Furosemide 40 mg [Lasix 40 MG] 40 mg PO DAILY Prednisone 10 mg [Deltasone 10 mg] 10 mg PO UD #20 tab Empagliflozin [Jardiance] 10 mg PO DAILY tablet Insulin Glargine [Lantus Insulin] 30 unit SQ HS unit Metoprolol Tartrate 50 mg [Lopressor 50 MG] 50 mg PO HS tablet Outpatient Orders: C.Difficile by PCR Facility: [facility], Location: LABORATORY Instructions: Pneumonia, Adult (DC) Additional Instructions: [facility] WILL CONTINUE TO FOLLOW. THEIR PHONE NUMBER IS [phone] Gutierrez on March. Follow up with: SEE SINGH MD [COURTESY STAFF] - (DR. SINGH'S OFFICE IS REVIEWING RECORDS. IF ACCEPTED, OFFICE WILL CALL TO SET UP APPOINTMENT.) KOMAL GUTIERREZ [ACTIVE STAFF] - 03/12/22 9:15 am TOMAS HARP [CONSULTING PHYSICIAN] - (DR. HARP'S OFFICE WILL CALL PATIENT TO SCHEDULE.)
== END 2022-03-07 16:39 | disposition home or self-care (01) | DRG 194 ==
LOC: ED 22:46 → MED SURG 03-01 01:35 → OBSVTOIN 03-01 13:33
PROVIDERS: ADMIT Family Medicine; ATTEND Family Medicine
DX: J18.9 Pneumonia, unspecified organism (principal); I13.0 Hypertensive heart and chronic kidney disease with heart failure and stage 1 through stage 4 chronic kidney disease, or unspecified chronic kidney disease; N18.4 Chronic kidney disease, stage 4 (severe); N39.0 Urinary tract infection, site not specified; J96.11 Chronic respiratory failure with hypoxia; I50.9 Heart failure, unspecified; E11.22 Type 2 diabetes mellitus with diabetic chronic kidney disease; I25.10 Atherosclerotic heart disease of native coronary artery without angina pectoris; I48.91 Unspecified atrial fibrillation; E78.5 Hyperlipidemia, unspecified; M79.672 Pain in left foot; D64.9 Anemia, unspecified; M10.9 Gout, unspecified; Z85.038 Personal history of other malignant neoplasm of large intestine; Z79.899 Other long term (current) drug therapy; Z20.828 Contact with and (suspected) exposure to other viral communicable diseases; Z99.81 Dependence on supplemental oxygen
CPT/HCPCS: 0241U; 36000; 36415; 36600; 51702; 71045; 73660; 80048; 80053; 81015; 82375; 82728; 82803; 82947; 83036; 83540; 83550; 83605; 83735; 83880; 84145; 84484; 84550; 85025; 87040; 87070; 87077; 87086; 87186; 93005; 93041; 93268; 94640; 94760; 94762; 96365; 96368; 96374; 96375; 97110; 97161; 97530; 99285; 99291; G0328; Q3014; 82274; J0456; J0696; J1650; J1817; J1940; J2543; J2920; J2930; J7609; A9270-GY

== ENCOUNTER 2022-03-19 00:39 | Observation (INO) | payer MEDICARE, OTHER ==
[2022-03-19 01:14] LABS: Absolute Neutrophil Ct (ANC) 11.97 x10^3/uL (1.4-6.9); BASOPHIL % 0.4 % (0.0-0.4); Basophil (Absolute #) 0.06 x10^3/uL (0-0.4); Eosinophil % 0.8 % (0.00-5.0); Eosinophil (Absolute #) 0.11 x10^3/uL (0-0.5); Hematocrit 33.5 % (42-50); Hemoglobin 10.1 g/dL (12.5-18.0); IMMATURE GRAN # 0.07 x10^3u/L (0.00-0.03); IMMATURE GRAN % 0.5 % (0.00-0.4); Lymphocyte (Absolute #) 0.78 x10^3/uL (1.0-4.6); Lymphocytes % 5.6 % (24.0-44.0); Mean Cell Volume 87.2 fL (78-100); Mean Corpuscular Hemoglobin 26.3 pg (26-32); Mean Corpuscular Hgb Concent. 30.1 g/dL (32-36); Mean Platelet Volume 9.3 fL (7.5-11.0); Monocyte (Absolute #) 0.84 x10^3/uL (0.0-1.3); Monocytes % 6.1 % (0.0-12.0); Neutrophil % 86.6 % (36.0-66.0); Platelet Count 236 x10^3/uL (150-450); Red Blood Count 3.84 x10^6/uL (4.1-5.6); Red Cell Distribution Width 16.7 % (11.5-14.0); White Blood Count 13.8 x10^3/uL (4.0-10.5)
[2022-03-19 01:26] LABS: ANION GAP 11.8 MEQ/L (5-15); BILIRUBIN,TOTAL 0.5 mg/dL (0.2-1.3); Calcium 9.1 mg/dL (8.4-10.2); Creatinine 1 2.63 mg/dL (0.66-1.25); EST GLOMERULAR FILTRATION RATE 24.9 ML/MIN; Potassium 4.7 mmol/L (3.5-5.1); Total Protein 7.6 g/dL (6.3-8.2)
[2022-03-19 01:27] LABS: INR 1.11 (0.8-3.0); PROTIME 11.7 SECONDS (9.4-12.5); PTT 30.4 SECONDS (25.1-36.5)
--- NOTE | 2022-03-19 01:41 | ERPHSYRPT ---
- History of Present Illness Source: patient, EMS, other (SO) Exam Limitations: no limitations Patient Subjective Stated Complaint: pt states he has been feeling short of breath since this afternoon. has been getting progressively worse. throughout the evening. Triage Nursing Assessment: pt alert and oreinted, answers questions approp. pt arrive per ambulance and transfers to [facility] with assist of 3. pt short of breath on arrival. o2 on at 3l per nc. lungs with wheezing noted bilat. skin warm and dry. heart rate 66 afib on monitor. Physician History: 81 yo wm who was [facility] after being treated for Afib/UTI presents w dyspnea x 3 hours which is worse w exertion. Pt is 3L O2 dependent, and SO increased O2 to 4L. He has developed a mildly productive cough over the last day. Pt denies chest pain/fever/N/V/D/melena /hematochezia/dysuria/hematuria. Timing/Duration: today Activities at Onset: rest Severity of Dyspnea-Max: severe Severity of Dyspnea-Current: moderate Possible Cause: frequent episodes Modifying Factors: Improves With: coughing, oxygen Associated Symptoms: cough, No calf pain Allergies/Adverse Reactions: No Known Drug Allergies Allergy (Verified 02/28/22 23:11) Home Medications: Amiodarone HCl 200 mg [Cordarone 200 MG] 200 mg PO UD 02/27/14 [History] Amlodipine Besylate 5 mg [Norvasc 5 mg] 10 mg PO DAILY 02/27/14 [History] Clopidogrel Bisulfate [Plavix] 75 mg PO DAILY 02/27/14 [History] Metoprolol Tartrate 50 mg PO BID 02/27/14 [History] Multivitamin [Multivitamins] 1 each PO DAILY 11/09/14 [History] Finasteride 5 mg [Proscar 5 MG] 5 mg PO DAILY 11/05/20 [History] Gabapentin [Neurontin ] 300 mg PO BID 11/05/20 [History] Nitroglycerin 0.4 mg Tablet [Nitrostat 0.4 MG Tablet] 1 tab SL UD 11/05/20 [History] Albuterol Sulfate [Albuterol Sulfate Hfa] 2 inh IH Q6HPRN PRN 05/22/21 [History] Ascorbic Acid 500 mg [Vitamin C 500 MG] 500 mg PO UD 05/22/21 [History] Atorvastatin Calcium [Lipitor] 40 mg PO HS 05/22/21 [History] Insulin Glargine,Hum.rec.anlog [Basaglar Kwikpen U-100] 40 unit SQ DAILY 05/22/21 [History] Lidocaine 1 each TP DAILY PRN PRN 05/22/21 [History] Acetaminophen 500 mg [Tylenol Extra Strength 500 mg] 500 mg PO Q4H PRN PRN 03/01/22 [History] Aspirin EC 81 mg [Ecotrin 81 mg] 81 mg PO DAILY 03/01/22 [History] Calcium Carbonate [Calcium] 600 mg PO BID 03/01/22 [History] Cholecalciferol (Vitamin D3) [Vitamin D] 4,000 unit PO UD 03/01/22 [History] Ferrous Sulfate 325 mg [Feosol 325 mg] 325 mg PO BID 03/01/22 [History] Fosfomycin Tromethamine 3 gm PO UD 03/01/22 [History] Furosemide 20 mg [Lasix 20 mg] 40 mg PO BID 03/01/22 [History] Insulin Lispro [Insulin Lispro Kwikpen U-100] 1 unit SQ UD 03/01/22 [History] Isosorbide Mononitrate [Isosorbide Mononitrate ER] 30 mg PO DAILY 03/01/22 [History] Tamsulosin HCl 0.4 mg [Flomax 0.4 MG] 0.4 mg PO HS 03/01/22 [History] Hx Tetanus, Diphtheria Vaccination/Date Given: Yes Hx Influenza Vaccination/Date Given: Yes Hx Pneumococcal Vaccination/Date Given: Yes Immunizations Up to Date: Yes Travel Risk - International Travel Have you traveled outside of the country in past 3 weeks: No - Coronavirus Screening Are you exhibiting any of the following symptoms?: Yes Symptoms: Shortness of Breath Close contact with a COVID-19 positive Pt in past 14-21 Days: No - Vaccine Status Have you recieved a Covid-19 vaccination: Yes [place]: Moderna - Vaccination Dates Date of 2cond Vaccination (if applicable): 2020 - Review of Systems Constitutional: No Symptoms, Malaise Eyes: No Symptoms Ears, Nose, & Throat: No Symptoms Respiratory: No Symptoms, Cough, Dyspnea, Dyspnea on Exertion (UMANA) Cardiac: No Symptoms Abdominal/Gastrointestinal: No Symptoms Genitourinary Symptoms: No Symptoms Musculoskeletal: No Symptoms Skin: No Symptoms Neurological: No Symptoms Psychological: No Symptoms Endocrine: No Symptoms Hematologic/Lymphatic: No Symptoms Immunological/Allergic: No Symptoms - Past Medical History Pertinent Past Medical History: Yes Neurological History: Stroke ENT History: No Pertinent History Cardiac History: Arrhythmia, Coronary Artery Disease, High Cholesterol, Hypert ension, Myocardial Infarction (CT), Peripheral Vascular Disease Respiratory History: CHF Endocrine Medical History: Diabetes Type II Musculoskeletal History: No Pertinent History GI Medical History: Colorectal Cancer, GERD, Hernia History: No Pertinent History Psycho-Social History: Depression Male Reproductive Disorders: Prostate Problems Other Medical History: HX OF AFIB. COLON CANCER-REMISSION AT THIS TIME. anemia - Past Surgical History Past Surgical History: Yes Neuro Surgical History: No Pertinent History Cardiac: Cardiac Catheterization, Cardiac Stent Respiratory: No Pertinent History Gastrointestinal: Bowel Surgery, Colon Resection, Hernia Repair Genitourinary: No Pertinent History Musculoskeletal: No Pertinent History Male Surgical History: Prostate Surgery Other Surgical History: PART OF COLON REMOVED. COLOSTOMY. femoral stents in l egs - Social History Smoking Status: Former smoker Exposure to second hand smoke: No Alcohol Use: None Drug Use: none Patient Lives Alone: No Significant Family History: no pertinent family hx - Nursing Vital Signs Nursing Vital Signs: Initial Vital Signs Temperature 99.6 F 03/19/22 00:59 Pulse Rate 67 03/19/22 00:59 Respiratory Rate 24 03/19/22 00:59 Blood Pressure 146/52 03/19/22 00:59 O2 Sat by Pulse Oximetry 91 L 03/19/22 00:59 Pain Scale Pain Intensity 0 Hypertensive/Borderline sats - Physical Exam General Appearance: mild distress Eye Exam: PERRL/EOMI, eyes nml inspection Ears, Nose, Throat Exam: hearing grossly normal, normal ENT inspection, normal pharynx Neck Exam: normal inspection, non-tender, supple, full range of motion, No Brudzinski, No Kernig's, No meningismus Respiratory Exam: respiratory distress (Mild), airway intact, crackles/rales (Rales 1/4 up B) Cardiovascular/Chest Exam: other (IR-IR), No edema Abdominal/Gastrointestinal Exam: soft, normal bowel sounds, No tenderness Extremity Exam: non-tender, normal range of motion, normal inspection, normal ca pillary refill Peripheral Pulses Exam: carotid (R): 2+, carotid (L): 2+ Neurologic Exam: alert, oriented x 3, cooperative, 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 as tested, n ormal mood/affect, sensation nml Skin Exam: normal color, warm, dry Lymphatic Exam: No adenopathy SpO2 Interpretation: borderline oxygenation SpO2: 92 O2 Delivery: Nasal Cannula - Course Nursing assessment & vital signs reviewed: Yes EKG Interpreted by Me: RATE (Afib/Rate66/Poor Rwave progression-old anterior CT/Prolonged QT-QTc/No acute ST segment changes) - Radiology Exams Chest X-ray Interpretation: Interpreted by me (Cardiomegaly/B diffuse airspace disease) Ordered Tests: Active Orders 24 hr Category Date Time Status EKG-ER Only STAT Care 03/19/22 00:42 Completed Consistent Carbohydrate Diet 2000 Calorie Diet 03/19/22 Breakfast Active CHEST 1 VIEW (PORTABLE) Stat Exams 03/19/22 00:42 Taken BLOOD CULTURE Stat Lab 03/19/22 01:03 Received CBC W DIFF AM.LAB Lab 03/19/22 04:00 Ordered CBC W DIFF Stat Lab 03/19/22 00:05 Completed CMP AM.LAB Lab 03/19/22 04:00 Ordered CMP Stat Lab 03/19/22 00:05 Completed CULTURE,URINE Stat Lab 03/19/22 01:33 Received Lactic Acid Stat Lab 03/19/22 00:58 Completed Lactic Acid Stat Lab 03/19/22 03:02 Received NT PRO BNP Stat Lab 03/19/22 00:05 Completed PROTIME WITH INR Stat Lab 03/19/22 00:05 Completed PTT Stat Lab 03/19/22 00:05 Completed TROPONIN Q4H Lab 03/19/22 00:05 Completed TROPONIN Q4H Lab 03/19/22 04:45 Ordered TROPONIN Q4H Lab 03/19/22 08:45 Ordered UA W/RFX UR CULTURE Stat Lab 03/19/22 01:33 Completed Transfer Order Routine Transfer 03/19/22 Completed Medication Summary Generic Name Dose Route Start Last Admin Trade Name Freq PRN Reason Stop Dose Admin Furosemide 40 mg 03/19/22 03:15 Furosemide 40 Mg/4 Ml Vial IV 04/18/22 03:14 Q8H EDEL Ceftriaxone Sodium/Dextrose 1 g in 50 mls @ 100 mls/hr 03/19/22 10:00 Rocephin 1 Gm-D5w 50 Ml Bag IV 03/22/22 09:59 Q24H10 EDEL Azithromycin 500 mg in 250 mls @ 250 mls/hr 03/19/22 10:00 Zithromax 500 Mg/ 250 Ml Nacl Premix IV 04/18/22 09:59 Q24H10 EDEL Insulin Human Lispro 0 unit 03/19/22 03:00 Insulin Lispro 1 Unit SQ 04/18/22 02:59 UD PRN HYPERGLYCEMIA Ondansetron HCl 4 mg 03/19/22 03:00 Ondansetron Hcl 4 Mg/2 Ml Vial IV 04/18/22 02:59 Q6H PRN PRN NAUSEA/VOMITING Discontinued Medications Generic Name Dose Route Start Last Admin Trade Name Freq PRN Reason Stop Dose Admin Furosemide 40 mg 03/19/22 01:45 03/19/22 01:53 Furosemide 40 Mg/4 Ml Vial IV 03/19/22 01:46 40 mg STAT ONE Administration Furosemide Confirm 03/19/22 01:48 Furosemide 40 Mg/4 Ml Vial Administered 03/19/22 01:49 Dose 40 mg .ROUTE .STK-MED ONE Ceftriaxone Sodium/Dextrose 1 g in 50 mls @ 100 mls/hr 03/19/22 02:54 03/19/22 03:01 Rocephin 1 Gm-D5w 50 Ml Bag IV 03/19/22 03:23 100 mls/hr STAT STA 100 mls/hr Administration Ceftriaxone Sodium/Dextrose Confirm 03/19/22 02:58 Rocephin 1 Gm-D5w 50 Ml Bag Administered 03/19/22 02:59 Dose 1 g in 50 mls @ ud IV .STK-MED ONE Lab/Rad Data: Laboratory Result Diagrams 03/19/22 00:05 03/19/22 00:05 Laboratory Results 03/19/22 03/19/22 03/19/22 Range/Units 01:33 00:58 00:05 WBC (4.0-10.5) x10^3/uL RBC (4.1-5.6) x10^6/uL Hgb (12.5-18.0) g/dL Hct (42-50) % MCV (78-100) fL MCH (26-32) pg MCHC (32-36) g/dL RDW (11.5-14.0) % Plt Count (150-450) x10^3/uL MPV (7.5-11.0) fL Gran % (36.0-66.0) % Immature Gran % (Auto) (0.00-0.4) % Nucleat RBC Rel Count (0.00-0.1) % Eos # (Auto) (0-0.5) x10^3/uL Immature Gran # (Auto) (0.00-0.03) x10^3u/L Absolute Lymphs (auto) (1.0-4.6) x10^3/uL Absolute Monos (auto) (0.0-1.3) x10^3/uL Absolute Nucleated RBC (0.00-0.01) x10^3u/L Lymphocytes % (24.0-44.0) % Monocytes % (0.0-12.0) % Eosinophils % (0.00-5.0) % Basophils % (0.0-0.4) % Absolute Granulocytes (1.4-6.9) x10^3/uL Basophils # (0-0.4) x10^3/uL PT (9.4-12.5) SECONDS INR (0.8-3.0) APTT (25.1-36.5) SECONDS Sodium (137-145) mmol/L Potassium (3.5-5.1) mmol/L Chloride (98-107) mmol/L Carbon Dioxide (22-30) mmol/L Anion Gap (5-15) MEQ/L BUN (9-20) mg/dL Creatinine (0.66-1.25) mg/dL Estimated GFR ML/MIN Glucose (74-106) mg/dL Lactic Acid 1.9 (0.4-2.0) Calcium (8.4-10.2) mg/dL Total Bilirubin (0.2-1.3) mg/dL AST (17-59) U/L ALT (0-50) U/L Alkaline Phosphatase (38-126) U/L Troponin I (0.000-0.034) ng/mL NT-Pro-B Natriuret Pep (0-1800) pg/mL Serum Total Protein (6.3-8.2) g/dL Albumin (3.5-5.0) g/dL Urine Color Yellow (Yellow) Urine Appearance Cloudy A (Clear) Urine pH 6.0 (4.6-8.0) Ur Specific [place] 1.010 (1.005-1.030) Urine Protein 30 (Negative) Urine Glucose (UA) Negative (Negative) mg/dL Urine Ketones Negative (Negative) Urine Blood Trace (Negative) Urine Nitrite Positive A (Negative) Urine Bilirubin Negative (Negative) Urine Urobilinogen 0.2 (0.2) mg/dL Ur Leukocyte Esterase Large A (Negative) U Hyaline Cast (Auto) 6-10 A (0-2) /LPF Urine Microscopic RBC 0-2 (0-5) /HPF Urine Microscopic WBC >100 A (0-5) /HPF Ur Epithelial Cells None Seen (None Seen) /HPF Urine Bacteria Rare A (None Seen) /HPF Urine Culture Reflexed YES (NO) Influenza Type A Ag NEGATIVE (NEGATIVE) Influenza Type B Ag NEGATIVE (NEGATIVE) RSV (PCR) NEGATIVE (Negative) SARS-CoV-2 (PCR) NEGATIVE (NEGATIVE) 03/19/22 03/19/22 03/19/22 Range/Units 00:05 00:05 00:05 WBC (4.0-10.5) x10^3/uL RBC (4.1-5.6) x10^6/uL Hgb (12.5-18.0) g/dL Hct (42-50) % MCV (78-100) fL MCH (26-32) pg MCHC (32-36) g/dL RDW (11.5-14.0) % Plt Count (150-450) x10^3/uL MPV (7.5-11.0) fL Gran % (36.0-66.0) % Immature Gran % (Auto) (0.00-0.4) % Nucleat RBC Rel Count (0.00-0.1) % Eos # (Auto) (0-0.5) x10^3/uL Immature Gran # (Auto) (0.00-0.03) x10^3u/L Absolute Lymphs (auto) (1.0-4.6) x10^3/uL Absolute Monos (auto) (0.0-1.3) x10^3/uL Absolute Nucleated RBC (0.00-0.01) x10^3u/L Lymphocytes % (24.0-44.0) % Monocytes % (0.0-12.0) % Eosinophils % (0.00-5.0) % Basophils % (0.0-0.4) % Absolute Granulocytes (1.4-6.9) x10^3/uL Basophils # (0-0.4) x10^3/uL PT 11.7 (9.4-12.5) SECONDS INR 1.11 (0.8-3.0) APTT 30.4 (25.1-36.5) SECONDS Sodium 133 L (137-145) mmol/L Potassium 4.7 (3.5-5.1) mmol/L Chloride 96 L (98-107) mmol/L Carbon Dioxide 29 (22-30) mmol/L Anion Gap 11.8 (5-15) MEQ/L BUN 37 H (9-20) mg/dL Creatinine 2.63 H (0.66-1.25) mg/dL Estimated GFR 24.9 ML/MIN Glucose 286 H (74-106) mg/dL Lactic Acid (0.4-2.0) Calcium 9.1 (8.4-10.2) mg/dL Total Bilirubin 0.50 (0.2-1.3) mg/dL AST 53 (17-59) U/L ALT 25 (0-50) U/L Alkaline Phosphatase 88 (38-126) U/L Troponin I 0.021 (0.000-0.034) ng/mL NT-Pro-B Natriuret Pep 6710 H (0-1800) pg/mL Serum Total Protein 7.6 (6.3-8.2) g/dL Albumin 4.0 (3.5-5.0) g/dL Urine Color (Yellow) Urine Appearance (Clear) Urine pH (4.6-8.0) Ur Specific [place] (1.005-1.030) Urine Protein (Negative) Urine Glucose (UA) (Negative) mg/dL Urine Ketones (Negative) Urine Blood (Negative) Urine Nitrite (Negative) Urine Bilirubin (Negative) Urine Urobilinogen (0.2) mg/dL Ur Leukocyte Esterase (Negative) U Hyaline Cast (Auto) (0-2) /LPF Urine Microscopic RBC (0-5) /HPF Urine Microscopic WBC (0-5) /HPF Ur Epithelial Cells (None Seen) /HPF Urine Bacteria (None Seen) /HPF Urine Culture Reflexed (NO) Influenza Type A Ag (NEGATIVE) Influenza Type B Ag (NEGATIVE) RSV (PCR) (Negative) SARS-CoV-2 (PCR) (NEGATIVE) 03/19/22 Range/Units 00:05 WBC 13.8 H (4.0-10.5) x10^3/uL RBC 3.84 L (4.1-5.6) x10^6/uL Hgb 10.1 L (12.5-18.0) g/dL Hct 33.5 L (42-50) % MCV 87.2 (78-100) fL MCH 26.3 (26-32) pg MCHC 30.1 L (32-36) g/dL RDW 16.7 H (11.5-14.0) % Plt Count 236 (150-450) x10^3/uL MPV 9.3 (7.5-11.0) fL Gran % 86.6 H (36.0-66.0) % Immature Gran % (Auto) 0.5 H (0.00-0.4) % Nucleat RBC Rel Count 0.0 (0.00-0.1) % Eos # (Auto) 0.11 (0-0.5) x10^3/uL Immature Gran # (Auto) 0.07 H (0.00-0.03) x10^3u/L Absolute Lymphs (auto) 0.78 L (1.0-4.6) x10^3/uL Absolute Monos (auto) 0.84 (0.0-1.3) x10^3/uL Absolute Nucleated RBC 0.00 (0.00-0.01) x10^3u/L Lymphocytes % 5.6 L (24.0-44.0) % Monocytes % 6.1 (0.0-12.0) % Eosinophils % 0.8 (0.00-5.0) % Basophils % 0.4 (0.0-0.4) % Absolute Granulocytes 11.97 H (1.4-6.9) x10^3/uL Basophils # 0.06 (0-0.4) x10^3/uL PT (9.4-12.5) SECONDS INR (0.8-3.0) APTT (25.1-36.5) SECONDS Sodium (137-145) mmol/L Potassium (3.5-5.1) mmol/L Chloride (98-107) mmol/L Carbon Dioxide (22-30) mmol/L Anion Gap (5-15) MEQ/L BUN (9-20) mg/dL Creatinine (0.66-1.25) mg/dL Estimated GFR ML/MIN Glucose (74-106) mg/dL Lactic Acid (0.4-2.0) Calcium (8.4-10.2) mg/dL Total Bilirubin (0.2-1.3) mg/dL AST (17-59) U/L ALT (0-50) U/L Alkaline Phosphatase (38-126) U/L Troponin I (0.000-0.034) ng/mL NT-Pro-B Natriuret Pep (0-1800) pg/mL Serum Total Protein (6.3-8.2) g/dL Albumin (3.5-5.0) g/dL Urine Color (Yellow) Urine Appearance (Clear) Urine pH (4.6-8.0) Ur Specific [place] (1.005-1.030) Urine Protein (Negative) Urine Glucose (UA) (Negative) mg/dL Urine Ketones (Negative) Urine Blood (Negative) Urine Nitrite (Negative) Urine Bilirubin (Negative) Urine Urobilinogen (0.2) mg/dL Ur Leukocyte Esterase (Negative) U Hyaline Cast (Auto) (0-2) /LPF Urine Microscopic RBC (0-5) /HPF Urine Microscopic WBC (0-5) /HPF Ur Epithelial Cells (None Seen) /HPF Urine Bacteria (None Seen) /HPF Urine Culture Reflexed (NO) Influenza Type A Ag (NEGATIVE) Influenza Type B Ag (NEGATIVE) RSV (PCR) (Negative) SARS-CoV-2 (PCR) (NEGATIVE) - Progress Progress: improved Progress Note: 03/19/22 02:[address] Cain for CHF/Pneumonia 40mg IV Lasix w good diuresis Blood cultures x2 1gm IV Rocephin 03/19/22 03:04 Nursing note and vital signs reviewed Labs and CXR read per ER physician and results shared w pt Additions history per SO No food or housing insecurities noted Pt admitted for hypoxia/IV antibiotics/Diuresis Full code per pt Counseled pt/family regarding: lab results, diagnosis, rad results - Departure Departure Disposition: Observation Clinical Impression: CHF (congestive heart failure), NYHA class II, Pneumonia, Pulmonary congestion, Recurrent UTI, Chronic renal insufficiency Condition: Stable Critical Care Time: Yes Critical Care Time(excluding separately billable procedures): Critical 30-74 mins
[2022-03-19 01:44] LABS: ADD URINE CULTURE? YES (NO); Appearance Cloudy (Clear); Bacteria Rare /HPF (None Seen); Bilirubin Negative (Negative); Blood Trace (Negative); Epithelial Cells None Seen /HPF (None Seen); Glucose, Urine Negative (Negative); Ketones Negative (Negative); Leukocyte Esterase Large (Negative); Nitrite Positive (Negative); Protein,Urine Dip 30 (Negative); RBC 0-2 /HPF (0-5); Urobilinogen 0.2 mg/dL (0.2); WBC >100 /HPF (0-5)
[2022-03-19] MEDS ORDERED: Lasix 40 MG/4 ML IV ONE (01:45)
[2022-03-19] MEDS ORDERED: Lasix 40 MG/4 ML ONE (01:48)
[2022-03-19 01:51] LABS: INFLUENZA A NEGATIVE (NEGATIVE); INFLUENZA B NEGATIVE (NEGATIVE); RESPIRATORY SYNCTIAL VIRUS NEGATIVE (Negative); SARS-CoV-2 Xpert Express NEGATIVE (NEGATIVE)
[2022-03-19] MEDS ORDERED: ROCEPHIN 1 Gm-D5w 50 ml Bag** 1 G/50 ML IVPB IV STA (02:54)
[2022-03-19] MEDS ORDERED: ROCEPHIN 1 Gm-D5w 50 ml Bag** 1 G/50 ML IVPB IV ONE (02:58)
[2022-03-19] MEDS ORDERED: Zofran 4 MG/2 ML VIAL IV PRN (03:00)
[2022-03-19] MEDS ORDERED: Lasix 40 MG/4 ML IV SCH ×2 (03:15→10:00)
[2022-03-19 05:31] LABS: Absolute Neutrophil Ct (ANC) 8.64 x10^3/uL (1.4-6.9); BASOPHIL % 0.2 % (0.0-0.4); Basophil (Absolute #) 0.02 x10^3/uL (0-0.4); Eosinophil % 0.3 % (0.00-5.0); Eosinophil (Absolute #) 0.03 x10^3/uL (0-0.5); IMMATURE GRAN # 0.07 x10^3u/L (0.00-0.03); IMMATURE GRAN % 0.7 % (0.00-0.4); Mean Corpuscular Hemoglobin 26.4 pg (26-32); Mean Platelet Volume 9.7 fL (7.5-11.0); Monocyte (Absolute #) 0.55 x10^3/uL (0.0-1.3); Monocytes % 5.5 % (0.0-12.0); Neutrophil % 86.3 % (36.0-66.0); Platelet Count 230 x10^3/uL (150-450); Red Blood Count 3.41 x10^6/uL (4.1-5.6); Red Cell Distribution Width 16.9 % (11.5-14.0)
[2022-03-19 06:13] LABS: ALBUMIN 3.6 g/dL (3.5-5.0); BILIRUBIN,TOTAL 0.5 mg/dL (0.2-1.3); Calcium 8.8 mg/dL (8.4-10.2); Creatinine 1 2.48 mg/dL (0.66-1.25); EST GLOMERULAR FILTRATION RATE 26.7 ML/MIN; PREALBUMIN 14.05 mg/dL (17.6-36.0); Potassium 4.5 mmol/L (3.5-5.1); Total Protein 6.8 g/dL (6.3-8.2)
[2022-03-19] MEDS ORDERED: VENTOLIN COMMON CANISTER IH PRN (07:09)
--- NOTE | 2022-03-19 08:38 | XRAY ---
Indication: Dyspnea. Comparison: February 28, 2022 Portable chest again demonstrates cardiomegaly, diffuse pulmonary edema worsened in both lower lungs, and small bilateral effusions favoring favoring cardiac decompensation/CHF. Again superimposed pneumonia not completely excluded.
[2022-03-19] MEDS: HUMALOG SQ PRN ×3 (09:06→22:07)
[2022-03-19] MEDS ORDERED: Lidoderm Patch 5% TOP PRN (09:23)
[2022-03-19] MEDS ORDERED: Nitrostat 0.4 MG Tablet SL PRN (09:23)
[2022-03-19] MEDS ORDERED: TYLENOL EXTRA STRENGTH 500 MG PO PRN (09:23)
[2022-03-19] MEDS ORDERED: NON-FORMULARY ITEM (Insulin Lispro [Insulin Lispro Kwikpen U-100] 100 UNIT/ML Insuln.Pen) SQ SCH (09:30)
[2022-03-19] MEDS ORDERED: NON-FORMULARY ITEM (Multivitamin [Multivitamins] 1 EACH Capsule) PO SCH (10:00)
[2022-03-19] MEDS ORDERED: NON-FORMULARY ITEM (Insulin Glargine,Hum.Rec.Anlog [Basaglar Kwikpen U-100] 100 UNIT/ML In SQ SCH (10:00)
[2022-03-19] MEDS ORDERED: NON-FORMULARY ITEM (Calcium Carbonate [Calcium] 600 MG Tablet) PO SCH (10:00)
[2022-03-19] MEDS: Zithromax 500 MG/ 250 ML NaCl Premix 500 MG/250 ML IVPB IV SCH (10:23)
[2022-03-19] MEDS: NORVASC 5 MG PO SCH (10:26)
[2022-03-19] MEDS: THERAGRAN MULTIVITAMIN PO SCH (10:26)
[2022-03-19] MEDS: Imdur 30 MG PO SCH (10:26)
[2022-03-19] MEDS: Proscar 5 MG PO SCH (10:27)
[2022-03-19] MEDS: Calcium 500MG W/Vit D Tablet PO SCH ×2 (10:27→22:00)
[2022-03-19] MEDS: Klor Con PO SCH (10:27)
[2022-03-19] MEDS: NEURONTIN PO SCH ×2 (10:27→22:00)
[2022-03-19] MEDS: ELIQUIS 2.5 MG TABLET PO SCH ×2 (10:28→22:00)
[2022-03-19] MEDS: Lopressor 50 MG PO SCH ×2 (10:28→22:00)
[2022-03-19] MEDS: ECOTRIN 81 MG PO SCH (10:28)
[2022-03-19] MEDS: ZYLOPRIM 100 MG PO SCH (10:28)
[2022-03-19] MEDS ORDERED: solu-MEDROL 60 MG, Sterile H2O 10 ml 2 ML IV SCH ×2 (14:00)
[2022-03-19] MEDS ORDERED: HUMALOG SQ SCH (17:00)
[2022-03-19] MEDS ORDERED: LIPITOR 40MG PO SCH (22:00)
[2022-03-19] MEDS ORDERED: solu-MEDROL IV SCH (22:00)
[2022-03-19] MEDS ORDERED: ROCEPHIN 1 Gm-D5w 50 ml Bag** 1 G/50 ML IVPB IV SCH (22:00)
[2022-03-19] MEDS ORDERED: Flomax 0.4 MG PO SCH (22:00)
[2022-03-19] MEDS ORDERED: ZOCOR 20MG PO SCH (22:00)
[2022-03-19] MEDS: solu-MEDROL 60 MG, Sterile H2O 10 ml 2 ML IV SCH ×2 (22:01)
[2022-03-20 05:10] LABS: Absolute Neutrophil Ct (ANC) 3.98 x10^3/uL (1.4-6.9); BASOPHIL % 0.5 % (0.0-0.4); Basophil (Absolute #) 0.02 x10^3/uL (0-0.4); Eosinophil % 0.2 % (0.00-5.0); Eosinophil (Absolute #) 0.01 x10^3/uL (0-0.5); Hematocrit 27.5 % (42-50); Hemoglobin 8.6 g/dL (12.5-18.0); IMMATURE GRAN # 0.02 x10^3u/L (0.00-0.03); IMMATURE GRAN % 0.5 % (0.00-0.4); Lymphocyte (Absolute #) 0.32 x10^3/uL (1.0-4.6); Lymphocytes % 7.3 % (24.0-44.0); Mean Cell Volume 84.6 fL (78-100); Mean Corpuscular Hemoglobin 26.5 pg (26-32); Mean Corpuscular Hgb Concent. 31.3 g/dL (32-36); Mean Platelet Volume 9.9 fL (7.5-11.0); Monocyte (Absolute #) 0.06 x10^3/uL (0.0-1.3); Monocytes % 1.4 % (0.0-12.0); Neutrophil % 90.1 % (36.0-66.0); Platelet Count 229 x10^3/uL (150-450); Red Blood Count 3.25 x10^6/uL (4.1-5.6); Red Cell Distribution Width 16.5 % (11.5-14.0); White Blood Count 4.4 x10^3/uL (4.0-10.5)
[2022-03-20 07:00] VITALS: BP 117/57; PULSE 60
[2022-03-20 07:10] VITALS: O2SAT 95
[2022-03-20] MEDS: HUMALOG SQ PRN (08:02)
--- NOTE | 2022-03-20 08:36 | XRAY ---
Indication: Follow-up pneumonia. Comparison: One day earlier. Portable chest unchanged again demonstrating cardiomegaly, diffuse pulmonary edema, and bibasilar infiltrates/atelectasis/effusions. No new cardiopulmonary abnormalities.
[2022-03-20] MEDS: Zithromax 500 MG/ 250 ML NaCl Premix 500 MG/250 ML IVPB IV SCH (08:47)
[2022-03-20] MEDS: solu-MEDROL 60 MG, Sterile H2O 10 ml 2 ML IV SCH ×2 (08:57)
[2022-03-20] MEDS: Imdur 30 MG PO SCH (08:59)
[2022-03-20] MEDS: Calcium 500MG W/Vit D Tablet PO SCH (08:59)
[2022-03-20] MEDS: Proscar 5 MG PO SCH (08:59)
[2022-03-20] MEDS: THERAGRAN MULTIVITAMIN PO SCH (08:59)
[2022-03-20] MEDS: NEURONTIN PO SCH (09:00)
[2022-03-20] MEDS: ECOTRIN 81 MG PO SCH (09:00)
[2022-03-20] MEDS: NORVASC 5 MG PO SCH (09:01)
[2022-03-20] MEDS: ZYLOPRIM 100 MG PO SCH (09:02)
[2022-03-20] MEDS: Lopressor 50 MG PO SCH (09:02)
[2022-03-20] MEDS: Klor Con PO SCH (09:03)
[2022-03-20] MEDS: ELIQUIS 2.5 MG TABLET PO SCH (09:04)
[2022-03-20] MEDS ORDERED: Lantus Insulin SQ SCH (10:00)
[2022-03-20] MEDS ORDERED: Cordarone 200 MG PO SCH (10:00)
[2022-03-20] MEDS ORDERED: Vitamin C 500 MG PO SCH (10:00)
[2022-03-20] MEDS ORDERED: Lasix 40 MG PO SCH (10:00)
[2022-03-20 10:19] LABS: Slide Review 1 YES
[2022-03-21] MEDS ORDERED: VITAMIN D PO SCH (10:00)
[2022-03-21 11:20] LABS: PSA, Free 0.06 ng/mL; Prostate Specific Ag 1.1 ng/mL (0.0-4.0)
--- NOTE | 2022-03-27 20:17 | PCM.SSS ---
History of Present Illness - Chief Complaint Chief Complaint: copd/uti Date: 03/20/22 History of Present Illness: is a 81 year old male.81 yo wm who was released from [facility] last week after being treated for Afib/UTI presents w dyspnea x 3 hours which is worse w exertion. Pt is 3L O2 dependent, and SO increased O2 to 4L. He has developed a mildly productive cough over the last day. Pt denies chest pain/fever/N/V/D/melena/hematochezia/dysuria/hematuria. - Review of Systems Constitutional: No Fever, No Chills Eyes: No Symptoms Ears, Nose, & Throat: No Symptoms Respiratory: Short Of Breath, No Cough Cardiac: No Chest Pain, No Edema, No Syncope Abdominal/Gastrointestinal: No Abdominal Pain, No Nausea, No Vomiting, No Diarrhea Genitourinary Symptoms: No Dysuria Musculoskeletal: No Back Pain, No Neck Pain Skin: No Rash Neurological: No Dizziness, No Focal Weakness, No Sensory Changes Psychological: No Symptoms Endocrine: No Symptoms Hematologic/Lymphatic: No Symptoms Immunological/Allergic: No Symptoms Medications & Allergies Home Medications: Home Medication List Amiodarone HCl 200 mg [Cordarone 200 MG] 200 mg PO UD 02/27/14 [History Confirmed 03/20/22] Multivitamin [Multivitamins] 1 each PO DAILY 11/09/14 [History Confirmed 03/20] Finasteride 5 mg [Proscar 5 MG] 5 mg PO DAILY 11/05/20 [History Confirmed 03/20/22] Gabapentin [Neurontin ] 300 mg PO BID 11/05/20 [History Confirmed 03/20/22] Nitroglycerin 0.4 mg Tablet [Nitrostat 0.4 MG Tablet] 1 tab SL UD 11/05/20 [History Confirmed 03/20/22] Potassium Chloride 10 meq PO DAILY #30 tab 01/30/21 [Rx Confirmed 03/20/22] Albuterol Sulfate [Albuterol Sulfate Hfa] 2 inh IH Q6HPRN PRN 05/22/21 [History Confirmed 03/20/22] Ascorbic Acid 500 mg [Vitamin C 500 MG] 500 mg PO UD 05/22/21 [History Confirmed 03/20/22] Atorvastatin Calcium [Lipitor] 40 mg PO HS 05/22/21 [History Confirmed 03/20/22] Insulin Glargine,Hum.rec.anlog [Basaglar Kwikpen U-100] 40 unit SQ DAILY 05/22/21 [History Confirmed 03/20/22] Lidocaine 1 each TP DAILY PRN PRN 05/22/21 [History Confirmed 03/20/22] Acetaminophen 500 mg [Tylenol Extra Strength 500 mg] 500 mg PO Q4H PRN PRN 03/01/22 [History Confirmed 03/20/22] Aspirin EC 81 mg [Ecotrin 81 mg] 81 mg PO DAILY 03/01/22 [History Confirmed 03/20/22] Calcium Carbonate [Calcium] 600 mg PO BID 03/01/22 [History Confirmed 03/20/22] Cholecalciferol (Vitamin D3) [Vitamin D] 4,000 unit PO UD 03/01/22 [History Confirmed 03/20/22] Insulin Lispro [Insulin Lispro Kwikpen U-100] 1 unit SQ UD 03/01/22 [History Confirmed 03/20/22] Isosorbide Mononitrate [Isosorbide Mononitrate ER] 30 mg PO DAILY 03/01/22 [History Confirmed 03/20/22] Tamsulosin HCl 0.4 mg [Flomax 0.4 MG] 0.4 mg PO HS 03/01/22 [History Confirmed 03/20/22] Apixaban [Eliquis 2.5 mg Tablet] 2.5 mg PO BID #60 tablet 03/06/22 [Rx Confirmed 03/20/22] Allopurinol 100 mg [Zyloprim 100 mg] 100 mg PO DAILY 03/19/22 [History Confirmed 03/20/22] Amlodipine Besylate 10 mg PO DAILY 03/19/22 [History Confirmed 03/20/22] Furosemide 40 mg [Lasix 40 MG] 40 mg PO DAILY 03/19/22 [History Confirmed 03/20/22] Empagliflozin [Jardiance] 10 mg PO DAILY tablet 03/27/22 [Rx] Insulin Glargine [Lantus Insulin] 30 unit SQ HS unit 03/27/22 [Rx] Metoprolol Tartrate 50 mg [Lopressor 50 MG] 50 mg PO HS tablet 03/27/22 [Rx] Prednisone 10 mg [Deltasone 10 mg] 10 mg PO UD #20 tab 03/27/22 [Rx] Allergies/Adverse Reactions: Allergies Allergy/AdvReac Type Severity Reaction Status Date / Time No Known Drug Allergies Allergy Verified 02/28/22 23:11 - Past Medical History Past Medical History: Yes Neurological History: Stroke ENT History: No Pertinent History Cardiac History: Arrhythmia, Coronary Artery Disease, High Cholesterol, Hypertension, Myocardial Infarction ([place]), Peripheral Vascular Disease Respiratory History: CHF Endocrine Medical History: Diabetes Type II Musculoskelatal History: No Pertinent History GI Medical History: Colorectal Cancer, GERD, Hernia History: No Pertinent History Pyscho-Social History: Depression Male Reproductive Disorders: Prostate Problems Comment: HX OF AFIB. COLON CANCER-REMISSION AT THIS TIME. anemia - Past Surgical History Past Surgical History: Yes Neuro Surgical History: No Pertinent History Cardiac History: Cardiac Catheterization, Cardiac Stent Respiratory Surgery: No Pertinent History GI Surgical History: Bowel Surgery, Colon Resection, Hernia Repair Genitourinary Surgical Hx: No Pertinent History Musculskeletal Surgical Hx: No Pertinent History Male Surgical History: Prostate Surgery Other Surgical History: PART OF COLON REMOVED. COLOSTOMY. femoral stents in legs - Social History Smoking Status: Former smoker Exposure to second hand smoke: No Alcohol: None Drug Use: none Significant Family History: no pertinent family hx - Physical Exam General Appearance: no apparent distress, alert Neurologic Exam: alert, oriented x 3, cooperative, normal mood/affect, nml cerebellar function, nml station & gait, sensation nml, No motor deficits Eye Exam: PERRL/EOMI, eyes nml inspection Ears, Nose, Throat Exam: normal ENT inspection, TMs normal, pharynx normal, moist mucous membranes Neck Exam: normal inspection, non-tender, supple, full range of motion Respiratory Exam: normal breath sounds, lungs clear, No respiratory distress Cardiovascular Exam: regular rate/rhythm, normal heart sounds, normal peripheral pulses Gastrointestinal/Abdomen Exam: soft, normal bowel sounds, No tenderness, No mass Back Exam: normal inspection, normal range of motion, No CVA tenderness, No vertebral tenderness Extremity Exam: normal inspection, normal range of motion, pelvis stable Skin Exam: normal color, warm, dry, No rash Lymphatic Exam: No adenopathy Results - Labs Lab/Micro Results: Microbiology 03/19/22 01:03 Blood Culture Gram Stain - Final Blood Not Reportable Blood Culture - Final NO GROWTH 03/19/22 00:50 Blood Culture Gram Stain - Final Blood Not Reportable Blood Culture - Final NO GROWTH 03/19/22 01:33 Urine Culture - Final Urine, Void Pseudomonas Aeruginosa Assessment/Plan (1) Anxiety Status: Acute Code(s): F41.9 - ANXIETY DISORDER, UNSPECIFIED (2) CHF (congestive heart failure) Status: Acute Code(s): I50.9 - HEART FAILURE, UNSPECIFIED (3) Pneumonia Status: Acute Code(s): J18.9 - PNEUMONIA, UNSPECIFIED ORGANISM Hospital Summary - Hospital Course Hospital Course: Pt. was at baseline the following am, but feeling week and not ready to go home so discharged to swing bed for rehab - Vitals & Intake/Output Vital Signs: Vital Signs Temperature 97.3 F 03/20/22 06:59 Pulse Rate 60 03/20/22 06:59 Respiratory Rate 19 03/20/22 06:59 Blood Pressure 117/57 03/20/22 06:59 O2 Sat by Pulse Oximetry 95 03/20/22 07:09 - Lab Result Diagrams: 03/20/22 04:33 03/19/22 04:30 Micro Results-Entire Visit: Microbiology 03/19/22 01:03 Blood Culture Gram Stain - Final Blood Not Reportable Blood Culture - Final NO GROWTH 03/19/22 00:50 Blood Culture Gram Stain - Final Blood Not Reportable Blood Culture - Final NO GROWTH 03/19/22 01:33 Urine Culture - Final Urine, Void Pseudomonas Aeruginosa - Procedures and Test Procedures and Tests throughout Hospitalization: Therapy Orders & Screens 03/19/22 05:21 Oxygen Nasal Cannula 2 lpm Comment: Diagnosis: copd/uti Respiratory Therapy Assessment DAILY Comment: Diagnosis: copd/uti - Discharge Discharge Date: 03/20/22 Disposition: Swing Bed @ [facility] Condition: Stable Prescriptions: No Action Amiodarone HCl 200 mg [Cordarone 200 MG] 200 mg PO UD Multivitamin [Multivitamins] 1 each PO DAILY Nitroglycerin 0.4 mg Tablet [Nitrostat 0.4 MG Tablet] 1 tab SL UD Gabapentin [Neurontin ] 300 mg PO BID Finasteride 5 mg [Proscar 5 MG] 5 mg PO DAILY Potassium Chloride 10 meq PO DAILY #30 tab Ascorbic Acid 500 mg [Vitamin C 500 MG] 500 mg PO UD Insulin Glargine,Hum.rec.anlog [Basaglar Kwikpen U-100] 40 unit SQ DAILY Albuterol Sulfate [Albuterol Sulfate Hfa] 2 inh IH Q6HPRN PRN PRN Reason: Shortness Of Breath/Wheezing Lidocaine 1 each TP DAILY PRN PRN PRN Reason: Pain Atorvastatin Calcium [Lipitor] 40 mg PO HS Calcium Carbonate [Calcium] 600 mg PO BID Aspirin EC 81 mg [Ecotrin 81 mg] 81 mg PO DAILY Insulin Lispro [Insulin Lispro Kwikpen U-100] 1 unit SQ UD Tamsulosin HCl 0.4 mg [Flomax 0.4 MG] 0.4 mg PO HS Cholecalciferol (Vitamin D3) [Vitamin D] 4,000 unit PO UD Acetaminophen 500 mg [Tylenol Extra Strength 500 mg] 500 mg PO Q4H PRN PRN PRN Reason: Pain Isosorbide Mononitrate [Isosorbide Mononitrate ER] 30 mg PO DAILY Apixaban [Eliquis 2.5 mg Tablet] 2.5 mg PO BID #60 tablet Amlodipine Besylate 10 mg PO DAILY Allopurinol 100 mg [Zyloprim 100 mg] 100 mg PO DAILY Furosemide 40 mg [Lasix 40 MG] 40 mg PO DAILY Prednisone 10 mg [Deltasone 10 mg] 10 mg PO UD #20 tab Empagliflozin [Jardiance] 10 mg PO DAILY tablet Insulin Glargine [Lantus Insulin] 30 unit SQ HS unit Metoprolol Tartrate 50 mg [Lopressor 50 MG] 50 mg PO HS tablet Follow up with: HALINA HAHN MD [Primary Care Provider] -
== END 2022-03-20 09:00 | disposition swing bed (61) ==
LOC: ED 00:39 → MED SURG 03:39
PROVIDERS: ADMIT Family Medicine; ATTEND Family Medicine
DX: I11.0 Hypertensive heart disease with heart failure (principal); I50.9 Heart failure, unspecified; I48.91 Unspecified atrial fibrillation; J18.9 Pneumonia, unspecified organism; E11.9 Type 2 diabetes mellitus without complications; N42.9 Disorder of prostate, unspecified; Z85.038 Personal history of other malignant neoplasm of large intestine; Z99.81 Dependence on supplemental oxygen; Z79.01 Long term (current) use of anticoagulants; Z79.899 Other long term (current) drug therapy; Z20.828 Contact with and (suspected) exposure to other viral communicable diseases
CPT/HCPCS: 0241U; 36000; 36415; 51702; 71045; 80053; 81001; 82947; 83605; 83880; 84134; 84153; 84154; 84484; 85025; 85610; 85730; 87040; 87077; 87086; 87186; 93005; 93268; 94640; 94760; 96374; 99285; 99291; G0378; J0456; J0696; J1817; J1940; J2930; A9270-GY

== ENCOUNTER 2022-03-20 09:00 | Inpatient (IN) | payer MEDICARE, OTHER ==
[2022-03-20] MEDS ORDERED: Aplisol ID ONE (10:47)
[2022-03-20] MEDS ORDERED: Nitrostat 0.4 MG Tablet SL PRN (10:47)
[2022-03-20] MEDS ORDERED: VENTOLIN COMMON CANISTER IH PRN (10:47)
[2022-03-20] MEDS ORDERED: Lidoderm Patch 5% TOP PRN (10:47)
[2022-03-20] MEDS ORDERED: Zofran 4 MG/2 ML VIAL IV PRN (10:47)
[2022-03-20] MEDS: HUMALOG SQ PRN ×2 (11:41→21:35)
[2022-03-20] MEDS: JARDIANCE PO SCH (17:26)
[2022-03-20] MEDS: HUMALOG SQ SCH (17:26)
[2022-03-20] MEDS ORDERED: solu-MEDROL ONE (21:17)
[2022-03-20] MEDS: solu-MEDROL 60 MG, Sterile H2O 10 ml 2 ML IV SCH ×2 (21:33)
[2022-03-20] MEDS: TYLENOL EXTRA STRENGTH 500 MG PO PRN (21:33)
[2022-03-20] MEDS: Flomax 0.4 MG PO SCH (21:34)
[2022-03-20] MEDS: ZOCOR 20MG PO SCH (21:34)
[2022-03-20] MEDS: ELIQUIS 2.5 MG TABLET PO SCH (21:34)
[2022-03-20] MEDS: Lopressor 50 MG PO SCH (21:34)
[2022-03-20] MEDS: Calcium 500MG W/Vit D Tablet PO SCH (21:35)
[2022-03-20] MEDS: Lantus Insulin SQ SCH (21:35)
[2022-03-20] MEDS: NEURONTIN PO SCH (21:35)
[2022-03-20] MEDS ORDERED: ROCEPHIN 1 Gm-D5w 50 ml Bag** 1 G/50 ML IVPB IV SCH (22:00)
[2022-03-21 05:50] LABS: Absolute Neutrophil Ct (ANC) 7.02 x10^3/uL (1.4-6.9); BASOPHIL % 0.1 % (0.0-0.4); Basophil (Absolute #) 0.01 x10^3/uL (0-0.4); Eosinophil (Absolute #) 0 x10^3/uL (0-0.5); Hematocrit 26.1 % (42-50); Hemoglobin 8.1 g/dL (12.5-18.0); IMMATURE GRAN # 0.02 x10^3u/L (0.00-0.03); IMMATURE GRAN % 0.3 % (0.00-0.4); Lymphocytes % 6.5 % (24.0-44.0); Mean Cell Volume 85.3 fL (78-100); Mean Corpuscular Hemoglobin 26.5 pg (26-32); Mean Platelet Volume 9.9 fL (7.5-11.0); Monocyte (Absolute #) 0.13 x10^3/uL (0.0-1.3); Monocytes % 1.7 % (0.0-12.0); Neutrophil % 91.4 % (36.0-66.0); Platelet Count 258 x10^3/uL (150-450); Red Blood Count 3.06 x10^6/uL (4.1-5.6); White Blood Count 7.7 x10^3/uL (4.0-10.5)
[2022-03-21 06:03] LABS: ALBUMIN 3.6 g/dL (3.5-5.0); ANION GAP 12.1 MEQ/L (5-15); BILIRUBIN,TOTAL 0.3 mg/dL (0.2-1.3); Calcium 8.8 mg/dL (8.4-10.2); Creatinine 1 2.17 mg/dL (0.66-1.25); EST GLOMERULAR FILTRATION RATE 31.1 ML/MIN; Potassium 4.5 mmol/L (3.5-5.1); Total Protein 6.7 g/dL (6.3-8.2)
[2022-03-21] MEDS: TYLENOL EXTRA STRENGTH 500 MG PO PRN ×2 (06:44→21:31)
[2022-03-21] MEDS ORDERED: Lantus Insulin SQ SCH (08:00)
[2022-03-21] MEDS: Lantus Insulin SQ SCH ×2 (08:07→21:32)
[2022-03-21] MEDS: HUMALOG SQ PRN ×3 (08:07→21:32)
[2022-03-21] MEDS: solu-MEDROL 60 MG, Sterile H2O 10 ml 2 ML IV SCH ×4 (08:45→21:30)
[2022-03-21] MEDS: Lasix 40 MG PO SCH (08:46)
[2022-03-21] MEDS: NEURONTIN PO SCH ×2 (08:46→21:30)
[2022-03-21] MEDS: ZYLOPRIM 100 MG PO SCH (08:46)
[2022-03-21] MEDS: NORVASC 5 MG PO SCH (08:46)
[2022-03-21] MEDS: Klor Con PO SCH (08:46)
[2022-03-21] MEDS: Calcium 500MG W/Vit D Tablet PO SCH ×2 (08:46→21:31)
[2022-03-21] MEDS: ELIQUIS 2.5 MG TABLET PO SCH ×2 (08:46→21:31)
[2022-03-21] MEDS: THERAGRAN MULTIVITAMIN PO SCH (08:46)
[2022-03-21] MEDS: Imdur 30 MG PO SCH (08:46)
[2022-03-21] MEDS: ECOTRIN 81 MG PO SCH (08:46)
[2022-03-21] MEDS: Lopressor 50 MG PO SCH ×2 (08:47→21:31)
[2022-03-21] MEDS: JARDIANCE PO SCH (08:47)
[2022-03-21] MEDS: Proscar 5 MG PO SCH (08:47)
[2022-03-21] MEDS: VITAMIN D PO SCH (09:55)
[2022-03-21] MEDS ORDERED: Zithromax 500 MG/ 250 ML NaCl Premix 500 MG/250 ML IVPB IV SCH (10:00)
[2022-03-21 10:11] LABS: Slide Review 1 YES
[2022-03-21] MEDS ORDERED: PHARMACY DOSING REQUEST MC ONE (11:39)
[2022-03-21] MEDS: Merrem 1 GM in Sodium Chloride 100ML MINI-BAG PLUS 100 ML IV SCH ×2 (13:04→21:30)
[2022-03-21] MEDS: HUMALOG SQ SCH (16:43)
[2022-03-21] MEDS: ZOCOR 20MG PO SCH (21:30)
[2022-03-21] MEDS: Flomax 0.4 MG PO SCH (21:31)
[2022-03-22] MEDS: TYLENOL EXTRA STRENGTH 500 MG PO PRN ×4 (01:41→21:22)
[2022-03-22] MEDS ORDERED: solu-MEDROL ONE (07:46)
[2022-03-22] MEDS: Lantus Insulin SQ SCH ×2 (08:12→21:22)
[2022-03-22] MEDS: HUMALOG SQ PRN ×3 (08:13→21:36)
[2022-03-22] MEDS: JARDIANCE PO SCH (08:14)
[2022-03-22] MEDS: Imdur 30 MG PO SCH (08:42)
[2022-03-22] MEDS: Vitamin C 500 MG PO SCH (08:42)
[2022-03-22] MEDS: NORVASC 5 MG PO SCH (08:42)
[2022-03-22] MEDS: Calcium 500MG W/Vit D Tablet PO SCH ×2 (08:42→21:21)
[2022-03-22] MEDS: Klor Con PO SCH (08:43)
[2022-03-22] MEDS: ELIQUIS 2.5 MG TABLET PO SCH ×2 (08:43→21:21)
[2022-03-22] MEDS: NEURONTIN PO SCH ×2 (08:43→21:22)
[2022-03-22] MEDS: Lasix 40 MG PO SCH (08:43)
[2022-03-22] MEDS: ECOTRIN 81 MG PO SCH (08:43)
[2022-03-22] MEDS: THERAGRAN MULTIVITAMIN PO SCH (08:43)
[2022-03-22] MEDS: Lopressor 50 MG PO SCH ×2 (08:43→21:22)
[2022-03-22] MEDS: Cordarone 200 MG PO SCH (08:43)
[2022-03-22] MEDS: ZYLOPRIM 100 MG PO SCH (08:43)
[2022-03-22] MEDS: Proscar 5 MG PO SCH (08:44)
[2022-03-22] MEDS: solu-MEDROL 60 MG, Sterile H2O 10 ml 2 ML IV SCH ×4 (08:44→21:22)
[2022-03-22] MEDS: Merrem 1 GM in Sodium Chloride 100ML MINI-BAG PLUS 100 ML IV SCH ×2 (09:59→21:22)
[2022-03-22] MEDS: HUMALOG SQ SCH (16:56)
[2022-03-22] MEDS: Flomax 0.4 MG PO SCH (21:21)
[2022-03-22] MEDS: ZOCOR 20MG PO SCH (21:22)
[2022-03-23] MEDS: TYLENOL EXTRA STRENGTH 500 MG PO PRN ×2 (00:48→18:52)
[2022-03-23] MEDS: Lantus Insulin SQ SCH ×2 (11:00→21:36)
[2022-03-23] MEDS: ELIQUIS 2.5 MG TABLET PO SCH ×2 (11:01→21:13)
[2022-03-23] MEDS: Calcium 500MG W/Vit D Tablet PO SCH ×2 (11:01→21:13)
[2022-03-23] MEDS: Imdur 30 MG PO SCH (11:02)
[2022-03-23] MEDS: Klor Con PO SCH (11:03)
[2022-03-23] MEDS: JARDIANCE PO SCH (11:03)
[2022-03-23] MEDS: Lasix 40 MG PO SCH (11:03)
[2022-03-23] MEDS: Lopressor 50 MG PO SCH ×2 (11:03→21:14)
[2022-03-23] MEDS: NEURONTIN PO SCH ×2 (11:04→21:14)
[2022-03-23] MEDS: NORVASC 5 MG PO SCH (11:04)
[2022-03-23] MEDS: Proscar 5 MG PO SCH (11:04)
[2022-03-23] MEDS: Merrem 1 GM in Sodium Chloride 100ML MINI-BAG PLUS 100 ML IV SCH ×2 (11:04→21:14)
[2022-03-23] MEDS: solu-MEDROL 60 MG, Sterile H2O 10 ml 2 ML IV SCH ×4 (11:05→21:14)
[2022-03-23] MEDS: THERAGRAN MULTIVITAMIN PO SCH (11:05)
[2022-03-23] MEDS: ZYLOPRIM 100 MG PO SCH (11:05)
[2022-03-23] MEDS: ECOTRIN 81 MG PO SCH (11:06)
[2022-03-23] MEDS: HUMALOG SQ PRN ×2 (11:40→21:36)
[2022-03-23] MEDS: HUMALOG SQ SCH (17:32)
[2022-03-23] MEDS: Flomax 0.4 MG PO SCH (21:13)
[2022-03-23] MEDS: ZOCOR 20MG PO SCH (21:14)
[2022-03-24] MEDS: TYLENOL EXTRA STRENGTH 500 MG PO PRN ×4 (01:52→22:10)
[2022-03-24] MEDS ORDERED: solu-MEDROL ONE ×2 (07:35→21:45)
[2022-03-24] MEDS: Lantus Insulin SQ SCH ×2 (07:47→22:11)
[2022-03-24] MEDS: solu-MEDROL 60 MG, Sterile H2O 10 ml 2 ML IV SCH ×4 (10:09→22:09)
[2022-03-24] MEDS: Imdur 30 MG PO SCH (10:10)
[2022-03-24] MEDS: ZYLOPRIM 100 MG PO SCH (10:10)
[2022-03-24] MEDS: Merrem 1 GM in Sodium Chloride 100ML MINI-BAG PLUS 100 ML IV SCH ×2 (10:10→22:09)
[2022-03-24] MEDS: ECOTRIN 81 MG PO SCH (10:10)
[2022-03-24] MEDS: Lasix 40 MG PO SCH (10:12)
[2022-03-24] MEDS: Calcium 500MG W/Vit D Tablet PO SCH ×2 (10:12→22:10)
[2022-03-24] MEDS: ELIQUIS 2.5 MG TABLET PO SCH ×2 (10:12→22:10)
[2022-03-24] MEDS: NORVASC 5 MG PO SCH (10:12)
[2022-03-24] MEDS: Klor Con PO SCH (10:13)
[2022-03-24] MEDS: NEURONTIN PO SCH ×2 (10:13→22:10)
[2022-03-24] MEDS: Proscar 5 MG PO SCH (10:13)
[2022-03-24] MEDS: JARDIANCE PO SCH (10:13)
[2022-03-24] MEDS: THERAGRAN MULTIVITAMIN PO SCH (10:14)
[2022-03-24] MEDS: Lopressor 50 MG PO SCH ×2 (10:43→22:11)
[2022-03-24] MEDS: Cordarone 200 MG PO SCH (10:43)
[2022-03-24] MEDS: Vitamin C 500 MG PO SCH (11:55)
[2022-03-24] MEDS: VITAMIN D PO SCH (11:55)
[2022-03-24] MEDS: HUMALOG SQ PRN ×2 (11:57→22:33)
[2022-03-24] MEDS: HUMALOG SQ SCH (17:49)
[2022-03-24] MEDS: Flomax 0.4 MG PO SCH (22:10)
[2022-03-24] MEDS: ZOCOR 20MG PO SCH (22:10)
[2022-03-25] MEDS ORDERED: solu-MEDROL ONE ×2 (09:14→21:03)
[2022-03-25] MEDS: Lantus Insulin SQ SCH ×2 (09:18→22:00)
[2022-03-25] MEDS: Calcium 500MG W/Vit D Tablet PO SCH ×2 (09:19→21:59)
[2022-03-25] MEDS: ELIQUIS 2.5 MG TABLET PO SCH ×2 (09:19→22:00)
[2022-03-25] MEDS: ECOTRIN 81 MG PO SCH (09:19)
[2022-03-25] MEDS: Imdur 30 MG PO SCH (09:20)
[2022-03-25] MEDS: Lasix 40 MG PO SCH (09:20)
[2022-03-25] MEDS: JARDIANCE PO SCH (09:20)
[2022-03-25] MEDS: Klor Con PO SCH (09:20)
[2022-03-25] MEDS: Proscar 5 MG PO SCH (09:21)
[2022-03-25] MEDS: Lopressor 50 MG PO SCH ×2 (09:21→21:59)
[2022-03-25] MEDS: NEURONTIN PO SCH ×2 (09:21→21:59)
[2022-03-25] MEDS: Merrem 1 GM in Sodium Chloride 100ML MINI-BAG PLUS 100 ML IV SCH ×2 (09:21→21:59)
[2022-03-25] MEDS: NORVASC 5 MG PO SCH (09:21)
[2022-03-25] MEDS: solu-MEDROL 60 MG, Sterile H2O 10 ml 2 ML IV SCH ×4 (09:22→21:58)
[2022-03-25] MEDS: THERAGRAN MULTIVITAMIN PO SCH (09:22)
[2022-03-25] MEDS: ZYLOPRIM 100 MG PO SCH (09:22)
[2022-03-25] MEDS: HUMALOG SQ SCH (16:29)
[2022-03-25] MEDS: TYLENOL EXTRA STRENGTH 500 MG PO PRN (20:06)
[2022-03-25] MEDS: ZOCOR 20MG PO SCH (21:59)
[2022-03-25] MEDS: Flomax 0.4 MG PO SCH (21:59)
[2022-03-26] MEDS: TYLENOL EXTRA STRENGTH 500 MG PO PRN ×3 (04:19→21:37)
[2022-03-26] MEDS: Lantus Insulin SQ SCH ×2 (08:09→21:45)
[2022-03-26] MEDS: Merrem 1 GM in Sodium Chloride 100ML MINI-BAG PLUS 100 ML IV SCH ×2 (10:02→21:42)
[2022-03-26] MEDS: ZYLOPRIM 100 MG PO SCH (10:07)
[2022-03-26] MEDS: Proscar 5 MG PO SCH (10:07)
[2022-03-26] MEDS: JARDIANCE PO SCH (10:08)
[2022-03-26] MEDS: Calcium 500MG W/Vit D Tablet PO SCH ×2 (10:08→21:38)
[2022-03-26] MEDS: Imdur 30 MG PO SCH (10:08)
[2022-03-26] MEDS: ELIQUIS 2.5 MG TABLET PO SCH ×2 (10:09→21:38)
[2022-03-26] MEDS: ECOTRIN 81 MG PO SCH (10:09)
[2022-03-26] MEDS: NEURONTIN PO SCH ×2 (10:10→21:38)
[2022-03-26] MEDS: NORVASC 5 MG PO SCH (10:10)
[2022-03-26] MEDS: Klor Con PO SCH (10:10)
[2022-03-26] MEDS: Lasix 40 MG PO SCH (10:10)
[2022-03-26] MEDS: solu-MEDROL 60 MG, Sterile H2O 10 ml 2 ML IV SCH ×4 (10:11→21:38)
[2022-03-26] MEDS: THERAGRAN MULTIVITAMIN PO SCH (10:11)
[2022-03-26] MEDS: Lopressor 50 MG PO SCH (10:13)
[2022-03-26] MEDS: Vitamin C 500 MG PO SCH (10:26)
[2022-03-26] MEDS: HUMALOG SQ SCH (16:30)
[2022-03-26] MEDS: HUMALOG SQ PRN ×2 (16:31→21:47)
[2022-03-26] MEDS: Cordarone 200 MG PO SCH ×2 (16:33→17:44)
[2022-03-26] MEDS: ZOCOR 20MG PO SCH (21:38)
[2022-03-26] MEDS: Flomax 0.4 MG PO SCH (21:38)
[2022-03-26] MEDS ORDERED: Lopressor 50 MG PO SCH (22:00)
[2022-03-27] MEDS: TYLENOL EXTRA STRENGTH 500 MG PO PRN ×2 (05:37→10:20)
[2022-03-27 07:16] VITALS: BP 140/65
[2022-03-27 07:49] VITALS: PULSE 49; O2SAT 100
[2022-03-27] MEDS: Lantus Insulin SQ SCH (10:14)
[2022-03-27] MEDS: Lasix 40 MG PO SCH (10:15)
[2022-03-27] MEDS: Calcium 500MG W/Vit D Tablet PO SCH (10:15)
[2022-03-27] MEDS: NORVASC 5 MG PO SCH (10:15)
[2022-03-27] MEDS: Klor Con PO SCH (10:15)
[2022-03-27] MEDS: ECOTRIN 81 MG PO SCH (10:15)
[2022-03-27] MEDS: ZYLOPRIM 100 MG PO SCH (10:16)
[2022-03-27] MEDS: Imdur 30 MG PO SCH (10:16)
[2022-03-27] MEDS: NEURONTIN PO SCH (10:16)
[2022-03-27] MEDS: THERAGRAN MULTIVITAMIN PO SCH (10:16)
[2022-03-27] MEDS: ELIQUIS 2.5 MG TABLET PO SCH (10:16)
[2022-03-27] MEDS: JARDIANCE PO SCH (10:17)
[2022-03-27] MEDS: Proscar 5 MG PO SCH (10:17)
[2022-03-27] MEDS: solu-MEDROL 60 MG, Sterile H2O 10 ml 2 ML IV SCH ×2 (10:17)
[2022-03-27] MEDS: Merrem 1 GM in Sodium Chloride 100ML MINI-BAG PLUS 100 ML IV SCH (10:18)
== END 2022-03-27 12:35 | disposition home health service (06) | DRG 291 ==
LOC: MED SURG 09:00
PROVIDERS: ADMIT Family Medicine; ATTEND Family Medicine
DX: I11.0 Hypertensive heart disease with heart failure (principal); J18.9 Pneumonia, unspecified organism; N39.0 Urinary tract infection, site not specified; I50.9 Heart failure, unspecified; I48.91 Unspecified atrial fibrillation; E11.9 Type 2 diabetes mellitus without complications; I25.10 Atherosclerotic heart disease of native coronary artery without angina pectoris; Z20.828 Contact with and (suspected) exposure to other viral communicable diseases; Z79.899 Other long term (current) drug therapy; Z85.038 Personal history of other malignant neoplasm of large intestine; Z99.81 Dependence on supplemental oxygen
CPT/HCPCS: 36415; 80053; 82947; 85025; 94760; J0456; J0696; J1817; J2930; 97110-GP; A9270-GY

== ENCOUNTER 2022-04-15 20:00 | Inpatient (IN) | payer MEDICARE, OTHER ==
[2022-04-15] MEDS ORDERED: Sodium Chloride 0.9% 1000 ML 1,000 ML IV SCH (21:00)
[2022-04-15] MEDS ORDERED: TYLENOL 325 MG PO ONE (21:00)
--- NOTE | 2022-04-15 21:00 | ERPHSYRPT ---
- History of Present Illness Time Seen by Provider: 04/15/22 20:20 Source: patient Exam Limitations: no limitations Patient Subjective Stated Complaint: pt states I think I have a UTI. I am only dribbling and can't go. Triage Nursing Assessment: pt came into the er via ambulance; pt is axo x3; c/o urinary retention; pt denies pain; ostomy present to LLQ; pt denies flank pain; active bowel sounds in all quads; skin PDW; febrile at 102.1; no respiratory distress present Physician History: Patient is a 81-year-old male presents to our ED for evaluation of urinary retention and fever. Patient has a history of chronic renal insufficiency and recurrent urinary tract infections. 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 Chen. Patient's urologist is Dr. Archer. Patient's primary care doctor is Dr. Hahn. Patient has a history of urinary Pseudomonas. Patient also has a history of colon cancer currently has an ostomy bag. Patient states he has been feeling weak. Upon arrival to our ED patient was febrile. Patient's symptoms have been progressive. Symptoms are moderate in intensity. No specific worsening improving factors. No active pain. Significant other at bedside. They voiced no other complaints or concerns at this time. Portions of this note were created with voice recognition technology. There may be grammatical, spelling, punctuation or sound alike errors Timing/Duration: today Severity: moderate Modifying Factors: Improves With: nothing Associated Symptoms: fever, weakness Allergies/Adverse Reactions: No Known Drug Allergies Allergy (Verified 04/15/22 20:02) Home Medications: Amiodarone HCl 200 mg [Cordarone 200 MG] 200 mg PO UD 02/27/14 [History] Multivitamin [Multivitamins] 1 each PO DAILY 11/09/14 [History] Finasteride 5 mg [Proscar 5 MG] 5 mg PO DAILY 11/05/20 [History] Gabapentin [Neurontin ] 300 mg PO BID 11/05/20 [History] Nitroglycerin 0.4 mg Tablet [Nitrostat 0.4 MG Tablet] 1 tab SL UD 11/05/20 [History] Albuterol Sulfate [Albuterol Sulfate Hfa] 2 inh IH Q6HPRN PRN 05/22/21 [History] Ascorbic Acid 500 mg [Vitamin C 500 MG] 500 mg PO UD 05/22/21 [History] Atorvastatin Calcium [Lipitor] 40 mg PO HS 05/22/21 [History] Insulin Glargine,Hum.rec.anlog [Basaglar Kwikpen U-100] 40 unit SQ DAILY 05/22/21 [History] Lidocaine 1 each TP DAILY PRN PRN 05/22/21 [History] Acetaminophen 500 mg [Tylenol Extra Strength 500 mg] 500 mg PO Q4H PRN PRN 03/01/22 [History] Aspirin EC 81 mg [Ecotrin 81 mg] 81 mg PO DAILY 03/01/22 [History] Calcium Carbonate [Calcium] 600 mg PO BID 03/01/22 [History] Cholecalciferol (Vitamin D3) [Vitamin D] 4,000 unit PO UD 03/01/22 [History] Insulin Lispro [Insulin Lispro Kwikpen U-100] 1 unit SQ UD 03/01/22 [History] Isosorbide Mononitrate [Isosorbide Mononitrate ER] 30 mg PO DAILY 03/01/22 [History] Tamsulosin HCl 0.4 mg [Flomax 0.4 MG] 0.4 mg PO HS 03/01/22 [History] Allopurinol 100 mg [Zyloprim 100 mg] 100 mg PO DAILY 03/19/22 [History] Amlodipine Besylate 10 mg PO DAILY 03/19/22 [History] Furosemide 40 mg [Lasix 40 MG] 40 mg PO DAILY 03/19/22 [History] Hx Tetanus, Diphtheria Vaccination/Date Given: Yes Hx Influenza Vaccination/Date Given: Yes Hx Pneumococcal Vaccination/Date Given: Yes Travel Risk - International Travel Have you traveled outside of the country in past 3 weeks: No - Coronavirus Screening Are you exhibiting any of the following symptoms?: No Close contact with a COVID-19 positive Pt in past 14-21 Days: No - Vaccine Status Have you recieved a Covid-19 vaccination: Yes Mask Layout Designer: Moderna - Vaccination Dates Date of 2cond Vaccination (if applicable): UNKNOWN Dates if Unknown: UNKNOWN 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 Systems Constitutional: No Symptoms, No Fever, No Chills Eyes: No Symptoms Ears, Nose, & Throat: No Symptoms Respiratory: No Symptoms, No Cough, No Dyspnea Cardiac: No Symptoms, No Chest Pain, No Edema, No Syncope Abdominal/Gastrointestinal: No Symptoms, No Abdominal Pain, No Nausea, No Vomiting, No Diarrhea Genitourinary Symptoms: No Symptoms, No Dysuria Musculoskeletal: No Symptoms, No Back Pain, No Neck Pain Skin: No Symptoms, No Rash Neurological: No Symptoms, No Dizziness, No Focal Weakness, No Sensory Changes Psychological: No Symptoms Endocrine: No Symptoms Hematologic/Lymphatic: No Symptoms Immunological/Allergic: No Symptoms All Other Systems: Reviewed and Negative - Past Medical History Pertinent Past Medical History: Yes Neurological History: Stroke ENT History: No Pertinent History Cardiac History: Arrhythmia, Coronary Artery Disease, High Cholesterol, Hypertension, Myocardial Infarction ([place]), Peripheral Vascular Disease Respiratory History: CHF Endocrine Medical History: Diabetes Type II Musculoskeletal History: No Pertinent History GI Medical History: Colorectal Cancer, GERD, Hernia History: No Pertinent History Psycho-Social History: Depression Male Reproductive Disorders: Prostate Problems Other Medical History: HX OF AFIB. COLON CANCER-REMISSION AT THIS TIME. anemia - Past Surgical History Past Surgical History: Yes Neuro Surgical History: No Pertinent History Cardiac: Cardiac Catheterization, Cardiac Stent Respiratory: No Pertinent History Gastrointestinal: Bowel Surgery, Colon Resection, Hernia Repair Genitourinary: No Pertinent History Musculoskeletal: No Pertinent History Male Surgical History: Prostate Surgery Other Surgical History: PART OF COLON REMOVED. COLOSTOMY. femoral stents in legs - Social History Smoking Status: Former smoker Exposure to second hand smoke: No Alcohol Use: None Drug Use: none Patient Lives Alone: No Significant Family History: no pertinent family hx - Nursing Vital Signs Nursing Vital Signs: Initial Vital Signs Temperature 102.1 F 04/15/22 20:04 Pulse Rate 79 04/15/22 20:04 Respiratory Rate 18 04/15/22 20:04 Blood Pressure 135/51 04/15/22 20:04 O2 Sat by Pulse Oximetry 96 04/15/22 20:04 Pain Scale Pain Intensity 0 - Physical Exam General Appearance: no apparent distress, alert Eye Exam: PERRL/EOMI, eyes nml inspection Ears, Nose, Throat Exam: normal ENT inspection, TMs normal, pharynx normal, moist mucous membranes Neck Exam: normal inspection, non-tender, supple, full range of motion Respiratory Exam: normal breath sounds, lungs clear, airway intact, No respiratory distress Cardiovascular Exam: regular rate/rhythm, normal heart sounds, normal peripheral pulses Gastrointestinal/Abdomen Exam: soft, normal bowel sounds, other (Ostomy bag), No tenderness, No mass Back Exam: normal inspection, normal range of motion, No CVA tenderness, No vertebral tenderness Extremity Exam: normal inspection, normal range of motion, pelvis stable Neurologic Exam: alert, oriented x 3, cooperative, normal mood/affect, nml cerebellar function, nml station & gait, sensation nml, No motor deficits Skin Exam: normal color, warm, dry, No rash Lymphatic Exam: No adenopathy SpO2 Interpretation: normal SpO2: 96 O2 Delivery: Room Air - Course Nursing assessment & vital signs reviewed: Yes EKG Interpreted by Me: RATE (77), Sinus Rhythm, NORMAL AXIS, NORMAL INTERVALS Ordered Tests: Active Orders 24 hr Category Date Time Status Food And Beverage Server STAT Care 04/15/22 20:59 Active EKG-ER Only STAT Care 04/15/22 20:59 Active IV Insertion STAT Care 04/15/22 20:59 Active Pulse Oximetry (ED) STAT Care 04/15/22 20:59 Active BLOOD CULTURE Stat Lab 04/15/22 21:30 Received CBC W DIFF Stat Lab 04/15/22 21:30 Completed CMP Stat Lab 04/15/22 21:30 Completed CULTURE,URINE Stat Lab 04/15/22 20:58 Received Lactic Acid Stat Lab 04/15/22 21:28 Completed UA W/RFX UR CULTURE Stat Lab 04/15/22 20:58 Completed Medication Summary Generic Name Dose Route Start Last Admin Trade Name Freq PRN Reason Stop Dose Admin Sodium Chloride 1,000 mls @ 100 mls/hr 04/15/22 21:00 04/15/22 21:25 Sodium Chloride 0.9% 1000 Ml IV 05/15/22 20:59 100 mls/hr .Q10H EDEL Administration Vancomycin HCl 1 gm in 200 mls @ 125 mls/hr 04/15/22 21:05 04/15/22 21:25 Vancomycin 1 Gram/200 Ml Bag IV 04/15/22 22:40 125 mls/hr STAT ONE 125 mls/hr Administration Discontinued Medications Generic Name Dose Route Start Last Admin Trade Name Freq PRN Reason Stop Dose Admin Acetaminophen 975 mg 02/15/23 21:00 04/15/22 21:24 Acetaminophen 325 Mg Tablet PO 04/15/22 21:01 975 mg STAT ONE Administration Acetaminophen Confirm 04/15/22 21:21 Acetaminophen 325 Mg Tablet Administered 04/15/22 21:22 Dose 975 mg .ROUTE .STK-MED ONE Piperacillin Sod/Tazobactam 100 mls @ 200 mls/hr 04/15/22 21:04 04/15/22 21:24 Sod 3.375 gm/ Sodium Chloride IV 04/15/22 21:33 200 mls/hr STAT ONE Administration Vancomycin HCl Confirm 04/15/22 21:22 Vancomycin 1 Gram/200 Ml Bag Administered 04/15/22 21:23 Dose 1 gm in 200 mls @ ud IV .STK-MED ONE Sodium Chloride Confirm 04/15/22 21:22 Sodium Chloride 100ml Mini-Bag Plus Administered 04/15/22 21:23 Dose 100 mls @ ud IV .STK-MED ONE Piperacillin Sod/Tazobactam Sod Confirm 04/15/22 21:22 Piperacillin/Tazobactam Sodium 3.375 Gm Vial Administered 04/15/22 21:23 Dose 3.375 gm IV .STK-MED ONE Lab/Rad Data: Laboratory Result Diagrams 04/15/22 21:30 04/15/22 21:30 Laboratory Results 04/15/22 04/15/22 04/15/22 Range/Units 21:30 21:30 21:28 WBC 7.8 (4.0-10.5) x10^3/uL RBC 3.89 L (4.1-5.6) x10^6/uL Hgb 10.5 L (12.5-18.0) g/dL Hct 33.8 L (42-50) % MCV 86.9 (78-100) fL MCH 27.0 (26-32) pg MCHC 31.1 L (32-36) g/dL RDW 19.3 H (11.5-14.0) % Plt Count 250 (150-450) x10^3/uL MPV 9.0 (7.5-11.0) fL Gran % 75.1 H (36.0-66.0) % Immature Gran % (Auto) 0.5 H (0.00-0.4) % Nucleat RBC Rel Count 0.0 (0.00-0.1) % Eos # (Auto) 0.08 (0-0.5) x10^3/uL Immature Gran # (Auto) 0.04 H (0.00-0.03) x10^3u/L Absolute Lymphs (auto) 1.26 (1.0-4.6) x10^3/uL Absolute Monos (auto) 0.55 (0.0-1.3) x10^3/uL Absolute Nucleated RBC 0.00 (0.00-0.01) x10^3u/L Lymphocytes % 16.1 L (24.0-44.0) % Monocytes % 7.0 (0.0-12.0) % Eosinophils % 1.0 (0.00-5.0) % Basophils % 0.3 (0.0-0.4) % Absolute Granulocytes 5.87 (1.4-6.9) x10^3/uL Basophils # 0.02 (0-0.4) x10^3/uL Sodium 130 L (137-145) mmol/L Potassium 4.2 (3.5-5.1) mmol/L Chloride 97 L (98-107) mmol/L Carbon Dioxide 28 (22-30) mmol/L Anion Gap 9.1 (5-15) MEQ/L BUN 39 H (9-20) mg/dL Creatinine 2.07 H (0.66-1.25) mg/dL Estimated GFR 32.8 ML/MIN Glucose 171 H (74-106) mg/dL Lactic Acid 1.0 (0.4-2.0) Calcium 8.3 L (8.4-10.2) mg/dL Total Bilirubin 0.40 (0.2-1.3) mg/dL AST 26 (17-59) U/L ALT 20 (0-50) U/L Alkaline Phosphatase 78 (38-126) U/L Serum Total Protein 6.6 (6.3-8.2) g/dL Albumin 3.5 (3.5-5.0) g/dL Urine Color (Yellow) Urine Appearance (Clear) Urine pH (4.6-8.0) Ur Specific Jefferson (1.005-1.030) Urine Protein (Negative) Urine Glucose (UA) (Negative) mg/dL Urine Ketones (Negative) Urine Blood (Negative) Urine Nitrite (Negative) Urine Bilirubin (Negative) Urine Urobilinogen (0.2) mg/dL Ur Leukocyte Esterase (Negative) U Hyaline Cast (Auto) (0-2) /LPF Urine Microscopic RBC (0-5) /HPF Urine Microscopic WBC (0-5) /HPF Ur Epithelial Cells (None Seen) /HPF Urine Bacteria (None Seen) /HPF Urine Culture Reflexed (NO) 04/15/22 Range/Units 20:58 WBC (4.0-10.5) x10^3/uL RBC (4.1-5.6) x10^6/uL Hgb (12.5-18.0) g/dL Hct (42-50) % MCV (78-100) fL MCH (26-32) pg MCHC (32-36) g/dL RDW (11.5-14.0) % Plt Count (150-450) x10^3/uL MPV (7.5-11.0) fL Gran % (36.0-66.0) % Immature Gran % (Auto) (0.00-0.4) % Nucleat RBC Rel Count (0.00-0.1) % Eos # (Auto) (0-0.5) x10^3/uL Immature Gran # (Auto) (0.00-0.03) x10^3u/L Absolute Lymphs (auto) (1.0-4.6) x10^3/uL Absolute Monos (auto) (0.0-1.3) x10^3/uL Absolute Nucleated RBC (0.00-0.01) x10^3u/L Lymphocytes % (24.0-44.0) % Monocytes % (0.0-12.0) % Eosinophils % (0.00-5.0) % Basophils % (0.0-0.4) % Absolute Granulocytes (1.4-6.9) x10^3/uL Basophils # (0-0.4) x10^3/uL Sodium (137-145) mmol/L Potassium (3.5-5.1) mmol/L Chloride (98-107) mmol/L Carbon Dioxide (22-30) mmol/L Anion Gap (5-15) MEQ/L BUN (9-20) mg/dL Creatinine (0.66-1.25) mg/dL Estimated GFR ML/MIN Glucose (74-106) mg/dL Lactic Acid (0.4-2.0) Calcium (8.4-10.2) mg/dL Total Bilirubin (0.2-1.3) mg/dL AST (17-59) U/L ALT (0-50) U/L Alkaline Phosphatase (38-126) U/L Serum Total Protein (6.3-8.2) g/dL Albumin (3.5-5.0) g/dL Urine Color Yellow (Yellow) Urine Appearance Sl Cloudy* A (Clear) Urine pH 6.0 (4.6-8.0) Ur Specific Jefferson 1.015 (1.005-1.030) Urine Protein 30 (Negative) Urine Glucose (UA) >=1000 A (Negative) mg/dL Urine Ketones Negative (Negative) Urine Blood Small A (Negative) Urine Nitrite Positive A (Negative) Urine Bilirubin Negative (Negative) Urine Urobilinogen 0.2 (0.2) mg/dL Ur Leukocyte Esterase Moderate A (Negative) U Hyaline Cast (Auto) NONE SEEN (0-2) /LPF Urine Microscopic RBC 3-5 (0-5) /HPF Urine Microscopic WBC >100 A (0-5) /HPF Ur Epithelial Cells None Seen (None Seen) /HPF Urine Bacteria Moderate A (None Seen) /HPF Urine Culture Reflexed ORDERED SEPARATELY (NO) - Progress Progress: improved Progress Note: Patient is an 81-year-old male presents to our ED with his significant other for evaluation of urinary retention. Patient has a history of recurrent urinary tract infections including pyelonephritis. Patient has been feeling weak. Upon arrival to our ED patient was observed to have a fever. Physical exam reveals a weak appearing gentleman. Ostomy bag observed. Patient had a bowel resection 8 years ago due to colon cancer. Patient's complaint is acute. Complexity of patient's complaint is moderate. No significant comorbidities to complicate patient's current presentation. Work-up entails EKG which shows normal sinus rhythm. Blood cultures obtained. CBC reveals a anemia at 10.5. Anemia is microcytic. CMP reveals a hyponatremia at 130. Chronic renal sufficiency with a creatinine of 2.0. COVID test negative. Lactic acid 1.0. Urinalysis reveals a urinary tract infection. There is no sepsis per guidelines however patient likely has pyelonephritis. Antibiotics administered include Zosyn and vancomycin. Normal saline infused. Patient received a dose of acetaminophen for fever. Case discussed with Dr. Cain who accepts admission to observation. Plan of care discussed with patient. He agrees to admission [facility] for further evaluation and treatment. . Level of EM service provided is high. Complexity of problems addressed is high. Complexity of data reviewed and analyzed is moderate. Risk of complication and a risk of morbidity/mortality patient management is moderate. No critical care time. Patient unable to provide information to this HPI. Patient significant other at bedside was the independent historian in this case. Please reviewed diagnosis section for details regarding admitting diagnosis. Patient and significant other voiced no other complaints concerns at this time. Portions of this note were created with voice recognition technology. There may be grammatical, spelling, punctuation or sound alike errors 04/15/22 22:[address] Karl Will see patient in: hospital (observation) Counseled pt/family regarding: lab results, diagnosis, rad results Medical Desision Making - Diagnostic Testing Diagnostic Testing: Diagnostic tests were ordered,analyzed, and reviewed by me and used in my medical decision making for this patient. Radiologic studies (if ordered) were read by me initially then discussed with the radiologist . - Departure Departure Disposition: Observation Clinical Impression: Pyelonephritis, Urinary tract infection, Fever, Normocytic anemia, Hyponatremia, Chronic renal insufficiency, Generalized weakness, Urinary retention Condition: Stable Critical Care Time: No Referrals: HALINA HAHN MD [Primary Care Provider] - Follow up/PCP as directed
[2022-04-15] MEDS ORDERED: PIPERACILLIN/TAZOBACTAM 3.375 GM in Sodium Chloride 100ML MINI-BAG PLUS 100 ML IV ONE (21:04)
[2022-04-15] MEDS ORDERED: VANCOMYCIN 1 GRAM/200 ML BAG 1 GM/200 ML PIGGYBACK IV ONE ×2 (21:05→21:22)
[2022-04-15] MEDS ORDERED: Sodium Chloride 0.9% 1000 ML 1,000 ML ONE (21:21)
[2022-04-15] MEDS ORDERED: TYLENOL 325 MG ONE (21:21)
[2022-04-15] MEDS ORDERED: PIPERACILLIN/TAZOBACTAM IV ONE (21:22)
[2022-04-15] MEDS ORDERED: Sodium Chloride 100ML MINI-BAG PLUS 100 ML IV ONE (21:22)
[2022-04-15 21:40] LABS: Absolute Neutrophil Ct (ANC) 5.87 x10^3/uL (1.4-6.9); BASOPHIL % 0.3 % (0.0-0.4); Basophil (Absolute #) 0.02 x10^3/uL (0-0.4); Eosinophil (Absolute #) 0.08 x10^3/uL (0-0.5); Hematocrit 33.8 % (42-50); Hemoglobin 10.5 g/dL (12.5-18.0); IMMATURE GRAN # 0.04 x10^3u/L (0.00-0.03); IMMATURE GRAN % 0.5 % (0.00-0.4); Lymphocyte (Absolute #) 1.26 x10^3/uL (1.0-4.6); Lymphocytes % 16.1 % (24.0-44.0); Mean Cell Volume 86.9 fL (78-100); Mean Corpuscular Hgb Concent. 31.1 g/dL (32-36); Monocyte (Absolute #) 0.55 x10^3/uL (0.0-1.3); Neutrophil % 75.1 % (36.0-66.0); Platelet Count 250 x10^3/uL (150-450); Red Blood Count 3.89 x10^6/uL (4.1-5.6); Red Cell Distribution Width 19.3 % (11.5-14.0); White Blood Count 7.8 x10^3/uL (4.0-10.5)
[2022-04-15 21:57] LABS: ALBUMIN 3.5 g/dL (3.5-5.0); ANION GAP 9.1 MEQ/L (5-15); BILIRUBIN,TOTAL 0.4 mg/dL (0.2-1.3); Calcium 8.3 mg/dL (8.4-10.2); Creatinine 1 2.07 mg/dL (0.66-1.25); EST GLOMERULAR FILTRATION RATE 32.8 ML/MIN; Potassium 4.2 mmol/L (3.5-5.1); Total Protein 6.6 g/dL (6.3-8.2)
[2022-04-15 22:07] LABS: ADD URINE CULTURE? ORDERED SEPARATELY (NO); Appearance Sl Cloudy* (Clear); Bacteria Moderate /HPF (None Seen); Bilirubin Negative (Negative); Blood Small (Negative); Epithelial Cells None Seen /HPF (None Seen); Glucose, Urine >=1000 mg/dL (Negative); Hyaline Casts NONE SEEN /LPF (0-2); Ketones Negative (Negative); Leukocyte Esterase Moderate (Negative); Nitrite Positive (Negative); Protein,Urine Dip 30 (Negative); Specific Gravity 1.015 (1.005-1.030); Urobilinogen 0.2 mg/dL (0.2); WBC >100 /HPF (0-5)
[2022-04-15 22:18] LABS: INFLUENZA A NEGATIVE (NEGATIVE); INFLUENZA B NEGATIVE (NEGATIVE); RESPIRATORY SYNCTIAL VIRUS NEGATIVE (Negative); SARS-CoV-2 Xpert Express NEGATIVE (NEGATIVE)
[2022-04-15] MEDS ORDERED: VANCOMYCIN 1 GRAM/200 ML BAG 1 GM/200 ML PIGGYBACK IV SCH (23:31)
[2022-04-16] MEDS ORDERED: TYLENOL 325 MG PO PRN (00:35)
[2022-04-16] MEDS ORDERED: Ventolin Hfa MDI IH PRN (00:40)
[2022-04-16] MEDS: Sodium Chloride 0.9% 1000 ML 1,000 ML IV SCH ×2 (00:59→06:27)
[2022-04-16] MEDS ORDERED: Lopressor 50 MG PO ONE (01:00)
[2022-04-16] MEDS ORDERED: NEURONTIN PO ONE (01:00)
[2022-04-16] MEDS ORDERED: ZOCOR 20MG PO ONE (01:00)
[2022-04-16] MEDS ORDERED: ELIQUIS 2.5 MG TABLET PO ONE (01:00)
[2022-04-16] MEDS ORDERED: Flomax 0.4 MG PO ONE (01:00)
[2022-04-16] MEDS ORDERED: PIPERACILLIN/TAZOBACTAM IV ONE (03:52)
[2022-04-16] MEDS ORDERED: Sodium Chloride 100ML MINI-BAG PLUS 100 ML IV ONE (03:54)
[2022-04-16] MEDS: PIPERACILLIN/TAZOBACTAM 3.375 GM in Sodium Chloride 100ML MINI-BAG PLUS 100 ML IV SCH ×2 (04:14→07:28)
[2022-04-16 05:32] LABS: Absolute Neutrophil Ct (ANC) 4.69 x10^3/uL (1.4-6.9); BASOPHIL % 0.3 % (0.0-0.4); Basophil (Absolute #) 0.02 x10^3/uL (0-0.4); Eosinophil % 2.6 % (0.00-5.0); Eosinophil (Absolute #) 0.18 x10^3/uL (0-0.5); Hematocrit 31.4 % (42-50); Hemoglobin 9.4 g/dL (12.5-18.0); IMMATURE GRAN # 0.04 x10^3u/L (0.00-0.03); IMMATURE GRAN % 0.6 % (0.00-0.4); Mean Cell Volume 88.5 fL (78-100); Mean Corpuscular Hemoglobin 26.5 pg (26-32); Mean Corpuscular Hgb Concent. 29.9 g/dL (32-36); Mean Platelet Volume 8.6 fL (7.5-11.0); Monocytes % 8.8 % (0.0-12.0); Neutrophil % 68.7 % (36.0-66.0); Platelet Count 230 x10^3/uL (150-450); Red Blood Count 3.55 x10^6/uL (4.1-5.6); Red Cell Distribution Width 19.2 % (11.5-14.0); White Blood Count 6.8 x10^3/uL (4.0-10.5)
[2022-04-16 06:10] LABS: ALBUMIN 3.2 g/dL (3.5-5.0); ANION GAP 11.3 MEQ/L (5-15); BILIRUBIN,TOTAL 0.5 mg/dL (0.2-1.3); Calcium 8.1 mg/dL (8.4-10.2); Creatinine 1 2.15 mg/dL (0.66-1.25); EST GLOMERULAR FILTRATION RATE 31.4 ML/MIN; PREALBUMIN 15.41 mg/dL (17.6-36.0); Potassium 3.4 mmol/L (3.5-5.1); Total Protein 6.2 g/dL (6.3-8.2)
[2022-04-16] MEDS ORDERED: VENTOLIN COMMON CANISTER IH PRN ×2 (07:36→08:54)
[2022-04-16] MEDS ORDERED: LIDOCAINE TP PRN (08:54)
[2022-04-16] MEDS ORDERED: Lasix 20 MG/2 ML IV ONE (09:00)
[2022-04-16] MEDS ORDERED: Nitrostat 0.4 MG Tablet SL PRN (09:00)
[2022-04-16] MEDS ORDERED: Lidoderm Patch 5% TOP PRN (09:22)
--- NOTE | 2022-04-16 09:39 | XRAY ---
Indication: Right lung base crackles. Comparison: March 20, 2022 Portable chest improved demonstrating moderate diminished pulmonary edema and cardiomegaly with minimal residual bibasilar infiltrates/atelectasis/effusions. Bony thorax intact. No new cardiopulmonary abnormalities.
[2022-04-16] MEDS: THERAGRAN MULTIVITAMIN PO SCH (09:55)
[2022-04-16] MEDS: Cordarone 200 MG PO SCH (09:55)
[2022-04-16] MEDS: Calcium 500MG W/Vit D Tablet PO SCH ×2 (09:55→21:33)
[2022-04-16] MEDS: Imdur 30 MG PO SCH (09:56)
[2022-04-16] MEDS: Vitamin C 500 MG PO SCH (09:56)
[2022-04-16] MEDS: ELIQUIS 2.5 MG TABLET PO SCH ×2 (09:56→21:32)
[2022-04-16] MEDS: NORVASC 5 MG PO SCH (09:56)
[2022-04-16] MEDS: Klor Con PO SCH (09:57)
[2022-04-16] MEDS: ZYLOPRIM 100 MG PO SCH (09:57)
[2022-04-16] MEDS: ECOTRIN 81 MG PO SCH (09:57)
[2022-04-16] MEDS: NEURONTIN PO SCH ×2 (09:57→21:33)
[2022-04-16] MEDS: JARDIANCE PO SCH (09:58)
[2022-04-16] MEDS: Proscar 5 MG PO SCH (09:58)
[2022-04-16] MEDS: Lantus Insulin SQ SCH (09:58)
[2022-04-16] MEDS ORDERED: NON-FORMULARY ITEM (Calcium Carbonate [Calcium] 600 MG Tablet) PO SCH (10:00)
[2022-04-16] MEDS ORDERED: NON-FORMULARY ITEM (Multivitamin [Multivitamins] 1 EACH Capsule) PO SCH (10:00)
[2022-04-16] MEDS ORDERED: NON-FORMULARY ITEM (Potassium Chloride [Potassium Chloride] 10 MEQ Tablet.Er) PO SCH (10:00)
[2022-04-16] MEDS ORDERED: NON-FORMULARY ITEM (Insulin Glargine,Hum.Rec.Anlog [Basaglar Kwikpen U-100] 100 UNIT/ML In SQ SCH (10:00)
[2022-04-16] MEDS ORDERED: NON-FORMULARY ITEM (Amlodipine Besylate [Amlodipine Besylate] 10 MG Tablet) PO SCH (10:00)
[2022-04-16] MEDS: Piperacillin/Tazobactam 2.25 GM 2.25 GM in Sodium Chloride 100ML MINI-BAG PLUS 100 ML IV SCH ×3 (11:58→23:11)
[2022-04-16] MEDS: HUMALOG SQ PRN ×3 (12:02→21:40)
[2022-04-16] MEDS: Flomax 0.4 MG PO SCH (21:32)
[2022-04-16] MEDS: ZOCOR 20MG PO SCH (21:32)
[2022-04-16] MEDS: Lopressor 50 MG PO SCH (21:33)
[2022-04-16] MEDS: TYLENOL EXTRA STRENGTH 500 MG PO PRN (21:41)
[2022-04-16] MEDS ORDERED: VANCOMYCIN 1 GRAM/200 ML BAG 1 GM/200 ML PIGGYBACK IV SCH (22:00)
[2022-04-16] MEDS ORDERED: LIPITOR 40MG PO SCH (22:00)
[2022-04-17] MEDS: Sodium Chloride 0.9% 1000 ML 1,000 ML IV SCH ×2 (02:46→22:13)
[2022-04-17] MEDS: Piperacillin/Tazobactam 2.25 GM 2.25 GM in Sodium Chloride 100ML MINI-BAG PLUS 100 ML IV SCH (05:19)
[2022-04-17 05:23] LABS: Hematocrit 28.6 % (42-50); Hemoglobin 8.9 g/dL (12.5-18.0); Mean Cell Volume 87.2 fL (78-100); Mean Corpuscular Hemoglobin 27.1 pg (26-32); Mean Corpuscular Hgb Concent. 31.1 g/dL (32-36); Mean Platelet Volume 8.8 fL (7.5-11.0); Platelet Count 274 x10^3/uL (150-450); Red Blood Count 3.28 x10^6/uL (4.1-5.6); Red Cell Distribution Width 19.4 % (11.5-14.0); White Blood Count 6.2 x10^3/uL (4.0-10.5)
[2022-04-17 06:05] LABS: ALBUMIN 3.1 g/dL (3.5-5.0); ANION GAP 11.3 MEQ/L (5-15); BILIRUBIN,TOTAL 0.4 mg/dL (0.2-1.3); Calcium 8.2 mg/dL (8.4-10.2); Creatinine 1 2.16 mg/dL (0.66-1.25); EST GLOMERULAR FILTRATION RATE 31.3 ML/MIN; Potassium 3.8 mmol/L (3.5-5.1)
[2022-04-17] MEDS ORDERED: Levofloxacin 500MG/100ML D5W 500 MG/100 ML BAG IV SCH (10:00)
[2022-04-17] MEDS: ECOTRIN 81 MG PO SCH (10:20)
[2022-04-17] MEDS: THERAGRAN MULTIVITAMIN PO SCH (10:20)
[2022-04-17] MEDS: ZYLOPRIM 100 MG PO SCH (10:20)
[2022-04-17] MEDS: ELIQUIS 2.5 MG TABLET PO SCH ×2 (10:20→22:03)
[2022-04-17] MEDS: Imdur 30 MG PO SCH (10:21)
[2022-04-17] MEDS: Lantus Insulin SQ SCH (10:21)
[2022-04-17] MEDS: NORVASC 5 MG PO SCH (10:21)
[2022-04-17] MEDS: NEURONTIN PO SCH ×2 (10:21→22:02)
[2022-04-17] MEDS: Lasix 40 MG PO SCH (10:21)
[2022-04-17] MEDS: Calcium 500MG W/Vit D Tablet PO SCH ×2 (10:21→22:02)
[2022-04-17] MEDS: JARDIANCE PO SCH (10:22)
[2022-04-17] MEDS: Proscar 5 MG PO SCH (10:22)
[2022-04-17] MEDS: Klor Con PO SCH (10:23)
[2022-04-17] MEDS ORDERED: LEVOFLOXACIN 750MG/150ML D5W 750 MG/150 ML BAG IV SCH (11:00)
[2022-04-17] MEDS: HUMALOG SQ PRN ×2 (11:52→22:12)
[2022-04-17] MEDS: Lopressor 50 MG PO SCH (22:02)
[2022-04-17] MEDS: ZOCOR 20MG PO SCH (22:03)
[2022-04-17] MEDS: Flomax 0.4 MG PO SCH (22:03)
[2022-04-17] MEDS: TYLENOL EXTRA STRENGTH 500 MG PO PRN (22:12)
[2022-04-18 05:54] LABS: ANION GAP 9.8 MEQ/L (5-15); Calcium 8.3 mg/dL (8.4-10.2); Creatinine 1 1.87 mg/dL (0.66-1.25); EST GLOMERULAR FILTRATION RATE 36.9 ML/MIN; Potassium 3.8 mmol/L (3.5-5.1)
[2022-04-18 05:59] LABS: Hematocrit 28.7 % (42-50); Mean Corpuscular Hemoglobin 27.3 pg (26-32); Mean Corpuscular Hgb Concent. 31.4 g/dL (32-36); Mean Platelet Volume 9.1 fL (7.5-11.0); Platelet Count 337 x10^3/uL (150-450); Red Cell Distribution Width 19.1 % (11.5-14.0); White Blood Count 5.7 x10^3/uL (4.0-10.5)
--- NOTE | 2022-04-18 08:41 | PCM.NOTE ---
Date and Time: 04/18/22835 Subjective Assessment: Patient admitted with pyelonephriitis started on Levaquin but urine culture shows Pseudomonas resistant to Levaquin, started on Cefepime. States feeling ok with good appetite and no pain. Objective Exam General Appearance: no apparent distress (is sitting up in chair) Neurologic Exam: alert, oriented x 3, cooperative, normal mood/affect Skin Exam: warm, dry, pale Wound Assessment: Skin/Wound Assessment Wound/Incision Assessment Start: 04/16/22 02:11 Text: Status: Active Freq: Q6H Protocol: Document 04/18/22 07:47 (Rec: 04/18/22 07:53 [id number]) Wound/Incision Assessment Heel Wound Assessment Shift Assessment Wound Type Pressure Ulcer Wound Stage Stage I Dressing Status Dry & Intact Drainage Amount None Comment floated on pillows, barrier cream applied Respiratory Exam: normal breath sounds (on 2L O2/NC) Cardiovascular Exam: irregular (rate 60) Gastrointestinal/Abdomen Exam: soft (colostomy bag in place,decreased BS,nontender) OBJECTIVE DATA Vital Signs: Vital Signs - 24 hr Temp Pulse Resp BP Pulse Ox 04/18/22 07:19 52 L 16 91 L 04/18/22 06:57 97.5 F 56 L 20 118/57 93 L 04/18/22 04:00 99.0 F 55 L 18 121/58 93 L 04/18/22 00:00 99.0 F 56 L 18 129/59 94 L 04/17/22 20:00 97.7 F 61 18 135/58 96 04/17/22 19:42 61 18 96 04/17/22 16:00 97.7 F 59 L 18 135/58 98 04/17/22 12:00 97.8 F 62 18 130/60 97 Pain Assessment - Last Documented Pain Intensity 0 Pain Scale Used 0-10 Pain Scale Intake and Output: Intake & Output 04/15/22 04/16/22 04/17/22 04/18/22 11:59 11:59 11:59 11:59 Intake Total 1323 3449 2152 Output Total 3600 3600 3700 Balance -4450 -652 -9364 Weight 89 kg Lab Results: Lab Results-Last 24 Hours 04/16/22 04/17/22 04/17/22 Range/Units 21:03 06:42 11:15 WBC (4.0-10.5) x10^3/uL RBC (4.1-5.6) x10^6/uL Hgb (12.5-18.0) g/dL Hct (42-50) % MCV (78-100) fL MCH (26-32) pg MCHC (32-36) g/dL RDW (11.5-14.0) % Plt Count (150-450) x10^3/uL MPV (7.5-11.0) fL Sodium (137-145) mmol/L Potassium (3.5-5.1) mmol/L Chloride (98-107) mmol/L Carbon Dioxide (22-30) mmol/L Anion Gap (5-15) MEQ/L BUN (9-20) mg/dL Creatinine (0.66-1.25) mg/dL Estimated GFR ML/MIN Glucose (74-106) mg/dL POC Glucometer 189 H 126 H 229 H (74 to 106) mg/dL Calcium (8.4-10.2) mg/dL 04/17/22 04/17/22 04/18/22 Range/Units 16:27 22:00 04:00 WBC (4.0-10.5) x10^3/uL RBC (4.1-5.6) x10^6/uL Hgb (12.5-18.0) g/dL Hct (42-50) % MCV (78-100) fL MCH (26-32) pg MCHC (32-36) g/dL RDW (11.5-14.0) % Plt Count (150-450) x10^3/uL MPV (7.5-11.0) fL Sodium 135 L (137-145) mmol/L Potassium 3.8 (3.5-5.1) mmol/L Chloride 102 (98-107) mmol/L Carbon Dioxide 27 (22-30) mmol/L Anion Gap 9.8 (5-15) MEQ/L BUN 23 H (9-20) mg/dL Creatinine 1.87 H (0.66-1.25) mg/dL Estimated GFR 36.9 ML/MIN Glucose 122 H (74-106) mg/dL POC Glucometer 192 H 185 H (74 to 106) mg/dL Calcium 8.3 L (8.4-10.2) mg/dL 04/18/22 04/18/22 Range/Units 05:34 06:37 WBC 5.7 (4.0-10.5) x10^3/uL RBC 3.30 L (4.1-5.6) x10^6/uL Hgb 9.0 L (12.5-18.0) g/dL Hct 28.7 L (42-50) % MCV 87.0 (78-100) fL MCH 27.3 (26-32) pg MCHC 31.4 L (32-36) g/dL RDW 19.1 H (11.5-14.0) % Plt Count 337 (150-450) x10^3/uL MPV 9.1 (7.5-11.0) fL Sodium (137-145) mmol/L Potassium (3.5-5.1) mmol/L Chloride (98-107) mmol/L Carbon Dioxide (22-30) mmol/L Anion Gap (5-15) MEQ/L BUN (9-20) mg/dL Creatinine (0.66-1.25) mg/dL Estimated GFR ML/MIN Glucose (74-106) mg/dL POC Glucometer 104 (74 to 106) mg/dL Calcium (8.4-10.2) mg/dL Radiology Exams: Radiology Procedures Category Date Time Status CHEST 1 VIEW (PORTABLE) Urgent Exams 04/16/22 08:40 Completed Multi-Disciplinary Progress Notes: Multi-Disciplinary Progress Notes 04/17/22 13:02 Case Management Note by Cheyenne Verduzco S/W PATIENT AND [facility]- NO CHANGE IN DC PLANS. THEY PLAN FOR PATIENT TO RETURN HOME WITH [facility] AND [facility]. PATIENT ALREADY HAS HOME OXYGEN WITH PORTABILITY Initialized on 04/17/22 13:02 - END OF NOTE Assessment/Plan (1) Pyelonephritis Current Visit: Yes Status: Acute Assessment & Plan: recurrent,see urine cult/sens Code(s): N12 - TUBULO-INTERSTITIAL NEPHRITIS, NOT SPCF ACUTE OR CHRONIC (2) DM2 (diabetes mellitus, type 2) Current Visit: Yes Status: Chronic Qualifiers: Diabetes mellitus fdc insulin use: with vermin exterminator use Assessment & Plan: stopped Jardiance (3) Urinary retention Current Visit: Yes Status: Acute Assessment & Plan: gonzalez in place . Dr Kenny Urologist follows Code(s): R33.9 - RETENTION OF URINE, UNSPECIFIED
[2022-04-18] MEDS: Imdur 30 MG PO SCH (09:02)
[2022-04-18] MEDS: Cordarone 200 MG PO SCH (09:02)
[2022-04-18] MEDS: Calcium 500MG W/Vit D Tablet PO SCH ×2 (09:02→21:09)
[2022-04-18] MEDS: Lasix 40 MG PO SCH (09:02)
[2022-04-18] MEDS: ELIQUIS 2.5 MG TABLET PO SCH ×2 (09:02→21:09)
[2022-04-18] MEDS: NEURONTIN PO SCH ×2 (09:02→21:09)
[2022-04-18] MEDS: Klor Con PO SCH (09:03)
[2022-04-18] MEDS: NORVASC 5 MG PO SCH ×2 (09:03→09:09)
[2022-04-18] MEDS: ECOTRIN 81 MG PO SCH (09:03)
[2022-04-18] MEDS: THERAGRAN MULTIVITAMIN PO SCH (09:03)
[2022-04-18] MEDS: ZYLOPRIM 100 MG PO SCH (09:03)
[2022-04-18] MEDS: Vitamin C 500 MG PO SCH (09:03)
[2022-04-18] MEDS: Proscar 5 MG PO SCH (09:04)
[2022-04-18] MEDS: JARDIANCE PO SCH (09:04)
[2022-04-18] MEDS ORDERED: PHARMACY DOSING REQUEST MC ONE (09:21)
[2022-04-18] MEDS ORDERED: VITAMIN D PO SCH (10:00)
[2022-04-18] MEDS: MAXIPIME 1 GM** 1 G in Sodium Chloride 100ML MINI-BAG PLUS 100 ML IV SCH ×2 (10:07→21:09)
[2022-04-18] MEDS: Lantus Insulin SQ SCH (11:33)
[2022-04-18] MEDS: Sodium Chloride 0.9% 1000 ML 1,000 ML IV SCH (17:43)
[2022-04-18] MEDS: Flomax 0.4 MG PO SCH (21:09)
[2022-04-18] MEDS: ZOCOR 20MG PO SCH (21:09)
[2022-04-18] MEDS: Lopressor 50 MG PO SCH (21:09)
[2022-04-18] MEDS: TYLENOL EXTRA STRENGTH 500 MG PO PRN (21:18)
[2022-04-18] MEDS: HUMALOG SQ PRN (21:26)
[2022-04-19] MEDS: Calcium 500MG W/Vit D Tablet PO SCH ×2 (08:52→22:46)
[2022-04-19] MEDS: Imdur 30 MG PO SCH (08:53)
[2022-04-19] MEDS: THERAGRAN MULTIVITAMIN PO SCH (08:53)
[2022-04-19] MEDS: Klor Con PO SCH (08:53)
[2022-04-19] MEDS: Lasix 40 MG PO SCH (08:53)
[2022-04-19] MEDS: NEURONTIN PO SCH ×2 (08:53→22:47)
[2022-04-19] MEDS: ECOTRIN 81 MG PO SCH (08:53)
[2022-04-19] MEDS: ZYLOPRIM 100 MG PO SCH (08:54)
[2022-04-19] MEDS: ELIQUIS 2.5 MG TABLET PO SCH ×2 (08:54→22:46)
[2022-04-19] MEDS: NORVASC 5 MG PO SCH (08:54)
[2022-04-19] MEDS: Proscar 5 MG PO SCH (08:57)
[2022-04-19] MEDS: JARDIANCE PO SCH (08:57)
[2022-04-19] MEDS: Lantus Insulin SQ SCH (08:58)
[2022-04-19] MEDS: MAXIPIME 1 GM** 1 G in Sodium Chloride 100ML MINI-BAG PLUS 100 ML IV SCH ×2 (10:12→22:47)
[2022-04-19] MEDS: HUMALOG SQ PRN ×3 (11:56→23:01)
--- NOTE | 2022-04-19 13:32 | PCM.NOTE ---
Date and Time: 04/19/22 1329 Subjective Assessment: Day 2 on Cefepime for Pseudomonas Pyelonephritis.Urinary retention, gonzalez was placed in ER. Patient is feeling stronger and wants to walk. C/O dry tickle cough. Objective Exam General Appearance: no apparent distress Neurologic Exam: alert, oriented x 3, cooperative, normal mood/affect Skin Exam: normal color, warm, dry Wound Assessment: Skin/Wound Assessment Wound/Incision Assessment Start: 04/16/22 02:11 Text: Status: Active Freq: Q6H Protocol: Document 04/19/22 13:00 RB (Rec: 04/19/22 13:11 RB [id number]) Wound/Incision Assessment Heel Wound Assessment Shift Assessment Wound Type Pressure Ulcer Wound Stage Stage I Dressing Status Dry & Intact Drainage Amount None Wound Photo Photo Taken No Respiratory Exam: crackles/rales (fine crackles bibasilar) Cardiovascular Exam: irregular (60 rate) Gastrointestinal/Abdomen Exam: soft (nontender, no CVA tenderness) Extremity Exam: pedal edema Back Exam: normal inspection OBJECTIVE DATA Vital Signs: Vital Signs - 24 hr Temp Pulse Resp BP Pulse Ox 04/19/22 11:00 98.4 F 62 16 132/74 93 L 04/19/22 07:22 78 18 91 L 04/19/22 06:49 98.7 F 57 L 18 129/60 91 L 04/19/22 04:00 97.7 F 52 L 20 124/62 93 L 04/19/22 00:01 98.7 F 55 L 20 135/64 95 04/18/22 20:00 98.6 F 62 20 136/63 93 L 04/18/22 19:52 62 18 93 L 04/18/22 16:00 97.7 F 74 18 144/66 95 Pain Assessment - Last Documented Pain Intensity 0 Pain Scale Used 0-10 Pain Scale Intake and Output: Intake & Output 04/17/22 04/18/22 04/19/22 04/20/22 11:59 11:59 11:59 11:59 Intake Total 3449 2512 3208 610 Output Total 3600 3700 7931 650 Balance -151 -1188 -1307 -40 Weight 89 kg Lab Results: Lab Results-Last 24 Hours 04/18/22 04/18/22 04/19/22 Range/Units 16:01 21:23 06:32 POC Glucometer 147 H 234 H 123 H (74 to 106) mg/dL 04/19/22 Range/Units 10:44 POC Glucometer 185 H (74 to 106) mg/dL Assessment/Plan (1) Pyelonephritis Current Visit: Yes Status: Acute Assessment & Plan: day # 2 Cefepime and clincally improving Code(s): N12 - TUBULO-INTERSTITIAL NEPHRITIS, NOT SPCF ACUTE OR CHRONIC (2) DM2 (diabetes mellitus, type 2) Current Visit: Yes Status: Chronic Qualifiers: Diabetes mellitus chcf insulin use: with terminal supervisor use Assessment & Plan: better meal selection discussed (3) Urinary retention Current Visit: Yes Status: Acute Assessment & Plan: gonzalez in place Code(s): R33.9 - RETENTION OF URINE, UNSPECIFIED (4) CHF (congestive heart failure) Current Visit: No Status: Chronic Assessment & Plan: is on po lasix 40mg will add IV 20 mg x 1 dose and re-eval tomorrow. Code(s): I50.9 - HEART FAILURE, UNSPECIFIED
[2022-04-19 13:54] LABS: Absolute Neutrophil Ct (ANC) 3.88 x10^3/uL (1.4-6.9); BASOPHIL % 0.5 % (0.0-0.4); Basophil (Absolute #) 0.03 x10^3/uL (0-0.4); Eosinophil % 2.8 % (0.00-5.0); Eosinophil (Absolute #) 0.18 x10^3/uL (0-0.5); Hematocrit 30.5 % (42-50); Hemoglobin 9.5 g/dL (12.5-18.0); IMMATURE GRAN % 1.6 % (0.00-0.4); Lymphocytes % 23.5 % (24.0-44.0); Mean Cell Volume 87.9 fL (78-100); Mean Corpuscular Hemoglobin 27.4 pg (26-32); Mean Corpuscular Hgb Concent. 31.1 g/dL (32-36); Mean Platelet Volume 8.8 fL (7.5-11.0); Monocyte (Absolute #) 0.69 x10^3/uL (0.0-1.3); Monocytes % 10.8 % (0.0-12.0); Neutrophil % 60.8 % (36.0-66.0); Platelet Count 334 x10^3/uL (150-450); Red Blood Count 3.47 x10^6/uL (4.1-5.6); Red Cell Distribution Width 18.6 % (11.5-14.0); White Blood Count 6.4 x10^3/uL (4.0-10.5)
[2022-04-19 14:14] LABS: ALBUMIN 3.3 g/dL (3.5-5.0); ANION GAP 10.4 MEQ/L (5-15); BILIRUBIN,TOTAL 0.4 mg/dL (0.2-1.3); Calcium 8.2 mg/dL (8.4-10.2); Creatinine 1 2.02 mg/dL (0.66-1.25); EST GLOMERULAR FILTRATION RATE 33.8 ML/MIN; Total Protein 6.5 g/dL (6.3-8.2)
[2022-04-19] MEDS: Sodium Chloride 0.9% 1000 ML 1,000 ML IV SCH (15:02)
[2022-04-19] MEDS ORDERED: Lasix 20 MG/2 ML IV ONE (16:30)
[2022-04-19] MEDS ORDERED: TROUGH DRUG LEVELS IJ ONE (21:30)
[2022-04-19] MEDS: ZOCOR 20MG PO SCH (22:46)
[2022-04-19] MEDS: Flomax 0.4 MG PO SCH (22:47)
[2022-04-19] MEDS: Lopressor 50 MG PO SCH (22:47)
[2022-04-19] MEDS: TYLENOL EXTRA STRENGTH 500 MG PO PRN (22:51)
[2022-04-20] MEDS: Cordarone 200 MG PO SCH (08:50)
[2022-04-20] MEDS: Calcium 500MG W/Vit D Tablet PO SCH (08:50)
[2022-04-20] MEDS: ELIQUIS 2.5 MG TABLET PO SCH (08:51)
[2022-04-20] MEDS: Imdur 30 MG PO SCH (08:51)
[2022-04-20] MEDS: Klor Con PO SCH (08:51)
[2022-04-20] MEDS: ECOTRIN 81 MG PO SCH (08:51)
[2022-04-20] MEDS: Lantus Insulin SQ SCH (08:52)
[2022-04-20] MEDS: Lasix 40 MG PO SCH (08:53)
[2022-04-20] MEDS: NEURONTIN PO SCH (08:54)
[2022-04-20] MEDS: NORVASC 5 MG PO SCH (08:55)
[2022-04-20] MEDS: ZYLOPRIM 100 MG PO SCH (08:56)
[2022-04-20] MEDS: THERAGRAN MULTIVITAMIN PO SCH (08:56)
[2022-04-20] MEDS: Vitamin C 500 MG PO SCH (08:56)
[2022-04-20] MEDS: Proscar 5 MG PO SCH (08:56)
[2022-04-20] MEDS: MAXIPIME 1 GM** 1 G in Sodium Chloride 100ML MINI-BAG PLUS 100 ML IV SCH (10:36)
[2022-04-20 10:56] VITALS: BP 135/63; PULSE 56; O2SAT 93
--- NOTE | 2022-05-01 12:42 | PCM.DS ---
Discharge Summary Date of Admission: 04/16/22 09:00 Date of Discharge: 04/20/22 late entry Admitting Physician: NATHANIEL BAUTISTA Primary Care Provider: HALINA HAHN Allergies Allergies No Known Drug Allergies Allergy (Verified 04/15/22 23:59) Hospital Summary - Hospital Course Hospital Course: Patient is a very pleasant 81yr old gentleman with many chronic meical issues including recurrent UTIs who presented to ER with urinary retention and lethargy . ER octor Dg with UTI/Pyelonephritis and admitted to [facility] on IV Levaquin. Urine culture grew Pseudomonas resistant to Levaquin. IV antibiotic Cefepime was started and patient improved but at risk for fall. Swing Bed for Rehab and completion of course of IV Cefepime was recommended. - Vitals & Intake/Output Vital Signs: Vital Signs Temperature 97.5 F 04/20/22 10:55 Pulse Rate 56 L 04/20/22 10:55 Respiratory Rate 18 04/20/22 10:55 Blood Pressure 135/63 04/20/22 10:55 O2 Sat by Pulse Oximetry 93 L 04/20/22 10:55 - Lab Result Diagrams: 04/19/22 13:40 04/19/22 13:40 Micro Results-Entire Visit: Microbiology 04/15/22 21:30 Blood Culture Gram Stain - Final Blood Not Reportable Blood Culture - Final NO GROWTH 04/15/22 21:28 Blood Culture Gram Stain - Final Blood Not Reportable Blood Culture - Final NO GROWTH 04/15/22 20:58 Urine Culture - Final Urine, Indwelling Catheter Pseudomonas Aeruginosa - Procedures and Test Procedures and Tests throughout Hospitalization: Therapy Orders & Screens 04/16/22 01:11 Oxygen Nasal Cannula 2 lpm Comment: Diagnosis: Pyelonephritis, fever urinary retention Respiratory Therapy Assessment DAILY Comment: Diagnosis: Pyelonephritis, fever urinary retention 04/16/22 04:00 RT Screen per Nursing Assess ONCE Comment: Protocol Order Physician Instructions: Greater than 3 points order RT Admission Screen Reason For Exam: Triggered on Admission Diagnosis: Pyelonephritis, fever urinary retention Diagnosis: Pyelonephritis, fever urinary retention Pneumonia: No Home O2: Yes Asthma: No CHF: No Home CPAP/BIPAP: No Home Nebs/MDI: Yes Total Points: 10 Discharge Exam General Appearance: no apparent distress Neurologic Exam: alert, oriented x 3, cooperative, normal mood/affect (pleasant) Ears, Nose, Throat Exam: normal ENT inspection Neck Exam: normal inspection Respiratory Exam: crackles/rales (bases-improved afte diuretic yesterday), other (O2/NC) Cardiovascular Exam: irregular (rate 70s) Gastrointestinal/Abdomen Exam: soft (nontender) Final Diagnosis/Problem List - Final Discharge Diagnosis/Problem (1) Pyelonephritis Status: Acute Assessment & Plan: see urine C&S,continue Cefepime IV Code(s): N12 - TUBULO-INTERSTITIAL NEPHRITIS, NOT SPCF ACUTE OR CHRONIC (2) DM2 (diabetes mellitus, type 2) Status: Chronic Assessment & Plan: continue present care,monitor (3) Urinary retention Status: Resolved Assessment & Plan: gonzalez Code(s): R33.9 - RETENTION OF URINE, UNSPECIFIED (4) CHF (congestive heart failure) Status: Chronic Code(s): I50.9 - HEART FAILURE, UNSPECIFIED (5) Risk for falls Status: Suspected Assessment & Plan: PT Code(s): Z91.81 - HISTORY OF FALLING - Discharge Disposition: Swing Bed @ [facility] Condition: Stable Prescriptions: No Action Amiodarone HCl 200 mg [Cordarone 200 MG] 200 mg PO UD Multivitamin [Multivitamins] 1 tab PO DAILY Nitroglycerin 0.4 mg Tablet [Nitrostat 0.4 MG Tablet] 1 tab SL UD Gabapentin [Neurontin ] 300 mg PO BID Finasteride 5 mg [Proscar 5 MG] 5 mg PO DAILY Potassium Chloride 10 meq PO DAILY #30 tab Ascorbic Acid 500 mg [Vitamin C 500 MG] 500 mg PO UD Insulin Glargine,Hum.rec.anlog [Basaglar Kwikpen U-100] 45 unit SQ DAILY Albuterol Sulfate [Albuterol Sulfate Hfa] 2 inh IH Q6HPRN PRN PRN Reason: Shortness Of Breath/Wheezing Lidocaine 1 each TP DAILY PRN PRN PRN Reason: Pain Atorvastatin Calcium [Lipitor] 40 mg PO HS Calcium Carbonate [Calcium] 600 mg PO BID Aspirin EC 81 mg [Ecotrin 81 mg] 81 mg PO DAILY Insulin Lispro [Insulin Lispro Kwikpen U-100] 1 unit SQ UD Tamsulosin HCl 0.4 mg [Flomax 0.4 MG] 0.4 mg PO HS Cholecalciferol (Vitamin D3) [Vitamin D] 4,000 unit PO UD Acetaminophen 500 mg [Tylenol Extra Strength 500 mg] 500 mg PO Q4H PRN PRN PRN Reason: Pain Isosorbide Mononitrate [Isosorbide Mononitrate ER] 30 mg PO DAILY Apixaban [Eliquis 2.5 mg Tablet] 2.5 mg PO BID #60 tablet Amlodipine Besylate 10 mg PO DAILY Allopurinol 100 mg [Zyloprim 100 mg] 100 mg PO DAILY Furosemide 40 mg [Lasix 40 MG] 40 mg PO DAILY Empagliflozin [Jardiance] 10 mg PO DAILY tablet Metoprolol Tartrate 50 mg [Lopressor 50 MG] 50 mg PO QHS Follow up with: HALINA HAHN MD [Primary Care Provider] -
== END 2022-04-20 11:30 | disposition swing bed (61) | DRG 690 ==
LOC: ED 20:00 → MED SURG 23:30 → OBSVTOIN 04-16 09:00
PROVIDERS: ADMIT Family Medicine; ATTEND Family Medicine
DX: N12 Tubulo-interstitial nephritis, not specified as acute or chronic (principal); E11.9 Type 2 diabetes mellitus without complications; N39.0 Urinary tract infection, site not specified; L89.601 Pressure ulcer of unspecified heel, stage 1; R33.9 Retention of urine, unspecified; I11.0 Hypertensive heart disease with heart failure; I50.9 Heart failure, unspecified; I25.10 Atherosclerotic heart disease of native coronary artery without angina pectoris; Z85.038 Personal history of other malignant neoplasm of large intestine; Z79.899 Other long term (current) drug therapy; Z20.828 Contact with and (suspected) exposure to other viral communicable diseases; Z91.81 History of falling
CPT/HCPCS: 0241U; 36000; 36415; 51702; 71045; 80048; 80053; 81001; 82947; 83036; 83605; 83880; 84134; 84443; 85025; 85027; 87040; 87077; 87086; 87186; 93005; 93041; 93268; 94760; 94762; 96365; 96368; 99285; G0378; J0692; J1817; J1940; J1956; J2543; A9270-GY; J3370

== ENCOUNTER 2022-04-20 11:30 | Inpatient (IN) | payer MEDICARE, OTHER ==
[2022-04-20] MEDS ORDERED: Lidoderm Patch 5% TOP PRN (12:08)
[2022-04-20] MEDS ORDERED: Nitrostat 0.4 MG Tablet SL PRN (12:08)
[2022-04-20] MEDS ORDERED: VENTOLIN COMMON CANISTER IH PRN (12:08)
[2022-04-20] MEDS ORDERED: Aplisol ID ONE (12:08)
[2022-04-20] MEDS: HUMALOG SQ PRN ×2 (16:18→21:43)
[2022-04-20] MEDS: Calcium 500MG W/Vit D Tablet PO SCH (21:32)
[2022-04-20] MEDS: ELIQUIS 2.5 MG TABLET PO SCH (21:33)
[2022-04-20] MEDS: Lopressor 50 MG PO SCH (21:33)
[2022-04-20] MEDS: Flomax 0.4 MG PO SCH (21:33)
[2022-04-20] MEDS: ZOCOR 20MG PO SCH (21:33)
[2022-04-20] MEDS: NEURONTIN PO SCH (21:33)
[2022-04-20] MEDS: MAXIPIME 1 GM** 1 G in Sodium Chloride 100ML MINI-BAG PLUS 100 ML IV SCH (21:34)
[2022-04-20] MEDS: TYLENOL EXTRA STRENGTH 500 MG PO PRN (23:12)
[2022-04-21] MEDS: Imdur 30 MG PO SCH (08:27)
[2022-04-21] MEDS: ECOTRIN 81 MG PO SCH (08:27)
[2022-04-21] MEDS: Klor Con PO SCH (08:27)
[2022-04-21] MEDS: NEURONTIN PO SCH ×2 (08:28→22:18)
[2022-04-21] MEDS: ELIQUIS 2.5 MG TABLET PO SCH ×2 (08:28→22:19)
[2022-04-21] MEDS: THERAGRAN MULTIVITAMIN PO SCH (08:28)
[2022-04-21] MEDS: Lasix 40 MG PO SCH (08:28)
[2022-04-21] MEDS: ZYLOPRIM 100 MG PO SCH (08:28)
[2022-04-21] MEDS: Calcium 500MG W/Vit D Tablet PO SCH ×2 (08:29→22:19)
[2022-04-21] MEDS: NORVASC 5 MG PO SCH (08:29)
[2022-04-21] MEDS: Lantus Insulin SQ SCH (08:29)
[2022-04-21] MEDS: MAXIPIME 1 GM** 1 G in Sodium Chloride 100ML MINI-BAG PLUS 100 ML IV SCH ×2 (09:32→22:14)
[2022-04-21] MEDS: Proscar 5 MG PO SCH (09:32)
[2022-04-21] MEDS: VITAMIN D PO SCH (09:53)
[2022-04-21] MEDS: HUMALOG SQ PRN ×3 (11:54→22:24)
[2022-04-21] MEDS: Flomax 0.4 MG PO SCH (22:18)
[2022-04-21] MEDS: Lopressor 50 MG PO SCH (22:18)
[2022-04-21] MEDS: ZOCOR 20MG PO SCH (22:19)
[2022-04-22] MEDS: HUMALOG SQ PRN ×4 (07:44→21:48)
[2022-04-22] MEDS: Proscar 5 MG PO SCH (09:30)
[2022-04-22] MEDS: NORVASC 5 MG PO SCH (09:32)
[2022-04-22] MEDS: Vitamin C 500 MG PO SCH (09:33)
[2022-04-22] MEDS: Imdur 30 MG PO SCH (09:33)
[2022-04-22] MEDS: THERAGRAN MULTIVITAMIN PO SCH (09:34)
[2022-04-22] MEDS: ECOTRIN 81 MG PO SCH (09:34)
[2022-04-22] MEDS: ELIQUIS 2.5 MG TABLET PO SCH ×2 (09:35→23:11)
[2022-04-22] MEDS: NEURONTIN PO SCH ×2 (09:35→21:49)
[2022-04-22] MEDS: ZYLOPRIM 100 MG PO SCH (09:35)
[2022-04-22] MEDS: Klor Con PO SCH (09:35)
[2022-04-22] MEDS: Cordarone 200 MG PO SCH (09:36)
[2022-04-22] MEDS: Calcium 500MG W/Vit D Tablet PO SCH ×2 (09:36→21:48)
[2022-04-22] MEDS: Lasix 40 MG PO SCH (09:36)
[2022-04-22] MEDS: MAXIPIME 1 GM** 1 G in Sodium Chloride 100ML MINI-BAG PLUS 100 ML IV SCH ×2 (09:38→21:53)
[2022-04-22] MEDS: Lantus Insulin SQ SCH (09:46)
[2022-04-22] MEDS: ZOCOR 20MG PO SCH (21:48)
[2022-04-22] MEDS: Flomax 0.4 MG PO SCH (21:49)
[2022-04-22] MEDS: Lopressor 50 MG PO SCH (21:49)
[2022-04-23] MEDS: THERAGRAN MULTIVITAMIN PO SCH (08:42)
[2022-04-23] MEDS: Imdur 30 MG PO SCH (08:42)
[2022-04-23] MEDS: ECOTRIN 81 MG PO SCH (08:42)
[2022-04-23] MEDS: Proscar 5 MG PO SCH (08:42)
[2022-04-23] MEDS: Robitussin-Dm Syrup PO PRN ×2 (08:43→14:10)
[2022-04-23] MEDS: Lasix 40 MG PO SCH (08:43)
[2022-04-23] MEDS: Lantus Insulin SQ SCH (08:43)
[2022-04-23] MEDS: ELIQUIS 2.5 MG TABLET PO SCH ×2 (08:43→21:50)
[2022-04-23] MEDS: Calcium 500MG W/Vit D Tablet PO SCH ×2 (08:43→21:49)
[2022-04-23] MEDS: NORVASC 5 MG PO SCH (08:43)
[2022-04-23] MEDS: Klor Con PO SCH (08:43)
[2022-04-23] MEDS: NEURONTIN PO SCH ×2 (08:43→21:49)
[2022-04-23] MEDS: ZYLOPRIM 100 MG PO SCH (08:43)
[2022-04-23] MEDS: MAXIPIME 1 GM** 1 G in Sodium Chloride 100ML MINI-BAG PLUS 100 ML IV SCH ×2 (08:51→22:20)
[2022-04-23] MEDS: HUMALOG SQ PRN ×3 (11:40→21:49)
[2022-04-23] MEDS: ZOCOR 20MG PO SCH (21:49)
[2022-04-23] MEDS: Lopressor 50 MG PO SCH (21:49)
[2022-04-23] MEDS: TYLENOL EXTRA STRENGTH 500 MG PO PRN (21:50)
[2022-04-23] MEDS: Flomax 0.4 MG PO SCH (21:50)
[2022-04-24] MEDS: ELIQUIS 2.5 MG TABLET PO SCH ×2 (09:36→21:09)
[2022-04-24] MEDS: Klor Con PO SCH (09:36)
[2022-04-24] MEDS: THERAGRAN MULTIVITAMIN PO SCH (09:36)
[2022-04-24] MEDS: MAXIPIME 1 GM** 1 G in Sodium Chloride 100ML MINI-BAG PLUS 100 ML IV SCH ×2 (09:36→21:09)
[2022-04-24] MEDS: NEURONTIN PO SCH ×2 (09:36→21:09)
[2022-04-24] MEDS: ZYLOPRIM 100 MG PO SCH (09:36)
[2022-04-24] MEDS: ECOTRIN 81 MG PO SCH (09:36)
[2022-04-24] MEDS: Lasix 40 MG PO SCH (09:37)
[2022-04-24] MEDS: Calcium 500MG W/Vit D Tablet PO SCH ×2 (09:37→21:09)
[2022-04-24] MEDS: Proscar 5 MG PO SCH (09:37)
[2022-04-24] MEDS: Imdur 30 MG PO SCH (09:37)
[2022-04-24] MEDS: Lantus Insulin SQ SCH (09:38)
[2022-04-24] MEDS: Cordarone 200 MG PO SCH (09:40)
[2022-04-24] MEDS: Vitamin C 500 MG PO SCH (09:40)
[2022-04-24] MEDS: NORVASC 5 MG PO SCH (10:02)
[2022-04-24] MEDS: HUMALOG SQ PRN ×3 (12:44→21:47)
[2022-04-24] MEDS: Flomax 0.4 MG PO SCH (21:09)
[2022-04-24] MEDS: ZOCOR 20MG PO SCH (21:09)
[2022-04-24] MEDS: Lopressor 50 MG PO SCH (21:09)
[2022-04-24] MEDS: TYLENOL EXTRA STRENGTH 500 MG PO PRN (21:46)
[2022-04-25] MEDS: Robitussin-Dm Syrup PO PRN ×2 (04:19→22:56)
[2022-04-25] MEDS: TYLENOL EXTRA STRENGTH 500 MG PO PRN ×2 (04:25→21:07)
[2022-04-25] MEDS: Lasix 40 MG PO SCH (09:39)
[2022-04-25] MEDS: NORVASC 5 MG PO SCH (09:40)
[2022-04-25] MEDS: Imdur 30 MG PO SCH (09:40)
[2022-04-25] MEDS: ECOTRIN 81 MG PO SCH (09:40)
[2022-04-25] MEDS: Calcium 500MG W/Vit D Tablet PO SCH ×2 (09:40→21:07)
[2022-04-25] MEDS: THERAGRAN MULTIVITAMIN PO SCH (09:40)
[2022-04-25] MEDS: NEURONTIN PO SCH ×2 (09:40→21:18)
[2022-04-25] MEDS: ZYLOPRIM 100 MG PO SCH (09:41)
[2022-04-25] MEDS: Lantus Insulin SQ SCH (09:41)
[2022-04-25] MEDS: Klor Con PO SCH (09:41)
[2022-04-25] MEDS: ELIQUIS 2.5 MG TABLET PO SCH ×2 (09:41→21:07)
[2022-04-25] MEDS: Proscar 5 MG PO SCH (09:42)
[2022-04-25] MEDS: MAXIPIME 1 GM** 1 G in Sodium Chloride 100ML MINI-BAG PLUS 100 ML IV SCH ×2 (09:43→21:11)
[2022-04-25] MEDS: VITAMIN D PO SCH (11:39)
[2022-04-25] MEDS ORDERED: Lasix 20 MG/2 ML IV ONE (12:00)
[2022-04-25] MEDS: HUMALOG SQ PRN ×2 (17:10→21:08)
--- NOTE | 2022-04-25 20:15 | XRAY ---
Indication: Cough. Comparison: April 16, 2022 Portable chest again demonstrates cardiomegaly with worsening diffuse bilateral pulmonary edema. No consolidation/large effusion. Rule out cardiac decompensation/CHF. Superimposed pneumonia not completely excluded. Comment: Preliminary interpretation made by [facility]. No critical discrepancy.
[2022-04-25] MEDS: ZOCOR 20MG PO SCH (21:07)
[2022-04-25] MEDS: Lopressor 50 MG PO SCH (21:07)
[2022-04-25] MEDS: Flomax 0.4 MG PO SCH (21:07)
--- NOTE | 2022-04-25 22:49 | PCM.HP ---
History of Present Illness - Chief Complaint Chief Complaint: Pyelonephritis, fever, urinary retention Date: 04/17/22 History of Present Illness: is a 81 year old male. Presented to Er with generalized weakness and fever, pt. found to have Pyelonephritis - Review of Systems Constitutional: Fever, Weakness, No Chills Eyes: No Symptoms Ears, Nose, & Throat: No Symptoms Respiratory: No Cough, No Short Of Breath Cardiac: No Chest Pain, No Edema, No Syncope Abdominal/Gastrointestinal: No Abdominal Pain, No Nausea, No Vomiting, No Diarrhea Genitourinary Symptoms: Dysuria, Frequency Musculoskeletal: No Back Pain, No Neck Pain Skin: No Rash Neurological: No Dizziness, No Focal Weakness, No Sensory Changes Psychological: No Symptoms Endocrine: No Symptoms Hematologic/Lymphatic: No Symptoms Immunological/Allergic: No Symptoms Medications & Allergies Home Medications: Home Medication List Amiodarone HCl 200 mg [Cordarone 200 MG] 200 mg PO UD 02/27/14 [History Confirmed 04/20/22] Multivitamin [Multivitamins] 1 tab PO DAILY 11/09/14 [History Confirmed 04/20/22] Finasteride 5 mg [Proscar 5 MG] 5 mg PO DAILY 11/05/20 [History Confirmed 04/20/22] Gabapentin [Neurontin ] 300 mg PO BID 11/05/20 [History Confirmed 04/20/22] Nitroglycerin 0.4 mg Tablet [Nitrostat 0.4 MG Tablet] 1 tab SL UD 11/05/20 [History Confirmed 04/20/22] Potassium Chloride 10 meq PO DAILY #30 tab 01/30/21 [Rx Confirmed 04/20/22] Albuterol Sulfate [Albuterol Sulfate Hfa] 2 inh IH Q6HPRN PRN 05/22/21 [History Confirmed 04/20/22] Ascorbic Acid 500 mg [Vitamin C 500 MG] 500 mg PO UD 05/22/21 [History Confirmed 04/20/22] Atorvastatin Calcium [Lipitor] 40 mg PO HS 05/22/21 [History Confirmed 04/20/22] Insulin Glargine,Hum.rec.anlog [Bethanie Anthony U-100] 45 unit SQ DAILY 05/22/21 [History Confirmed 04/20/22] Lidocaine 1 each TP DAILY PRN PRN 05/22/21 [History Confirmed 04/20/22] Acetaminophen 500 mg [Tylenol Extra Strength 500 mg] 500 mg PO Q4H PRN PRN 03/01/22 [History Confirmed 04/20/22] Aspirin EC 81 mg [Ecotrin 81 mg] 81 mg PO DAILY 03/01/22 [History Confirmed 04/20/22] Calcium Carbonate [Calcium] 600 mg PO BID 03/01/22 [History Confirmed 04/20/22] Cholecalciferol (Vitamin D3) [Vitamin D] 4,000 unit PO UD 03/01/22 [History Confirmed 04/20/22] Insulin Lispro [Insulin Lispro Kwikpen U-100] 1 unit SQ UD 03/01/22 [History Confirmed 04/20/22] Isosorbide Mononitrate [Isosorbide Mononitrate ER] 30 mg PO DAILY 03/01/22 [History Confirmed 04/20/22] Tamsulosin HCl 0.4 mg [Flomax 0.4 MG] 0.4 mg PO HS 03/01/22 [History Confirmed 04/20/22] Apixaban [Eliquis 2.5 mg Tablet] 2.5 mg PO BID #60 tablet 03/06/22 [Rx Confirmed 04/20/22] Allopurinol 100 mg [Zyloprim 100 mg] 100 mg PO DAILY 03/19/22 [History Confirmed 04/20/22] Amlodipine Besylate 10 mg PO DAILY 03/19/22 [History Confirmed 04/20/22] Furosemide 40 mg [Lasix 40 MG] 40 mg PO DAILY 03/19/22 [History Confirmed 04/20/22] Empagliflozin [Jardiance] 10 mg PO DAILY tablet 03/27/22 [Rx Confirmed 04/20/22] Metoprolol Tartrate 50 mg [Lopressor 50 MG] 50 mg PO QHS 04/16/22 [History Confirmed 04/20/22] Allergies/Adverse Reactions: Allergies Allergy/AdvReac Type Severity Reaction Status Date / Time No Known Drug Allergies Allergy Verified 04/15/22 23:59 - Past Medical History Past Medical History: Yes Neurological History: Stroke ENT History: No Pertinent History Cardiac History: Arrhythmia, Coronary Artery Disease, High Cholesterol, Hypertension, Myocardial Infarction ([place]), Peripheral Vascular Disease Respiratory History: CHF Endocrine Medical History: Diabetes Type II Musculoskelatal History: No Pertinent History GI Medical History: Colorectal Cancer, GERD, Hernia History: No Pertinent History Pyscho-Social History: Depression Male Reproductive Disorders: Prostate Problems Comment: HX OF AFIB. COLON CANCER-REMISSION AT THIS TIME. anemia. *Pt poor historian at this time. Information obtained from previous medical record. - Past Surgical History Past Surgical History: Yes Neuro Surgical History: No Pertinent History Cardiac History: Cardiac Catheterization, Cardiac Stent Respiratory Surgery: No Pertinent History GI Surgical History: Bowel Surgery, Colon Resection, Hernia Repair Genitourinary Surgical Hx: No Pertinent History Musculskeletal Surgical Hx: No Pertinent History Male Surgical History: Prostate Surgery Other Surgical History: PART OF COLON REMOVED. COLOSTOMY. femoral stents in legs. *Pt poor historian at this time. Information obtained from previous medical record. - Social History Smoking Status: Unknown if ever smoked Exposure to second hand smoke: No Alcohol: None Drug Use: none Significant Family History: no pertinent family hx - Physical Exam Vital Signs: Vital Signs - 24 hr Temp Pulse Resp BP Pulse Ox 04/25/22 19:43 98.9 F 77 20 144/64 94 L 04/25/22 17:05 71 18 91 L 04/25/22 08:23 62 18 94 L 04/25/22 07:28 97.5 F 57 L 18 112/54 93 L General Appearance: no apparent distress, alert Neurologic Exam: alert, oriented x 3, cooperative, normal mood/affect, nml cerebellar function, nml station & gait, sensation nml, No motor deficits Eye Exam: PERRL/EOMI, eyes nml inspection Ears, Nose, Throat Exam: normal ENT inspection, TMs normal, pharynx normal, moist mucous membranes Neck Exam: normal inspection, non-tender, supple, full range of motion Respiratory Exam: normal breath sounds, lungs clear, No respiratory distress Cardiovascular Exam: regular rate/rhythm, normal heart sounds, normal peripheral pulses Gastrointestinal/Abdomen Exam: soft, normal bowel sounds, No tenderness, No mass Back Exam: normal inspection, normal range of motion, No CVA tenderness, No vertebral tenderness Extremity Exam: normal inspection, normal range of motion, pelvis stable Skin Exam: normal color, warm, dry, No rash Lymphatic Exam: No adenopathy Results - Labs Lab/Micro Results: Lab Results-Last 24 Hours 04/25/22 04/25/22 04/25/22 Range/Units 06:31 11:57 16:21 POC Glucometer 148 H 130 H 213 H (74 to 106) mg/dL 04/25/22 Range/Units 20:51 POC Glucometer 246 H (74 to 106) mg/dL Accuchecks Date 04/25/22 Date 04/25/22 Date 04/25/22 Time 16:45 Time 12:34 Time 07:27 - Radiology Impressions Radiology Exams & Impressions: Radiology Procedures Category Date Time Status CHEST 1 VIEW (PORTABLE) Routine Exams 04/25/22 08:53 Completed Assessment/Plan (1) Pyelonephritis Current Visit: Yes Status: Acute Assessment & Plan: admit for iv antibiotics Code(s): N12 - TUBULO-INTERSTITIAL NEPHRITIS, NOT SPCF ACUTE OR CHRONIC (2) Generalized weakness Current Visit: No Status: Acute Code(s): R53.1 - WEAKNESS (3) Muscular deconditioning Current Visit: No Status: Acute Code(s): R29.898 - OTH SYMPTOMS AND SIGNS INVOLVING THE MUSCULOSKELETAL SYSTEM (4) Urinary retention Current Visit: No Status: Acute Code(s): R33.9 - RETENTION OF URINE, UNSPECIFIED (5) Recurrent UTI Current Visit: No Status: Chronic Code(s): N39.0 - URINARY TRACT INFECTION, SITE NOT SPECIFIED
[2022-04-26] MEDS: THERAGRAN MULTIVITAMIN PO SCH (09:28)
[2022-04-26] MEDS: NORVASC 5 MG PO SCH (09:28)
[2022-04-26] MEDS: Calcium 500MG W/Vit D Tablet PO SCH ×2 (09:28→21:33)
[2022-04-26] MEDS: ZYLOPRIM 100 MG PO SCH (09:28)
[2022-04-26] MEDS: Imdur 30 MG PO SCH (09:28)
[2022-04-26] MEDS: ELIQUIS 2.5 MG TABLET PO SCH ×2 (09:29→21:33)
[2022-04-26] MEDS: Lasix 40 MG PO SCH (09:29)
[2022-04-26] MEDS: NEURONTIN PO SCH ×2 (09:29→21:33)
[2022-04-26] MEDS: MAXIPIME 1 GM** 1 G in Sodium Chloride 100ML MINI-BAG PLUS 100 ML IV SCH ×2 (09:29→21:32)
[2022-04-26] MEDS: Klor Con PO SCH (09:29)
[2022-04-26] MEDS: ECOTRIN 81 MG PO SCH (09:29)
[2022-04-26] MEDS: Lantus Insulin SQ SCH (09:30)
[2022-04-26] MEDS: Proscar 5 MG PO SCH (09:31)
[2022-04-26] MEDS: Vitamin C 500 MG PO SCH (12:00)
[2022-04-26] MEDS: Cordarone 200 MG PO SCH (12:00)
[2022-04-26] MEDS: HUMALOG SQ PRN ×3 (12:00→21:50)
[2022-04-26] MEDS: Robitussin-Dm Syrup PO PRN (16:41)
[2022-04-26] MEDS: Lopressor 50 MG PO SCH (21:33)
[2022-04-26] MEDS: Flomax 0.4 MG PO SCH (21:33)
[2022-04-26] MEDS: ZOCOR 20MG PO SCH (21:33)
[2022-04-27] MEDS: Calcium 500MG W/Vit D Tablet PO SCH ×2 (09:01→21:22)
[2022-04-27] MEDS: ZYLOPRIM 100 MG PO SCH (09:01)
[2022-04-27] MEDS: ELIQUIS 2.5 MG TABLET PO SCH ×2 (09:01→21:22)
[2022-04-27] MEDS: NORVASC 5 MG PO SCH (09:01)
[2022-04-27] MEDS: THERAGRAN MULTIVITAMIN PO SCH (09:01)
[2022-04-27] MEDS: Imdur 30 MG PO SCH (09:01)
[2022-04-27] MEDS: ECOTRIN 81 MG PO SCH (09:01)
[2022-04-27] MEDS: Klor Con PO SCH (09:01)
[2022-04-27] MEDS: Lasix 40 MG PO SCH (09:02)
[2022-04-27] MEDS: Lantus Insulin SQ SCH (09:02)
[2022-04-27] MEDS: Proscar 5 MG PO SCH (09:02)
[2022-04-27] MEDS: NEURONTIN PO SCH ×2 (09:02→21:22)
[2022-04-27] MEDS: MAXIPIME 1 GM** 1 G in Sodium Chloride 100ML MINI-BAG PLUS 100 ML IV SCH ×2 (09:18→21:22)
[2022-04-27] MEDS: HUMALOG SQ PRN ×2 (11:38→21:32)
[2022-04-27] MEDS: ZOCOR 20MG PO SCH (21:22)
[2022-04-27] MEDS: Flomax 0.4 MG PO SCH (21:22)
[2022-04-27] MEDS: Lopressor 50 MG PO SCH (21:22)
[2022-04-27] MEDS: TYLENOL EXTRA STRENGTH 500 MG PO PRN (21:32)
[2022-04-28 06:54] VITALS: BP 130/62
[2022-04-28 07:27] VITALS: PULSE 54; O2SAT 98
[2022-04-28] MEDS: MAXIPIME 1 GM** 1 G in Sodium Chloride 100ML MINI-BAG PLUS 100 ML IV SCH (10:15)
[2022-04-28] MEDS: Lantus Insulin SQ SCH (10:16)
[2022-04-28] MEDS: Imdur 30 MG PO SCH (10:16)
[2022-04-28] MEDS: NORVASC 5 MG PO SCH (10:17)
[2022-04-28] MEDS: THERAGRAN MULTIVITAMIN PO SCH (10:17)
[2022-04-28] MEDS: ELIQUIS 2.5 MG TABLET PO SCH (10:17)
[2022-04-28] MEDS: ECOTRIN 81 MG PO SCH (10:17)
[2022-04-28] MEDS: NEURONTIN PO SCH (10:17)
[2022-04-28] MEDS: Klor Con PO SCH (10:17)
[2022-04-28] MEDS: ZYLOPRIM 100 MG PO SCH (10:17)
[2022-04-28] MEDS: Calcium 500MG W/Vit D Tablet PO SCH (10:17)
[2022-04-28] MEDS: Proscar 5 MG PO SCH (10:20)
[2022-04-28] MEDS: Vitamin C 500 MG PO SCH (10:24)
[2022-04-28] MEDS: Cordarone 200 MG PO SCH (10:24)
[2022-04-28] MEDS: VITAMIN D PO SCH (10:24)
[2022-04-28] MEDS: Lasix 40 MG PO SCH (10:26)
== END 2022-04-28 11:26 | disposition home or self-care (01) | DRG 690 ==
LOC: MED SURG 11:30
PROVIDERS: ADMIT Family Medicine; ATTEND Family Medicine
DX: N12 Tubulo-interstitial nephritis, not specified as acute or chronic (principal); R53.1 Weakness; R29.898 Other symptoms and signs involving the musculoskeletal system; R33.9 Retention of urine, unspecified; N39.0 Urinary tract infection, site not specified; I11.0 Hypertensive heart disease with heart failure; I50.9 Heart failure, unspecified; I25.10 Atherosclerotic heart disease of native coronary artery without angina pectoris; I48.91 Unspecified atrial fibrillation; E11.9 Type 2 diabetes mellitus without complications; Z79.899 Other long term (current) drug therapy; Z20.828 Contact with and (suspected) exposure to other viral communicable diseases; Z85.038 Personal history of other malignant neoplasm of large intestine
CPT/HCPCS: 36410; 71045; 76942; 82947; 94760; 99100; J0692; J1817; J1940; 97110-GP; A9270-GY

== ENCOUNTER 2022-05-05 01:40 | Emergency (ER) | payer MEDICARE, OTHER ==
--- NOTE | 2022-05-05 02:38 | ERPHSYRPT ---
- History of Present Illness Time Seen by Provider: 05/05/22 02:31 Source: patient, EMS, other (Friend) Exam Limitations: no limitations Patient Subjective Stated Complaint: Pt reports "I am having trouble peeing, my friend had to cath me last night and today. I was in here a couple of weeks ago and had a urine infection then too." Triage Nursing Assessment: Pt alert and oriented x3. No apparent respiratory distress. Skin w/p/d. Pt hard of hearing. Physician History: Hx confirmed by independent source interviews with Pt , , and EMS. Pt is 81 yr old male SP Tx pseudomonas urinary infection requiring catheter a bout 10 days and in hosp IV Tx and is about a week out of hospital but developed urinary retention a few days ago and has been having to in and out cath him - so they returned to the hospital here by EMS to get checked. He has complicating Comorbidity conditions including chronic CHF and DM which are reported to be controlled on meds and no symptoms referable to these at this visit. CHest is clear Ht reg without M. Abd soft nontender without peritoneal signs masses or distension. Timing/Duration: day(s) Activites at Onset: none Quality: fullness Onset Location: suprapubic Pain Radiation: none Severity of Pain-Max: moderate Severity of Pain-Current: moderate Associated Symptoms: urinary frequency Prior abdominal problems: similar symptoms Sexual intercourse history: non-contributory Allergies/Adverse Reactions: No Known Drug Allergies Allergy (Verified 05/05/22 01:42) Home Medications: Amiodarone HCl 200 mg [Cordarone 200 MG] 200 mg PO UD 02/27/14 [History] Multivitamin [Multivitamins] 1 tab PO DAILY 11/09/14 [History] Finasteride 5 mg [Proscar 5 MG] 5 mg PO DAILY 11/05/20 [History] Gabapentin [Neurontin ] 300 mg PO BID 11/05/20 [History] Nitroglycerin 0.4 mg Tablet [Nitrostat 0.4 MG Tablet] 1 tab SL UD 11/05/20 [History] Albuterol Sulfate [Albuterol Sulfate Hfa] 2 inh IH Q6HPRN PRN 05/22/21 [History] Ascorbic Acid 500 mg [Vitamin C 500 MG] 500 mg PO UD 05/22/21 [History] Atorvastatin Calcium [Lipitor] 40 mg PO HS 05/22/21 [History] Insulin Glargine,Hum.rec.anlog [Basaglar Kwikpen U-100] 45 unit SQ DAILY 05/22/21 [History] Lidocaine 1 each TP DAILY PRN PRN 05/22/21 [History] Acetaminophen 500 mg [Tylenol Extra Strength 500 mg] 500 mg PO Q4H PRN PRN 03/01/22 [History] Aspirin EC 81 mg [Ecotrin 81 mg] 81 mg PO DAILY 03/01/22 [History] Calcium Carbonate [Calcium] 600 mg PO BID 03/01/22 [History] Cholecalciferol (Vitamin D3) [Vitamin D] 4,000 unit PO UD 03/01/22 [History] Insulin Lispro [Insulin Lispro Kwikpen U-100] 1 unit SQ UD 03/01/22 [History] Isosorbide Mononitrate [Isosorbide Mononitrate ER] 30 mg PO DAILY 03/01/22 [History] Tamsulosin HCl 0.4 mg [Flomax 0.4 MG] 0.4 mg PO HS 03/01/22 [History] Allopurinol 100 mg [Zyloprim 100 mg] 100 mg PO DAILY 03/19/22 [History] Amlodipine Besylate 10 mg PO DAILY 03/19/22 [History] Furosemide 40 mg [Lasix 40 MG] 40 mg PO DAILY 03/19/22 [History] Metoprolol Tartrate 50 mg [Lopressor 50 MG] 50 mg PO QHS 04/16/22 [History] Hx Tetanus, Diphtheria Vaccination/Date Given: Yes Hx Influenza Vaccination/Date Given: Yes Hx Pneumococcal Vaccination/Date Given: Yes Travel Risk - International Travel Have you traveled outside of the country in past 3 weeks: No - Coronavirus Screening Are you exhibiting any of the following symptoms?: No - Vaccine Status Have you recieved a Covid-19 vaccination: Yes Probate Clerk: Moderna - Vaccination Dates Date of 2cond Vaccination (if applicable): UNKNOWN Dates if Unknown: UNKNOWN 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 COLON CANCER-REMISSION AT THIS TIME. anemia. *Pt poor historian at this time. Information obtained from previous medical record. - Past Surgical History Past Surgical History: Yes Neuro Surgical History: No Pertinent History Cardiac: Cardiac Catheterization, Cardiac Stent Respiratory: No Pertinent History Gastrointestinal: Bowel Surgery, Colon Resection, Hernia Repair Genitourinary: No Pertinent History Musculoskeletal: No Pertinent History Male Surgical History: Prostate Surgery Other Surgical History: PART OF COLON REMOVED. COLOSTOMY. femoral stents in legs. *Pt poor historian at this time. Information obtained from previous medical record. - Social History Smoking Status: Former smoker Exposure to second hand smoke: No Alcohol Use: None Drug Use: none Patient Lives Alone: No Significant Family History: no pertinent family hx - Review of Systems Constitutional: No Fever, No Chills Eyes: No Symptoms Ears, Nose, & Throat: No Symptoms Respiratory: Cough (chronic by hx), No Dyspnea Cardiac: No Chest Pain, No Edema, No Syncope Abdominal/Gastrointestinal: No Abdominal Pain, No Nausea, No Vomiting, No Diarrhea Genitourinary Symptoms: Other (retention), No Dysuria Musculoskeletal: No Back Pain, No Neck Pain Skin: No Rash Neurological: No Dizziness, No Focal Weakness, No Sensory Changes Psychological: No Symptoms Endocrine: No Symptoms Hematologic/Lymphatic: No Symptoms Immunological/Allergic: No Symptoms All Other Systems: Reviewed and Negative - Nursing Vital Signs Nursing Vital Signs: Initial Vital Signs Temperature 97.9 F 05/05/22 01:42 Pulse Rate 68 05/05/22 01:42 Respiratory Rate 20 05/05/22 01:42 Blood Pressure 124/43 05/05/22 01:42 O2 Sat by Pulse Oximetry 92 L 05/05/22 01:42 Pain Scale Pain Intensity 0 - Physical Exam General Appearance: no apparent distress, alert Eye Exam: PERRL/EOMI Ears, Nose, Throat Exam: pharynx normal, moist mucous membranes Neck Exam: normal inspection, supple Respiratory Exam: normal breath sounds, lungs clear Cardiovascular Exam: regular rate/rhythm, No edema Gastrointestinal/Abdomen Exam: soft, No tenderness Rectal Exam: deferred Back Exam: normal inspection, No CVA tenderness Extremity Exam: normal inspection, normal range of motion, No pedal edema Neurologic Exam: alert, oriented x 3, cooperative, sensation nml, No motor deficits Skin Exam: normal color, warm, dry, No rash SpO2 Interpretation: borderline oxygenation (chronic condition requiring home O2) SpO2: 94 O2 Delivery: Nasal Cannula - Course Nursing assessment & vital signs reviewed: Yes EKG Interpreted by Me: NORMAL AXIS, prolonged QT interval, Non-specific ST Changes, Other (junctional rythym and porr r wave progression) - Radiology Exams Chest X-ray Interpretation: Reviewed by me, Infiltrates (patchy) Ordered Tests: Active Orders 24 hr Category Date Time Status EKG-ER Only STAT Care 05/05/22 04:58 Active Gamboa [Catheter-Ipava Gamboa] STAT Care 05/05/22 04:09 Active IV Insertion STAT Care 05/05/22 04:35 Active CHEST 1 VIEW (PORTABLE) Stat Exams 05/05/22 04:16 Taken BNPII [NT PRO BNPII] Stat Lab 05/05/22 Completed CBC W DIFF Stat Lab 05/05/22 02:40 Completed CMP Stat Lab 05/05/22 02:40 Completed CULTURE,URINE Stat Lab 05/05/22 04:02 Received TROPONIN Q4H Lab 05/05/22 Completed TROPONIN Q4H Lab 05/05/22 09:00 Ordered TROPONIN Q4H Lab 05/05/22 13:00 Ordered UA W/RFX UR CULTURE Stat Lab 05/05/22 04:02 Completed Medication Summary Generic Name Dose Route Start Last Admin Trade Name Freq PRN Reason Stop Dose Admin Sodium Chloride 1,000 mls @ 50 mls/hr 05/05/22 04:45 05/05/22 05:32 Sodium Chloride 0.9% 1000 Ml IV 06/04/22 04:44 50 mls/hr .Q20H EDEL Administration Ceftazidime 1 gm/ Dextrose 100 mls @ 200 mls/hr 05/05/22 06:00 05/05/22 05:32 IV 06/04/22 05:59 200 mls/hr Q8HT EDEL Administration Ampicillin Sodium/Sulbactam 100 mls @ 200 mls/hr 05/05/22 06:36 Sodium 1.5 g/ Sodium Chloride IV 05/05/22 07:05 STAT ONE Discontinued Medications Generic Name Dose Route Start Last Admin Trade Name Devon PRN Reason Stop Dose Admin Cefepime HCl 1 g/ Sodium 100 mls @ 200 mls/hr 05/05/22 04:33 05/05/22 05:44 Chloride IV 05/05/22 05:02 Not Given STAT STA Lab/Rad Data: Laboratory Result Diagrams 05/05/22 02:40 05/05/22 02:40 Laboratory Results 05/05/22 05/05/22 05/05/22 Range/Units Unknown Unknown 05:00 WBC (4.0-10.5) x10^3/uL RBC (4.1-5.6) x10^6/uL Hgb (12.5-18.0) g/dL Hct (42-50) % MCV (78-100) fL MCH (26-32) pg MCHC (32-36) g/dL RDW (11.5-14.0) % Plt Count (150-450) x10^3/uL MPV (7.5-11.0) fL Gran % (36.0-66.0) % Immature Gran % (Auto) (0.00-0.4) % Nucleat RBC Rel Count (0.00-0.1) % Eos # (Auto) (0-0.5) x10^3/uL Immature Gran # (Auto) (0.00-0.03) x10^3u/L Absolute Lymphs (auto) (1.0-4.6) x10^3/uL Absolute Monos (auto) (0.0-1.3) x10^3/uL Absolute Nucleated RBC (0.00-0.01) x10^3u/L Lymphocytes % (24.0-44.0) % Monocytes % (0.0-12.0) % Eosinophils % (0.00-5.0) % Basophils % (0.0-0.4) % Absolute Granulocytes (1.4-6.9) x10^3/uL Basophils # (0-0.4) x10^3/uL Sodium (137-145) mmol/L Potassium (3.5-5.1) mmol/L Chloride (98-107) mmol/L Carbon Dioxide (22-30) mmol/L Anion Gap (5-15) MEQ/L BUN (9-20) mg/dL Creatinine (0.66-1.25) mg/dL Estimated GFR ML/MIN Glucose (74-106) mg/dL Calcium (8.4-10.2) mg/dL Total Bilirubin (0.2-1.3) mg/dL AST (17-59) U/L ALT (0-50) U/L Alkaline Phosphatase (38-126) U/L Troponin I 0.024 (0.000-0.034) ng/mL NT-Pro-B Natriuret Pep 9560 (<300) pg/mL Serum Total Protein (6.3-8.2) g/dL Albumin (3.5-5.0) g/dL Urine Color (Yellow) Urine Appearance (Clear) Urine pH (4.6-8.0) Ur Specific Omer (1.005-1.030) Urine Protein (Negative) Urine Glucose (UA) (Negative) mg/dL Urine Ketones (Negative) Urine Blood (Negative) Urine Nitrite (Negative) Urine Bilirubin (Negative) Urine Urobilinogen (0.2) mg/dL Ur Leukocyte Esterase (Negative) U Hyaline Cast (Auto) (0-2) /LPF Urine Microscopic RBC (0-5) /HPF Urine Microscopic WBC (0-5) /HPF Ur Epithelial Cells (None Seen) /HPF Urine Bacteria (None Seen) /HPF Urine Culture Reflexed (NO) Influenza Type A Ag NEGATIVE (NEGATIVE) Influenza Type B Ag NEGATIVE (NEGATIVE) RSV (PCR) NEGATIVE (Negative) SARS-CoV-2 (PCR) NEGATIVE (NEGATIVE) 05/05/22 05/05/22 05/05/22 Range/Units 04:02 02:40 02:40 WBC 10.0 (4.0-10.5) x10^3/uL RBC 3.39 L (4.1-5.6) x10^6/uL Hgb 8.8 L (12.5-18.0) g/dL Hct 30.0 L (42-50) % MCV 88.5 (78-100) fL MCH 26.0 (26-32) pg MCHC 29.3 L (32-36) g/dL RDW 18.3 H (11.5-14.0) % Plt Count 339 (150-450) x10^3/uL MPV 8.7 (7.5-11.0) fL Gran % 74.9 H (36.0-66.0) % Immature Gran % (Auto) 1.1 H (0.00-0.4) % Nucleat RBC Rel Count 0.0 (0.00-0.1) % Eos # (Auto) 0.15 (0-0.5) x10^3/uL Immature Gran # (Auto) 0.11 H (0.00-0.03) x10^3u/L Absolute Lymphs (auto) 1.40 (1.0-4.6) x10^3/uL Absolute Monos (auto) 0.79 (0.0-1.3) x10^3/uL Absolute Nucleated RBC 0.00 (0.00-0.01) x10^3u/L Lymphocytes % 14.0 L (24.0-44.0) % Monocytes % 7.9 (0.0-12.0) % Eosinophils % 1.5 (0.00-5.0) % Basophils % 0.6 (0.0-0.4) % Absolute Granulocytes 7.49 H (1.4-6.9) x10^3/uL Basophils # 0.06 (0-0.4) x10^3/uL Sodium 137 (137-145) mmol/L Potassium 4.3 (3.5-5.1) mmol/L Chloride 97 L (98-107) mmol/L Carbon Dioxide 31 H (22-30) mmol/L Anion Gap 14.2 (5-15) MEQ/L BUN 39 H (9-20) mg/dL Creatinine 2.09 H (0.66-1.25) mg/dL Estimated GFR 32.5 ML/MIN Glucose 250 H (74-106) mg/dL Calcium 8.8 (8.4-10.2) mg/dL Total Bilirubin 0.60 (0.2-1.3) mg/dL AST 19 (17-59) U/L ALT 17 (0-50) U/L Alkaline Phosphatase 80 (38-126) U/L Troponin I (0.000-0.034) ng/mL NT-Pro-B Natriuret Pep (<300) pg/mL Serum Total Protein 7.3 (6.3-8.2) g/dL Albumin 3.8 (3.5-5.0) g/dL Urine Color Yellow (Yellow) Urine Appearance Cloudy A (Clear) Urine pH 6.0 (4.6-8.0) Ur Specific Omer 1.020 (1.005-1.030) Urine Protein 100 A (Negative) Urine Glucose (UA) >=1000 A (Negative) mg/dL Urine Ketones Negative (Negative) Urine Blood Moderate A (Negative) Urine Nitrite Positive A (Negative) Urine Bilirubin Negative (Negative) Urine Urobilinogen 0.2 (0.2) mg/dL Ur Leukocyte Esterase Large A (Negative) U Hyaline Cast (Auto) None Seen (0-2) /LPF Urine Microscopic RBC 3-5 (0-5) /HPF Urine Microscopic WBC >100 A (0-5) /HPF Ur Epithelial Cells Few (None Seen) /HPF Urine Bacteria Few A (None Seen) /HPF Urine Culture Reflexed YES (NO) Influenza Type A Ag (NEGATIVE) Influenza Type B Ag (NEGATIVE) RSV (PCR) (Negative) SARS-CoV-2 (PCR) (NEGATIVE) - Progress Progress: improved, re-examined Progress Note: 05/05/22 03:34 Results discussed with pt and friend, his hgb and Cr are low and high respectively from normal range but minimally changed from that measured during the recent hospitalization here. 05/05/22 04:11 The pt and friend discussed that he has had pneumonia frequently due to his co- morbidities and intermitently had cough and they are concerned of another p neumonia; since he is at risk we will check this. 05/05/22 04:17 Explained and discussed cath residual result >400 cc with pt and friend and that this indicates need to leave catheter in place, use leg bag , and see Urologist and they understand. 05/05/22 05:40 Trop elevated at 0.024 but was 0.03 previously and also BNP elevated at 9000 previously similar at 8900 ( has chronic CRD and CHF) 05/05/22 05:49 discussed in consultation with Dr. 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 pt and friend are advised. 05/05/22 06:01 05/05/22 06:32 Awaiting call back from [facility] for consultation Pt is being handed over to Dr. Pederson at change of shift after discussion of results and plan to transfer to for Tx pneumonia and recrrent UTI with Urinary obstruction awaiting bed. 05/05/22 06:[address] Jose, Other (Dr Hunter at [facility]) Will see patient in: hospital (full admit) Counseled pt/family regarding: lab results, diagnosis, need for follow-up, rad results Medical Desision Making - Independent Historian Additional History obtained from: Relative/friend - Discussion of managment Care discussed with:: hospitalist Reviewed:: Test results, Need for additional workup Agreed on:: Treatment plan, need for follow-up - Diagnostic Testing Diagnostic test were ordered, analyzed, and reviewed by me: Yes Radiological Interpretation: Reviewed by me - Risk of complications The pt has a high risk of morbidity or mortality based on: Decision regarding hospitilization or escalation of hosp level of care - Departure Departure Disposition: Transfer Clinical Impression: Recurrent UTI with retention, Pneumonia, CHF (congestive heart failure) Condition: Good Critical Care Time: No Referrals: HALINA HAHN MD [Primary Care Provider] - Follow up/PCP as directed Instructions: Heart Failure
[2022-05-05 02:45] LABS: Absolute Neutrophil Ct (ANC) 7.49 x10^3/uL (1.4-6.9); BASOPHIL % 0.6 % (0.0-0.4); Basophil (Absolute #) 0.06 x10^3/uL (0-0.4); Eosinophil % 1.5 % (0.00-5.0); Eosinophil (Absolute #) 0.15 x10^3/uL (0-0.5); Hemoglobin 8.8 g/dL (12.5-18.0); IMMATURE GRAN # 0.11 x10^3u/L (0.00-0.03); IMMATURE GRAN % 1.1 % (0.00-0.4); Mean Cell Volume 88.5 fL (78-100); Mean Corpuscular Hgb Concent. 29.3 g/dL (32-36); Mean Platelet Volume 8.7 fL (7.5-11.0); Monocyte (Absolute #) 0.79 x10^3/uL (0.0-1.3); Monocytes % 7.9 % (0.0-12.0); Neutrophil % 74.9 % (36.0-66.0); Platelet Count 339 x10^3/uL (150-450); Red Blood Count 3.39 x10^6/uL (4.1-5.6); Red Cell Distribution Width 18.3 % (11.5-14.0)
[2022-05-05 03:00] LABS: ALBUMIN 3.8 g/dL (3.5-5.0); ANION GAP 14.2 MEQ/L (5-15); BILIRUBIN,TOTAL 0.6 mg/dL (0.2-1.3); Calcium 8.8 mg/dL (8.4-10.2); Creatinine 1 2.09 mg/dL (0.66-1.25); EST GLOMERULAR FILTRATION RATE 32.5 ML/MIN; Potassium 4.3 mmol/L (3.5-5.1); Total Protein 7.3 g/dL (6.3-8.2)
[2022-05-05 04:16] LABS: Bilirubin Negative (Negative); Blood Moderate (Negative); Glucose, Urine >=1000 mg/dL (Negative); Ketones Negative (Negative); Leukocyte Esterase Large (Negative); Nitrite Positive (Negative); Protein,Urine Dip 100 (Negative); Urobilinogen 0.2 mg/dL (0.2); WBC >100 /HPF (0-5)
[2022-05-05 04:24] LABS: ADD URINE CULTURE? YES (NO); Appearance Cloudy (Clear); Bacteria Few /HPF (None Seen); Epithelial Cells Few /HPF (None Seen); Hyaline Casts None Seen /LPF (0-2)
[2022-05-05] MEDS ORDERED: MAXIPIME 1 GM** 1 G in Sodium Chloride 0.9% 100 ML IV STA (04:33)
[2022-05-05] MEDS ORDERED: Sodium Chloride 0.9% 1000 ML 1,000 ML IV SCH (04:45)
[2022-05-05] MEDS ORDERED: Sodium Chloride 0.9% 1000 ML 1,000 ML ONE (05:07)
[2022-05-05 05:32] LABS: INFLUENZA A NEGATIVE (NEGATIVE); INFLUENZA B NEGATIVE (NEGATIVE); RESPIRATORY SYNCTIAL VIRUS NEGATIVE (Negative); SARS-CoV-2 Xpert Express NEGATIVE (NEGATIVE)
[2022-05-05] MEDS ORDERED: Fortaz/Tazicef 1 GM in Dextrose 5%/Water IV Soln. 100ML PLUS BAG 100 ML IV SCH (06:00)
[2022-05-05 06:35] VITALS: O2SAT 94
[2022-05-05] MEDS ORDERED: Unasyn 1.5GM Vial*** 1.5 G in Sodium Chloride 0.9% 100 ML IV ONE (06:36)
--- NOTE | 2022-05-05 08:47 | XRAY ---
Indication: Cough. Pneumonia. Comparison: April 25, 2022 Portable chest unchanged again demonstrating diffuse bilateral pulmonary edema, borderline cardiomegaly, and tiny bibasilar effusions again favoring cardiac decompensation/CHF. Again superimposed pneumonia not completely excluded.
[2022-05-05 09:14] VITALS: BP 140/56; PULSE 66
== END 2022-05-05 10:10 | disposition short-term general hospital (02) ==
LOC: ED 01:40
DX: N39.0 Urinary tract infection, site not specified (principal); R33.9 Retention of urine, unspecified; J18.9 Pneumonia, unspecified organism; I50.9 Heart failure, unspecified; E11.9 Type 2 diabetes mellitus without complications; E78.5 Hyperlipidemia, unspecified; I11.0 Hypertensive heart disease with heart failure; Z79.4 Long term (current) use of insulin; Z79.899 Other long term (current) drug therapy; Z20.828 Contact with and (suspected) exposure to other viral communicable diseases
CPT/HCPCS: 0241U; 36000; 36415; 51702; 71045; 80053; 81001; 82947; 83880; 84484; 85025; 87077; 87086; 87186; 93005; 99285; J0295; J0713

== ENCOUNTER 2022-05-15 15:14 | Emergency (ER) | payer MEDICARE, OTHER ==
--- NOTE | 2022-05-15 15:31 | ERPHSYRPT ---
- History of Present Illness Time Seen by Provider: 05/15/22 15:31 Source: patient, EMS Exam Limitations: clinical condition Physician History: Patient BIBA w/ severe dyspnea and increased O2 requirement. He was given SoluMedrol, DuoNebs and O2 in route to ER w/ some response He remains mid 80s to low 90s on 8L Reports UMANA, orthopnea, PND, swelling, wheezing and cough Denies CP, palpitations Patient difficult to obtain hx due to clinical condition. Timing/Duration: today Activities at Onset: rest Severity of Dyspnea-Max: severe Severity of Dyspnea-Current: severe Possible Cause: frequent episodes Modifying Factors: Improves With: albuterol nebulizer, oxygen, rest. Worsens With: activity, coughing, deep breath, exertion, lying down Associated Symptoms: constant, cough, edema, wheezing, weakness, ankle swelling, dizziness, heaviness, leg swelling, No chest pain/discomfort, No fever, No lightheadedness, No chills, No hemoptysis, No calf pain Allergies/Adverse Reactions: No Known Drug Allergies Allergy (Verified 05/15/22 15:55) Home Medications: Amiodarone HCl 200 mg [Cordarone 200 MG] 200 mg PO UD 02/27/14 [History] Multivitamin [Multivitamins] 1 tab PO DAILY 11/09/14 [History] Finasteride 5 mg [Proscar 5 MG] 5 mg PO DAILY 11/05/20 [History] Gabapentin [Neurontin ] 300 mg PO BID 11/05/20 [History] Nitroglycerin 0.4 mg Tablet [Nitrostat 0.4 MG Tablet] 1 tab SL UD 11/05/20 [History] Albuterol Sulfate [Albuterol Sulfate Hfa] 2 inh IH Q6HPRN PRN 05/22/21 [History] Ascorbic Acid 500 mg [Vitamin C 500 MG] 500 mg PO UD 05/22/21 [History] Atorvastatin Calcium [Lipitor] 40 mg PO HS 05/22/21 [History] Insulin Glargine,Hum.rec.anlog [Basaglar Kwikpen U-100] 40 unit SQ DAILY 05/22/21 [History] Lidocaine 1 each TP DAILY PRN PRN 05/22/21 [History] Acetaminophen 500 mg [Tylenol Extra Strength 500 mg] 325 mg PO Q4H PRN PRN 03/01/22 [History] Aspirin EC 81 mg [Ecotrin 81 mg] 81 mg PO DAILY 03/01/22 [History] Calcium Carbonate [Calcium] 500 mg PO BID 03/01/22 [History] Cholecalciferol (Vitamin D3) [Vitamin D] 4,000 unit PO UD 03/01/22 [History] Insulin Lispro [Insulin Lispro Kwikpen U-100] 1 unit SQ UD 03/01/22 [History] Isosorbide Mononitrate [Isosorbide Mononitrate ER] 30 mg PO DAILY 03/01/22 [History] Tamsulosin HCl 0.4 mg [Flomax 0.4 MG] 0.4 mg PO HS 03/01/22 [History] Allopurinol 100 mg [Zyloprim 100 mg] 100 mg PO DAILY 03/19/22 [History] Amlodipine Besylate 10 mg PO DAILY 03/19/22 [History] Furosemide 40 mg [Lasix 40 MG] 40 mg PO DAILY 03/19/22 [History] Metoprolol Tartrate 50 mg [Lopressor 50 MG] 50 mg PO QHS 04/16/22 [History] ALPRAZolam 0.25 MG [xanAX 0.25 MG] 0.25 mg PO UD 05/15/22 [History] Cefepime HCl in Dextrose 5 % [Cefepime-Dextrose 1 gm/50 ml] 1 gm IV UD 05/15/22 [History] Hx Tetanus, Diphtheria Vaccination/Date Given: Yes Hx Influenza Vaccination/Date Given: Yes Hx Pneumococcal Vaccination/Date Given: Yes Travel Risk - Vaccine Status Have you recieved a Covid-19 vaccination: Yes [employer]: Moderna - Vaccination Dates Date of 2cond Vaccination (if applicable): UNKNOWN Dates if Unknown: UNKNOWN 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 Systems Constitutional: Fatigue, Weakness, No Fever, No Chills Eyes: No Symptoms Ears, Nose, & Throat: Nose Congestion Respiratory: Cough, Dyspnea, Dyspnea on Exertion (UMANA), Wheezing Cardiac: Edema, Orthopnea, PND, No Chest Pain, No Palpitations Abdominal/Gastrointestinal: No Symptoms Genitourinary Symptoms: No Symptoms Musculoskeletal: No Symptoms Skin: No Symptoms Neurological: Dizziness, No Focal Weakness Psychological: No Symptoms All Other Systems: Reviewed and Negative - Past Medical History Pertinent Past Medical History: Yes Neurological History: Stroke ENT History: No Pertinent History Cardiac History: Arrhythmia, Coronary Artery Disease, High Cholesterol, Hypertension, Myocardial Infarction (ND), Peripheral Vascular Disease Respiratory History: CHF Endocrine Medical History: Diabetes Type II Musculoskeletal History: No Pertinent History GI Medical History: Colorectal Cancer, GERD, Hernia History: No Pertinent History Psycho-Social History: Depression Male Reproductive Disorders: Prostate Problems Other Medical History: HX OF AFIB. COLON CANCER-REMISSION AT THIS TIME. anemia. *Pt poor historian at this time. Information obtained from previous medical record. - Past Surgical History Past Surgical History: Yes Neuro Surgical History: No Pertinent History Cardiac: Cardiac Catheterization, Cardiac Stent Respiratory: No Pertinent History Gastrointestinal: Bowel Surgery, Colon Resection, Hernia Repair Genitourinary: No Pertinent History Musculoskeletal: No Pertinent History Male Surgical History: Prostate Surgery Other Surgical History: PART OF COLON REMOVED. COLOSTOMY. femoral stents in legs. *Pt poor historian at this time. Information obtained from previous medical record. - Social History Smoking Status: Former smoker Exposure to second hand smoke: No Alcohol Use: None Drug Use: none Patient Lives Alone: No Significant Family History: no pertinent family hx - Nursing Vital Signs Nursing Vital Signs: Initial Vital Signs Pulse Rate 63 05/15/22 15:19 Blood Pressure 100/77 05/15/22 15:19 O2 Sat by Pulse Oximetry 77 L 05/15/22 15:19 Pain Scale Pain Intensity 0 - Physical Exam General Appearance: moderate distress Eye Exam: PERRL/EOMI, eyes nml inspection Ears, Nose, Throat Exam: hearing grossly normal, normal ENT inspection Neck Exam: normal inspection, non-tender, supple, full range of motion Respiratory Exam: respiratory distress, airway intact, crackles/rales, wheezing Cardiovascular/Chest Exam: edema, tachycardia Abdominal/Gastrointestinal Exam: soft, normal bowel sounds, No tenderness, No guarding, No rebound Extremity Exam: non-tender, normal range of motion, normal inspection, normal capillary refill, no calf tenderness, no pedal edema, No swelling, No grey's sign Neurologic Exam: oriented x 3, cooperative, other (decreased alertness) Skin Exam: pale, No rash SpO2 Interpretation: hypoxic, ABG ordered, O2 applied O2 Delivery: BiPap/CPAP - Course Nursing assessment & vital signs reviewed: Yes - CT Exams Chest CT Interpretation: Tele-radiologist Report, No PE, Other (cardiomegaly w/ diffuse pulmonary edema and b/l pleural effusions w/ compressive atelectasis, small RML spiculated nodule, prominent mediastinal LN) Ordered Tests: Medication Summary Discontinued Medications Generic Name Dose Route Start Last Admin Trade Name Freq PRN Reason Stop Dose Admin Albuterol/Ipratropium 3 ml 05/15/22 15:37 05/15/22 15:52 Ipratropium/Albuterol Sulfate 3 Ml Ampul.Neb IH 05/15/22 15:38 3 ml STAT ONE Administration Albuterol/Ipratropium Confirm 05/15/22 15:46 Ipratropium/Albuterol Sulfate 3 Ml Ampul.Neb Administered 05/15/22 15:47 Dose 3 ml IH .STK-MED ONE Apixaban 2.5 mg 05/15/22 22:00 05/15/22 19:55 Apixaban 2.5 Mg Tablet PO 06/14/22 21:59 2.5 mg BID EDEL Administration Apixaban Confirm 05/15/22 18:19 Apixaban 2.5 Mg Tablet Administered 05/15/22 18:20 Dose 2.5 mg .ROUTE .STK-MED ONE Doxycycline Hyclate Confirm 05/15/22 18:13 Doxycycline Hyclate 100 Mg/Vial Injection Administered 05/15/22 18:14 Dose 100 mg IV .STK-MED ONE Furosemide 40 mg 05/15/22 15:36 05/15/22 16:08 Furosemide 40 Mg/4 Ml Vial IV 05/15/22 15:37 40 mg STAT ONE Administration Furosemide Confirm 05/15/22 16:06 Furosemide 40 Mg/4 Ml Vial Administered 05/15/22 16:07 Dose 40 mg .ROUTE .STK-MED ONE Azithromycin 500 mg in 250 mls @ 250 mls/hr 05/16/22 10:00 Zithromax 500 Mg/ 250 Ml Nacl Premix IV 06/15/22 09:59 Q24H10 EDEL Ceftriaxone Sodium/Dextrose 2 g in 50 mls @ 100 mls/hr 05/15/22 17:35 05/15/22 18:30 Rocephin 2 Gm-D5w 50ml Bag IV 05/15/22 18:04 Infused STAT STA Infusion Doxycycline Hyclate 100 mg/ 100 mls @ 100 mls/hr 05/15/22 22:00 05/15/22 18:15 Dextrose IV 06/14/22 21:59 100 mls/hr Q12HT EDEL Administration Ceftriaxone Sodium/Dextrose Confirm 05/15/22 17:39 Rocephin 2 Gm-D5w 50ml Bag Administered 05/15/22 17:40 Dose 2 g in 50 mls @ ud IV .Genticel ONE Dextrose Confirm 05/15/22 18:15 D5w 100ml Mini Bag 100 Ml Administered 05/15/22 18:16 Dose 100 mls @ ud IV .Genticel ONE Lab/Rad Data: Laboratory Result Diagrams 05/15/22 15:45 05/15/22 15:45 Laboratory Results 05/15/22 05/15/22 05/15/22 Range/Units Unknown Unknown 17:50 WBC (4.0-10.5) x10^3/uL RBC (4.1-5.6) x10^6/uL Hgb (12.5-18.0) g/dL Hct (42-50) % MCV (78-100) fL MCH (26-32) pg MCHC (32-36) g/dL RDW (11.5-14.0) % Plt Count (150-450) x10^3/uL MPV (7.5-11.0) fL Gran % (36.0-66.0) % Immature Gran % (Auto) (0.00-0.4) % Nucleat RBC Rel Count (0.00-0.1) % Eos # (Auto) (0-0.5) x10^3/uL Immature Gran # (Auto) (0.00-0.03) x10^3u/L Absolute Lymphs (auto) (1.0-4.6) x10^3/uL Absolute Monos (auto) (0.0-1.3) x10^3/uL Absolute Nucleated RBC (0.00-0.01) x10^3u/L Lymphocytes % (24.0-44.0) % Monocytes % (0.0-12.0) % Eosinophils % (0.00-5.0) % Basophils % (0.0-0.4) % Absolute Granulocytes (1.4-6.9) x10^3/uL Basophils # (0-0.4) x10^3/uL Peripher Smr Path Cons PT (9.4-12.5) SECONDS INR (0.8-3.0) APTT (25.1-36.5) SECONDS D-Dimer (0.0-0.50) mg/L Puncture Site pCO2 (35-45) mmHg pO2 (75-100) mmHg Base Excess (-2.0-2.0) O2 Saturation (94-100) g/dF ABG pH (7.35-7.45) ABG HCO3 (22-28) ABG O2 Sat (Measured) (95-100) % Tone Test A-a Gradient a/A Ratio Hemoglobin Carboxyhemoglobin (0.0-6.9) % THgb Methemoglobin (1.4-1.5) % Temperature C POC O2 Flow Rate % Sodium (137-145) mmol/L Potassium (3.5-5.1) mmol/L Chloride (98-107) mmol/L Carbon Dioxide (22-30) mmol/L Anion Gap (5-15) MEQ/L BUN (9-20) mg/dL Creatinine (0.66-1.25) mg/dL Estimated GFR ML/MIN Glucose (74-106) mg/dL POC Glucometer (74 to 106) mg/dL Lactic Acid (0.4-2.0) Calcium (8.4-10.2) mg/dL Magnesium (1.6-2.3) mg/dL Iron 18 L (49-181) ug/dL TIBC 284 (261-497) ug/dL Iron Saturation 6 L (20-39) % Ferritin 112 (17.9-464) ng/mL Total Bilirubin (0.2-1.3) mg/dL AST (17-59) U/L ALT (0-50) U/L Alkaline Phosphatase (38-126) U/L Troponin I (0.000-0.034) ng/mL NT-Pro-B Natriuret Pep (<300) pg/mL Serum Total Protein (6.3-8.2) g/dL Albumin (3.5-5.0) g/dL Urine Color Yellow (Yellow) Urine Appearance Clear (Clear) Urine pH 5.0 (4.6-8.0) Ur Specific [place] 1.010 (1.005-1.030) Urine Protein Trace A (Negative) Urine Glucose (UA) Negative (Negative) mg/dL Urine Ketones Negative (Negative) Urine Blood Small A (Negative) Urine Nitrite Negative (Negative) Urine Bilirubin Negative (Negative) Urine Urobilinogen 0.2 (0.2) mg/dL Ur Leukocyte Esterase Small A (Negative) U Hyaline Cast (Auto) None Seen (0-2) /LPF Urine Microscopic RBC 0-2 (0-5) /HPF Urine Microscopic WBC 3-5 (0-5) /HPF Ur Epithelial Cells Rare (None Seen) /HPF Urine Bacteria Rare A (None Seen) /HPF Urine Yeast (Budding) Few A (None Seen) /HPF Urine Culture Reflexed YES (NO) Influenza Type A Ag (NEGATIVE) Influenza Type B Ag (NEGATIVE) RSV (PCR) (NEGATIVE) SARS-CoV-2 (PCR) (NEGATIVE) 05/15/22 05/15/22 05/15/22 Range/Units 17:28 16:55 15:58 WBC (4.0-10.5) x10^3/uL RBC (4.1-5.6) x10^6/uL Hgb (12.5-18.0) g/dL Hct (42-50) % MCV (78-100) fL MCH (26-32) pg MCHC (32-36) g/dL RDW (11.5-14.0) % Plt Count (150-450) x10^3/uL MPV (7.5-11.0) fL Gran % (36.0-66.0) % Immature Gran % (Auto) (0.00-0.4) % Nucleat RBC Rel Count (0.00-0.1) % Eos # (Auto) (0-0.5) x10^3/uL Immature Gran # (Auto) (0.00-0.03) x10^3u/L Absolute Lymphs (auto) (1.0-4.6) x10^3/uL Absolute Monos (auto) (0.0-1.3) x10^3/uL Absolute Nucleated RBC (0.00-0.01) x10^3u/L Lymphocytes % (24.0-44.0) % Monocytes % (0.0-12.0) % Eosinophils % (0.00-5.0) % Basophils % (0.0-0.4) % Absolute Granulocytes (1.4-6.9) x10^3/uL Basophils # (0-0.4) x10^3/uL Peripher Smr Path Cons PT (9.4-12.5) SECONDS INR (0.8-3.0) APTT (25.1-36.5) SECONDS D-Dimer (0.0-0.50) mg/L Puncture Site RIGHT RADIAL pCO2 45 (35-45) mmHg pO2 84 (75-100) mmHg Base Excess 4.2 H (-2.0-2.0) O2 Saturation 94.4 (94-100) g/dF ABG pH 7.42 (7.35-7.45) ABG HCO3 29.2 H* (22-28) ABG O2 Sat (Measured) 97.5 (95-100) % Tone Test YES A-a Gradient 145 a/A Ratio 0.37 Hemoglobin 9.2 Carboxyhemoglobin 2.1 (0.0-6.9) % THgb Methemoglobin 1.0 L (1.4-1.5) % Temperature 37.0 C POC O2 Flow Rate 40 % Sodium (137-145) mmol/L Potassium 4.8 (3.5-5.1) mmol/L Chloride (98-107) mmol/L Carbon Dioxide (22-30) mmol/L Anion Gap (5-15) MEQ/L BUN (9-20) mg/dL Creatinine (0.66-1.25) mg/dL Estimated GFR ML/MIN Glucose (74-106) mg/dL POC Glucometer 117 H (74 to 106) mg/dL Lactic Acid (0.4-2.0) Calcium (8.4-10.2) mg/dL Magnesium (1.6-2.3) mg/dL Iron (49-181) ug/dL TIBC (261-497) ug/dL Iron Saturation (20-39) % Ferritin (17.9-464) ng/mL Total Bilirubin (0.2-1.3) mg/dL AST (17-59) U/L ALT (0-50) U/L Alkaline Phosphatase (38-126) U/L Troponin I (0.000-0.034) ng/mL NT-Pro-B Natriuret Pep (<300) pg/mL Serum Total Protein (6.3-8.2) g/dL Albumin (3.5-5.0) g/dL Urine Color (Yellow) Urine Appearance (Clear) Urine pH (4.6-8.0) Ur Specific [place] (1.005-1.030) Urine Protein (Negative) Urine Glucose (UA) (Negative) mg/dL Urine Ketones (Negative) Urine Blood (Negative) Urine Nitrite (Negative) Urine Bilirubin (Negative) Urine Urobilinogen (0.2) mg/dL Ur Leukocyte Esterase (Negative) U Hyaline Cast (Auto) (0-2) /LPF Urine Microscopic RBC (0-5) /HPF Urine Microscopic WBC (0-5) /HPF Ur Epithelial Cells (None Seen) /HPF Urine Bacteria (None Seen) /HPF Urine Yeast (Budding) (None Seen) /HPF Urine Culture Reflexed (NO) Influenza Type A Ag NEGATIVE (NEGATIVE) Influenza Type B Ag NEGATIVE (NEGATIVE) RSV (PCR) NEGATIVE (NEGATIVE) SARS-CoV-2 (PCR) NEGATIVE (NEGATIVE) 05/15/22 05/15/22 05/15/22 Range/Units 15:51 15:45 15:45 WBC (4.0-10.5) x10^3/uL RBC (4.1-5.6) x10^6/uL Hgb (12.5-18.0) g/dL Hct (42-50) % MCV (78-100) fL MCH (26-32) pg MCHC (32-36) g/dL RDW (11.5-14.0) % Plt Count (150-450) x10^3/uL MPV (7.5-11.0) fL Gran % (36.0-66.0) % Immature Gran % (Auto) (0.00-0.4) % Nucleat RBC Rel Count (0.00-0.1) % Eos # (Auto) (0-0.5) x10^3/uL Immature Gran # (Auto) (0.00-0.03) x10^3u/L Absolute Lymphs (auto) (1.0-4.6) x10^3/uL Absolute Monos (auto) (0.0-1.3) x10^3/uL Absolute Nucleated RBC (0.00-0.01) x10^3u/L Lymphocytes % (24.0-44.0) % Monocytes % (0.0-12.0) % Eosinophils % (0.00-5.0) % Basophils % (0.0-0.4) % Absolute Granulocytes (1.4-6.9) x10^3/uL Basophils # (0-0.4) x10^3/uL Peripher Smr Path Cons PT 12.8 H (9.4-12.5) SECONDS INR 1.19 (0.8-3.0) APTT 31.5 (25.1-36.5) SECONDS D-Dimer 1.59 H* (0.0-0.50) mg/L Puncture Site RIGHT RADIAL pCO2 45 (35-45) mmHg pO2 54 L (75-100) mmHg Base Excess 5.8 H (-2.0-2.0) O2 Saturation 84.5 L (94-100) g/dF ABG pH 7.44 (7.35-7.45) ABG HCO3 30.6 H* (22-28) ABG O2 Sat (Measured) 87.0 L (95-100) % Tone Test YES A-a Gradient 232 a/A Ratio 0.19 Hemoglobin 8.7 Carboxyhemoglobin 2.1 (0.0-6.9) % THgb Methemoglobin 0.8 L (1.4-1.5) % Temperature 37.0 C POC O2 Flow Rate 48 % Sodium (137-145) mmol/L Potassium 5.0 (3.5-5.1) mmol/L Chloride (98-107) mmol/L Carbon Dioxide (22-30) mmol/L Anion Gap (5-15) MEQ/L BUN (9-20) mg/dL Creatinine (0.66-1.25) mg/dL Estimated GFR ML/MIN Glucose (74-106) mg/dL POC Glucometer (74 to 106) mg/dL Lactic Acid 0.6 (0.4-2.0) Calcium (8.4-10.2) mg/dL Magnesium (1.6-2.3) mg/dL Iron (49-181) ug/dL TIBC (261-497) ug/dL Iron Saturation (20-39) % Ferritin (17.9-464) ng/mL Total Bilirubin (0.2-1.3) mg/dL AST (17-59) U/L ALT (0-50) U/L Alkaline Phosphatase (38-126) U/L Troponin I 0.017 (0.000-0.034) ng/mL NT-Pro-B Natriuret Pep (<300) pg/mL Serum Total Protein (6.3-8.2) g/dL Albumin (3.5-5.0) g/dL Urine Color (Yellow) Urine Appearance (Clear) Urine pH (4.6-8.0) Ur Specific [place] (1.005-1.030) Urine Protein (Negative) Urine Glucose (UA) (Negative) mg/dL Urine Ketones (Negative) Urine Blood (Negative) Urine Nitrite (Negative) Urine Bilirubin (Negative) Urine Urobilinogen (0.2) mg/dL Ur Leukocyte Esterase (Negative) U Hyaline Cast (Auto) (0-2) /LPF Urine Microscopic RBC (0-5) /HPF Urine Microscopic WBC (0-5) /HPF Ur Epithelial Cells (None Seen) /HPF Urine Bacteria (None Seen) /HPF Urine Yeast (Budding) (None Seen) /HPF Urine Culture Reflexed (NO) Influenza Type A Ag (NEGATIVE) Influenza Type B Ag (NEGATIVE) RSV (PCR) (NEGATIVE) SARS-CoV-2 (PCR) (NEGATIVE) 05/15/22 05/15/22 Range/Units 15:45 15:45 WBC 10.5 (4.0-10.5) x10^3/uL RBC 3.24 L (4.1-5.6) x10^6/uL Hgb 8.5 L (12.5-18.0) g/dL Hct 28.6 L (42-50) % MCV 88.3 (78-100) fL MCH 26.2 (26-32) pg MCHC 29.7 L (32-36) g/dL RDW 18.1 H (11.5-14.0) % Plt Count 283 (150-450) x10^3/uL MPV 8.8 (7.5-11.0) fL Gran % 82.7 H (36.0-66.0) % Immature Gran % (Auto) 0.5 H (0.00-0.4) % Nucleat RBC Rel Count 0.0 (0.00-0.1) % Eos # (Auto) 0.07 (0-0.5) x10^3/uL Immature Gran # (Auto) 0.05 H (0.00-0.03) x10^3u/L Absolute Lymphs (auto) 1.12 (1.0-4.6) x10^3/uL Absolute Monos (auto) 0.53 (0.0-1.3) x10^3/uL Absolute Nucleated RBC 0.00 (0.00-0.01) x10^3u/L Lymphocytes % 10.7 L (24.0-44.0) % Monocytes % 5.1 (0.0-12.0) % Eosinophils % 0.7 (0.00-5.0) % Basophils % 0.3 (0.0-0.4) % Absolute Granulocytes 8.68 H (1.4-6.9) x10^3/uL Basophils # 0.03 (0-0.4) x10^3/uL Peripher Smr Path Cons Pending PT (9.4-12.5) SECONDS INR (0.8-3.0) APTT (25.1-36.5) SECONDS D-Dimer (0.0-0.50) mg/L Puncture Site pCO2 (35-45) mmHg pO2 (75-100) mmHg Base Excess (-2.0-2.0) O2 Saturation (94-100) g/dF ABG pH (7.35-7.45) ABG HCO3 (22-28) ABG O2 Sat (Measured) (95-100) % Tone Test A-a Gradient a/A Ratio Hemoglobin Carboxyhemoglobin (0.0-6.9) % THgb Methemoglobin (1.4-1.5) % Temperature C POC O2 Flow Rate % Sodium 133 L (137-145) mmol/L Potassium 5.1 (3.5-5.1) mmol/L Chloride 93 L (98-107) mmol/L Carbon Dioxide 31 H (22-30) mmol/L Anion Gap 13.4 (5-15) MEQ/L BUN 40 H (9-20) mg/dL Creatinine 2.09 H (0.66-1.25) mg/dL Estimated GFR 32.5 ML/MIN Glucose 129 H (74-106) mg/dL POC Glucometer (74 to 106) mg/dL Lactic Acid (0.4-2.0) Calcium 8.9 (8.4-10.2) mg/dL Magnesium 2.1 (1.6-2.3) mg/dL Iron (49-181) ug/dL TIBC (261-497) ug/dL Iron Saturation (20-39) % Ferritin (17.9-464) ng/mL Total Bilirubin 0.70 (0.2-1.3) mg/dL AST 20 (17-59) U/L ALT 16 (0-50) U/L Alkaline Phosphatase 79 (38-126) U/L Troponin I (0.000-0.034) ng/mL NT-Pro-B Natriuret Pep 61341 (<300) pg/mL Serum Total Protein 7.6 (6.3-8.2) g/dL Albumin 3.9 (3.5-5.0) g/dL Urine Color (Yellow) Urine Appearance (Clear) Urine pH (4.6-8.0) Ur Specific [place] (1.005-1.030) Urine Protein (Negative) Urine Glucose (UA) (Negative) mg/dL Urine Ketones (Negative) Urine Blood (Negative) Urine Nitrite (Negative) Urine Bilirubin (Negative) Urine Urobilinogen (0.2) mg/dL Ur Leukocyte Esterase (Negative) U Hyaline Cast (Auto) (0-2) /LPF Urine Microscopic RBC (0-5) /HPF Urine Microscopic WBC (0-5) /HPF Ur Epithelial Cells (None Seen) /HPF Urine Bacteria (None Seen) /HPF Urine Yeast (Budding) (None Seen) /HPF Urine Culture Reflexed (NO) Influenza Type A Ag (NEGATIVE) Influenza Type B Ag (NEGATIVE) RSV (PCR) (NEGATIVE) SARS-CoV-2 (PCR) (NEGATIVE) - Progress Progress: improved Air Movement: fair Progress Note: Patient was placed on BIPAP after evaluation due to hypoxia, crackles and b/l LE pitting edema. He responded well to BIPAP and was able to sit upright more comfortably. Patient was also given IV Lasix to aid in diuresis. Noteable lab results Hb 8.5, Na 133, Cr 2.09 (baseline), GFR 32 (baseline) Lactate 0.6, Troponin I neg x 1, BNP 10,400, D-dimer 1.59 Iron 18, % saturation 6 Due to patient's CHF exacerbation and CKD decision was made to not proceed w/ a contrast CT. CT chest w/o showed cardiomegaly w/ diffuse pulmonary edema, b/l pleural effusions w/ b/l compressive atelectasis, small RML spiculated nodule w/ prominant mediastinal LN. Spoke w/ Dr. Johnson who recommended transfer to another facility. Spoke w/ Dr. Walker at [facility] at 1906, accepted patient for transfer. Blood Culture(s) Obtained: Yes Antibiotics given: Yes Discussed with : Jose (Recommended transfer) Counseled pt/family regarding: lab results, diagnosis, need for follow-up, rad results Medical Desision Making - Independent Historian Additional History obtained from: Spouse, EMS - Discussion of managment Care discussed with:: hospitalist Reviewed:: Test results Agreed on:: Treatment plan (transfer) - Diagnostic Testing Radiological Interpretation: Reviewed by me, Teleradiologist Report - Risk of complications The pt has a high risk of morbidity or mortality based on: Decision regarding hospitilization or escalation of hosp level of care - Departure Departure Disposition: Transfer Clinical Impression: Acute exacerbation of CHF (congestive heart failure), Acute on chronic respiratory failure with hypoxia, Renal insufficiency, Elevated brain natriuretic peptide (BNP) level, Compression atelectasis, Iron deficiency anemia, Pulmonary nodule Condition: Stable Critical Care Time: Yes Critical Care Time(excluding separately billable procedures): Critical 30-74 mins Referrals: HALINA HAHN MD [Primary Care Provider] - Follow up/PCP as directed Instructions: Heart Failure, Heart Failure, Adult (DC)
[2022-05-15] MEDS ORDERED: Lasix 40 MG/4 ML IV ONE (15:36)
[2022-05-15] MEDS ORDERED: DUONEB 0.5-3 MG/3 ml Neb IH ONE ×2 (15:37→15:46)
[2022-05-15 15:53] LABS: A-aADO2 232; ABG HEMOGLOBIN 8.7; ARTERIAL BLOOD GAS BASE EXCESS 5.8 (-2.0-2.0); ARTERIAL BLOOD GAS FIO2 48 %; ARTERIAL BLOOD GAS PCO2 45 mmHg (35-45); ARTERIAL BLOOD GAS PO2 54 mmHg (75-100); ARTERIAL BLOOD GAS pH 7.44 (7.35-7.45); CARBOXYHEMOGLOBIN 2.1 % THgb (0.0-6.9); HCO3- 30.6 (22-28); HGB O2 SAT 84.5 g/dF (94-100); Lactic Acid 0.6 (0.4-2.0); Methhemoglobin 0.8 % (1.4-1.5); paO2 pAO1 0.19
[2022-05-15 15:54] LABS: ABG SITE RIGHT RADIAL; ALLEN TEST OK? YES
[2022-05-15 15:59] LABS: Absolute Neutrophil Ct (ANC) 8.68 x10^3/uL (1.4-6.9); BASOPHIL % 0.3 % (0.0-0.4); Basophil (Absolute #) 0.03 x10^3/uL (0-0.4); Eosinophil % 0.7 % (0.00-5.0); Eosinophil (Absolute #) 0.07 x10^3/uL (0-0.5); Hematocrit 28.6 % (42-50); Hemoglobin 8.5 g/dL (12.5-18.0); IMMATURE GRAN # 0.05 x10^3u/L (0.00-0.03); IMMATURE GRAN % 0.5 % (0.00-0.4); Lymphocyte (Absolute #) 1.12 x10^3/uL (1.0-4.6); Lymphocytes % 10.7 % (24.0-44.0); Mean Cell Volume 88.3 fL (78-100); Mean Corpuscular Hemoglobin 26.2 pg (26-32); Mean Corpuscular Hgb Concent. 29.7 g/dL (32-36); Mean Platelet Volume 8.8 fL (7.5-11.0); Monocyte (Absolute #) 0.53 x10^3/uL (0.0-1.3); Monocytes % 5.1 % (0.0-12.0); Neutrophil % 82.7 % (36.0-66.0); Platelet Count 283 x10^3/uL (150-450); Red Blood Count 3.24 x10^6/uL (4.1-5.6); Red Cell Distribution Width 18.1 % (11.5-14.0); White Blood Count 10.5 x10^3/uL (4.0-10.5)
[2022-05-15] MEDS ORDERED: Lasix 40 MG/4 ML ONE (16:06)
[2022-05-15 16:20] VITALS: BP 139/85
[2022-05-15 16:23] LABS: INR 1.19 (0.8-3.0); PROTIME 12.8 SECONDS (9.4-12.5); PTT 31.5 SECONDS (25.1-36.5)
[2022-05-15 16:24] LABS: D-DIMER QUANTITATIVE 1.59 mg/L (0.0-0.50)
[2022-05-15 16:25] LABS: ALBUMIN 3.9 g/dL (3.5-5.0); ANION GAP 13.4 MEQ/L (5-15); BILIRUBIN,TOTAL 0.7 mg/dL (0.2-1.3); Calcium 8.9 mg/dL (8.4-10.2); Creatinine 1 2.09 mg/dL (0.66-1.25); EST GLOMERULAR FILTRATION RATE 32.5 ML/MIN; MAGNESIUM 2.1 mg/dL (1.6-2.3); Potassium 5.1 mmol/L (3.5-5.1); Total Protein 7.6 g/dL (6.3-8.2)
[2022-05-15 16:37] LABS: INFLUENZA A NEGATIVE (NEGATIVE); INFLUENZA B NEGATIVE (NEGATIVE); RESPIRATORY SYNCTIAL VIRUS NEGATIVE (NEGATIVE); SARS-CoV-2 Xpert Express NEGATIVE (NEGATIVE)
--- NOTE | 2022-05-15 16:41 | XRAY ---
Indication: Dyspnea. Comparison: May 05, 2022 Portable chest again demonstrates diffuse bilateral pulmonary edema and borderline cardiomegaly with worsening central vascular congestion and increasing small bibasilar effusions again favoring worsening cardiac decompensation/CHF. Again superimposed pneumonia not completely excluded.
[2022-05-15 17:03] LABS: A-aADO2 145; ABG HEMOGLOBIN 9.2; ABG POTASSIUM 4.8 (3.5-5.1); ABG SITE RIGHT RADIAL; ALLEN TEST OK? YES; ARTERIAL BLD GAS O2 SATURATION 97.5 % (95-100); ARTERIAL BLOOD GAS BASE EXCESS 4.2 (-2.0-2.0); ARTERIAL BLOOD GAS FIO2 40 %; ARTERIAL BLOOD GAS PCO2 45 mmHg (35-45); ARTERIAL BLOOD GAS PO2 84 mmHg (75-100); ARTERIAL BLOOD GAS pH 7.42 (7.35-7.45); CARBOXYHEMOGLOBIN 2.1 % THgb (0.0-6.9); HCO3- 29.2 (22-28); HGB O2 SAT 94.4 g/dF (94-100); paO2 pAO1 0.37
--- NOTE | 2022-05-15 17:20 | XRAY ---
Indication: Short of breath. Edema of the extremities. Multiple contiguous axial images obtained of the chest without contrast. Comparison: None Heart is borderline enlarged with extensive scattered coronary calcifications. Aorta is moderately arteriosclerotic without aneurysm. Multiple prominent mediastinal lymph nodes, all largest precarinal measuring 1.6 x 2.5 cm. Danielson subcarinal and smaller right hilar calcified nodes. Lungs demonstrates diffuse pulmonary edema with moderate bilateral pleural effusions and moderate bibasilar compressive atelectasis, right greater than left. Right middle lobe demonstrates a 0.9 x 1.2 cm spiculated nodule and 6 mm calcified granuloma. Bony thorax intact. Limited upper abdomen demonstrates tiny hepatic/splenic calcified granulomas. Impression: 1. Borderline cardiomegaly with diffuse pulmonary edema and bilateral pleural effusions with bibasilar compressive atelectasis. Findings would favor cardiac decompensation/CHF. Superimposed pneumonia not completely excluded. 2. Small right middle lobe spiculated nodule. Malignancy is of primary concern. 3. Prominent mediastinal lymph nodes presumed reactive. 4. Incidental old granulomatous disease.
[2022-05-15 17:28] LABS: Iron 18 ug/dL (49-181); Iron Saturation 6 % (20-39); TIBC 284 ug/dL (261-497)
[2022-05-15] MEDS ORDERED: ROCEPHIN 2 Gm-D5w 50ML BAG** 2 G/50 ML IVPB IV STA (17:35)
[2022-05-15] MEDS ORDERED: ROCEPHIN 2 Gm-D5w 50ML BAG** 2 G/50 ML IVPB IV ONE (17:39)
[2022-05-15] MEDS ORDERED: VIBRAMYCIN 100 MG IV ONE (18:13)
[2022-05-15] MEDS ORDERED: D5w 100ML Mini Bag 100 ML 100 ML IV ONE (18:15)
[2022-05-15] MEDS ORDERED: ELIQUIS 2.5 MG TABLET ONE (18:19)
[2022-05-15 18:38] LABS: Appearance Clear (Clear); Bilirubin Negative (Negative); Blood Small (Negative); Glucose, Urine Negative (Negative); Ketones Negative (Negative); Leukocyte Esterase Small (Negative); Nitrite Negative (Negative); Protein,Urine Dip Trace (Negative); Urobilinogen 0.2 mg/dL (0.2)
[2022-05-15 18:54] LABS: ADD URINE CULTURE? YES (NO); Bacteria Rare /HPF (None Seen); Budding Yeast Few /HPF (None Seen); Epithelial Cells Rare /HPF (None Seen); Hyaline Casts None Seen /LPF (0-2); RBC 0-2 /HPF (0-5)
[2022-05-15 19:20] VITALS: PULSE 61; O2SAT 98
[2022-05-15] MEDS ORDERED: ELIQUIS 2.5 MG TABLET PO SCH (22:00)
[2022-05-15] MEDS ORDERED: VIBRAMYCIN 100 MG*** 100 MG in Dextrose 5%/Water IV Soln. 100ML PLUS BAG 100 ML IV SCH (22:00)
[2022-05-16] MEDS ORDERED: Zithromax 500 MG/ 250 ML NaCl Premix 500 MG/250 ML IVPB IV SCH (10:00)
== END 2022-05-15 20:10 | disposition short-term general hospital (02) ==
LOC: ED 15:14
DX: I11.0 Hypertensive heart disease with heart failure (principal); I50.9 Heart failure, unspecified; J96.21 Acute and chronic respiratory failure with hypoxia; N28.9 Disorder of kidney and ureter, unspecified; R79.89 Other specified abnormal findings of blood chemistry; J98.11 Atelectasis; D50.9 Iron deficiency anemia, unspecified; R91.1 Solitary pulmonary nodule; E11.9 Type 2 diabetes mellitus without complications; E78.5 Hyperlipidemia, unspecified; Z79.4 Long term (current) use of insulin; Z79.899 Other long term (current) drug therapy
CPT/HCPCS: 0241U; 36415; 36600; 71045; 71250; 80053; 81001; 82375; 82728; 82803; 82947; 83540; 83550; 83605; 83735; 83880; 84484; 85025; 85060; 85379; 85610; 85730; 87040; 87086; 93005; 93041; 94002; 94640; 94760; 96365; 96367; 96374; 99285; J0696; J1940; A9270-GY

== ENCOUNTER 2022-06-17 21:53 | Observation (INO) | payer MEDICARE, OTHER ==
[2022-06-17 23:12] LABS: ALBUMIN 3.7 g/dL (3.5-5.0); ANION GAP 13.6 MEQ/L (5-15); BILIRUBIN,TOTAL 0.6 mg/dL (0.2-1.3); Calcium 8.8 mg/dL (8.4-10.2); Creatinine 1 2.15 mg/dL (0.66-1.25); EST GLOMERULAR FILTRATION RATE 31.4 ML/MIN; Potassium 4.5 mmol/L (3.5-5.1); Total Protein 7.6 g/dL (6.3-8.2)
[2022-06-17 23:17] LABS: Absolute Neutrophil Ct (ANC) 9.93 x10^3/uL (1.4-6.9); BASOPHIL % 0.2 % (0.0-0.4); Basophil (Absolute #) 0.02 x10^3/uL (0-0.4); Eosinophil % 0.4 % (0.00-5.0); Eosinophil (Absolute #) 0.05 x10^3/uL (0-0.5); Hematocrit 27.7 % (42-50); Hemoglobin 8.2 g/dL (12.5-18.0); IMMATURE GRAN # 0.06 x10^3u/L (0.00-0.03); IMMATURE GRAN % 0.5 % (0.00-0.4); Lymphocyte (Absolute #) 1.26 x10^3/uL (1.0-4.6); Lymphocytes % 10.2 % (24.0-44.0); Mean Cell Volume 86.8 fL (78-100); Mean Corpuscular Hemoglobin 25.7 pg (26-32); Mean Corpuscular Hgb Concent. 29.6 g/dL (32-36); Mean Platelet Volume 9.4 fL (7.5-11.0); Monocyte (Absolute #) 1.03 x10^3/uL (0.0-1.3); Monocytes % 8.3 % (0.0-12.0); Neutrophil % 80.4 % (36.0-66.0); Platelet Count 280 x10^3/uL (150-450); Red Blood Count 3.19 x10^6/uL (4.1-5.6); Red Cell Distribution Width 17.1 % (11.5-14.0); White Blood Count 12.4 x10^3/uL (4.0-10.5)
[2022-06-17] MEDS ORDERED: Levofloxacin 500MG/100ML D5W 500 MG/100 ML BAG IV STA (23:53)
--- NOTE | 2022-06-17 23:53 | ERPHSYRPT ---
- History of Present Illness Time Seen by Provider: 06/17/22 23:50 Source: patient Exam Limitations: no limitations Patient Subjective Stated Complaint: pt from [place], fever, has known UTI since wednesday that has not been treated, Triage Nursing Assessment: pt tranferred to ED via [facility], pt alert and oriented x3, gonzalez in place upon arrival, bag and tubing changed upon arrival. per correction pt has known UTI since wednesday but has not been treated yet d/t waiting on culture, pt has fever and has had one all day but has not been treated as well, pt denies any pain, pt wears 4-6 L NC d/t COPD and CHF Physician History: Patient is an 81-year-old male with history of COPD presents to our ED via EMS from [facility] for treatment of fever. The suspected source of the fever is urinary tract infection. Patient has had a urinary tract infection diagnosed 5 to 6 days ago. Patient has not been treated for this urinary tract infection. Per report correction states that the urinary tract infection has not been treated as they have been waiting for cultures. states that in the 5 days patient has been progressively worsening. Worsening fevers. Worsening pain. Worsening discomfort. Symptoms are progressive. Symptoms are moderate in intensity. No specific worsening improving factors. Patient voices no other complaints or concerns at this time. Portions of this note were created with voice recognition technology. There may be grammatical, spelling, punctuation or sound alike errors Timing/Duration: today Severity: moderate Modifying Factors: Improves With: nothing Associated Symptoms: denies symptoms Allergies/Adverse Reactions: No Known Drug Allergies Allergy (Verified 06/17/22 21:56) Home Medications: Amiodarone HCl 200 mg [Cordarone 200 MG] 200 mg PO UD 02/27/14 [History] Multivitamin [Multivitamins] 1 tab PO DAILY 11/09/14 [History] Finasteride 5 mg [Proscar 5 MG] 5 mg PO DAILY 11/05/20 [History] Gabapentin [Neurontin ] 300 mg PO BID 11/05/20 [History] Nitroglycerin 0.4 mg Tablet [Nitrostat 0.4 MG Tablet] 1 tab SL UD 11/05/20 [History] Albuterol Sulfate [Albuterol Sulfate Hfa] 2 inh IH Q6HPRN PRN 05/22/21 [History] Ascorbic Acid 500 mg [Vitamin C 500 MG] 500 mg PO UD 05/22/21 [History] Atorvastatin Calcium [Lipitor] 40 mg PO HS 05/22/21 [History] Insulin Glargine,Hum.rec.anlog [Basaglar Kwikpen U-100] 40 unit SQ DAILY 05/22/21 [History] Lidocaine 1 each TP DAILY PRN PRN 05/22/21 [History] Acetaminophen 500 mg [Tylenol Extra Strength 500 mg] 325 mg PO Q4H PRN PRN 03/01/22 [History] Aspirin EC 81 mg [Ecotrin 81 mg] 81 mg PO DAILY 03/01/22 [History] Calcium Carbonate [Calcium] 500 mg PO BID 03/01/22 [History] Cholecalciferol (Vitamin D3) [Vitamin D] 4,000 unit PO UD 03/01/22 [History] Insulin Lispro [Insulin Lispro Kwikpen U-100] 1 unit SQ UD 03/01/22 [History] Isosorbide Mononitrate [Isosorbide Mononitrate ER] 30 mg PO DAILY 03/01/22 [History] Tamsulosin HCl 0.4 mg [Flomax 0.4 MG] 0.4 mg PO HS 03/01/22 [History] Allopurinol 100 mg [Zyloprim 100 mg] 100 mg PO DAILY 03/19/22 [History] Amlodipine Besylate 10 mg PO DAILY 03/19/22 [History] Furosemide 40 mg [Lasix 40 MG] 40 mg PO DAILY 03/19/22 [History] Metoprolol Tartrate 50 mg [Lopressor 50 MG] 50 mg PO QHS 04/16/22 [History] ALPRAZolam 0.25 MG [xanAX 0.25 MG] 0.25 mg PO UD 05/15/22 [History] Cefepime HCl in Dextrose 5 % [Cefepime-Dextrose 1 gm/50 ml] 1 gm IV UD 05/15/22 [History] Hx Tetanus, Diphtheria Vaccination/Date Given: Yes Hx Influenza Vaccination/Date Given: Yes Hx Pneumococcal Vaccination/Date Given: Yes Travel Risk - International Travel Have you traveled outside of the country in past 3 weeks: No - Coronavirus Screening Are you exhibiting any of the following symptoms?: Yes Symptoms: Fever Close contact with a COVID-19 positive Pt in past 14-21 Days: No - Vaccine Status Have you recieved a Covid-19 vaccination: Yes [employer]: Moderna - Vaccination Dates Date of 2cond Vaccination (if applicable): UNKNOWN Dates if Unknown: UNKNOWN - Review of Systems Constitutional: No Symptoms, No Fever, No Chills Eyes: No Symptoms Ears, Nose, & Throat: No Symptoms Respiratory: No Symptoms, No Cough, No Dyspnea Cardiac: No Symptoms, No Chest Pain, No Edema, No Syncope Abdominal/Gastrointestinal: No Symptoms, No Abdominal Pain, No Nausea, No Vomiting, No Diarrhea Genitourinary Symptoms: No Symptoms, No Dysuria Musculoskeletal: No Symptoms, No Back Pain, No Neck Pain Skin: No Symptoms, No Rash Neurological: No Symptoms, No Dizziness, No Focal Weakness, No Sensory Changes Psychological: No Symptoms Endocrine: No Symptoms Hematologic/Lymphatic: No Symptoms Immunological/Allergic: No Symptoms All Other Systems: Reviewed and Negative - Past Medical History Pertinent Past Medical History: Yes Neurological History: Stroke ENT History: No Pertinent History Cardiac History: Arrhythmia, Coronary Artery Disease, High Cholesterol, Hypertension, Myocardial Infarction (ME), Peripheral Vascular Disease Respiratory History: CHF Endocrine Medical History: Diabetes Type II Musculoskeletal History: No Pertinent History GI Medical History: Colorectal Cancer, GERD, Hernia History: No Pertinent History Psycho-Social History: Depression Male Reproductive Disorders: Prostate Problems Other Medical History: HX OF AFIB. COLON CANCER-REMISSION AT THIS TIME. anemia. *Pt poor historian at this time. Information obtained from previous medical record. - Past Surgical History Past Surgical History: Yes Neuro Surgical History: No Pertinent History Cardiac: Cardiac Catheterization, Cardiac Stent Respiratory: No Pertinent History Gastrointestinal: Bowel Surgery, Colon Resection, Hernia Repair Genitourinary: No Pertinent History Musculoskeletal: No Pertinent History Male Surgical History: Prostate Surgery Other Surgical History: PART OF COLON REMOVED. COLOSTOMY. femoral stents in legs. *Pt poor historian at this time. Information obtained from previous medical record. - Social History Smoking Status: Former smoker Exposure to second hand smoke: No Alcohol Use: None Drug Use: none Patient Lives Alone: No Significant Family History: no pertinent family hx - Nursing Vital Signs Nursing Vital Signs: Initial Vital Signs Temperature 101.2 F 06/17/22 22:03 Pulse Rate 68 06/17/22 22:03 Respiratory Rate 23 06/17/22 22:03 Blood Pressure 119/50 06/17/22 22:03 O2 Sat by Pulse Oximetry 97 06/17/22 22:03 Pain Scale Pain Intensity 0 - Physical Exam General Appearance: no apparent distress, alert Eye Exam: PERRL/EOMI, eyes nml inspection Ears, Nose, Throat Exam: normal ENT inspection, TMs normal, pharynx normal, moist mucous membranes Neck Exam: normal inspection, non-tender, supple, full range of motion Respiratory Exam: normal breath sounds, lungs clear, airway intact, No respi ratory distress Cardiovascular Exam: regular rate/rhythm, normal heart sounds, normal peripheral pulses Gastrointestinal/Abdomen Exam: soft, normal bowel sounds, other (Intact Gonzalez catheter. Urine clear), No tenderness, No mass Back Exam: normal inspection, normal range of motion, No CVA tenderness, No vertebral tenderness Extremity Exam: normal inspection, normal range of motion, pelvis stable Neurologic Exam: alert, oriented x 3, cooperative, normal mood/affect, nml cerebellar function, nml station & gait, sensation nml, No motor deficits Skin Exam: normal color, warm, dry, No rash Lymphatic Exam: No adenopathy SpO2 Interpretation: normal SpO2: 95 O2 Delivery: Room Air - Course Nursing assessment & vital signs reviewed: Yes Ordered Tests: Active Orders 24 hr Category Date Time Status Pulse Oximetry (ED) STAT Care 06/17/22 22:56 Active BLOOD CULTURE Stat Lab 06/17/22 23:34 Received CBC W DIFF Stat Lab 06/17/22 23:02 Completed CMP Stat Lab 06/17/22 23:02 Completed Lactic Acid Stat Lab 06/17/22 23:40 Completed UA W/RFX UR CULTURE Stat Lab 06/17/22 23:32 Received Medication Summary Discontinued Medications Generic Name Dose Route Start Last Admin Trade Name Freq PRN Reason Stop Dose Admin Levofloxacin/Dextrose 500 mg in 100 mls @ 100 mls/hr 06/17/22 23:53 06/18/22 00:17 Levofloxacin 500mg/100ml D5w IV 06/18/22 00:52 100 mls/hr STAT STA 100 mls/hr Administration Levofloxacin/Dextrose Confirm 06/18/22 00:16 Levofloxacin 500mg/100ml D5w Administered 06/18/22 00:17 Dose 500 mg in 100 mls @ ud IV .STK-MED ONE Lab/Rad Data: Laboratory Result Diagrams 06/17/22 23:02 06/17/22 23:02 Laboratory Results 06/17/22 06/17/22 06/17/22 Range/Units 23:40 23:34 23:02 WBC (4.0-10.5) x10^3/uL RBC (4.1-5.6) x10^6/uL Hgb (12.5-18.0) g/dL Hct (42-50) % MCV (78-100) fL MCH (26-32) pg MCHC (32-36) g/dL RDW (11.5-14.0) % Plt Count (150-450) x10^3/uL MPV (7.5-11.0) fL Gran % (36.0-66.0) % Immature Gran % (Auto) (0.00-0.4) % Nucleat RBC Rel Count (0.00-0.1) % Eos # (Auto) (0-0.5) x10^3/uL Immature Gran # (Auto) (0.00-0.03) x10^3u/L Absolute Lymphs (auto) (1.0-4.6) x10^3/uL Absolute Monos (auto) (0.0-1.3) x10^3/uL Absolute Nucleated RBC (0.00-0.01) x10^3u/L Lymphocytes % (24.0-44.0) % Monocytes % (0.0-12.0) % Eosinophils % (0.00-5.0) % Basophils % (0.0-0.4) % Absolute Granulocytes (1.4-6.9) x10^3/uL Basophils # (0-0.4) x10^3/uL Sodium 135 L (137-145) mmol/L Potassium 4.5 (3.5-5.1) mmol/L Chloride 95 L (98-107) mmol/L Carbon Dioxide 31 H (22-30) mmol/L Anion Gap 13.6 (5-15) MEQ/L BUN 31 H (9-20) mg/dL Creatinine 2.15 H (0.66-1.25) mg/dL Estimated GFR 31.4 ML/MIN Glucose 85 (74-106) mg/dL Lactic Acid 1.1 (0.4-2.0) Calcium 8.8 (8.4-10.2) mg/dL Total Bilirubin 0.60 (0.2-1.3) mg/dL AST 26 (17-59) U/L ALT 15 (0-50) U/L Alkaline Phosphatase 73 (38-126) U/L Serum Total Protein 7.6 (6.3-8.2) g/dL Albumin 3.7 (3.5-5.0) g/dL Influenza Type A Ag NEGATIVE (NEGATIVE) Influenza Type B Ag NEGATIVE (NEGATIVE) RSV (PCR) NEGATIVE (NEGATIVE) SARS-CoV-2 (PCR) NEGATIVE (NEGATIVE) 06/17/22 Range/Units 23:02 WBC 12.4 H (4.0-10.5) x10^3/uL RBC 3.19 L (4.1-5.6) x10^6/uL Hgb 8.2 L (12.5-18.0) g/dL Hct 27.7 L (42-50) % MCV 86.8 (78-100) fL MCH 25.7 L (26-32) pg MCHC 29.6 L (32-36) g/dL RDW 17.1 H (11.5-14.0) % Plt Count 280 (150-450) x10^3/uL MPV 9.4 (7.5-11.0) fL Gran % 80.4 H (36.0-66.0) % Immature Gran % (Auto) 0.5 H (0.00-0.4) % Nucleat RBC Rel Count 0.0 (0.00-0.1) % Eos # (Auto) 0.05 (0-0.5) x10^3/uL Immature Gran # (Auto) 0.06 H (0.00-0.03) x10^3u/L Absolute Lymphs (auto) 1.26 (1.0-4.6) x10^3/uL Absolute Monos (auto) 1.03 (0.0-1.3) x10^3/uL Absolute Nucleated RBC 0.00 (0.00-0.01) x10^3u/L Lymphocytes % 10.2 L (24.0-44.0) % Monocytes % 8.3 (0.0-12.0) % Eosinophils % 0.4 (0.00-5.0) % Basophils % 0.2 (0.0-0.4) % Absolute Granulocytes 9.93 H (1.4-6.9) x10^3/uL Basophils # 0.02 (0-0.4) x10^3/uL Sodium (137-145) mmol/L Potassium (3.5-5.1) mmol/L Chloride (98-107) mmol/L Carbon Dioxide (22-30) mmol/L Anion Gap (5-15) MEQ/L BUN (9-20) mg/dL Creatinine (0.66-1.25) mg/dL Estimated GFR ML/MIN Glucose (74-106) mg/dL Lactic Acid (0.4-2.0) Calcium (8.4-10.2) mg/dL Total Bilirubin (0.2-1.3) mg/dL AST (17-59) U/L ALT (0-50) U/L Alkaline Phosphatase (38-126) U/L Serum Total Protein (6.3-8.2) g/dL Albumin (3.5-5.0) g/dL Influenza Type A Ag (NEGATIVE) Influenza Type B Ag (NEGATIVE) RSV (PCR) (NEGATIVE) SARS-CoV-2 (PCR) (NEGATIVE) - Progress Progress: improved Progress Note: Patient reassessed. He is resting comfortably. Patient received a dose of Levaquin in our ED. states that patient has a history of Pseudomonas. Physical exam reveals a 81-year-old male resting comfortably in bed. Patient wearing oxygen nasal cannula. Patient does not appear toxic. Physical exam essentially unremarkable. Blood cultures obtained. CBC reveals a leukocytosis of 12.4. Patient has a hemoglobin of 8.2. However patient has chronic anemia and chronic renal insufficiency. BUN and creatinine are 31 and 2.15. Lactic acid 1.1. Urinalysis pending however we know patient already has a urinary tract infection. Antibiotic infused. Patient presented with a fever. Patient will require admission secondary to fever and generalized weakness. Patient agrees to admission to [facility] for further evaluation and treatment. Patient is an 81-year-old male with a history of chronic urinary tract infections. Patient has indwelling Gonzalez catheter. Complexity of problem addressed is moderate acute complicated with systemic illness. No critical care time. Complexity of data reviewed and analyzed is moderate. Test ordered. Test reviewed and analyzed. Patient's served as independent historian patient did not serve as an independent historian. Vital stable. Risk of complication and or risk of morbidity/mortality patient management is high. Patient received IV antibiotics and will require hospitalization for further evaluation and treatment. Plan of care established based on shared decision making. Case discussed with hospitalist who excepts admission to observation. Portions of this note were created with voice recognition technology. There may be grammatical, spelling, punctuation or sound alike errors 06/18/22 01:21 06/18/22 01:26 Will see patient in: hospital (observation) Counseled pt/family regarding: lab results, diagnosis, rad results - Departure Departure Disposition: Observation Clinical Impression: Urinary tract infection, Pyelonephritis, Fever, Generalized weakness Condition: Stable Critical Care Time: No Referrals: HALINA HAHN MD [Primary Care Provider] - Follow up/PCP as directed
[2022-06-18 00:15] LABS: INFLUENZA A NEGATIVE (NEGATIVE); INFLUENZA B NEGATIVE (NEGATIVE); RESPIRATORY SYNCTIAL VIRUS NEGATIVE (NEGATIVE); SARS-CoV-2 Xpert Express NEGATIVE (NEGATIVE)
[2022-06-18] MEDS ORDERED: Levofloxacin 500MG/100ML D5W 500 MG/100 ML BAG IV ONE (00:16)
[2022-06-18 01:38] LABS: Appearance CLOUDY (CLEAR)
[2022-06-18 01:39] LABS: Bilirubin NEGATIVE (NEGATIVE); Glucose NEGATIVE (NEGATIVE); Ketones NEGATIVE (NEGATIVE); Nitrite POSITIVE (NEGATIVE); Ph 5.5 (5-6); Protein,Urine Dip 100 (Negative); RBC LARGE Ery/ul (0-5); Specific Gravity 1.015 (1.005-1.025); Urobilinogen 0.2 mg/dL (0-1)
[2022-06-18 01:58] LABS: Bacteria Rare /HPF (None Seen); Epithelial Cells None Seen /HPF (None Seen); RBC 21-50 /HPF (0-5); WBC >100 /HPF (0-5)
[2022-06-18 02:18] LABS: ADD URINE CULTURE? YES (NO)
[2022-06-18 04:43] LABS: ABO TYPING O; Antibody Screen NEGATIVE (NEGATIVE); RH TYPING NEGATIVE
[2022-06-18 04:54] LABS: Hematocrit 25.7 % (42-50); Hemoglobin 7.5 g/dL (12.5-18.0); Mean Cell Volume 86.8 fL (78-100); Mean Corpuscular Hemoglobin 25.3 pg (26-32); Mean Corpuscular Hgb Concent. 29.2 g/dL (32-36); Mean Platelet Volume 9.3 fL (7.5-11.0); Platelet Count 279 x10^3/uL (150-450); Red Blood Count 2.96 x10^6/uL (4.1-5.6); Red Cell Distribution Width 17.1 % (11.5-14.0); White Blood Count 13.7 x10^3/uL (4.0-10.5)
[2022-06-18 05:05] LABS: ANION GAP 12.6 MEQ/L (5-15); Calcium 8.4 mg/dL (8.4-10.2); Creatinine 1 2.2 mg/dL (0.66-1.25); EST GLOMERULAR FILTRATION RATE 30.6 ML/MIN; PREALBUMIN 14.11 mg/dL (17.6-36.0); Potassium 4.1 mmol/L (3.5-5.1)
[2022-06-18] MEDS ORDERED: VENTOLIN COMMON CANISTER IH PRN (05:16)
--- NOTE | 2022-06-18 07:39 | PCM.HP ---
History of Present Illness - Chief Complaint Chief Complaint: uti Date: 06/18/22 History of Present Illness: is a 81 year old male. [place] resident with history of UTIs. Somewhat confused at bedside. at bedside. Was apparently found to have findings on lab consistent with UTI at [place] some days ago, but with no antibiotic treatment at the the time. Symptoms appeared to have worsened including dysuria which lead patient to come to the ED. He has had fevers and some chills. Some mild nausea, but able to tolerate PO intake. No back pain. Has history of pseudonomas UTI in the past. says he was found to have pseudomonas again in his urine. Medications & Allergies Home Medications: Home Medication List Amiodarone HCl 200 mg [Cordarone 200 MG] 200 mg PO UD 02/27/14 [History Confirmed 06/18/22] Multivitamin [Multivitamins] 1 tab PO DAILY 11/09/14 [History Confirmed 06/18/22] Finasteride 5 mg [Proscar 5 MG] 5 mg PO DAILY 11/05/20 [History Confirmed 06/18/22] Gabapentin [Neurontin ] 300 mg PO BID 11/05/20 [History Confirmed 06/18/22] Nitroglycerin 0.4 mg Tablet [Nitrostat 0.4 MG Tablet] 1 tab SL Q5MIN PRN MR X 3 PRN 11/05/20 [History Confirmed 06/18/22] Potassium Chloride 10 meq PO DAILY #30 tab 01/30/21 [Rx Confirmed 06/18/22] Albuterol Sulfate [Albuterol Sulfate Hfa] 2 inh IH Q6HPRN PRN 05/22/21 [History Confirmed 06/18/22] Ascorbic Acid 500 mg [Vitamin C 500 MG] 500 mg PO UD 05/22/21 [History Confirmed 06/18/22] Atorvastatin Calcium [Lipitor] 40 mg PO HS 05/22/21 [History Confirmed 06/18/22] Insulin Glargine,Hum.rec.anlog [Basaglar Kwikpen U-100] 40 unit SQ DAILY 05/22/21 [History Confirmed 06/18/22] Lidocaine 1 each TP DAILY PRN PRN 05/22/21 [History Confirmed 06/18/22] Aspirin EC 81 mg [Ecotrin 81 mg] 81 mg PO DAILY 03/01/22 [History Confirmed 06/18/22] Calcium Carbonate [Calcium] 500 mg PO BID 03/01/22 [History Confirmed 06/18/22] Cholecalciferol (Vitamin D3) [Vitamin D] 4,000 unit PO UD 03/01/22 [History Confirmed 06/18/22] Insulin Lispro [Insulin Lispro Kwikpen U-100] 0 unit SQ AC 03/01/22 [History Confirmed 06/18/22] Isosorbide Mononitrate [Isosorbide Mononitrate ER] 30 mg PO DAILY 03/01/22 [History Confirmed 06/18/22] Tamsulosin HCl 0.4 mg [Flomax 0.4 MG] 0.4 mg PO HS 03/01/22 [History Confirmed 06/18/22] Apixaban [Eliquis 2.5 mg Tablet] 2.5 mg PO BID #60 tablet 03/06/22 [Rx Confirmed 06/18/22] Allopurinol 100 mg [Zyloprim 100 mg] 100 mg PO DAILY 03/19/22 [History Confirmed 06/18/22] Furosemide 40 mg [Lasix 40 MG] 40 mg PO DAILY 03/19/22 [History Confirmed 06/18/22] Metoprolol Tartrate 50 mg [Lopressor 50 MG] 50 mg PO BID 04/16/22 [History Confirmed 06/18/22] ALPRAZolam 0.25 MG [xanAX 0.25 MG] 0.25 mg PO HS 05/15/22 [History Confirmed 06/18/22] ALPRAZolam 0.25 MG [xanAX 0.25 MG] 0.25 mg PO Q8HPRN PRN 06/18/22 [History Confirmed 06/18/22] Acetaminophen 325 mg [Tylenol 325 mg] 650 mg PO Q4HPRN PRN 06/18/22 [History Confirmed 06/18/22] Albuterol 2.5 mg/3 ml Neb [Proventil 2.5 mg/3 ml Neb] 1 neb IN QID 06/18/22 [History Confirmed 06/18/22] Benzonatate 100 mg PO TID 06/18/22 [History Confirmed 06/18/22] Docusate Sodium [Colace Clear] 50 mg PO [id number] PRN 06/18/22 [History Confirmed 06/18/22] Ferrous Sulfate 325 mg [Feosol 325 mg] 325 mg PO DAILY 06/18/22 [History Confirmed 06/18/22] Glucagon 1 mg [GlucaGen 1 MG] 1 mg IM Q4HPRN PRN 06/18/22 [History Con firmed 06/18/22] Magnesium Hydroxide 30 ml [Milk of Magnesia 30 ml] 30 ml PO DAILY PRN PRN 06/18/22 [History Confirmed 06/18/22] Polyethylene Glycol 3350 17 gm [Miralax Powder 17GM PACKET] 17 gm PO Q8HPRN PRN 06/18/22 [History Confirmed 06/18/22] Allergies/Adverse Reactions: Allergies Allergy/AdvReac Type Severity Reaction Status Date / Time No Known Drug Allergies Allergy Verified 06/18/22 06:49 - Past Medical History Past Medical History: Yes Neurological History: Stroke ENT History: No Pertinent History Cardiac History: Arrhythmia, Congestive Heart Failure, Coronary Artery Disease, High Cholesterol, Hypertension, Myocardial Infarction ([place]), Peripheral Vascular Disease Respiratory History: CHF, COPD Endocrine Medical History: Diabetes Type II Musculoskelatal History: No Pertinent History GI Medical History: Colorectal Cancer, GERD, Hernia History: No Pertinent History Pyscho-Social History: Depression Male Reproductive Disorders: Prostate Problems Comment: HX of AFIB. cancer in remission. anemia - Past Surgical History Past Surgical History: Yes Neuro Surgical History: No Pertinent History Cardiac History: Cardiac Catheterization, Cardiac Stent Respiratory Surgery: No Pertinent History GI Surgical History: Bowel Surgery, Colon Resection, Hernia Repair Genitourinary Surgical Hx: No Pertinent History Musculskeletal Surgical Hx: No Pertinent History Male Surgical History: Prostate Surgery Other Surgical History: femoral stents in legs - Social History Smoking Status: Former smoker Exposure to second hand smoke: No Alcohol: None Drug Use: none Significant Family History: no pertinent family hx - Physical Exam Vital Signs: Vital Signs - 24 hr Temp Pulse Resp BP Pulse Ox 06/18/22 07:11 60 16 94 L 06/18/22 03:41 97.5 F 66 16 121/58 93 L 06/18/22 03:26 60 18 99 06/18/22 01:44 62 19 114/45 100 06/18/22 01:27 95 06/18/22 00:18 53 L 14 120/45 99 06/17/22 23:32 56 L 19 113/43 95 06/17/22 22:03 101.2 F 68 23 119/50 97 General Appearance: no apparent distress, alert Neurologic Exam: alert, cooperative, normal mood/affect Neck Exam: normal inspection Respiratory Exam: normal breath sounds Cardiovascular Exam: regular rate/rhythm, normal heart sounds Gastrointestinal/Abdomen Exam: soft Skin Exam: normal color (Hard of hearing) Results - Labs Lab/Micro Results: Lab Results-Last 24 Hours 06/17/22 06/17/22 06/17/22 Range/Units 23:02 23:02 23:32 WBC 12.4 H (4.0-10.5) x10^3/uL RBC 3.19 L (4.1-5.6) x10^6/uL Hgb 8.2 L (12.5-18.0) g/dL Hct 27.7 L (42-50) % MCV 86.8 (78-100) fL MCH 25.7 L (26-32) pg MCHC 29.6 L (32-36) g/dL RDW 17.1 H (11.5-14.0) % Plt Count 280 (150-450) x10^3/uL MPV 9.4 (7.5-11.0) fL Gran % 80.4 H (36.0-66.0) % Immature Gran % (Auto) 0.5 H (0.00-0.4) % Nucleat RBC Rel Count 0.0 (0.00-0.1) % Eos # (Auto) 0.05 (0-0.5) x10^3/uL Immature Gran # (Auto) 0.06 H (0.00-0.03) x10^3u/L Absolute Lymphs (auto) 1.26 (1.0-4.6) x10^3/uL Absolute Monos (auto) 1.03 (0.0-1.3) x10^3/uL Absolute Nucleated RBC 0.00 (0.00-0.01) x10^3u/L Lymphocytes % 10.2 L (24.0-44.0) % Monocytes % 8.3 (0.0-12.0) % Eosinophils % 0.4 (0.00-5.0) % Basophils % 0.2 (0.0-0.4) % Absolute Granulocytes 9.93 H (1.4-6.9) x10^3/uL Basophils # 0.02 (0-0.4) x10^3/uL Sodium 135 L (137-145) mmol/L Potassium 4.5 (3.5-5.1) mmol/L Chloride 95 L (98-107) mmol/L Carbon Dioxide 31 H (22-30) mmol/L Anion Gap 13.6 (5-15) MEQ/L BUN 31 H (9-20) mg/dL Creatinine 2.15 H (0.66-1.25) mg/dL Estimated GFR 31.4 ML/MIN Glucose 85 (74-106) mg/dL Lactic Acid (0.4-2.0) Calcium 8.8 (8.4-10.2) mg/dL Total Bilirubin 0.60 (0.2-1.3) mg/dL AST 26 (17-59) U/L ALT 15 (0-50) U/L Alkaline Phosphatase 73 (38-126) U/L Serum Total Protein 7.6 (6.3-8.2) g/dL Albumin 3.7 (3.5-5.0) g/dL Prealbumin (17.6-36.0) mg/dL Urine Color YELLOW (YELLOW) Urine Appearance CLOUDY A (CLEAR) Urine pH 5.5 (5-6) Ur Specific [place] 1.015 (1.005-1.025) Urine Protein Cancelled POC Urine Protein Conf 100 A (Negative) Urine Glucose (UA) Cancelled Urine Ketones NEGATIVE (NEGATIVE) Urine Blood Cancelled Urine Nitrite POSITIVE A (NEGATIVE) Urine Bilirubin NEGATIVE (NEGATIVE) Urine Urobilinogen 0.2 (0-1) mg/dL Ur Leukocyte Esterase Cancelled Urine Leukocytes MODERATE A (NEGATIVE) Urine RBC LARGE A (0-5) Tobias/ul Urine Microscopic RBC 21-50 A (0-5) /HPF Urine Microscopic WBC >100 A (0-5) /HPF Ur Epithelial Cells None Seen (None Seen) /HPF Calcium Oxalate Crystal 3-5 A (None Seen) /HPF Urine Bacteria Rare A (None Seen) /HPF Urine Culture Reflexed YES (NO) Urine Glucose NEGATIVE (NEGATIVE) mg/dL Influenza Type A Ag (NEGATIVE) Influenza Type B Ag (NEGATIVE) RSV (PCR) (NEGATIVE) SARS-CoV-2 (PCR) (NEGATIVE) ABO Group Rh Factor Antibody Screen (NEGATIVE) 06/17/22 06/17/22 06/18/22 Range/Units 23:34 23:40 03:20 WBC 13.7 H (4.0-10.5) x10^3/uL RBC 2.96 L (4.1-5.6) x10^6/uL Hgb 7.5 L (12.5-18.0) g/dL Hct 25.7 L (42-50) % MCV 86.8 (78-100) fL MCH 25.3 L (26-32) pg MCHC 29.2 L (32-36) g/dL RDW 17.1 H (11.5-14.0) % Plt Count 279 (150-450) x10^3/uL MPV 9.3 (7.5-11.0) fL Gran % (36.0-66.0) % Immature Gran % (Auto) (0.00-0.4) % Nucleat RBC Rel Count (0.00-0.1) % Eos # (Auto) (0-0.5) x10^3/uL Immature Gran # (Auto) (0.00-0.03) x10^3u/L Absolute Lymphs (auto) (1.0-4.6) x10^3/uL Absolute Monos (auto) (0.0-1.3) x10^3/uL Absolute Nucleated RBC (0.00-0.01) x10^3u/L Lymphocytes % (24.0-44.0) % Monocytes % (0.0-12.0) % Eosinophils % (0.00-5.0) % Basophils % (0.0-0.4) % Absolute Granulocytes (1.4-6.9) x10^3/uL Basophils # (0-0.4) x10^3/uL Sodium (137-145) mmol/L Potassium (3.5-5.1) mmol/L Chloride (98-107) mmol/L Carbon Dioxide (22-30) mmol/L Anion Gap (5-15) MEQ/L BUN (9-20) mg/dL Creatinine (0.66-1.25) mg/dL Estimated GFR ML/MIN Glucose (74-106) mg/dL Lactic Acid 1.1 (0.4-2.0) Calcium (8.4-10.2) mg/dL Total Bilirubin (0.2-1.3) mg/dL AST (17-59) U/L ALT (0-50) U/L Alkaline Phosphatase (38-126) U/L Serum Total Protein (6.3-8.2) g/dL Albumin (3.5-5.0) g/dL Prealbumin (17.6-36.0) mg/dL Urine Color (YELLOW) Urine Appearance (CLEAR) Urine pH (5-6) Ur Specific [place] (1.005-1.025) Urine Protein POC Urine Protein Conf (Negative) Urine Glucose (UA) Urine Ketones (NEGATIVE) Urine Blood Urine Nitrite (NEGATIVE) Urine Bilirubin (NEGATIVE) Urine Urobilinogen (0-1) mg/dL Ur Leukocyte Esterase Urine Leukocytes (NEGATIVE) Urine RBC (0-5) Tobias/ul Urine Microscopic RBC (0-5) /HPF Urine Microscopic WBC (0-5) /HPF Ur Epithelial Cells (None Seen) /HPF Calcium Oxalate Crystal (None Seen) /HPF Urine Bacteria (None Seen) /HPF Urine Culture Reflexed (NO) Urine Glucose (NEGATIVE) mg/dL Influenza Type A Ag NEGATIVE (NEGATIVE) Influenza Type B Ag NEGATIVE (NEGATIVE) RSV (PCR) NEGATIVE (NEGATIVE) SARS-CoV-2 (PCR) NEGATIVE (NEGATIVE) ABO Group Rh Factor Antibody Screen (NEGATIVE) 06/18/22 06/18/22 Range/Units 03:20 03:43 WBC (4.0-10.5) x10^3/uL RBC (4.1-5.6) x10^6/uL Hgb (12.5-18.0) g/dL Hct (42-50) % MCV (78-100) fL MCH (26-32) pg MCHC (32-36) g/dL RDW (11.5-14.0) % Plt Count (150-450) x10^3/uL MPV (7.5-11.0) fL Gran % (36.0-66.0) % Immature Gran % (Auto) (0.00-0.4) % Nucleat RBC Rel Count (0.00-0.1) % Eos # (Auto) (0-0.5) x10^3/uL Immature Gran # (Auto) (0.00-0.03) x10^3u/L Absolute Lymphs (auto) (1.0-4.6) x10^3/uL Absolute Monos (auto) (0.0-1.3) x10^3/uL Absolute Nucleated RBC (0.00-0.01) x10^3u/L Lymphocytes % (24.0-44.0) % Monocytes % (0.0-12.0) % Eosinophils % (0.00-5.0) % Basophils % (0.0-0.4) % Absolute Granulocytes (1.4-6.9) x10^3/uL Basophils # (0-0.4) x10^3/uL Sodium 134 L (137-145) mmol/L Potassium 4.1 (3.5-5.1) mmol/L Chloride 96 L (98-107) mmol/L Carbon Dioxide 30 (22-30) mmol/L Anion Gap 12.6 (5-15) MEQ/L BUN 30 H (9-20) mg/dL Creatinine 2.20 H (0.66-1.25) mg/dL Estimated GFR 30.6 ML/MIN Glucose 105 (74-106) mg/dL Lactic Acid (0.4-2.0) Calcium 8.4 (8.4-10.2) mg/dL Total Bilirubin (0.2-1.3) mg/dL AST (17-59) U/L ALT (0-50) U/L Alkaline Phosphatase (38-126) U/L Serum Total Protein (6.3-8.2) g/dL Albumin (3.5-5.0) g/dL Prealbumin 14.11 L (17.6-36.0) mg/dL Urine Color (YELLOW) Urine Appearance (CLEAR) Urine pH (5-6) Ur Specific [place] (1.005-1.025) Urine Protein POC Urine Protein Conf (Negative) Urine Glucose (UA) Urine Ketones (NEGATIVE) Urine Blood Urine Nitrite (NEGATIVE) Urine Bilirubin (NEGATIVE) Urine Urobilinogen (0-1) mg/dL Ur Leukocyte Esterase Urine Leukocytes (NEGATIVE) Urine RBC (0-5) Tobias/ul Urine Microscopic RBC (0-5) /HPF Urine Microscopic WBC (0-5) /HPF Ur Epithelial Cells (None Seen) /HPF Calcium Oxalate Crystal (None Seen) /HPF Urine Bacteria (None Seen) /HPF Urine Culture Reflexed (NO) Urine Glucose (NEGATIVE) mg/dL Influenza Type A Ag (NEGATIVE) Influenza Type B Ag (NEGATIVE) RSV (PCR) (NEGATIVE) SARS-CoV-2 (PCR) (NEGATIVE) ABO Group O Rh Factor NEGATIVE Antibody Screen NEGATIVE (NEGATIVE) - Other Procedures and Tests Respiratory Therapy 06/18/22 03:23 Oxygen Nasal Cannula 2 lpm 06/18/22 03:26 Respiratory Therapy Assessment DAILY Assessment/Plan (1) CHF (congestive heart failure), NYHA class II Current Visit: No Status: Chronic Qualifiers: Congestive heart failure type: unspecified Qualified Code(s): I50.9 - Heart failure, unspecified Assessment & Plan: Appears fairly compensated, will be careful with fluids. PO for now. Not on GDMT at home - will defer to primary coal sampler. Code(s): I50.9 - HEART FAILURE, UNSPECIFIED (2) Renal insufficiency Current Visit: No Status: Chronic Assessment & Plan: Cr 2.2 - baseline of 2 per chart review by ED physician, will follow (3) UTI (urinary tract infection) Current Visit: Yes Status: Acute Qualifiers: Urinary tract infection type: acute cystitis Hematuria presence: with hematuria Qualified Code(s): N30.01 - Acute cystitis with hematuria Assessment & Plan: Dysuria, UA with LE and WBCs and RBCs, will treat empirically. Has had pseudomonas in the past, culture pending, no systemic toxic signs Code(s): N39.0 - URINARY TRACT INFECTION, SITE NOT SPECIFIED (4) HTN (hypertension) Current Visit: No Status: Chronic Qualifiers: Hypertension type: primary hypertension Qualified Code(s): I10 - Essential (primary) hypertension Assessment & Plan: at goal, continue present management Code(s): I10 - ESSENTIAL (PRIMARY) HYPERTENSION Telemedicine Encounter - Telemedicine Encounter Telemedicine Encounter: The entirety of this encounter was performed via Telemedicine"
[2022-06-18] MEDS ORDERED: Levofloxacin 500MG/100ML D5W 500 MG/100 ML BAG IV SCH (10:00)
[2022-06-18] MEDS ORDERED: Miralax Powder 17GM PACKET PO PRN (13:43)
[2022-06-18] MEDS ORDERED: LIDOCAINE TP PRN (13:43)
[2022-06-18] MEDS ORDERED: Nitrostat 0.4 MG Tablet SL PRN (13:43)
[2022-06-18] MEDS ORDERED: MILK OF MAGNESIA 30 ML PO PRN (13:43)
[2022-06-18] MEDS ORDERED: xanAX 0.25 MG PO PRN (13:43)
[2022-06-18] MEDS ORDERED: DOCUSATE SODIUM 50 MG PO PRN (13:43)
[2022-06-18] MEDS ORDERED: GlucaGen 1 MG IM PRN (13:43)
[2022-06-18] MEDS ORDERED: Docusate Sodium 100 MG PO PRN (14:04)
[2022-06-18] MEDS ORDERED: Lidoderm Patch 5% TP PRN (14:05)
[2022-06-18] MEDS: Imdur 30 MG PO SCH (14:21)
[2022-06-18] MEDS: Klor Con PO SCH (14:22)
[2022-06-18] MEDS: Proscar 5 MG PO SCH (14:22)
[2022-06-18] MEDS: Tessalon Perles 100 MG PO SCH ×2 (14:22→23:10)
[2022-06-18] MEDS: ECOTRIN 81 MG PO SCH (14:22)
[2022-06-18] MEDS: ELIQUIS 2.5 MG TABLET PO SCH ×2 (14:22→23:10)
[2022-06-18] MEDS: NEURONTIN PO SCH ×2 (14:22→23:10)
[2022-06-18] MEDS: TYLENOL 325 MG PO PRN (14:22)
[2022-06-18] MEDS: Lopressor 50 MG PO SCH ×2 (14:22→23:10)
[2022-06-18] MEDS: THERAGRAN MULTIVITAMIN PO SCH (14:22)
[2022-06-18] MEDS: HUMALOG SQ SCH (14:24)
[2022-06-18] MEDS: Lantus Insulin SQ SCH (14:25)
[2022-06-18] MEDS: Cordarone 200 MG PO SCH (14:36)
[2022-06-18] MEDS: Vitamin C 500 MG PO SCH (14:36)
[2022-06-18] MEDS: PROVENTIL 2.5 MG/3 ML NEB IH SCH ×2 (14:43→18:38)
[2022-06-18] MEDS: Lasix 40 MG PO SCH (15:08)
[2022-06-18] MEDS: ZYLOPRIM 100 MG PO SCH (15:08)
[2022-06-18] MEDS ORDERED: NON-FORMULARY ITEM (Insulin Lispro [Insulin Lispro Kwikpen U-100] 100 UNIT/ML Insuln.Pen) SQ SCH (16:30)
[2022-06-18] MEDS ORDERED: PIPERACILLIN/TAZOBACTAM 3.375 GM in Sodium Chloride 100ML MINI-BAG PLUS 100 ML IV SCH (18:00)
[2022-06-18] MEDS: Piperacillin/Tazobactam 2.25 GM 2.25 GM in Sodium Chloride 100ML MINI-BAG PLUS 100 ML IV SCH ×2 (18:46→23:50)
[2022-06-18] MEDS ORDERED: LIPITOR 40MG PO SCH (22:00)
[2022-06-18] MEDS ORDERED: Levaquin 250MG/50ML D5W 250 MG/50 ML BAG IV SCH (22:00)
[2022-06-18] MEDS: Flomax 0.4 MG PO SCH (23:10)
[2022-06-18] MEDS: ZOCOR 20MG PO SCH (23:10)
[2022-06-18] MEDS: xanAX 0.25 MG PO SCH (23:11)
[2022-06-19 05:20] LABS: Absolute Neutrophil Ct (ANC) 9.13 x10^3/uL (1.4-6.9); BASOPHIL % 0.3 % (0.0-0.4); Basophil (Absolute #) 0.03 x10^3/uL (0-0.4); Eosinophil (Absolute #) 0.12 x10^3/uL (0-0.5); Hematocrit 24.5 % (42-50); Hemoglobin 7.2 g/dL (12.5-18.0); IMMATURE GRAN # 0.03 x10^3u/L (0.00-0.03); IMMATURE GRAN % 0.3 % (0.00-0.4); Lymphocyte (Absolute #) 1.29 x10^3/uL (1.0-4.6); Lymphocytes % 11.2 % (24.0-44.0); Mean Cell Volume 87.2 fL (78-100); Mean Corpuscular Hemoglobin 25.6 pg (26-32); Mean Corpuscular Hgb Concent. 29.4 g/dL (32-36); Mean Platelet Volume 9.4 fL (7.5-11.0); Monocyte (Absolute #) 0.88 x10^3/uL (0.0-1.3); Monocytes % 7.7 % (0.0-12.0); Neutrophil % 79.5 % (36.0-66.0); Platelet Count 265 x10^3/uL (150-450); Red Blood Count 2.81 x10^6/uL (4.1-5.6); White Blood Count 11.5 x10^3/uL (4.0-10.5)
[2022-06-19] MEDS: Piperacillin/Tazobactam 2.25 GM 2.25 GM in Sodium Chloride 100ML MINI-BAG PLUS 100 ML IV SCH ×4 (05:31→23:41)
[2022-06-19 05:40] LABS: ANION GAP 11.5 MEQ/L (5-15); Calcium 8.1 mg/dL (8.4-10.2); Creatinine 1 2.34 mg/dL (0.66-1.25); EST GLOMERULAR FILTRATION RATE 28.5 ML/MIN; Potassium 4.1 mmol/L (3.5-5.1)
[2022-06-19] MEDS: PROVENTIL 2.5 MG/3 ML NEB IH SCH ×4 (06:35→18:50)
[2022-06-19] MEDS: ECOTRIN 81 MG PO SCH (08:52)
[2022-06-19] MEDS: ELIQUIS 2.5 MG TABLET PO SCH ×2 (08:52→22:07)
[2022-06-19] MEDS: Lasix 40 MG PO SCH (08:52)
[2022-06-19] MEDS: Imdur 30 MG PO SCH (08:52)
[2022-06-19] MEDS: Klor Con PO SCH (08:53)
[2022-06-19] MEDS: NEURONTIN PO SCH ×2 (08:53→22:07)
[2022-06-19] MEDS: ZYLOPRIM 100 MG PO SCH (08:53)
[2022-06-19] MEDS: Tessalon Perles 100 MG PO SCH ×3 (08:53→22:07)
[2022-06-19] MEDS: THERAGRAN MULTIVITAMIN PO SCH (08:53)
[2022-06-19] MEDS: Lopressor 50 MG PO SCH ×2 (08:53→22:06)
[2022-06-19] MEDS: Lantus Insulin SQ SCH (08:54)
[2022-06-19] MEDS: Proscar 5 MG PO SCH (08:54)
[2022-06-19] MEDS: HUMALOG SQ SCH ×3 (09:10→16:29)
[2022-06-19] MEDS ORDERED: NON-FORMULARY ITEM (Potassium Chloride [Potassium Chloride] 10 MEQ Tablet.Er) PO SCH (10:00)
[2022-06-19] MEDS ORDERED: NON-FORMULARY ITEM (Multivitamin [Multivitamins] 1 EACH Capsule) PO SCH (10:00)
[2022-06-19] MEDS ORDERED: NON-FORMULARY ITEM (Insulin Glargine,Hum.Rec.Anlog [Basaglar Kwikpen U-100] 100 UNIT/ML In SQ SCH (10:00)
[2022-06-19] MEDS: TYLENOL 325 MG PO PRN (17:55)
[2022-06-19] MEDS: ZOCOR 20MG PO SCH (22:07)
[2022-06-19] MEDS: xanAX 0.25 MG PO SCH (22:07)
[2022-06-19] MEDS: Flomax 0.4 MG PO SCH (22:07)
[2022-06-20] MEDS: Piperacillin/Tazobactam 2.25 GM 2.25 GM in Sodium Chloride 100ML MINI-BAG PLUS 100 ML IV SCH ×3 (05:38→21:51)
[2022-06-20 06:16] LABS: Absolute Neutrophil Ct (ANC) 6.54 x10^3/uL (1.4-6.9); BASOPHIL % 0.4 % (0.0-0.4); Basophil (Absolute #) 0.03 x10^3/uL (0-0.4); Eosinophil (Absolute #) 0.25 x10^3/uL (0-0.5); Hematocrit 24.5 % (42-50); Hemoglobin 7.1 g/dL (12.5-18.0); IMMATURE GRAN # 0.03 x10^3u/L (0.00-0.03); IMMATURE GRAN % 0.4 % (0.00-0.4); Lymphocyte (Absolute #) 0.97 x10^3/uL (1.0-4.6); Lymphocytes % 11.6 % (24.0-44.0); Mean Cell Volume 87.8 fL (78-100); Mean Corpuscular Hemoglobin 25.4 pg (26-32); Mean Platelet Volume 8.9 fL (7.5-11.0); Monocyte (Absolute #) 0.57 x10^3/uL (0.0-1.3); Monocytes % 6.8 % (0.0-12.0); Neutrophil % 77.8 % (36.0-66.0); Platelet Count 231 x10^3/uL (150-450); Red Blood Count 2.79 x10^6/uL (4.1-5.6); Red Cell Distribution Width 16.6 % (11.5-14.0); White Blood Count 8.4 x10^3/uL (4.0-10.5)
[2022-06-20 06:42] LABS: ANION GAP 12.8 MEQ/L (5-15); Calcium 7.9 mg/dL (8.4-10.2); Creatinine 1 2.29 mg/dL (0.66-1.25); EST GLOMERULAR FILTRATION RATE 29.2 ML/MIN; Potassium 4.2 mmol/L (3.5-5.1)
[2022-06-20] MEDS: PROVENTIL 2.5 MG/3 ML NEB IH SCH ×4 (07:58→19:36)
[2022-06-20] MEDS: HUMALOG SQ SCH ×3 (08:12→16:58)
[2022-06-20] MEDS ORDERED: Lasix 20 MG/2 ML IV ONE (09:03)
[2022-06-20] MEDS: THERAGRAN MULTIVITAMIN PO SCH (10:25)
[2022-06-20] MEDS: Imdur 30 MG PO SCH (10:25)
[2022-06-20] MEDS: Lopressor 50 MG PO SCH ×2 (10:25→21:32)
[2022-06-20] MEDS: ECOTRIN 81 MG PO SCH (10:25)
[2022-06-20] MEDS: Tessalon Perles 100 MG PO SCH ×3 (10:25→21:33)
[2022-06-20] MEDS: Vitamin C 500 MG PO SCH (10:25)
[2022-06-20] MEDS: Cordarone 200 MG PO SCH (10:25)
[2022-06-20] MEDS: Lasix 40 MG PO SCH (10:25)
[2022-06-20] MEDS: Lantus Insulin SQ SCH (10:26)
[2022-06-20] MEDS: NEURONTIN PO SCH ×2 (10:26→21:32)
[2022-06-20] MEDS: ZYLOPRIM 100 MG PO SCH (10:26)
[2022-06-20] MEDS: ELIQUIS 2.5 MG TABLET PO SCH ×2 (10:26→21:31)
[2022-06-20] MEDS: Klor Con PO SCH (10:26)
[2022-06-20 11:02] LABS: ABO TYPING O; Antibody Screen NEGATIVE (NEGATIVE); RH TYPING NEGATIVE
[2022-06-20 11:04] LABS: CROSS MATCH (PRBC) COMPATIBLE (COMPATIBLE)
[2022-06-20] MEDS: Proscar 5 MG PO SCH (11:39)
[2022-06-20] MEDS ORDERED: Sodium Chloride 0.9% 1000 ML 1,000 ML ONE (13:27)
[2022-06-20] MEDS ORDERED: Lasix 20 MG/2 ML ONE (16:48)
[2022-06-20 17:40] LABS: Hematocrit 28.3 % (42-50); Hemoglobin 8.2 g/dL (12.5-18.0)
[2022-06-20] MEDS: Flomax 0.4 MG PO SCH (21:32)
[2022-06-20] MEDS: ZOCOR 20MG PO SCH (21:33)
[2022-06-20] MEDS: xanAX 0.25 MG PO SCH (21:33)
[2022-06-20] MEDS ORDERED: Omnicef 125 MG/5 ML SUSP PO SCH (22:00)
[2022-06-21 06:58] VITALS: BP 126/58; O2SAT 95
[2022-06-21] MEDS: PROVENTIL 2.5 MG/3 ML NEB IH SCH (07:22)
[2022-06-21 07:27] VITALS: PULSE 53
--- NOTE | 2022-06-28 17:08 | PCM.DS ---
Discharge Summary Date of Admission: 06/18/22 02:03 Date of Discharge: 06/21/2022 Admitting Physician: FER WESTFALL MD Primary Care Provider: HALINA HAHN Allergies Allergies No Known Drug Allergies Allergy (Verified 06/18/22 06:49) Hospital Summary - Hospital Course Hospital Course: Pt. admitted and started on iv antibiotics and gentle hydration, pt. gradually improved and was ready for discharge on appropriate antibiotics to treat his current recurrent UTI. - Vitals & Intake/Output Vital Signs: Vital Signs Temperature 98.7 F 06/21/22 06:57 Pulse Rate 53 L 06/21/22 07:26 Respiratory Rate 14 06/21/22 07:26 Blood Pressure 126/58 06/21/22 06:57 O2 Sat by Pulse Oximetry 95 06/21/22 07:26 - Lab Result Diagrams: 06/20/22 17:38 06/20/22 06:15 Micro Results-Entire Visit: Microbiology 06/17/22 23:34 Blood Culture Gram Stain - Final Blood Not Reportable Blood Culture - Final NO GROWTH 06/17/22 23:02 Blood Culture Gram Stain - Final Blood Not Reportable Blood Culture - Final NO GROWTH 06/17/22 23:32 Urine Culture - Final Urine, Catheterized Pseudomonas Aeruginosa - Procedures and Test Procedures and Tests throughout Hospitalization: Therapy Orders & Screens 06/18/22 03:23 Oxygen Nasal Cannula 2 lpm Comment: 06/18/22 03:26 Respiratory Therapy Assessment DAILY Comment: 06/18/22 04:14 OT Screen per Nursing Assess ONCE Comment: Protocol Order Physician Instructions: Greater than 3 points order OT Admission Screening Reason For Exam: Triggered on Admission Diagnosis: uti Open Wound/Cellutlitis/Pressure Ulcers: Yes Acute Fx/ORIF/Change in wt bearing status: No Severe MUSCULOSKELETAL pain: No ADL Dysfunction: No Acute CVA w/Hemiparesis/Hemiplegia: No Decreased Functional Mobility/Strength: No Sprain/Strain: No Acute Post-op Mobility Dysfunction: No Total Points: 5 PT Screen per Nursing Assess ONCE Comment: Protocol Order Physician Instructions: Greater than 3 points order PT Admission Screenin Reason For Exam: Triggered on Admission Diagnosis: uti Open Wound/Cellutlitis/Pressure Ulcers: Yes Acute Fx/ORIF/Change in wt bearing status: No Severe MUSCULOSKELETAL pain: No ADL Dysfunction: No Acute CVA w/Hemiparesis/Hemiplegia: No Decreased Functional Mobility/Strength: No Sprain/Strain: No Acute Post-op Mobility Dysfunction: No Total Points: 5 RT Screen per Nursing Assess ONCE Comment: Protocol Order Physician Instructions: Greater than 3 points order RT Admission Screen Reason For Exam: Triggered on Admission Diagnosis: uti Diagnosis: uti Pneumonia: No Home O2: Yes: 4L Asthma: No CHF: Yes Home CPAP/BIPAP: No Home Nebs/MDI: Yes: QID Total Points: 13 Discharge Exam General Appearance: no apparent distress, alert Neurologic Exam: alert, oriented x 3, cooperative, normal mood/affect, nml cerebellar function, sensation nml, No motor deficits Eye Exam: PERRL, EOMI, eyes nml inspection Ears, Nose, Throat Exam: normal ENT inspection, pharynx normal, moist mucous membranes Neck Exam: normal inspection, non-tender, supple, full range of motion Respiratory Exam: normal breath sounds, lungs clear, No respiratory distress Cardiovascular Exam: regular rate/rhythm, normal heart sounds Gastrointestinal/Abdomen Exam: soft, No tenderness, No mass Male Genitalia Exam: deferred Rectal Exam: deferred Back Exam: normal inspection, normal range of motion, No CVA tenderness, No vertebral tenderness Extremity Exam: normal inspection, normal range of motion Skin Exam: normal color, warm, dry Final Diagnosis/Problem List - Final Discharge Diagnosis/Problem (1) Generalized weakness Status: Acute Code(s): R53.1 - WEAKNESS (2) UTI (urinary tract infection) Status: Acute Code(s): N39.0 - URINARY TRACT INFECTION, SITE NOT SPECIFIED (3) Recurrent UTI Status: Chronic Code(s): N39.0 - URINARY TRACT INFECTION, SITE NOT SPECIFIED - Discharge Discharge Date: 06/21/22 Disposition: DC TO [facility] Condition: Stable Prescriptions: New Cefdinir 300 mg PO BID 10 Days #20 cap Cephalexin Mh 250 mg [Keflex 250 mg] 250 mg PO DAILY #30 cap Continue Amiodarone HCl 200 mg [Cordarone 200 MG] 200 mg PO UD Multivitamin [Multivitamins] 1 tab PO DAILY Nitroglycerin 0.4 mg Tablet [Nitrostat 0.4 MG Tablet] 1 tab SL Q5MIN PRN MR X 3 PRN PRN Reason: Chest Pain Gabapentin [Neurontin ] 300 mg PO BID Finasteride 5 mg [Proscar 5 MG] 5 mg PO DAILY Potassium Chloride 10 meq PO DAILY #30 tab Ascorbic Acid 500 mg [Vitamin C 500 MG] 500 mg PO UD Insulin Glargine,Hum.rec.anlog [Basaglar Kwikpen U-100] 40 unit SQ DAILY Albuterol Sulfate [Albuterol Sulfate Hfa] 2 inh IH Q6HPRN PRN PRN Reason: Shortness Of Breath/Wheezing Lidocaine 1 each TP DAILY PRN PRN PRN Reason: Pain Atorvastatin Calcium [Lipitor] 40 mg PO HS Calcium Carbonate [Calcium] 500 mg PO BID Aspirin EC 81 mg [Ecotrin 81 mg] 81 mg PO DAILY Insulin Lispro [Insulin Lispro Kwikpen U-100] 0 unit SQ AC Tamsulosin HCl 0.4 mg [Flomax 0.4 MG] 0.4 mg PO HS Cholecalciferol (Vitamin D3) [Vitamin D] 4,000 unit PO UD Isosorbide Mononitrate [Isosorbide Mononitrate ER] 30 mg PO DAILY Apixaban [Eliquis 2.5 mg Tablet] 2.5 mg PO BID #60 tablet Allopurinol 100 mg [Zyloprim 100 mg] 100 mg PO DAILY Furosemide 40 mg [Lasix 40 MG] 40 mg PO DAILY Metoprolol Tartrate 50 mg [Lopressor 50 MG] 50 mg PO BID ALPRAZolam 0.25 MG [xanAX 0.25 MG] 0.25 mg PO HS Acetaminophen 325 mg [Tylenol 325 mg] 650 mg PO Q4HPRN PRN PRN Reason: Pain And/Or Fever Polyethylene Glycol 3350 17 gm [Miralax Powder 17GM PACKET] 17 gm PO Q8HPRN PRN PRN Reason: Constipation Magnesium Hydroxide 30 ml [Milk of Magnesia 30 ml] 30 ml PO DAILY PRN PRN PRN Reason: Constipation Glucagon 1 mg [GlucaGen 1 MG] 1 mg IM Q4HPRN PRN PRN Reason: Hypoglycemia Docusate Sodium [Colace Clear] 50 mg PO [id number] PRN PRN Reason: Constipation Albuterol 2.5 mg/3 ml Neb [Proventil 2.5 mg/3 ml Neb] 1 neb IN QID Benzonatate 100 mg PO TID Ferrous Sulfate 325 mg [Feosol 325 mg] 325 mg PO DAILY ALPRAZolam 0.25 MG [xanAX 0.25 MG] 0.25 mg PO Q8HPRN PRN PRN Reason: Anxiety Additional Instructions: O2 4L at all times OT PT eval and treat Bed rest Fluid restriction 1500 cc daily Heart healthy diet Accu check ACHS Follow up with: HALINA HAHN MD [Primary Care Provider] - Forms: Transfer Record Fdc
== END 2022-06-21 07:50 ==
LOC: ED 21:53 → MED SURG 06-18 02:03
PROVIDERS: ADMIT Internal Medicine; ATTEND Family Medicine
DX: N39.0 Urinary tract infection, site not specified (principal); I13.0 Hypertensive heart and chronic kidney disease with heart failure and stage 1 through stage 4 chronic kidney disease, or unspecified chronic kidney disease; E11.22 Type 2 diabetes mellitus with diabetic chronic kidney disease; N18.9 Chronic kidney disease, unspecified; I50.9 Heart failure, unspecified; I25.10 Atherosclerotic heart disease of native coronary artery without angina pectoris; E78.5 Hyperlipidemia, unspecified; D64.9 Anemia, unspecified; Z85.038 Personal history of other malignant neoplasm of large intestine; Z20.828 Contact with and (suspected) exposure to other viral communicable diseases; Z79.899 Other long term (current) drug therapy; Z99.81 Dependence on supplemental oxygen
CPT/HCPCS: 0241U; 36415; 36430; 51702; 80048; 80053; 81001; 81015; 82947; 83605; 84134; 85014; 85018; 85025; 85027; 86850; 86900; 86901; 86922; 87040; 87077; 87086; 87186; 94640; 94760; 99284; G0378; P9016; J1817; J1940; J1956; J2543; J7609; A9270-GY

== ENCOUNTER 2022-07-14 18:39 | Observation (INO) | payer MEDICARE, OTHER ==
[2022-07-14] MEDS ORDERED: MAXIPIME 1 GM** 1 G in Sodium Chloride 0.9% 100 ML IV STA (19:28)
[2022-07-14] MEDS ORDERED: Sodium Chloride 0.9% 100 ML ONE (19:30)
[2022-07-14] MEDS ORDERED: MAXIPIME 1 GM ONE (19:30)
--- NOTE | 2022-07-14 19:35 | ERPHSYRPT ---
- History of Present Illness Time Seen by Provider: 07/14/22 19:31 Source: patient Exam Limitations: no limitations Patient Subjective Stated Complaint: pt states that he has a UTI and needs IV antibiotics Triage Nursing Assessment: Pt came to the ER by EMS, vitals wnl, denies pain, states that he has had a uti for 1.5 years and needs IV antibiotics, he has a gonzalez catheter in that he had placed in Dr. Abel's office a couple of days ago, he stated that he couldn't urinate and so one was placed, pt had blood work today that showed he had some kind of an infection, pt is lethargic but answers questions, pulses normal, skin is hot but is afebrile, no difficulty breathing, thirsty Physician History: Patient is an 81-year-old male presents to our ED via EMS for treatment of a pseudomonal urinary tract infection. states patient had urinary retention approximately a week ago. A Gonzalez catheter was placed. Urinalysis was sent at that time. Patient was started antibiotics. Today was informed that catalina ent has a pseudomonal infection in his urine. states that the nurse had notified her could not start an antibiotic today and stated that an antibiotic will be started in the next couple days. states patient cannot go with the pseudomonal infection untreated. 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 states that these infections are treated with cefepime. Patient tends to get worse if not. Patient tends to develop fevers and become ill. requesting hospitalization for cefepime to treat patient's pseudomonal urinary tract infection. Patient voices no other complaints or concerns at this time. Portions of this note were created with voice recognition technology. There may be grammatical, spelling, punctuation or sound alike errors Timing/Duration: today Severity: moderate Modifying Factors: Improves With: nothing Associated Symptoms: denies symptoms Allergies/Adverse Reactions: No Known Drug Allergies Allergy (Verified 07/14/22 19:11) Home Medications: Amiodarone HCl 200 mg [Cordarone 200 MG] 200 mg PO UD 02/27/14 [History] Multivitamin [Multivitamins] 1 tab PO DAILY 11/09/14 [History] Finasteride 5 mg [Proscar 5 MG] 5 mg PO DAILY 11/05/20 [History] Gabapentin [Neurontin ] 300 mg PO BID 11/05/20 [History] Nitroglycerin 0.4 mg Tablet [Nitrostat 0.4 MG Tablet] 1 tab SL Q5MIN PRN MR X 3 PRN 11/05/20 [History] Albuterol Sulfate [Albuterol Sulfate Hfa] 2 inh IH Q6HPRN PRN 05/22/21 [History] Ascorbic Acid 500 mg [Vitamin C 500 MG] 500 mg PO UD 05/22/21 [History] Atorvastatin Calcium [Lipitor] 40 mg PO HS 05/22/21 [History] Insulin Glargine,Hum.rec.anlog [Basaglar Kwikpen U-100] 40 unit SQ DAILY 05/22/21 [History] Lidocaine 1 each TP DAILY PRN PRN 05/22/21 [History] Aspirin EC 81 mg [Ecotrin 81 mg] 81 mg PO DAILY 03/01/22 [History] Calcium Carbonate [Calcium] 500 mg PO BID 03/01/22 [History] Cholecalciferol (Vitamin D3) [Vitamin D] 4,000 unit PO UD 03/01/22 [History] Insulin Lispro [Insulin Lispro Kwikpen U-100] 0 unit SQ AC 03/01/22 [History] Isosorbide Mononitrate [Isosorbide Mononitrate ER] 30 mg PO DAILY 03/01/22 [History] Tamsulosin HCl 0.4 mg [Flomax 0.4 MG] 0.4 mg PO HS 03/01/22 [History] Allopurinol 100 mg [Zyloprim 100 mg] 100 mg PO DAILY 03/19/22 [History] Furosemide 40 mg [Lasix 40 MG] 40 mg PO DAILY 03/19/22 [History] Metoprolol Tartrate 50 mg [Lopressor 50 MG] 50 mg PO BID 04/16/22 [History] ALPRAZolam 0.25 MG [xanAX 0.25 MG] 0.25 mg PO HS 05/15/22 [History] ALPRAZolam 0.25 MG [xanAX 0.25 MG] 0.25 mg PO Q8HPRN PRN 06/18/22 [History] Acetaminophen 325 mg [Tylenol 325 mg] 650 mg PO Q4HPRN PRN 06/18/22 [History] Albuterol 2.5 mg/3 ml Neb [Proventil 2.5 mg/3 ml Neb] 1 neb IN QID 06/18/22 [History] Benzonatate 100 mg PO TID 06/18/22 [History] Docusate Sodium [Colace Clear] 50 mg PO [id number] PRN 06/18/22 [History] Ferrous Sulfate 325 mg [Feosol 325 mg] 325 mg PO DAILY 06/18/22 [History] Glucagon 1 mg [GlucaGen 1 MG] 1 mg IM Q4HPRN PRN 06/18/22 [History] Magnesium Hydroxide 30 ml [Milk of Magnesia 30 ml] 30 ml PO DAILY PRN PRN 06/18/22 [History] Polyethylene Glycol 3350 17 gm [Miralax Powder 17GM PACKET] 17 gm PO Q8HPRN PRN 06/18/22 [History] Hx Tetanus, Diphtheria Vaccination/Date Given: Yes Hx Influenza Vaccination/Date Given: Yes Hx Pneumococcal Vaccination/Date Given: Yes Travel Risk - International Travel Have you traveled outside of the country in past 3 weeks: No - Coronavirus Screening Are you exhibiting any of the following symptoms?: No - Vaccine Status Have you recieved a Covid-19 vaccination: Yes Installation Coordinator: Moderna - Vaccination Dates Date of 2cond Vaccination (if applicable): UNKNOWN Dates if Unknown: UNKNOWN - Review of Systems Constitutional: No Symptoms, No Fever, No Chills Eyes: No Symptoms Ears, Nose, & Throat: No Symptoms Respiratory: No Symptoms, No Cough, No Dyspnea Cardiac: No Symptoms, No Chest Pain, No Edema, No Syncope Abdominal/Gastrointestinal: No Symptoms, No Abdominal Pain, No Nausea, No Vomiting, No Diarrhea Genitourinary Symptoms: No Symptoms, No Dysuria Musculoskeletal: No Symptoms, No Back Pain, No Neck Pain Skin: No Symptoms, No Rash Neurological: No Symptoms, No Dizziness, No Focal Weakness, No Sensory Changes Psychological: No Symptoms Endocrine: No Symptoms Hematologic/Lymphatic: No Symptoms Immunological/Allergic: No Symptoms All Other Systems: Reviewed and Negative - Past Medical History Pertinent Past Medical History: Yes Neurological History: Stroke ENT History: No Pertinent History Cardiac History: Arrhythmia, Congestive Heart Failure, Coronary Artery Disease, High Cholesterol, Hypertension, Myocardial Infarction (CT), Peripheral Vascular Disease Respiratory History: CHF, COPD Endocrine Medical History: Diabetes Type II Musculoskeletal History: No Pertinent History GI Medical History: Colorectal Cancer, GERD, Hernia History: No Pertinent History Psycho-Social History: Depression Male Reproductive Disorders: Prostate Problems Other Medical History: HX of AFIB. cancer in remission. anemia - Past Surgical History Past Surgical History: Yes Neuro Surgical History: No Pertinent History Cardiac: Cardiac Catheterization, Cardiac Stent Respiratory: No Pertinent History Gastrointestinal: Bowel Surgery, Colon Resection, Hernia Repair Genitourinary: No Pertinent History Musculoskeletal: No Pertinent History Male Surgical History: Prostate Surgery Other Surgical History: femoral stents in legs - Social History Smoking Status: Former smoker Exposure to second hand smoke: No Alcohol Use: None Drug Use: none Patient Lives Alone: No Significant Family History: no pertinent family hx - Nursing Vital Signs Nursing Vital Signs: Initial Vital Signs Temperature 98.2 F 07/14/22 18:41 Pain Scale Pain Intensity 0 - Physical Exam General Appearance: no apparent distress, alert Eye Exam: PERRL/EOMI, eyes nml inspection Ears, Nose, Throat Exam: normal ENT inspection, TMs normal, pharynx normal, moist mucous membranes Neck Exam: normal inspection, non-tender, supple, full range of motion Respiratory Exam: normal breath sounds, lungs clear, airway intact, No respiratory distress Cardiovascular Exam: regular rate/rhythm, normal heart sounds, normal peripheral pulses Gastrointestinal/Abdomen Exam: soft, normal bowel sounds, No tenderness, No mass Back Exam: normal inspection, normal range of motion, No CVA tenderness, No vertebral tenderness Extremity Exam: normal inspection, normal range of motion, pelvis stable Neurologic Exam: alert, oriented x 3, cooperative, normal mood/affect, nml cerebellar function, nml station & gait, sensation nml, No motor deficits Skin Exam: normal color, warm, dry, No rash Lymphatic Exam: No adenopathy SpO2 Interpretation: normal SpO2: 97 O2 Delivery: Room Air - Course Nursing assessment & vital signs reviewed: Yes Ordered Tests: Active Orders 24 hr Category Date Time Status IV Insertion STAT Care 07/14/22 19:26 Active Pulse Oximetry (ED) STAT Care 07/14/22 19:26 Active BLOOD CULTURE Stat Lab 07/14/22 19:40 Received CBC W DIFF Stat Lab 07/14/22 19:00 Completed CMP Stat Lab 07/14/22 19:00 Completed Lactic Acid Stat Lab 07/14/22 19:26 Completed Transfer Order Routine Transfer 07/14/22 Ordered Medication Summary Discontinued Medications Generic Name Dose Route Start Last Admin Trade Name Devon PRN Reason Stop Dose Admin Cefepime HCl Confirm 07/14/22 19:30 Cefepime Hcl 1 Gm Vial Administered 07/14/22 19:31 Dose 1 g .ROUTE .STK-MED ONE Cefepime HCl 1 g/ Sodium 100 mls @ 200 mls/hr 07/14/22 19:28 07/14/22 19:36 Chloride IV 07/14/22 19:57 200 mls/hr STAT STA Administration Sodium Chloride Confirm 07/14/22 19:30 Sodium Chloride 0.9% Administered 07/14/22 19:31 Dose 100 mls @ ud .ROUTE .STK-MED ONE Lab/Rad Data: Laboratory Result Diagrams 07/14/22 19:00 07/14/22 19:00 Laboratory Results 07/14/22 07/14/22 07/14/22 Range/Units 19:26 19:00 19:00 WBC 14.5 H (4.0-10.5) x10^3/uL RBC 4.00 L (4.1-5.6) x10^6/uL Hgb 10.2 L (12.5-18.0) g/dL Hct 34.0 L (42-50) % MCV 85.0 (78-100) fL MCH 25.5 L (26-32) pg MCHC 30.0 L (32-36) g/dL RDW 16.4 H (11.5-14.0) % Plt Count 326 (150-450) x10^3/uL MPV 9.1 (7.5-11.0) fL Gran % 84.0 H (36.0-66.0) % Immature Gran % (Auto) 0.7 H (0.00-0.4) % Nucleat RBC Rel Count 0.0 (0.00-0.1) % Eos # (Auto) 0.20 (0-0.5) x10^3/uL Immature Gran # (Auto) 0.10 H (0.00-0.03) x10^3u/L Absolute Lymphs (auto) 1.08 (1.0-4.6) x10^3/uL Absolute Monos (auto) 0.88 (0.0-1.3) x10^3/uL Absolute Nucleated RBC 0.00 (0.00-0.01) x10^3u/L Lymphocytes % 7.5 L (24.0-44.0) % Monocytes % 6.1 (0.0-12.0) % Eosinophils % 1.4 (0.00-5.0) % Basophils % 0.3 (0.0-0.4) % Absolute Granulocytes 12.14 H (1.4-6.9) x10^3/uL Basophils # 0.05 (0-0.4) x10^3/uL Sodium 137 (137-145) mmol/L Potassium 4.1 (3.5-5.1) mmol/L Chloride 101 (98-107) mmol/L Carbon Dioxide 26 (22-30) mmol/L Anion Gap 15.2 H (5-15) MEQ/L BUN 28 H (9-20) mg/dL Creatinine 2.10 H (0.66-1.25) mg/dL Estimated GFR 32.3 ML/MIN Glucose 118 H (74-106) mg/dL Lactic Acid 1.4 (0.4-2.0) Calcium 8.3 L (8.4-10.2) mg/dL Total Bilirubin 0.30 (0.2-1.3) mg/dL AST 25 (17-59) U/L ALT 18 (0-50) U/L Alkaline Phosphatase 81 (38-126) U/L Serum Total Protein 7.2 (6.3-8.2) g/dL Albumin 3.4 L (3.5-5.0) g/dL - Progress Progress: improved Progress Note: Case discussed with Dr. Cordova at 7:[address] Cordova excepts admission to observation. Plan of care discussed with patient and . They agree to admission at [facility] for further evaluation and treatment. Portions of this note were created with voice recognition technology. There may be grammatical, spelling, punctuation or sound alike errors Patient is an 81-year-old male presents to our ED for admission to treat pseudomonal infection in the urine. states that she was informed regarding the pseudomonal infection today. concerned as patient has had pseudomonal infection of the urine in the past. states patient tends to become ill if not treated in a timely fashion. Complexity of problem addressed is moderate, chronic illness with exacerbation. Complexity of data reviewed and analyzed is moderate. Data presented and reviewed and analyzed laboratory test ordered. It is observed that patient has a leukocytosis. Patient also has chronic renal insufficiency based on previous laboratory work-up. Risk of complication and or risk morbidity/mortality of patient management is high. Patient requires IV antibiotics as well as hospitalization for further evaluation and treatment. Patient agrees to admission to [facility] for further evaluation and treatment. Portions of this note were created with voice recognition technology. There may be grammatical, spelling, punctuation or sound alike errors 07/14/22 19:41 07/14/22 20:[address] Mallika Will see patient in: hospital (observation) Counseled pt/family regarding: lab results, diagnosis, rad results - Departure Departure Disposition: Observation Clinical Impression: Pseudomonas urinary tract infection, Leukocytosis, Normocytic anemia, Chronic renal insufficiency Condition: Stable Critical Care Time: No Referrals: MARC ESPINOZA [Primary Care Provider] - Follow up/PCP as directed
[2022-07-14 19:53] LABS: Absolute Neutrophil Ct (ANC) 12.14 x10^3/uL (1.4-6.9); BASOPHIL % 0.3 % (0.0-0.4); Basophil (Absolute #) 0.05 x10^3/uL (0-0.4); Eosinophil % 1.4 % (0.00-5.0); Hemoglobin 10.2 g/dL (12.5-18.0); IMMATURE GRAN % 0.7 % (0.00-0.4); Lymphocyte (Absolute #) 1.08 x10^3/uL (1.0-4.6); Lymphocytes % 7.5 % (24.0-44.0); Mean Corpuscular Hemoglobin 25.5 pg (26-32); Mean Platelet Volume 9.1 fL (7.5-11.0); Monocyte (Absolute #) 0.88 x10^3/uL (0.0-1.3); Monocytes % 6.1 % (0.0-12.0); Platelet Count 326 x10^3/uL (150-450); Red Cell Distribution Width 16.4 % (11.5-14.0); White Blood Count 14.5 x10^3/uL (4.0-10.5)
[2022-07-14 20:13] LABS: ALBUMIN 3.4 g/dL (3.5-5.0); ANION GAP 15.2 MEQ/L (5-15); BILIRUBIN,TOTAL 0.3 mg/dL (0.2-1.3); Calcium 8.3 mg/dL (8.4-10.2); Creatinine 1 2.1 mg/dL (0.66-1.25); EST GLOMERULAR FILTRATION RATE 32.3 ML/MIN; Potassium 4.1 mmol/L (3.5-5.1); Total Protein 7.2 g/dL (6.3-8.2)
[2022-07-14 20:28] LABS: INFLUENZA A NEGATIVE (NEGATIVE); INFLUENZA B NEGATIVE (NEGATIVE); RESPIRATORY SYNCTIAL VIRUS NEGATIVE (NEGATIVE); SARS-CoV-2 Xpert Express NEGATIVE (NEGATIVE)
[2022-07-14] MEDS ORDERED: PROVENTIL 2.5 MG/3 ML NEB IH PRN (21:20)
[2022-07-14] MEDS ORDERED: MAXIPIME 1 GM** 1 G in Dextrose 5%/Water IV Soln. 100ML PLUS BAG 100 ML IV SCH (22:00)
[2022-07-14] MEDS ORDERED: TYLENOL 325 MG PO PRN (22:55)
[2022-07-14] MEDS ORDERED: Tessalon Perles 100 MG PO PRN (23:04)
[2022-07-14] MEDS ORDERED: Flomax 0.4 MG ONE (23:36)
[2022-07-14] MEDS: Lopressor 50 MG PO SCH (23:38)
[2022-07-14] MEDS: ELIQUIS 2.5 MG TABLET PO SCH (23:38)
[2022-07-14] MEDS: NEURONTIN PO SCH (23:38)
[2022-07-15 05:18] LABS: Absolute Neutrophil Ct (ANC) 8.27 x10^3/uL (1.4-6.9); BASOPHIL % 0.5 % (0.0-0.4); Basophil (Absolute #) 0.05 x10^3/uL (0-0.4); Eosinophil % 1.9 % (0.00-5.0); Eosinophil (Absolute #) 0.21 x10^3/uL (0-0.5); Hematocrit 30.7 % (42-50); Hemoglobin 9.1 g/dL (12.5-18.0); IMMATURE GRAN # 0.09 x10^3u/L (0.00-0.03); IMMATURE GRAN % 0.8 % (0.00-0.4); Lymphocyte (Absolute #) 1.57 x10^3/uL (1.0-4.6); Lymphocytes % 14.2 % (24.0-44.0); Mean Cell Volume 84.1 fL (78-100); Mean Corpuscular Hemoglobin 24.9 pg (26-32); Mean Corpuscular Hgb Concent. 29.6 g/dL (32-36); Mean Platelet Volume 8.8 fL (7.5-11.0); Monocytes % 8.1 % (0.0-12.0); Neutrophil % 74.5 % (36.0-66.0); Platelet Count 277 x10^3/uL (150-450); Red Blood Count 3.65 x10^6/uL (4.1-5.6); Red Cell Distribution Width 16.5 % (11.5-14.0); White Blood Count 11.1 x10^3/uL (4.0-10.5)
[2022-07-15 05:49] LABS: ANION GAP 14.3 MEQ/L (5-15); BILIRUBIN,TOTAL 0.4 mg/dL (0.2-1.3); Calcium 7.9 mg/dL (8.4-10.2); Creatinine 1 1.97 mg/dL (0.66-1.25); EST GLOMERULAR FILTRATION RATE 34.8 ML/MIN; PREALBUMIN 14.2 mg/dL (17.6-36.0); Potassium 3.7 mmol/L (3.5-5.1); Total Protein 6.6 g/dL (6.3-8.2)
[2022-07-15] MEDS ORDERED: Tums EX 750 MG PO SCH (10:00)
[2022-07-15] MEDS: Tums EX 750 MG PO SCH ×3 (14:15→21:51)
[2022-07-15] MEDS: IMODIUM 2 MG PO PRN ×2 (15:28→18:33)
[2022-07-15] MEDS: Proscar 5 MG PO SCH (16:30)
[2022-07-15] MEDS ORDERED: GlucaGen 1 MG IM PRN (16:46)
[2022-07-15] MEDS ORDERED: Nitrostat 0.4 MG Tablet SL PRN (16:46)
[2022-07-15] MEDS ORDERED: xanAX 0.25 MG PO PRN (16:46)
[2022-07-15] MEDS ORDERED: VENTOLIN COMMON CANISTER IH PRN (16:46)
[2022-07-15] MEDS ORDERED: LIDOCAINE TP PRN (16:46)
[2022-07-15] MEDS ORDERED: TYLENOL 325 MG PO PRN (16:46)
[2022-07-15] MEDS ORDERED: Lidoderm Patch 5% TP PRN (16:58)
[2022-07-15] MEDS ORDERED: Cordarone 200 MG PO SCH (17:00)
[2022-07-15 17:57] LABS: Appearance Cloudy (Clear); Bacteria Few /HPF (None Seen); Bilirubin Negative (Negative); Blood Moderate (Negative); Epithelial Cells None Seen /HPF (None Seen); Glucose, Urine Negative (Negative); Ketones Negative (Negative); Leukocyte Esterase Large (Negative); Nitrite Negative (Negative); Ph 5.5 (4.6-8.0); Protein,Urine Dip Trace (Negative); RBC 21-50 /HPF (0-5); Specific Gravity <=1.005 (1.005-1.030); Urobilinogen 0.2 mg/dL (0.2); WBC >100 /HPF (0-5)
[2022-07-15 17:58] LABS: ADD URINE CULTURE? ORDERED SEPARATELY (NO)
[2022-07-15] MEDS ORDERED: Vitamin C 500 MG PO SCH (18:00)
[2022-07-15] MEDS: FEOSOL 325 MG PO SCH (18:02)
[2022-07-15] MEDS: Klor Con PO SCH (18:02)
[2022-07-15] MEDS: Imdur 30 MG PO SCH (18:02)
[2022-07-15] MEDS: ECOTRIN 81 MG PO SCH (18:02)
[2022-07-15] MEDS: Lasix 40 MG PO SCH (18:02)
[2022-07-15] MEDS: ZYLOPRIM 100 MG PO SCH (18:02)
[2022-07-15] MEDS: THERAGRAN MULTIVITAMIN PO SCH (18:03)
[2022-07-15] MEDS: Lantus Insulin SQ SCH (18:10)
[2022-07-15] MEDS: HUMALOG SQ SCH (18:10)
[2022-07-15] MEDS ORDERED: PROVENTIL 2.5 MG/3 ML NEB IH SCH (19:00)
--- NOTE | 2022-07-15 19:20 | XRAY ---
Indication: Ultrasound guidance for PICC line placement. Initial sonographic imaging of the left upper extremity was performed for localization of patent veins. A patent basilic vein identified above the elbow. Ultrasound guidance was then used for PICC line insertion. Full PICC line insertion is reported separately.
--- NOTE | 2022-07-15 19:21 | XRAY ---
Indication: Long-term IV access and therapy for chronic UTI. Informed consent obtained. Patient was placed on the fluoroscopic table in a supine position. Initial sonographic imaging of the right upper extremity was performed for localization of patent veins. The right upper extremity was then prepped and draped in sterile fashion. Tourniquet applied. 1% lidocaine plain used for local anesthesia. Using ultrasound guidance and a micropuncture needle, a basilic vein above the elbow was successfully percutaneously cannulized. A floppy tip 0.018 guidewire inserted. Tourniquet released. Needle was exchanged for a 5 [employer] dilator peel-away sheath catheter. Ultimately a 5 [place] [employer] double-lumen PICC line was inserted over a longer 0.018 guidewire with the tip positioned in the distal SVC using fluoroscopic guidance. Guidewire removed. Both ports flushed with heparinized saline. Catheter was secured. Postoperative instructions and orders given. Patient discharged in good condition. Impression: Technically successful right upper extremity PICC line placement using ultrasound and fluoroscopic guidance. No immediate complications. Approximately 2 cc blood loss. Approximately 0.7 minute of fluoroscopy used. Catheter length is 43 cm.
[2022-07-15] MEDS: Tessalon Perles 100 MG PO SCH (21:33)
[2022-07-15] MEDS: NEURONTIN PO SCH (21:34)
[2022-07-15] MEDS: Lopressor 50 MG PO SCH (21:34)
[2022-07-15] MEDS: ELIQUIS 2.5 MG TABLET PO SCH (21:34)
[2022-07-15] MEDS ORDERED: LIPITOR 40MG PO SCH ×2 (22:00)
[2022-07-15] MEDS ORDERED: xanAX 0.25 MG PO SCH (22:00)
[2022-07-15] MEDS ORDERED: Lopressor 50 MG PO SCH (22:00)
[2022-07-15] MEDS ORDERED: Flomax 0.4 MG PO SCH ×3 (22:00)
[2022-07-15] MEDS ORDERED: MAXIPIME 1 GM** 1 G in Sodium Chloride 100ML MINI-BAG PLUS 100 ML IV SCH (22:00)
[2022-07-15] MEDS ORDERED: NON-FORMULARY ITEM (Calcium Carbonate [Calcium] 600 MG Tablet) PO SCH (22:00)
[2022-07-15] MEDS ORDERED: ZOCOR 20MG PO SCH (22:00)
[2022-07-15] MEDS ORDERED: ELIQUIS 2.5 MG TABLET PO SCH (22:00)
[2022-07-15] MEDS ORDERED: NEURONTIN PO SCH (22:00)
[2022-07-15] MEDS ORDERED: MAXIPIME 1 GM** 1 G in Dextrose 5%/Water IV Soln. 100ML PLUS BAG 100 ML IV SCH (22:00)
[2022-07-16] MEDS: IMODIUM 2 MG PO PRN ×2 (04:03→07:35)
[2022-07-16 04:49] LABS: Absolute Neutrophil Ct (ANC) 7.65 x10^3/uL (1.4-6.9); BASOPHIL % 0.5 % (0.0-0.4); Basophil (Absolute #) 0.05 x10^3/uL (0-0.4); Eosinophil % 2.9 % (0.00-5.0); Eosinophil (Absolute #) 0.29 x10^3/uL (0-0.5); Hemoglobin 9.2 g/dL (12.5-18.0); IMMATURE GRAN # 0.06 x10^3u/L (0.00-0.03); IMMATURE GRAN % 0.6 % (0.00-0.4); Lymphocyte (Absolute #) 1.32 x10^3/uL (1.0-4.6); Lymphocytes % 13.1 % (24.0-44.0); Mean Cell Volume 82.9 fL (78-100); Mean Corpuscular Hemoglobin 25.4 pg (26-32); Mean Corpuscular Hgb Concent. 30.7 g/dL (32-36); Mean Platelet Volume 8.8 fL (7.5-11.0); Monocyte (Absolute #) 0.69 x10^3/uL (0.0-1.3); Monocytes % 6.9 % (0.0-12.0); Platelet Count 262 x10^3/uL (150-450); Red Blood Count 3.62 x10^6/uL (4.1-5.6); Red Cell Distribution Width 16.6 % (11.5-14.0); White Blood Count 10.1 x10^3/uL (4.0-10.5)
[2022-07-16 05:03] LABS: ANION GAP 11.5 MEQ/L (5-15); Creatinine 1 2.09 mg/dL (0.66-1.25); EST GLOMERULAR FILTRATION RATE 32.5 ML/MIN; Potassium 3.7 mmol/L (3.5-5.1)
[2022-07-16] MEDS ORDERED: NON-FORMULARY ITEM (Insulin Lispro [Insulin Lispro Kwikpen U-100] 100 UNIT/ML Insuln.Pen) SQ SCH (07:30)
[2022-07-16] MEDS: HUMALOG SQ SCH ×2 (08:30→12:17)
[2022-07-16] MEDS: ECOTRIN 81 MG PO SCH (09:09)
[2022-07-16] MEDS: Lantus Insulin SQ SCH (09:09)
[2022-07-16] MEDS: Tums EX 750 MG PO SCH ×2 (09:09→10:01)
[2022-07-16] MEDS: FEOSOL 325 MG PO SCH (09:09)
[2022-07-16] MEDS: Lasix 40 MG PO SCH (09:10)
[2022-07-16] MEDS: Imdur 30 MG PO SCH (09:10)
[2022-07-16] MEDS: THERAGRAN MULTIVITAMIN PO SCH (09:10)
[2022-07-16] MEDS: ZYLOPRIM 100 MG PO SCH (09:10)
[2022-07-16] MEDS: Klor Con PO SCH (09:10)
[2022-07-16] MEDS: Tessalon Perles 100 MG PO SCH (09:11)
[2022-07-16] MEDS: Lopressor 50 MG PO SCH (09:12)
[2022-07-16] MEDS: Proscar 5 MG PO SCH (09:12)
[2022-07-16] MEDS: NEURONTIN PO SCH (09:12)
[2022-07-16] MEDS: ELIQUIS 2.5 MG TABLET PO SCH (09:13)
[2022-07-16] MEDS ORDERED: Proscar 5 MG PO SCH (10:00)
[2022-07-16] MEDS ORDERED: NON-FORMULARY ITEM (Insulin Glargine,Hum.Rec.Anlog [Basaglar Kwikpen U-100] 100 UNIT/ML In SQ SCH (10:00)
[2022-07-16] MEDS ORDERED: NON-FORMULARY ITEM (Potassium Chloride [Potassium Chloride] 10 MEQ Tablet.Er) PO SCH (10:00)
[2022-07-16] MEDS ORDERED: NON-FORMULARY ITEM (Multivitamin [Multivitamins] 1 EACH Capsule) PO SCH (10:00)
[2022-07-16 11:42] VITALS: BP 143/63; PULSE 52; O2SAT 98
[2022-07-16] MEDS ORDERED: MAXIPIME 1 GM** 1 G in Sodium Chloride 100ML MINI-BAG PLUS 100 ML IV SCH (12:00)
== END 2022-07-16 14:20 | disposition home health service (06) ==
LOC: ED 18:39 → MED SURG 20:38
PROVIDERS: ADMIT Family Medicine; ATTEND Family Medicine
DX: N39.0 Urinary tract infection, site not specified (principal); E11.22 Type 2 diabetes mellitus with diabetic chronic kidney disease; I12.9 Hypertensive chronic kidney disease with stage 1 through stage 4 chronic kidney disease, or unspecified chronic kidney disease; N18.9 Chronic kidney disease, unspecified; I50.9 Heart failure, unspecified; I25.10 Atherosclerotic heart disease of native coronary artery without angina pectoris; E78.5 Hyperlipidemia, unspecified; D72.829 Elevated white blood cell count, unspecified; D64.9 Anemia, unspecified; Z79.899 Other long term (current) drug therapy; Z85.038 Personal history of other malignant neoplasm of large intestine; Z20.828 Contact with and (suspected) exposure to other viral communicable diseases
CPT/HCPCS: 0241U; 36000; 36415; 36573; 76937; 77001; 80048; 80053; 81001; 82947; 83605; 84134; 85025; 87040; 87077; 87086; 87186; 93268; 94760; 94762; 96372; 99284; G0378; C1769; J0692; J1642; A9270-GY

== ENCOUNTER 2022-07-23 08:32 | Emergency (ER) | payer MEDICARE, OTHER ==
--- NOTE | 2022-07-23 08:42 | ERPHSYRPT ---
- History of Present Illness Time Seen by Provider: 07/23/22 08:37 Source: patient, family, EMS, old records Exam Limitations: clinical condition Physician History: This is an 81-year-old white male patient of Dr. Hahn who has had a history of stroke in the past and last evening he noticed more difficulty in swallowing and speaking than usual. Patient went to bed and woke up approximately 5:30 in the morning with more difficulty swallowing and even worsening ability to speak. Ambulance service was contacted and the paramedics brought the patient into the emergency department and provided additional independent history. Patient has a history of COPD and is oxygen dependent. He wears 3 L of oxygen nasal cannula. He has atrial fibrillation and is taking amiodarone and is anticoagulated on Eliquis. He has a history of hyperlipidemia as well as coronary artery disease (cardiac catheterization and cardiac stent in place), hypertension, peripheral vascular disease, gastroesophageal reflux disease, CHF and diabetes. He denies chest pain. He denies shortness of breath. He denies abdominal pain. Timing/Duration: today Severity: moderate Character of Deficits: unable to speak Baseline/Normal Cognition: alert oriented x 3 Current Cognition: alert oriented x 3 Baseline Gait: walks only w/assistance Associated Symptoms: other (Speech changes and lethargy) Allergies/Adverse Reactions: No Known Drug Allergies Allergy (Verified 07/23/22 08:40) Home Medications: Amiodarone HCl 200 mg [Cordarone 200 MG] 200 mg PO UD 02/27/14 [History] Multivitamin [Multivitamins] 1 tab PO DAILY 11/09/14 [History] Finasteride 5 mg [Proscar 5 MG] 5 mg PO DAILY 11/05/20 [History] Gabapentin [Neurontin ] 300 mg PO BID 11/05/20 [History] Nitroglycerin 0.4 mg Tablet [Nitrostat 0.4 MG Tablet] 1 tab SL Q5MIN PRN MR X 3 PRN 11/05/20 [History] Albuterol Sulfate [Albuterol Sulfate Hfa] 2 inh IH Q6HPRN PRN 05/22/21 [History] Ascorbic Acid 500 mg [Vitamin C 500 MG] 500 mg PO UD 05/22/21 [History] Atorvastatin Calcium [Lipitor] 40 mg PO HS 05/22/21 [History] Insulin Glargine,Hum.rec.anlog [Basaglar Kwikpen U-100] 40 unit SQ DAILY 05/22/21 [History] Lidocaine 1 each TP DAILY PRN PRN 05/22/21 [History] Aspirin EC 81 mg [Ecotrin 81 mg] 81 mg PO DAILY 03/01/22 [History] Calcium Carbonate [Calcium] 600 mg PO BID 03/01/22 [History] Insulin Lispro [Insulin Lispro Kwikpen U-100] 0 unit SQ AC 03/01/22 [History] Isosorbide Mononitrate [Isosorbide Mononitrate ER] 30 mg PO DAILY 03/01/22 [History] Tamsulosin HCl 0.4 mg [Flomax 0.4 MG] 0.8 mg PO HS 03/01/22 [History] Allopurinol 100 mg [Zyloprim 100 mg] 100 mg PO DAILY 03/19/22 [History] Furosemide 40 mg [Lasix 40 MG] 40 mg PO DAILY 03/19/22 [History] Metoprolol Tartrate 50 mg [Lopressor 50 MG] 50 mg PO BID 04/16/22 [History] ALPRAZolam 0.25 MG [xanAX 0.25 MG] 0.25 mg PO Q8HPRN PRN 06/18/22 [History] Acetaminophen 325 mg [Tylenol 325 mg] 650 mg PO Q4HPRN PRN 06/18/22 [History] Albuterol 2.5 mg/3 ml Neb [Proventil 2.5 mg/3 ml Neb] 1 neb IN QID 06/18/22 [History] Benzonatate 100 mg PO TID 06/18/22 [History] Ferrous Sulfate 325 mg [Feosol 325 mg] 325 mg PO DAILY 06/18/22 [History] Glucagon 1 mg [GlucaGen 1 MG] 1 mg IM Q4HPRN PRN 06/18/22 [History] Hx Tetanus, Diphtheria Vaccination/Date Given: Yes Hx Influenza Vaccination/Date Given: Yes Hx Pneumococcal Vaccination/Date Given: Yes Travel Risk - International Travel Have you traveled outside of the country in past 3 weeks: No - Coronavirus Screening Are you exhibiting any of the following symptoms?: No Close contact with a COVID-19 positive Pt in past 14-21 Days: No - Vaccine Status Have you recieved a Covid-19 vaccination: Yes [employer]: Moderna - Vaccination Dates Date of 2cond Vaccination (if applicable): UNKNOWN Dates if Unknown: UNKNOWN - Review of Systems Constitutional: Lethargy, Weakness Eyes: No Symptoms Ears, Nose, & Throat: Other (Difficulty swallowing) Respiratory: No Symptoms Cardiac: No Symptoms Abdominal/Gastrointestinal: No Symptoms Genitourinary Symptoms: No Symptoms Musculoskeletal: No Symptoms Skin: No Symptoms Neurological: Lethargy, Speech Changes, Other Psychological: No Symptoms Endocrine: No Symptoms Hematologic/Lymphatic: No Symptoms Immunological/Allergic: No Symptoms All Other Systems: Reviewed and Negative - Past Medical History Pertinent Past Medical History: Yes Neurological History: Stroke ENT History: No Pertinent History Cardiac History: Arrhythmia, Congestive Heart Failure, Coronary Artery Disease, High Cholesterol, Hypertension, Myocardial Infarction (OR), Peripheral Vascular Disease Respiratory History: CHF, COPD Endocrine Medical History: Diabetes Type II Musculoskeletal History: No Pertinent History GI Medical History: Colorectal Cancer, GERD, Hernia History: No Pertinent History Psycho-Social History: Depression Male Reproductive Disorders: Prostate Problems Other Medical History: HX of AFIB. cancer in remission. anemia - Past Surgical History Past Surgical History: Yes Neuro Surgical History: No Pertinent History Cardiac: Cardiac Catheterization, Cardiac Stent Respiratory: No Pertinent History Gastrointestinal: Bowel Surgery, Colon Resection, Hernia Repair Genitourinary: No Pertinent History Musculoskeletal: No Pertinent History Male Surgical History: Prostate Surgery Other Surgical History: femoral stents in legs - Social History Smoking Status: Never smoker Exposure to second hand smoke: No Alcohol Use: None Drug Use: none Patient Lives Alone: No Significant Family History: no pertinent family hx - Nursing Vital Signs Nursing Vital Signs: Initial Vital Signs Temperature 96.6 F 07/23/22 08:44 Pulse Rate 53 L 07/23/22 08:44 Respiratory Rate 20 07/23/22 08:44 Blood Pressure 116/41 07/23/22 08:44 O2 Sat by Pulse Oximetry 95 07/23/22 08:44 Pain Scale Pain Intensity 0 - Course Nursing assessment & vital signs reviewed: Yes EKG Interpreted by Me: RATE (48), prolonged QT interval, Other (This initial EKG shows second-degree AV block Mobitz 2.) Ordered Tests: Active Orders 24 hr Category Date Time Status EKG-ER Only STAT Care 07/23/22 08:42 Active Gamboa [Catheter-[place] Gamb[place]] STAT Care 07/23/22 09:29 Active IV Insertion STAT Care 07/23/22 08:42 Active NPO (ED) STAT Care 07/23/22 08:42 Active Pulse Oximetry (ED) STAT Care 07/23/22 08:42 Active Tele-Health Consult ROUTINE Cons 07/23/22 09:58 Active ABDOMEN AND PELVIS W/0 CONTRAS [CT] Stat Exams 07/23/22 11:07 Completed HEAD WITHOUT CONTRAST [CT] Stat Exams 07/23/22 08:34 Completed CBC W DIFF Stat Lab 07/23/22 09:33 Completed CMP Stat Lab 07/23/22 09:33 Completed CULTURE,URINE Stat Lab 07/23/22 09:33 Received NT PRO BNPII Stat Lab 07/23/22 Completed Occult Blood-Fecal Screen (Diagnostic) [OB-FECAL SCREEN Lab 07/23/22 11:00 Completed ] Stat TROPONIN Q4H Lab 07/23/22 15:30 Completed TROPONIN Q4H Lab 07/23/22 19:30 Ordered TROPONIN Q4H Lab 07/23/22 23:30 Ordered UA W/RFX UR CULTURE Stat Lab 07/23/22 09:33 Completed Medication Summary Discontinued Medications Generic Name Dose Route Start Last Admin Trade Name Freq PRN Reason Stop Dose Admin Ceftriaxone Sodium/Dextrose 1 g in 50 mls @ 100 mls/hr 07/23/22 10:25 07/23/22 11:19 Rocephin 1 Gm-D5w 50 Ml Bag IV 07/23/22 10:54 Not Given STAT STA Ceftriaxone Sodium/Dextrose Confirm 07/23/22 10:40 Rocephin 1 Gm-D5w 50 Ml Bag Administered 07/23/22 10:41 Dose 1 g in 50 mls @ ud IV .STK-MED ONE Metronidazole 500 mg in 100 mls @ 200 mls/hr 07/23/22 12:51 07/23/22 14:29 Flagyl 500 Mg Ivpb IV 07/23/22 13:20 Infused STAT STA Infusion Metronidazole Confirm 07/23/22 13:20 Flagyl 500 Mg Ivpb Administered 07/23/22 13:21 Dose 500 mg in 100 mls @ ud IV .STK-MED ONE Lab/Rad Data: Laboratory Result Diagrams 07/23/22 09:33 07/23/22 09:33 Laboratory Results 07/23/22 07/23/22 07/23/22 Range/Units Unknown 15:30 11:21 WBC (4.0-10.5) x10^3/uL RBC (4.1-5.6) x10^6/uL Hgb (12.5-18.0) g/dL Hct (42-50) % MCV (78-100) fL MCH (26-32) pg MCHC (32-36) g/dL RDW (11.5-14.0) % Plt Count (150-450) x10^3/uL MPV (7.5-11.0) fL Gran % (36.0-66.0) % Immature Gran % (Auto) (0.00-0.4) % Nucleat RBC Rel Count (0.00-0.1) % Eos # (Auto) (0-0.5) x10^3/uL Immature Gran # (Auto) (0.00-0.03) x10^3u/L Absolute Lymphs (auto) (1.0-4.6) x10^3/uL Absolute Monos (auto) (0.0-1.3) x10^3/uL Absolute Nucleated RBC (0.00-0.01) x10^3u/L Lymphocytes % (24.0-44.0) % Monocytes % (0.0-12.0) % Eosinophils % (0.00-5.0) % Basophils % (0.0-0.4) % Absolute Granulocytes (1.4-6.9) x10^3/uL Basophils # (0-0.4) x10^3/uL Sodium (137-145) mmol/L Potassium (3.5-5.1) mmol/L Chloride (98-107) mmol/L Carbon Dioxide (22-30) mmol/L Anion Gap (5-15) MEQ/L BUN (9-20) mg/dL Creatinine (0.66-1.25) mg/dL Estimated GFR ML/MIN Glucose (74-106) mg/dL Calcium (8.4-10.2) mg/dL Total Bilirubin (0.2-1.3) mg/dL AST (17-59) U/L ALT (0-50) U/L Alkaline Phosphatase (38-126) U/L Troponin I 0.017 (0.000-0.034) ng/mL NT-Pro-B Natriuret Pep 58277 (<300) pg/mL Serum Total Protein (6.3-8.2) g/dL Albumin (3.5-5.0) g/dL Urine Color (Yellow) Urine Appearance (Clear) Urine pH (4.6-8.0) Ur Specific Edmond[place] (1.005-1.030) Urine Protein (Negative) Urine Glucose (UA) (Negative) mg/dL Urine Ketones (Negative) Urine Blood (Negative) Urine Nitrite (Negative) Urine Bilirubin (Negative) Urine Urobilinogen (0.2) mg/dL Ur Leukocyte Esterase (Negative) U Hyaline Cast (Auto) (0-2) /LPF Urine Microscopic RBC (0-5) /HPF Urine Microscopic WBC (0-5) /HPF Ur Epithelial Cells (None Seen) /HPF Urine Bacteria (None Seen) /HPF Urine Culture Reflexed (NO) Stl Occult Blood (IFOB) (NEGATIVE) C. difficile Screen POSITIVE (NEGATIVE) C.difficile 027-NAP1-B1 PRESUMPTIVE POSITIVE (NEGATIVE) 07/23/22 07/23/22 07/23/22 Range/Units 11:00 09:33 09:33 WBC (4.0-10.5) x10^3/uL RBC (4.1-5.6) x10^6/uL Hgb (12.5-18.0) g/dL Hct (42-50) % MCV (78-100) fL MCH (26-32) pg MCHC (32-36) g/dL RDW (11.5-14.0) % Plt Count (150-450) x10^3/uL MPV (7.5-11.0) fL Gran % (36.0-66.0) % Immature Gran % (Auto) (0.00-0.4) % Nucleat RBC Rel Count (0.00-0.1) % Eos # (Auto) (0-0.5) x10^3/uL Immature Gran # (Auto) (0.00-0.03) x10^3u/L Absolute Lymphs (auto) (1.0-4.6) x10^3/uL Absolute Monos (auto) (0.0-1.3) x10^3/uL Absolute Nucleated RBC (0.00-0.01) x10^3u/L Lymphocytes % (24.0-44.0) % Monocytes % (0.0-12.0) % Eosinophils % (0.00-5.0) % Basophils % (0.0-0.4) % Absolute Granulocytes (1.4-6.9) x10^3/uL Basophils # (0-0.4) x10^3/uL Sodium 132 L (137-145) mmol/L Potassium 4.1 (3.5-5.1) mmol/L Chloride 96 L (98-107) mmol/L Carbon Dioxide 30 (22-30) mmol/L Anion Gap 9.9 (5-15) MEQ/L BUN 26 H (9-20) mg/dL Creatinine 1.83 H (0.66-1.25) mg/dL Estimated GFR 37.9 ML/MIN Glucose 209 H (74-106) mg/dL Calcium 7.8 L (8.4-10.2) mg/dL Total Bilirubin 0.40 (0.2-1.3) mg/dL AST 19 (17-59) U/L ALT 16 (0-50) U/L Alkaline Phosphatase 78 (38-126) U/L Troponin I (0.000-0.034) ng/mL NT-Pro-B Natriuret Pep (<300) pg/mL Serum Total Protein 6.1 L (6.3-8.2) g/dL Albumin 2.8 L (3.5-5.0) g/dL Urine Color Yellow (Yellow) Urine Appearance Turbid A (Clear) Urine pH 6.0 (4.6-8.0) Ur Specific Edmond[place] 1.010 (1.005-1.030) Urine Protein 100 A (Negative) Urine Glucose (UA) Negative (Negative) mg/dL Urine Ketones Negative (Negative) Urine Blood Moderate A (Negative) Urine Nitrite Negative (Negative) Urine Bilirubin Negative (Negative) Urine Urobilinogen 0.2 (0.2) mg/dL Ur Leukocyte Esterase Large A (Negative) U Hyaline Cast (Auto) 0-2 (0-2) /LPF Urine Microscopic RBC 6-10 A (0-5) /HPF Urine Microscopic WBC 21-50 A (0-5) /HPF Ur Epithelial Cells Moderate A (None Seen) /HPF Urine Bacteria Many A (None Seen) /HPF Urine Culture Reflexed YES (NO) Stl Occult Blood (IFOB) POSITIVE A (NEGATIVE) C. difficile Screen (NEGATIVE) C.difficile 027-NAP1-B1 (NEGATIVE) 07/23/22 Range/Units 09:33 WBC 12.2 H (4.0-10.5) x10^3/uL RBC 3.63 L (4.1-5.6) x10^6/uL Hgb 9.2 L (12.5-18.0) g/dL Hct 30.6 L (42-50) % MCV 84.3 (78-100) fL MCH 25.3 L (26-32) pg MCHC 30.1 L (32-36) g/dL RDW 16.5 H (11.5-14.0) % Plt Count 260 (150-450) x10^3/uL MPV 9.4 (7.5-11.0) fL Gran % 82.7 H (36.0-66.0) % Immature Gran % (Auto) 0.6 H (0.00-0.4) % Nucleat RBC Rel Count 0.0 (0.00-0.1) % Eos # (Auto) 0.14 (0-0.5) x10^3/uL Immature Gran # (Auto) 0.07 H (0.00-0.03) x10^3u/L Absolute Lymphs (auto) 1.00 (1.0-4.6) x10^3/uL Absolute Monos (auto) 0.85 (0.0-1.3) x10^3/uL Absolute Nucleated RBC 0.00 (0.00-0.01) x10^3u/L Lymphocytes % 8.2 L (24.0-44.0) % Monocytes % 7.0 (0.0-12.0) % Eosinophils % 1.1 (0.00-5.0) % Basophils % 0.4 (0.0-0.4) % Absolute Granulocytes 10.12 H (1.4-6.9) x10^3/uL Basophils # 0.05 (0-0.4) x10^3/uL Sodium (137-145) mmol/L Potassium (3.5-5.1) mmol/L Chloride (98-107) mmol/L Carbon Dioxide (22-30) mmol/L Anion Gap (5-15) MEQ/L BUN (9-20) mg/dL Creatinine (0.66-1.25) mg/dL Estimated GFR ML/MIN Glucose (74-106) mg/dL Calcium (8.4-10.2) mg/dL Total Bilirubin (0.2-1.3) mg/dL AST (17-59) U/L ALT (0-50) U/L Alkaline Phosphatase (38-126) U/L Troponin I (0.000-0.034) ng/mL NT-Pro-B Natriuret Pep (<300) pg/mL Serum Total Protein (6.3-8.2) g/dL Albumin (3.5-5.0) g/dL Urine Color (Yellow) Urine Appearance (Clear) Urine pH (4.6-8.0) Ur Specific Edmond[place] (1.005-1.030) Urine Protein (Negative) Urine Glucose (UA) (Negative) mg/dL Urine Ketones (Negative) Urine Blood (Negative) Urine Nitrite (Negative) Urine Bilirubin (Negative) Urine Urobilinogen (0.2) mg/dL Ur Leukocyte Esterase (Negative) U Hyaline Cast (Auto) (0-2) /LPF Urine Microscopic RBC (0-5) /HPF Urine Microscopic WBC (0-5) /HPF Ur Epithelial Cells (None Seen) /HPF Urine Bacteria (None Seen) /HPF Urine Culture Reflexed (NO) Stl Occult Blood (IFOB) (NEGATIVE) C. difficile Screen (NEGATIVE) C.difficile 027-NAP1-B1 (NEGATIVE) - Progress Progress: improved, re-examined Progress Note: 07/23/22 09:10 CT scan of the head without contrast shows no acute intracranial abnormality. There is atrophy and degenerative micro ischemia within normal limits for patient's age. There is a small remote infarction of the right basal ganglia. Upon patient return to the emergency department bed 3 after immediate CAT scan of the head without contrast, the patient's examination shows significant improvement from 530 this morning. Patient was last seen well/normal at 1:30 AM on 07/23/2022. 07/23/22 11:34 I spoke with the teleneurologist Dr. Cobb. She recommends placing the patient in observation, obtain an MRI and an MRA, stopping the cefepime oral antibiotic, changed to a different antibiotic since he does have a urinary tract infection and perform a formal swallowing study. I spoke to his primary care provider Dr. Hahn and I reviewed the above patient history of the present illness, his current condition in the emergency department and the results of the work-up. Dr. Hahn prefers the patient be transferred to [facility] facility where there is infectious disease and urology specialties present. During this time, the family changed the colostomy bag on the patient and there was blood noted. They preferred to have a CAT scan of the abdomen pelvis performed before transfer. [facility] also [facility]. Patient does have a urologist appointment to see Dr. Eaton nurse practitioner late July 2022. The most recent culture and sensitivity of the urine shows Pseudomonas growth at 50 to 60,000 CFU's. It is sensitive to multiple antibiotics but the most effective antibiotic has been cefepime orally. I will await infusion of antibiotics until after the CAT scan result returns. After that, we will contact [facility] and transfer this patient. 07/23/22 11:40 This patient's medical history is 1 of high complexity. The level complexity and the work-up performed is based on the review of the patient's past medical history, review of the patient's medication list, review the patient's drug allergy list, history present illness and physical findings on examination. This patient initial work-up includes CBC, CMP, urinalysis, CT scan of the head, twelve-lead EKG. I reviewed the results of the studies and we obtained a tele neurologic consultation. The above stated recommendations were provided to us by Dr. Cobb. While the patient was in the hospital emergency room bed, the colostomy bag was changed and was blood in it and the family desired a CAT scan of the abdomen and pelvis. 07/23/22 12:52 CAT scan of the abdomen pelvis shows diffuse colitis, borderline cardiomegaly with bilateral pleural effusions, bladder wall thickening with an complete diste ntion versus cystitis. Right renal calculi with nonobstructing hydronephrosis. No ureteral calculi present. 07/23/22 13:14 Patient's older adult social work specialist is at [facility] in [place], Dr. Alonzo as is his infectious disease specialist Dr. Dobbins 07/23/22 13:41 Repeat twelve-lead EKG when the patient is now more awake alert and oriented and calm. This repeat twelve-lead EKG was performed at 1335 on 07/23/2022 it shows a heart rate of 48. The patient is in atrial fibrillation. There is prolonged QT interval. There is no evidence of any acute ischemic changes on today's twelve- lead EKG. There is no evidence of any block that was listed as a finding on the earlier twelve-lead EKG today. 07/23/22 16:13 I have reviewed the work-up results with the patient and several family members. Initially they wanted the patient to be transferred to [facility]. We have called that facility on 2 different occasions. They called back after extended period of time and stated that they did not have neurology services. We called back to tell them what we are needing was nephrology, urology, cardiology, and infectious disease. They still had not called back. I had another discussion with the family and the patient. Their preference now is to be transferred to [facility] off of [facility] in [place]. We placed a call into that facility and they are waiting for callback. 07/23/22 16:41 I did speak with [facility] physician Dr. Ramirez and I reviewed the above patient past medical history, medication list, drug allergy list, history of present illness and physical findings on examination. In addition I reviewed the work-up results with him. I also reviewed the teleneurologist recommendations including the MRI and MRI and swallow study during admission. He accepts the patient in transfer. He stated that the patient will be admitted to Dr. Robins Counseled pt/family regarding: lab results, diagnosis, rad results Medical Desision Making - Independent Historian Additional History obtained from: Spouse, Child (Daughter) - External Record(s) Reviewed Records reviewed as a part of evaluation & management: Inpatient - Discussion of managment Care discussed with:: PCP Reviewed:: Test results, Need for additional workup Agreed on:: Treatment plan (Need to transfer this patient. Dr. Hahn stated that he has nothing else to offer this patient as an inpatient here at [facility].) - Diagnostic Testing Diagnostic test were ordered, analyzed, and reviewed by me: Yes Radiological Interpretation: Reviewed by me, Teleradiologist Report - Risk of complications The pt has a high risk of morbidity or mortality based on: Decision regarding hospitilization or escalation of hosp level of care - Departure Departure Disposition: Transfer Clinical Impression: UTI (urinary tract infection), Medication side effect, Pleural effusion, Altered mental status, Chronic anemia, C. difficile colitis, TIA (transient ischemic attack) Condition: Fair Critical Care Time: No Referrals: HALINA HAHN MD [Primary Care Provider] - Follow up/PCP as directed
--- NOTE | 2022-07-23 08:52 | XRAY ---
Indication: Weakness. Multiple contiguous axial images obtained through the head without contrast. Comparison: None Age-appropriate global atrophy, minimal periventricular degenerative micro-ischemia, and 1 cm focus remote infarct right basal ganglia. No acute intracranial hemorrhage, abnormal extra-axial fluid collection, or mass effect. Fourth ventricle is midline. Bony calvarium intact. Small fluid leveling right maxillary sinus. Also partial opacification both mastoid air cells presumed inflammatory. Impression: 1. No acute intracranial abnormalities. 2. Atrophy and degenerative micro-ischemia within normal limits for patient's age. Small remote infarct right basal ganglia. 3. Incidental paranasal sinus disease and partial opacification both mastoid air cells presumed inflammatory.
[2022-07-23 09:35] LABS: Absolute Neutrophil Ct (ANC) 10.12 x10^3/uL (1.4-6.9); BASOPHIL % 0.4 % (0.0-0.4); Basophil (Absolute #) 0.05 x10^3/uL (0-0.4); Eosinophil % 1.1 % (0.00-5.0); Eosinophil (Absolute #) 0.14 x10^3/uL (0-0.5); Hematocrit 30.6 % (42-50); Hemoglobin 9.2 g/dL (12.5-18.0); IMMATURE GRAN # 0.07 x10^3u/L (0.00-0.03); IMMATURE GRAN % 0.6 % (0.00-0.4); Lymphocytes % 8.2 % (24.0-44.0); Mean Cell Volume 84.3 fL (78-100); Mean Corpuscular Hemoglobin 25.3 pg (26-32); Mean Corpuscular Hgb Concent. 30.1 g/dL (32-36); Mean Platelet Volume 9.4 fL (7.5-11.0); Monocyte (Absolute #) 0.85 x10^3/uL (0.0-1.3); Neutrophil % 82.7 % (36.0-66.0); Platelet Count 260 x10^3/uL (150-450); Red Blood Count 3.63 x10^6/uL (4.1-5.6); Red Cell Distribution Width 16.5 % (11.5-14.0); White Blood Count 12.2 x10^3/uL (4.0-10.5)
[2022-07-23 09:48] LABS: Appearance Turbid (Clear); Bilirubin Negative (Negative); Blood Moderate (Negative); Epithelial Cells Moderate /HPF (None Seen); Glucose, Urine Negative (Negative); Ketones Negative (Negative); Leukocyte Esterase Large (Negative); Nitrite Negative (Negative); Protein,Urine Dip 100 (Negative); Urobilinogen 0.2 mg/dL (0.2)
[2022-07-23 09:50] LABS: ALBUMIN 2.8 g/dL (3.5-5.0); ANION GAP 9.9 MEQ/L (5-15); BILIRUBIN,TOTAL 0.4 mg/dL (0.2-1.3); Calcium 7.8 mg/dL (8.4-10.2); Creatinine 1 1.83 mg/dL (0.66-1.25); EST GLOMERULAR FILTRATION RATE 37.9 ML/MIN; Potassium 4.1 mmol/L (3.5-5.1); Total Protein 6.1 g/dL (6.3-8.2)
[2022-07-23 10:10] LABS: Hyaline Casts 0-2 /LPF (0-2)
[2022-07-23 10:11] LABS: WBC 21-50 /HPF (0-5)
[2022-07-23 10:12] LABS: ADD URINE CULTURE? YES (NO); Bacteria Many /HPF (None Seen)
[2022-07-23] MEDS ORDERED: ROCEPHIN 1 Gm-D5w 50 ml Bag** 0 G/0 ML IVPB IV ONE (10:40)
[2022-07-23] MEDS: ROCEPHIN 1 Gm-D5w 50 ml Bag** 1 G/50 ML IVPB IV STA ×2 (10:41→11:19)
[2022-07-23 11:57] LABS: IFOB TEST RESULTS POSITIVE (NEGATIVE)
--- NOTE | 2022-07-23 12:03 | XRAY ---
Indication: Blood in colostomy. Multiple contiguous axial images obtained through the abdomen and pelvis without contrast. Comparison: July 09, 2014 Lung bases demonstrates progressive worsening diffuse pulmonary fibrosis/scarring and worsening bronchiectasis. New borderline cardiomegaly and new small bilateral effusions. Noncontrasted stomach and bowel loops are nonobstructed with new left lower quadrant diverting colostomy. Visualized colon demonstrates new diffuse moderate circumferential wall thickening with stranding favoring colitis. Near empty urinary bladder demonstrates new Gamboa balloon catheter in situ. There is also moderate circumferential wall thickening either incomplete distention versus cystitis. No free fluid/air. Right kidney demonstrates new moderate hydronephrosis, a few punctate calculi, hydroureter up to 1.2 cm, and renal cysts, largest 2.5 cm. Left kidney demonstrates new nonobstructing micro-calculus inferiorly. Gallbladder again normally distended with tiny gallstones. Stable calcified splenic granulomas, and small left adrenal adenoma. Remaining liver, gallbladder, pancreas, spleen, adrenal glands, kidneys, and ureters are unremarkable for noncontrast exam. Again extensive aortoiliac calcifications without AAA. Osseous structures intact again with osteopenia and mild/moderate degenerative changes lumbar spine. Impression: 1. New CT findings favoring diffuse colitis. 2. New left lower quadrant colostomy. 3. New borderline cardiomegaly with bibasilar effusions. Rule out cardiac decompensation/CHF. 4. New Gamb[place] balloon catheter in near empty urinary bladder. Diffuse urinary bladder wall thickening either incomplete distention versus cystitis. 5. New bilateral renal micro-calculi, right renal cysts, right hydronephrosis, and right hydroureter. 6. Again chronic findings including pulmonary fibrosis/scarring, bronchiectasis, gallstones, left adrenal adenoma, arteriosclerotic disease, and chronic bony findings.
[2022-07-23 12:37] LABS: 027 TOX PROD PRESUMPTIVE POSITIVE (NEGATIVE)
[2022-07-23] MEDS ORDERED: FLAGYL 500 MG IVPB 500 MG/100 ML BAG IV STA (12:51)
[2022-07-23] MEDS ORDERED: FLAGYL 500 MG IVPB 500 MG/100 ML BAG IV ONE (13:20)
[2022-07-23 13:53] LABS: TOXIGENIC C. DIFF ORG POSITIVE (NEGATIVE)
[2022-07-23] MEDS ORDERED: Lasix 40 MG/4 ML IV ONE (16:56)
[2022-07-23] MEDS ORDERED: Lasix 40 MG/4 ML ONE (18:00)
[2022-07-23 18:21] VITALS: BP 139/54; PULSE 57; O2SAT 94
== END 2022-07-23 19:44 | disposition short-term general hospital (02) ==
LOC: ED 08:32
DX: G45.9 Transient cerebral ischemic attack, unspecified (principal); T36.1X5A Adverse effect of cephalosporins and other beta-lactam antibiotics, initial encounter; N39.0 Urinary tract infection, site not specified; J90 Pleural effusion, not elsewhere classified; R41.82 Altered mental status, unspecified; D53.9 Nutritional anemia, unspecified; A04.72 Enterocolitis due to Clostridium difficile, not specified as recurrent; R13.10 Dysphagia, unspecified; R47.1 Dysarthria and anarthria; E78.5 Hyperlipidemia, unspecified; I10 Essential (primary) hypertension; E11.9 Type 2 diabetes mellitus without complications; Z79.01 Long term (current) use of anticoagulants; Z79.4 Long term (current) use of insulin; Z79.84 Long term (current) use of oral hypoglycemic drugs; Z99.81 Dependence on supplemental oxygen
CPT/HCPCS: 36415; 51702; 70450; 74176; 80053; 81001; 82947; 83880; 84484; 85025; 87086; 87493; 93005; 94760; 96365; 96374; 99285; G0328; 82274; 96375; J0696; J1940

== ENCOUNTER 2022-10-23 21:29 | Emergency (ER) | payer MEDICARE, OTHER ==
[2022-10-23 21:52] VITALS: BP 173/67; PULSE 63; RESP 22; TEMP 97.3; O2SAT 99
[2022-10-23 21:55] LABS: Appearance Cloudy (Clear); Bacteria Rare /HPF (None Seen); Bilirubin Negative (Negative); Blood Moderate (Negative); Epithelial Cells None Seen /HPF (None Seen); Glucose, Urine 100 mg/dL (Negative); Ketones Negative (Negative); Leukocyte Esterase Large (Negative); Nitrite Positive (Negative); Ph 6.5 (4.6-8.0); Protein,Urine Dip Trace (Negative); Urobilinogen 0.2 mg/dL (0.2); WBC 51-100 /HPF (0-5)
[2022-10-23 21:56] LABS: ADD URINE CULTURE? ORDERED SEPARATELY (NO)
--- NOTE | 2022-10-23 22:10 | ERPHSYRPT ---
- History of Present Illness Source: patient, EMS Patient Subjective Stated Complaint: pt states that he has no urinated in 3 hours Triage Nursing Assessment: pt came into the er via ambulance; pt is axo x2; c/o urinary retention; gonzalez cath was in place at arrival; new gonzalez cath was placed at time of arrival; urine yellow and clear; 400 mL urine output; active bowel sounds in all quads; tenderness present to lower abd; no respiratory distress; skin PDW; hypertension Physician History: 81 yo WM w chronic indwelling Gonzalez which will not drain since 16:30. 16Fr Gonzalez placed per nursing upon arrival w drainage of 450ml of urine. Pt has an ID physician in [place] who is managing his chronic UTI. Pt has no other complaints at this time. Timing/Duration: other (14:30) Activites at Onset: rest Onset Location: suprapubic Pain Radiation: suprapubic Severity of Pain-Max: moderate Severity of Pain-Current: moderate Modifying Factors: Improves With: nothing Associated Symptoms: denies symptoms Sexual intercourse history: non-contributory Allergies/Adverse Reactions: No Known Drug Allergies Allergy (Verified 10/23/22 21:31) Home Medications: Amiodarone HCl 200 mg [Cordarone 200 MG] 200 mg PO UD 02/27/14 [History] Multivitamin [Multivitamins] 1 tab PO DAILY 11/09/14 [History] Finasteride 5 mg [Proscar 5 MG] 5 mg PO DAILY 11/05/20 [History] Gabapentin [Neurontin ] 300 mg PO BID 11/05/20 [History] Nitroglycerin 0.4 mg Tablet [Nitrostat 0.4 MG Tablet] 1 tab SL Q5MIN PRN MR X 3 PRN 11/05/20 [History] Albuterol Sulfate [Albuterol Sulfate Hfa] 2 inh IH Q6HPRN PRN 05/22/21 [History] Ascorbic Acid 500 mg [Vitamin C 500 MG] 500 mg PO UD 05/22/21 [History] Atorvastatin Calcium [Lipitor] 40 mg PO HS 05/22/21 [History] Insulin Glargine,Hum.rec.anlog [Basaglar Kwikpen U-100] 40 unit SQ DAILY 05/22/21 [History] Lidocaine 1 each TP DAILY PRN PRN 05/22/21 [History] Aspirin EC 81 mg [Ecotrin 81 mg] 81 mg PO DAILY 03/01/22 [History] Calcium Carbonate [Calcium] 600 mg PO BID 03/01/22 [History] Insulin Lispro [Insulin Lispro Kwikpen U-100] 0 unit SQ AC 03/01/22 [History] Isosorbide Mononitrate [Isosorbide Mononitrate ER] 30 mg PO DAILY 03/01/22 [History] Tamsulosin HCl 0.4 mg [Flomax 0.4 MG] 0.8 mg PO HS 03/01/22 [History] Allopurinol 100 mg [Zyloprim 100 mg] 100 mg PO DAILY 03/19/22 [History] Furosemide 40 mg [Lasix 40 MG] 40 mg PO DAILY 03/19/22 [History] Metoprolol Tartrate 50 mg [Lopressor 50 MG] 50 mg PO BID 04/16/22 [History] ALPRAZolam 0.25 MG [xanAX 0.25 MG] 0.25 mg PO Q8HPRN PRN 06/18/22 [Histor y] Acetaminophen 325 mg [Tylenol 325 mg] 650 mg PO Q4HPRN PRN 06/18/22 [History] Albuterol 2.5 mg/3 ml Neb [Proventil 2.5 mg/3 ml Neb] 1 neb IN QID 06/18/22 [History] Benzonatate 100 mg PO TID 06/18/22 [History] Ferrous Sulfate 325 mg [Feosol 325 mg] 325 mg PO DAILY 06/18/22 [History] Glucagon 1 mg [GlucaGen 1 MG] 1 mg IM Q4HPRN PRN 06/18/22 [History] Fidaxomicin [Dificid] 1 tab PO BID 10/23/22 [History] Methenamine Mandelate 500 mg PO BID 10/23/22 [History] Hx Tetanus, Diphtheria Vaccination/Date Given: Yes Hx Influenza Vaccination/Date Given: Yes Hx Pneumococcal Vaccination/Date Given: Yes Travel Risk - International Travel Have you traveled outside of the country in past 3 weeks: No - Coronavirus Screening Are you exhibiting any of the following symptoms?: No Close contact with a COVID-19 positive Pt in past 14-21 Days: No - Vaccine Status Have you recieved a Covid-19 vaccination: Yes [employer]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 - Vaccination Dates Date of 2cond Vaccination (if applicable): UNKNOWN Dates if Unknown: UNKNOWN - Past Medical History Pertinent Past Medical History: Yes Neurological History: Stroke ENT History: No Pertinent History Cardiac History: Arrhythmia, Congestive Heart Failure, Coronary Artery Disease, High Cholesterol, Hypertension, Myocardial Infarction ([place]), Peripheral Vascular Disease Respiratory History: CHF, COPD Endocrine Medical History: Diabetes Type II Musculoskeletal History: No Pertinent History GI Medical History: Colorectal Cancer, GERD, Hernia History: No Pertinent History Psycho-Social History: Depression Male Reproductive Disorders: Prostate Problems Other Medical History: HX of AFIB. cancer in remission. anemia. currently being treated for UTI and C.Diff - Past Surgical History Past Surgical History: Yes Neuro Surgical History: No Pertinent History Cardiac: Cardiac Catheterization, Cardiac Stent Respiratory: No Pertinent History Gastrointestinal: Bowel Surgery, Colon Resection, Hernia Repair Genitourinary: No Pertinent History Musculoskeletal: No Pertinent History Male Surgical History: Prostate Surgery Other Surgical History: femoral stents in legs - Social History Smoking Status: Never smoker Exposure to second hand smoke: No Alcohol Use: None Drug Use: none Patient Lives Alone: No Significant Family History: no pertinent family hx - Review of Systems Constitutional: No Symptoms Eyes: No Symptoms Ears, Nose, & Throat: No Symptoms Respiratory: No Symptoms Cardiac: No Symptoms Abdominal/Gastrointestinal: No Symptoms Musculoskeletal: No Symptoms Skin: No Symptoms Neurological: No Symptoms Psychological: No Symptoms Endocrine: No Symptoms Hematologic/Lymphatic: No Symptoms Immunological/Allergic: No Symptoms - Nursing Vital Signs Nursing Vital Signs: Initial Vital Signs Temperature 97.3 F 10/23/22 21:30 Pulse Rate 63 10/23/22 21:30 Respiratory Rate 22 10/23/22 21:30 Blood Pressure 173/67 10/23/22 21:30 O2 Sat by Pulse Oximetry 99 10/23/22 21:30 Pain Scale Pain Intensity 6 Hypertensive - Physical Exam General Appearance: no apparent distress Eye Exam: PERRL/EOMI, eyes nml inspection Ears, Nose, Throat Exam: normal ENT inspection, TMs normal, pharynx normal, moist mucous membranes Neck Exam: normal inspection, non-tender, supple, full range of motion, No meningismus, No mass, No Brudzinski, No Kernig's Respiratory Exam: crackles/rales (B bases), No respiratory distress Cardiovascular Exam: regular rate/rhythm, normal heart sounds, capillary refill <2 sec Gastrointestinal/Abdomen Exam: soft, normal bowel sounds, No tenderness Male Genital Exam: uncircumcised Back Exam: normal inspection Extremity Exam: normal inspection Neurologic Exam: alert, oriented x 3, cooperative, 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, normal mood/affect Skin Exam: normal color, warm, dry Lymphatic Exam: No adenopathy SpO2 Interpretation: normal SpO2: 99 O2 Delivery: Room Air - Course Nursing assessment & vital signs reviewed: Yes Ordered Tests: Active Orders 24 hr Category Date Time Status Cath [Catheter-[place] Gonzalez] STAT Care 10/23/22 21:37 Completed CULTURE,URINE Stat Lab 10/23/22 21:38 Received UA W/RFX UR CULTURE Stat Lab 10/23/22 21:38 Completed Lab/Rad Data: Laboratory Results 10/23/22 Range/Units 21:38 Urine Color Yellow (Yellow) Urine Appearance Cloudy A (Clear) Urine pH 6.5 (4.6-8.0) Ur Specific [place] 1.010 (1.005-1.030) Urine Protein Trace A (Negative) Urine Glucose (UA) 100 A (Negative) mg/dL Urine Ketones Negative (Negative) Urine Blood Moderate A (Negative) Urine Nitrite Positive A (Negative) Urine Bilirubin Negative (Negative) Urine Urobilinogen 0.2 (0.2) mg/dL Ur Leukocyte Esterase Large A (Negative) U Hyaline Cast (Auto) 3-5 A (0-2) /LPF Urine Microscopic RBC 6-10 A (0-5) /HPF Urine Microscopic WBC 51-100 A (0-5) /HPF Ur Epithelial Cells None Seen (None Seen) /HPF Urine Bacteria Rare A (None Seen) /HPF Urine Culture Reflexed ORDERED SEPARATELY (NO) - Progress Progress: improved Progress Note: 10/23/22 22:22 Gonzalez replaced per nursing upon arrival w 16Fr/No comps/450ml urine drainage/Supra-pubic pain abated Nursing note and vital signs reviewed History per EMS and later daughter Will defer to ID for chronic UTI Nursing note and vital signs reviewed Counseled pt/family regarding: lab results, diagnosis, need for follow-up Medical Desision Making - Independent Historian Additional History obtained from: Child, EMS - Diagnostic Testing Diagnostic test were ordered, analyzed, and reviewed by me: Yes - Risk of complications The pt has a mod risk of morbidity or mortality based on: Need for prescription drug management - Departure Departure Disposition: Home Clinical Impression: Gonzalez catheter problem Condition: Stable Critical Care Time: No Referrals: [facility] [LOCATION] - Follow up/PCP as directed Instructions: Urinary Retention (DC) Additional Instructions: Follow up with your urologist and infectious disease physician
== END 2022-10-23 22:14 | disposition home or self-care (01) ==
LOC: ED 21:29
DX: T83.098A Other mechanical complication of other urinary catheter, initial encounter (principal); R33.8 Other retention of urine; E78.5 Hyperlipidemia, unspecified; I11.0 Hypertensive heart disease with heart failure; I50.9 Heart failure, unspecified; E11.9 Type 2 diabetes mellitus without complications; Z79.4 Long term (current) use of insulin; Z79.899 Other long term (current) drug therapy
CPT/HCPCS: 51702; 81001; 87077; 87086; 87186; 99283

== ENCOUNTER 2023-01-16 00:50 | Emergency (ER) | payer MEDICARE, OTHER ==
[2023-01-16 00:57] VITALS: TEMP 97.8
--- NOTE | 2023-01-16 01:10 | ERPHSYRPT ---
- History of Present Illness Source: patient, EMS Exam Limitations: no limitations Patient Subjective Stated Complaint: pt states "It hurts down there were my catheter is and I havent seen any pee come out in a couple hours." Triage Nursing Assessment: pt was brought in by [facility] E4 BLS, pt alert and oriented x3, skin pwd, pt c/o gonzalez not draining. pt has a continous gonzalez and has it changed every 2 weeks, pt states it is about time for his gonzalez to be replaced, pt c/o at gonzalez insertion site. 12/08 burning pain Physician History: 82-year-old gentleman with chronic indwelling Gonzalez presents per [facility] ambulance with possible Gonzalez blockage since 2099 tonight. Patient denies fever, nausea, vomiting, abdominal pain, and diarrhea. Patient states Gonzalez gets changed every 2 weeks but is somewhat overdue at this time. He has mild to moderate suprapubic pain. Timing/Duration: other (2099) Activites at Onset: rest Quality: fullness Onset Location: suprapubic Severity of Pain-Max: mild Severity of Pain-Current: mild Associated Symptoms: denies symptoms Prior abdominal problems: similar symptoms Sexual intercourse history: non-contributory Allergies/Adverse Reactions: No Known Drug Allergies Allergy (Verified 01/16/23 00:53) Home Medications: Amiodarone HCl 200 mg [Cordarone 200 MG] 200 mg PO UD 02/27/14 [History] Multivitamin [Multivitamins] 1 tab PO DAILY 11/09/14 [History] Finasteride 5 mg [Proscar 5 MG] 5 mg PO DAILY 11/05/20 [History] Gabapentin [Neurontin ] 300 mg PO BID 11/05/20 [History] Nitroglycerin 0.4 mg Tablet [Nitrostat 0.4 MG Tablet] 1 tab SL Q5MIN PRN MR X 3 PRN 11/05/20 [History] Albuterol Sulfate [Albuterol Sulfate Hfa] 2 inh IH Q6HPRN PRN 05/22/21 [History] Ascorbic Acid 500 mg [Vitamin C 500 MG] 500 mg PO UD 05/22/21 [History] Atorvastatin Calcium [Lipitor] 40 mg PO HS 05/22/21 [History] Insulin Glargine,Hum.rec.anlog [Basaglar Kwikpen U-100] 40 unit SQ DAILY [History] Lidocaine 1 each TP DAILY PRN PRN 05/22/21 [History] Aspirin EC 81 mg [Ecotrin 81 mg] 81 mg PO DAILY 03/01/22 [History] Calcium Carbonate [Calcium] 600 mg PO BID 03/01/22 [History] Insulin Lispro [Insulin Lispro Kwikpen U-100] 0 unit SQ AC 03/01/22 [History] Isosorbide Mononitrate [Isosorbide Mononitrate ER] 30 mg PO DAILY 03/01/22 [History] Tamsulosin HCl 0.4 mg [Flomax 0.4 MG] 0.8 mg PO HS 03/01/22 [History] Allopurinol 100 mg [Zyloprim 100 mg] 100 mg PO DAILY 03/19/22 [History] Furosemide 40 mg [Lasix 40 MG] 40 mg PO DAILY 03/19/22 [History] Metoprolol Tartrate 50 mg [Lopressor 50 MG] 50 mg PO BID 04/16/22 [History] ALPRAZolam 0.25 MG [xanAX 0.25 MG] 0.25 mg PO Q8HPRN PRN 06/18/22 [History] Acetaminophen 325 mg [Tylenol 325 mg] 650 mg PO Q4HPRN PRN 06/18/22 [History] Albuterol 2.5 mg/3 ml Neb [Proventil 2.5 mg/3 ml Neb] 1 neb IN QID 06/18/22 [History] Benzonatate 100 mg PO TID 06/18/22 [History] Ferrous Sulfate 325 mg [Feosol 325 mg] 325 mg PO DAILY 06/18/22 [History] Glucagon 1 mg [GlucaGen 1 MG] 1 mg IM Q4HPRN PRN 06/18/22 [History] Fidaxomicin [Dificid] 1 tab PO BID 10/23/22 [History] Methenamine Mandelate 500 mg PO BID 10/23/22 [History] Hx Tetanus, Diphtheria Vaccination/Date Given: Yes Hx Influenza Vaccination/Date Given: Yes Hx Pneumococcal Vaccination/Date Given: Yes Travel Risk - International Travel Have you traveled outside of the country in past 3 weeks: No - Coronavirus Screening Are you exhibiting any of the following symptoms?: No Close contact with a COVID-19 positive Pt in past 14-21 Days: No - Vaccine Status Have you recieved a Covid-19 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: 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 - Vaccination Dates Date of 2cond Vaccination (if applicable): UNKNOWN Dates if Unknown: UNKNOWN - Past Medical History Pertinent Past Medical History: Yes Neurological History: Stroke ENT History: No Pertinent History Cardiac History: Arrhythmia, Congestive Heart Failure, Coronary Artery Disease, High Cholesterol, Hypertension, Myocardial Infarction ([place]), Peripheral Vascular Disease Respiratory History: CHF, COPD Endocrine Medical History: Diabetes Type II Musculoskeletal History: No Pertinent History GI Medical History: Colorectal Cancer, GERD, Hernia History: No Pertinent History Psycho-Social History: Depression Male Reproductive Disorders: Prostate Problems Other Medical History: HX of AFIB. cancer in remission. anemia. currently being treated for UTI and C.Diff - Past Surgical History Past Surgical History: Yes Neuro Surgical History: No Pertinent History Cardiac: Cardiac Catheterization, Cardiac Stent Respiratory: No Pertinent History Gastrointestinal: Bowel Surgery, Colon Resection, Hernia Repair Genitourinary: No Pertinent History Musculoskeletal: No Pertinent History Male Surgical History: Prostate Surgery Other Surgical History: femoral stents in legs - Social History Smoking Status: Never smoker Exposure to second hand smoke: No Alcohol Use: None Drug Use: none Patient Lives Alone: No Significant Family History: no pertinent family hx - Review of Systems Constitutional: No Symptoms Eyes: No Symptoms Ears, Nose, & Throat: No Symptoms Respiratory: No Symptoms Cardiac: No Symptoms Abdominal/Gastrointestinal: No Symptoms Genitourinary Symptoms: No Symptoms, Urinary Retention Musculoskeletal: No Symptoms Skin: No Symptoms Neurological: No Symptoms Psychological: No Symptoms Endocrine: No Symptoms Hematologic/Lymphatic: No Symptoms Immunological/Allergic: No Symptoms - Nursing Vital Signs Nursing Vital Signs: Initial Vital Signs Temperature 97.8 F 01/16/23 00:55 Pulse Rate 70 01/16/23 00:55 Respiratory Rate 18 01/16/23 00:55 Blood Pressure 181/67 01/16/23 00:55 O2 Sat by Pulse Oximetry 91 L 01/16/23 00:55 Pain Scale Pain Intensity 10 Hypertensive - Physical Exam General Appearance: no apparent distress (Mild pain due to urinary retention and) Eye Exam: PERRL/EOMI Ears, Nose, Throat Exam: normal ENT inspection Neck Exam: normal inspection (C-spine nontender to palpation) Respiratory Exam: airway intact, crackles/rales (Faint rales at bilateral bases), No respiratory distress Cardiovascular Exam: regular rate/rhythm, capillary refill <2 sec, No murmur Gastrointestinal/Abdomen Exam: soft (Obese, soft, mild suprapubic tenderness to palpation, colostomy bag in place) Male Genital Exam: uncircumcised Back Exam: normal inspection Extremity Exam: normal inspection Neurologic Exam: alert, oriented x 3, cooperative, 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 as tested, normal mood/affect, sensation nml Skin Exam: normal color, warm, dry Lymphatic Exam: No adenopathy SpO2 Interpretation: borderline oxygenation SpO2: 91 O2 Delivery: Nasal Cannula (3 L nasal cannula) - Course Nursing assessment & vital signs reviewed: Yes Ordered Tests: Active Orders 24 hr Category Date Time Status CULTURE,URINE Stat Lab 01/16/23 01:06 Received UA W/RFX UR CULTURE Stat Lab 01/16/23 01:06 Completed Medication Summary Generic Name Dose Route Start Last Admin Trade Name Devon PRN Reason Stop Dose Admin Levofloxacin 250 mg 01/16/23 01:20 Levofloxacin 250 Mg Tab PO 01/16/23 01:21 STAT ONE Lab/Rad Data: Laboratory Results 01/16/23 Range/Units 01:06 Urine Color Yellow (Yellow) Urine Appearance Turbid A (Clear) Urine pH 7.0 (4.6-8.0) Ur Specific [place] 1.015 (1.005-1.030) Urine Protein 100 A (Negative) Urine Glucose (UA) Negative (Negative) mg/dL Urine Ketones Negative (Negative) Urine Blood Large A (Negative) Urine Nitrite Positive A (Negative) Urine Bilirubin Negative (Negative) Urine Urobilinogen 0.2 (0.2) mg/dL Ur Leukocyte Esterase Large A (Negative) U Hyaline Cast (Auto) 20-50 (0-2) /LPF Urine Microscopic RBC >100 A (0-5) /HPF Urine Microscopic WBC >100 A (0-5) /HPF Ur Epithelial Cells None Seen (None Seen) /HPF Urine Bacteria Many A (None Seen) /HPF Urine Culture Reflexed ORDERED SEPARATELY (NO) - Progress Progress Note: 01/16/23 01:11 Nursing note vital signs reviewed. No food or housing security is noted. Gonzalez catheter removed per nursing, and blood clot noticeable in the Gonzalez catheter causing blockage. 16 [place] Gonzalez placed per nursing without difficulty. 300 mL urine immediately returned. Patient's discomfort immediately improved. Counseled pt/family regarding: diagnosis, need for follow-up - Departure Departure Disposition: Home Clinical Impression: Encounter for Gonzalez catheter replacement, Recurrent UTI Condition: Stable Critical Care Time: No Referrals: HALINA HAHN MD [Primary Care Provider] - Follow up/PCP as directed Instructions: Urinary Retention (DC) Additional Instructions: Follow-up with your urologist Levaquin once a day for 5 days Return to ER as needed. Prescriptions: levoFLOXacin 250 mg PO DAILY 5 Days #5 tablet
[2023-01-16 01:17] LABS: Appearance Turbid (Clear); Bacteria Many /HPF (None Seen); Bilirubin Negative (Negative); Blood Large (Negative); Epithelial Cells None Seen /HPF (None Seen); Glucose, Urine Negative (Negative); Ketones Negative (Negative); Leukocyte Esterase Large (Negative); Nitrite Positive (Negative); Protein,Urine Dip 100 (Negative); RBC >100 /HPF (0-5); Specific Gravity 1.015 (1.005-1.030); Urobilinogen 0.2 mg/dL (0.2); WBC >100 /HPF (0-5)
[2023-01-16 01:18] LABS: ADD URINE CULTURE? ORDERED SEPARATELY (NO); Hyaline Casts 20-50 /LPF (0-2)
[2023-01-16] MEDS ORDERED: Levofloxacin 250MG Tablet PO ONE (01:20)
[2023-01-16] MEDS ORDERED: Levofloxacin 250MG Tablet ONE (01:23)
[2023-01-16 02:11] VITALS: RESP 19
[2023-01-16 02:42] VITALS: BP 154/78; PULSE 67; O2SAT 93
== END 2023-01-16 02:30 | disposition home or self-care (01) ==
LOC: ED 00:50
DX: Z46.82 Encounter for fitting and adjustment of non-vascular catheter (principal); N39.0 Urinary tract infection, site not specified; R10.2 Pelvic and perineal pain; E78.5 Hyperlipidemia, unspecified; I11.0 Hypertensive heart disease with heart failure; I50.9 Heart failure, unspecified; E11.9 Type 2 diabetes mellitus without complications; Z79.4 Long term (current) use of insulin; Z79.899 Other long term (current) drug therapy
CPT/HCPCS: 51702; 81001; 87077; 87086; 87186; 99283; A9270-GY

== ENCOUNTER 2023-01-29 15:13 | Emergency (ER) | payer MEDICARE, OTHER ==
[2023-01-29 15:25] VITALS: RESP 20; TEMP 97.9
--- NOTE | 2023-01-29 15:52 | ERPHSYRPT ---
- History of Present Illness Source: patient, EMS, other (Patient's later in visit.) Patient Subjective Stated Complaint: PT states "THe home health nurse changed my catheter at 2 this afternoon and there was blood and clots when they pulled it out and when they put the new one in there was blood coming around the ca theter." Triage Nursing Assessment: pt presented alert and oriented X 3, skin pwd. Pt has indwelling catheter in place upon arrival that was changed at 2 pm this afternoon, pt has dried blood on his boxers and dried blood on his scrotum and leg. Pt is not actively bleeding at this time. Physician History: Patient is an 82-year-old gentleman with chronic indwelling Gamboa catheter. Patient was sent to the ER per his home health nurse due to bleeding around his catheter. Home health changes catheter home, and then he started to bleed around his catheter site. Patient resting comfortably upon ER arrival without any complaints. There is no bleeding around the catheter site at this time. Timing/Duration: resolved prior to arrival Activites at Onset: other (Catheter change.) Quality: other Onset Location: unknown Pain Radiation: none Severity of Pain-Current: none Modifying Factors: Improves With: nothing Associated Symptoms: denies symptoms Allergies/Adverse Reactions: No Known Drug Allergies Allergy (Verified 01/16/23 00:53) Home Medications: Amiodarone HCl 200 mg [Cordarone 200 MG] 200 mg PO UD 02/27/14 [History] Multivitamin [Multivitamins] 1 tab PO DAILY 11/09/14 [History] Finasteride 5 mg [Proscar 5 MG] 5 mg PO DAILY 11/05/20 [History] Gabapentin [Neurontin ] 300 mg PO BID 11/05/20 [History] Nitroglycerin 0.4 mg Tablet [Nitrostat 0.4 MG Tablet] 1 tab SL Q5MIN PRN MR X 3 PRN 11/05/20 [History] Albuterol Sulfate [Albuterol Sulfate Hfa] 2 inh IH Q6HPRN PRN 05/22/21 [History] Ascorbic Acid 500 mg [Vitamin C 500 MG] 500 mg PO UD 05/22/21 [History] Atorvastatin Calcium [Lipitor] 40 mg PO HS 05/22/21 [History] Insulin Glargine,Hum.rec.anlog [Basaglar Kwikpen U-100] 40 unit SQ DAILY 05/22/21 [History] Aspirin EC 81 mg [Ecotrin 81 mg] 81 mg PO DAILY 03/01/22 [History] Calcium Carbonate [Calcium] 600 mg PO BID 03/01/22 [History] Insulin Lispro [Insulin Lispro Kwikpen U-100] 0 unit SQ AC 03/01/22 [History] Isosorbide Mononitrate [Isosorbide Mononitrate ER] 30 mg PO DAILY 03/01/22 [History] Tamsulosin HCl 0.4 mg [Flomax 0.4 MG] 0.4 mg PO BID 03/01/22 [History] Allopurinol 100 mg [Zyloprim 100 mg] 100 mg PO DAILY 03/19/22 [History] Furosemide 40 mg [Lasix 40 MG] 40 mg PO DAILY 03/19/22 [History] Metoprolol Tartrate 50 mg [Lopressor 50 MG] 50 mg PO BID 04/16/22 [History] Albuterol 2.5 mg/3 ml Neb [Proventil 2.5 mg/3 ml Neb] 1 neb IN QID 06/18/22 [History] Benzonatate 100 mg PO TID 06/18/22 [History] Glucagon 1 mg [GlucaGen 1 MG] 1 mg IM Q4HPRN PRN 06/18/22 [History] Methenamine Mandelate 500 mg PO BID 10/23/22 [History] Cholecalciferol (Vitamin D3) [Vitamin D3] 100 mcg PO DIRECTIONS UNKNOWN 01/16/23 [History] Colchicine 0.6 mg PO DAILY 01/16/23 [History] Hx Tetanus, Diphtheria Vaccination/Date Given: Yes Hx Influenza Vaccination/Date Given: Yes Hx Pneumococcal Vaccination/Date Given: Yes Immunizations Up to Date: Yes Travel Risk - International Travel Have you traveled outside of the country in past 3 weeks: No - Coronavirus Screening Are you exhibiting any of the following symptoms?: No Close contact with a COVID-19 positive Pt in past 14-21 Days: No - Vaccine Status Have you recieved a Covid-19 vaccination: Yes Telecom Analyst: Moderna - Vaccination Dates Date of 2cond Vaccination (if applicable): UNKNOWN Dates if Unknown: UNKNOWN - Past Medical History Pertinent Past Medical History: Yes Neurological History: Stroke ENT History: No Pertinent History Cardiac History: Arrhythmia, Congestive Heart Failure, Coronary Artery Disease, High Cholesterol, Hypertension, Myocardial Infarction ([place]), Peripheral Vascular Disease Respiratory History: CHF, COPD Endocrine Medical History: Diabetes Type II Musculoskeletal History: No Pertinent History GI Medical History: Colorectal Cancer, GERD, Hernia History: No Pertinent History Psycho-Social History: Depression Male Reproductive Disorders: Prostate Problems Other Medical History: HX of AFIB. cancer in remission. anemia. currently b eing treated for UTI and C.Diff - Past Surgical History Past Surgical History: Yes Neuro Surgical History: No Pertinent History Cardiac: Cardiac Catheterization, Cardiac Stent Respiratory: No Pertinent History Gastrointestinal: Bowel Surgery, Colon Resection, Hernia Repair Genitourinary: No Pertinent History Musculoskeletal: No Pertinent History Male Surgical History: Prostate Surgery Other Surgical History: femoral stents in legs - Social History Smoking Status: Never smoker Exposure to second hand smoke: No Alcohol Use: None Drug Use: none Patient Lives Alone: No Significant Family History: no pertinent family hx - Review of Systems Constitutional: No Symptoms Eyes: No Symptoms Ears, Nose, & Throat: No Symptoms Respiratory: No Symptoms Cardiac: No Symptoms Abdominal/Gastrointestinal: No Symptoms Musculoskeletal: No Symptoms Skin: No Symptoms Neurological: No Symptoms Psychological: No Symptoms Endocrine: No Symptoms Hematologic/Lymphatic: No Symptoms Immunological/Allergic: No Symptoms - Nursing Vital Signs Nursing Vital Signs: Initial Vital Signs Temperature 97.9 F 01/29/23 15:14 Pulse Rate 58 L 01/29/23 15:14 Respiratory Rate 20 01/29/23 15:14 Blood Pressure 161/62 01/29/23 15:14 O2 Sat by Pulse Oximetry 90 L 01/29/23 15:14 Pain Scale Pain Intensity 0 Mildly hypertensive with borderline sats, most likely baseline for patient. - Physical Exam General Appearance: no apparent distress Eye Exam: PERRL/EOMI Ears, Nose, Throat Exam: normal ENT inspection, TMs normal, pharynx normal, moist mucous membranes Neck Exam: normal inspection, non-tender, supple, full range of motion, No menin gismus, No mass, No Brudzinski, No Kernig's Respiratory Exam: other (Faint rales at bases bilaterally but overall clear.) Cardiovascular Exam: regular rate/rhythm, normal heart sounds, normal peripheral pulses, capillary refill <2 sec, No murmur Gastrointestinal/Abdomen Exam: soft (Obese, soft, nontender to palpation.) Male Genital Exam: uncircumcised (Penis uncircumcised, small amount of dried blood on on foreskin. Nursing able to irrigate catheter without complications. Drainage appears clear from catheter. There is no active bleeding at this time.) Extremity Exam: normal inspection, normal range of motion Neurologic Exam: alert, oriented x 3, cooperative, marketing communications specialist II-XII nml as tested, normal mood/affect, sensation nml Skin Exam: normal color, warm, dry, No rash Lymphatic Exam: No adenopathy SpO2 Interpretation: borderline oxygenation (Baseline for patient, no apparent distress noted) SpO2: 90 O2 Delivery: Room Air - Course Nursing assessment & vital signs reviewed: Yes - Progress Progress Note: 01/29/23 15:54 Nursing note and vital signs reviewed. No food or housing insecurities noted. Gamboa catheter appears to be in the proper place and irrigates without difficulty. Urine appears to be clear. arrived later and stated that patient has chronic UTIs and is under the care of Dr. Eaton in [place]. She states that Dr. Eaton does not want him on an antibiotic unless he has a culture positive UA and is symptomatic. Patient is asymptomatic at this time. Patient is discharged to follow-up with Dr. Eaton. Patient/ have no other complaints at this time. 01/29/23 18:13 Patient was assisted to his vehicle and drove the patient home. Counseled pt/family regarding: diagnosis, need for follow-up Medical Desision Making - Independent Historian Additional History obtained from: Spouse - Risk of complications Low Risk: Low risk of morbidity from additional dx testing or treatment - Departure Departure Disposition: Home Clinical Impression: Problem with urinary catheter Condition: Stable Critical Care Time: No Referrals: HALINA HAHN MD [Primary Care Provider] - Follow up/PCP as directed Instructions: How to Care for Your Gamboa Catheter, How to Remove a Gamboa Catheter Additional Instructions: Follow up with Dr. Eaton. Return to ER for temperature greater than 100.5 or Gamboa not draining or marked blood in urine.
[2023-01-29 16:35] VITALS: BP 166/59; PULSE 55
[2023-01-29 18:14] VITALS: O2SAT 90
== END 2023-01-29 16:49 | disposition home or self-care (01) ==
LOC: ED 15:13
DX: T83.9XXA Unspecified complication of genitourinary prosthetic device, implant and graft, initial encounter (principal); I11.0 Hypertensive heart disease with heart failure; I50.9 Heart failure, unspecified; E78.5 Hyperlipidemia, unspecified; E11.9 Type 2 diabetes mellitus without complications; Z79.4 Long term (current) use of insulin; Z79.899 Other long term (current) drug therapy
CPT/HCPCS: 99282

== ENCOUNTER 2023-03-29 12:46 | Emergency (ER) | payer MEDICARE, OTHER ==
[2023-03-29 13:20] LABS: Absolute Neutrophil Ct (ANC) 8.48 x10^3/uL (1.4-6.9); BASOPHIL % 0.1 % (0.0-0.4); Basophil (Absolute #) 0.01 x10^3/uL (0-0.4); Eosinophil % 1.7 % (0.00-5.0); Eosinophil (Absolute #) 0.16 x10^3/uL (0-0.5); Hematocrit 36.5 % (42-50); Hemoglobin 11.3 g/dL (12.5-18.0); IMMATURE GRAN # 0.09 x10^3u/L (0.00-0.03); IMMATURE GRAN % 0.9 % (0.00-0.4); Lymphocyte (Absolute #) 0.43 x10^3/uL (1.0-4.6); Lymphocytes % 4.5 % (24.0-44.0); Mean Cell Volume 93.4 fL (78-100); Mean Corpuscular Hemoglobin 28.9 pg (26-32); Mean Platelet Volume 10.5 fL (7.5-11.0); Monocyte (Absolute #) 0.38 x10^3/uL (0.0-1.3); Neutrophil % 88.8 % (36.0-66.0); Platelet Count 165 x10^3/uL (150-450); Red Blood Count 3.91 x10^6/uL (4.1-5.6); Red Cell Distribution Width 15.2 % (11.5-14.0); White Blood Count 9.6 x10^3/uL (4.0-10.5)
[2023-03-29 13:28] VITALS: RESP 20; TEMP 98.3
[2023-03-29 13:34] LABS: INR 1.11 (0.8-3.0)
[2023-03-29 13:37] LABS: ALBUMIN 3.7 g/dL (3.5-5.0); ANION GAP 14.7 MEQ/L (5-15); BILIRUBIN,TOTAL 0.9 mg/dL (0.2-1.3); Calcium 9.2 mg/dL (8.4-10.2); Creatinine 1 2.58 mg/dL (0.66-1.25); Potassium 3.8 mmol/L (3.5-5.1)
--- NOTE | 2023-03-29 13:43 | ERPHSYRPT ---
- History of Present Illness Source: patient, EMS Exam Limitations: other (Patient is somewhat of a poor historian) Patient Subjective Stated Complaint: Hematuria Triage Nursing Assessment: Patient brought into ED per EMS and transferred to bed with assist of 3. Patient's skin pink, warm and dry. Patient states there is large amounts of blood with clots coming from penis. Patient has f/c and stated he has been having trouble ever since his recent hospital admission from when f/c was changed. Patient's home health nurse went to see him and noted large amounts of blood with large clots coming from urethra. F/C mkpted Physician History: 82-year-old gentleman who has a chronic indwelling Gamboa catheter presents from home per home health and family with bleeding around his catheter site. Patient was recently admitted to [facility] and discharged 2 days ago per patient and states there is a problem since the catheter was placed there before discharge. Patient currently has COVID-19 but his oxygen saturation is adequate at this time. Timing/Duration: today Activites at Onset: none Quality: other (Patient denies pain) Onset Location: other (Bleeding from Gamboa catheter site) Severity of Pain-Max: none Severity of Pain-Current: none Modifying Factors: Improves With: nothing Associated Symptoms: denies symptoms Prior abdominal problems: other (Chronic indwelling Gamboa) Sexual intercourse history: non-contributory Allergies/Adverse Reactions: No Known Drug Allergies Allergy (Verified 03/29/23 12:48) Home Medications: Amiodarone HCl 200 mg [Cordarone 200 MG] 200 mg PO UD 02/27/14 [History] Multivitamin [Multivitamins] 1 tab PO DAILY 11/09/14 [History] Finasteride 5 mg [Proscar 5 MG] 5 mg PO DAILY 11/05/20 [History] Gabapentin [Neurontin ] 300 mg PO BID 11/05/20 [History] Nitroglycerin 0.4 mg Tablet [Nitrostat 0.4 MG Tablet] 1 tab SL Q5MIN PRN MR X 3 PRN 11/05/20 [History] Albuterol Sulfate [Albuterol Sulfate Hfa] 2 inh IH Q6HPRN PRN 05/22/21 [History] Ascorbic Acid 500 mg [Vitamin C 500 MG] 500 mg PO UD 05/22/21 [History] Atorvastatin Calcium [Lipitor] 40 mg PO HS 05/22/21 [History] Insulin Glargine,Hum.rec.anlog [Basaglar Kwikpen U-100] 40 unit SQ DAILY [History] Aspirin EC 81 mg [Ecotrin 81 mg] 81 mg PO DAILY 03/01/22 [History] Calcium Carbonate [Calcium] 600 mg PO BID 03/01/22 [History] Insulin Lispro [Insulin Lispro Kwikpen U-100] 0 unit SQ AC 03/01/22 [History] Isosorbide Mononitrate [Isosorbide Mononitrate ER] 30 mg PO DAILY 03/01/22 [History] Tamsulosin HCl 0.4 mg [Flomax 0.4 MG] 0.4 mg PO BID 03/01/22 [History] Allopurinol 100 mg [Zyloprim 100 mg] 100 mg PO DAILY 03/19/22 [History] Furosemide 40 mg [Lasix 40 MG] 40 mg PO DAILY 03/19/22 [History] Metoprolol Tartrate 50 mg [Lopressor 50 MG] 50 mg PO BID 04/16/22 [History] Albuterol 2.5 mg/3 ml Neb [Proventil 2.5 mg/3 ml Neb] 1 neb IN QID 06/18 [History] Benzonatate 100 mg PO TID 06/18/22 [History] Glucagon 1 mg [GlucaGen 1 MG] 1 mg IM Q4HPRN PRN 06/18/22 [History] Methenamine Mandelate 500 mg PO BID 10/23/22 [History] Cholecalciferol (Vitamin D3) [Vitamin D3] 100 mcg PO DIRECTIONS UNKNOWN 01/16/23 [History] Colchicine 0.6 mg PO DAILY 01/16/23 [History] Hx Tetanus, Diphtheria Vaccination/Date Given: Yes Hx Influenza Vaccination/Date Given: Yes Hx Pneumococcal Vaccination/Date Given: Yes Immunizations Up to Date: Yes Travel Risk - International Travel Have you traveled outside of the country in past 3 weeks: No - Coronavirus Screening Are you exhibiting any of the following symptoms?: No Close contact with a COVID-19 positive Pt in past 14-21 Days: Yes - Vaccine Status Have you recieved a Covid-19 vaccination: Yes Leather Currier: Moderna - Vaccination Dates Date of 2cond Vaccination (if applicable): UNKNOWN Dates if Unknown: UNKNOWN - Past Medical History Pertinent Past Medical History: Yes Neurological History: Stroke ENT History: No Pertinent History Cardiac History: Arrhythmia, Congestive Heart Failure, Coronary Artery Disease, High Cholesterol, Hypertension, Myocardial Infarction ([place]), Peripheral Vascular Disease Respiratory History: CHF, COPD Endocrine Medical History: Diabetes Type II Musculoskeletal History: No Pertinent History GI Medical History: Colorectal Cancer, GERD, Hernia History: No Pertinent History Psycho-Social History: Depression Male Reproductive Disorders: Prostate Problems Other Medical History: HX of AFIB. cancer in remission. anemia - Past Surgical History Past Surgical History: Yes Neuro Surgical History: No Pertinent History Cardiac: Cardiac Catheterization, Cardiac Stent Respiratory: No Pertinent History Gastrointestinal: Bowel Surgery, Colon Resection, Hernia Repair Genitourinary: No Pertinent History Musculoskeletal: No Pertinent History Male Surgical History: Prostate Surgery Other Surgical History: femoral stents in legs - Social History Smoking Status: Never smoker Exposure to second hand smoke: No Alcohol Use: None Drug Use: none Patient Lives Alone: No Significant Family History: no pertinent family hx - Review of Systems Constitutional: No Symptoms, Malaise Eyes: No Symptoms Ears, Nose, & Throat: No Symptoms Respiratory: No Symptoms, Cough, Dyspnea Cardiac: No Symptoms Abdominal/Gastrointestinal: No Symptoms Genitourinary Symptoms: Hematuria Musculoskeletal: No Symptoms Skin: No Symptoms Neurological: No Symptoms Psychological: No Symptoms Endocrine: No Symptoms Hematologic/Lymphatic: No Symptoms Immunological/Allergic: No Symptoms - Nursing Vital Signs Nursing Vital Signs: Initial Vital Signs Temperature 98.3 F 03/29/23 12:46 Pulse Rate 88 03/29/23 12:46 Respiratory Rate 20 03/29/23 12:46 Blood Pressure 141/67 03/29/23 12:46 O2 Sat by Pulse Oximetry 96 03/29/23 12:46 Pain Scale Pain Intensity 0 Hypertensive - Physical Exam General Appearance: no apparent distress Eye Exam: PERRL/EOMI, eyes nml inspection Ears, Nose, Throat Exam: normal ENT inspection, TMs normal, pharynx normal, moist mucous membranes Neck Exam: normal inspection, non-tender, supple Respiratory Exam: crackles/rales (Rales at the bases bilaterally) Cardiovascular Exam: regular rate/rhythm, normal heart sounds, capillary refill <2 sec, No murmur Gastrointestinal/Abdomen Exam: soft, normal bowel sounds, No tenderness Male Genital Exam: uncircumcised (Patient uncircumcised/Gamboa catheter in place/blood at the meatus/hypospadias) Extremity Exam: normal inspection, normal range of motion Neurologic Exam: alert, oriented x 3, cooperative, threat monitoring analyst II-XII nml as tested, normal mood/affect, sensation nml Skin Exam: normal color, warm, dry Lymphatic Exam: No adenopathy SpO2 Interpretation: normal SpO2: 96 O2 Delivery: Room Air - Course Nursing assessment & vital signs reviewed: Yes Ordered Tests: Active Orders 24 hr Category Date Time Status CBC W DIFF Stat Lab 03/29/23 13:15 Completed CMP Stat Lab 03/29/23 13:15 Completed PROTIME WITH INR Stat Lab 03/29/23 13:15 Completed PTT Stat Lab 03/29/23 13:15 Completed Lab/Rad Data: Laboratory Result Diagrams 03/29/23 13:15 03/29/23 13:15 Laboratory Results 03/29/23 03/29/23 03/29/23 Range/Units 13:15 13:15 13:15 WBC 9.6 (4.0-10.5) x10^3/uL RBC 3.91 L (4.1-5.6) x10^6/uL Hgb 11.3 L (12.5-18.0) g/dL Hct 36.5 L (42-50) % MCV 93.4 (78-100) fL MCH 28.9 (26-32) pg MCHC 31.0 L (32-36) g/dL RDW 15.2 H (11.5-14.0) % Plt Count 165 (150-450) x10^3/uL MPV 10.5 (7.5-11.0) fL Gran % 88.8 H (36.0-66.0) % Immature Gran % (Auto) 0.9 H (0.00-0.4) % Nucleat RBC Rel Count 0.0 (0.00-0.1) % Eos # (Auto) 0.16 (0-0.5) x10^3/uL Immature Gran # (Auto) 0.09 H (0.00-0.03) x10^3u/L Absolute Lymphs (auto) 0.43 L (1.0-4.6) x10^3/uL Absolute Monos (auto) 0.38 (0.0-1.3) x10^3/uL Absolute Nucleated RBC 0.00 (0.00-0.01) x10^3u/L Lymphocytes % 4.5 L (24.0-44.0) % Monocytes % 4.0 (0.0-12.0) % Eosinophils % 1.7 (0.00-5.0) % Basophils % 0.1 (0.0-0.4) % Absolute Granulocytes 8.48 H (1.4-6.9) x10^3/uL Basophils # 0.01 (0-0.4) x10^3/uL PT 12.0 (9.4-12.5) SECONDS INR 1.11 (0.8-3.0) APTT 32.0 (25.1-36.5) SECONDS Sodium 132 L (137-145) mmol/L Potassium 3.8 (3.5-5.1) mmol/L Chloride 95 L (98-107) mmol/L Carbon Dioxide 25 (22-30) mmol/L Anion Gap 14.7 (5-15) MEQ/L BUN 61 H (9-20) mg/dL Creatinine 2.58 H (0.66-1.25) mg/dL Estimated GFR 24.0 ML/MIN Glucose 299 H (74-106) mg/dL Calcium 9.2 (8.4-10.2) mg/dL Total Bilirubin 0.90 (0.2-1.3) mg/dL AST 34 (17-59) U/L ALT 34 (0-50) U/L Alkaline Phosphatase 138 H (38-126) U/L Serum Total Protein 7.0 (6.3-8.2) g/dL Albumin 3.7 (3.5-5.0) g/dL - Progress Progress Note: 03/29/23 13:50 Nursing note and vital signs reviewed. No food or housing insecurity noted. Gamboa catheter balloon deflated per nursing and catheter advanced without difficulty. Catheter flushing without problems and no blood clots noted. Ble eding most likely due to Gamboa improperly placed or traumatic Gamboa placement. 03/29/23 15:23 Lab results reviewed from recent admit at [facility]. Patient has chronic renal insufficiency, and renal function was about the same as it was when his got discharged from [facility]. Patient's Gamboa catheter continues to drain without any blood. Mild bleeding around catheter site from meatus abated after catheter was initially repositioned. Patient discharged in stable condition and was transported home per ambulance. Patient advised to hold his Eliquis until 03/31/2023. Patient s table condition upon discharge.Patient's hemoglobin was also stable during his stay when compared to previous labs. Counseled pt/family regarding: lab results, diagnosis, need for follow-up Medical Desision Making - Independent Historian Additional History obtained from: EMS - External Record(s) Reviewed Records reviewed as a part of evaluation & management: Inpatient - Social Determinants of Health Limited access to: transportation - Diagnostic Testing Diagnostic test were ordered, analyzed, and reviewed by me: Yes - Risk of complications The pt has a mod risk of morbidity or mortality based on: Need for prescription drug management - Departure Departure Disposition: Home Clinical Impression: Gamboa catheter problem Condition: Stable Critical Care Time: No Referrals: HALINA HAHN MD [Primary Care Provider] - Follow up/PCP as directed Instructions: Blood in the urine (hematuria) in adults, How to Care for Your Gamboa Catheter, Male Additional Instructions: Hold your Eliquis until Wednesday morning. Return to ER for increased bleeding or temperature get 100.5. Do not pull on catheter or try to reposition catheter. Please follow-up with Dr. Eaton as soon as possible.
[2023-03-29 14:45] VITALS: BP 126/90; PULSE 81
[2023-03-29 15:27] VITALS: O2SAT 96
[2023-03-29 15:32] LABS: Slide Review 1 YES
== END 2023-03-29 14:45 | disposition home or self-care (01) ==
LOC: ED 12:46
DX: T83.83XA Hemorrhage due to genitourinary prosthetic devices, implants and grafts, initial encounter (principal); U07.1 COVID-19; E78.5 Hyperlipidemia, unspecified; I13.0 Hypertensive heart and chronic kidney disease with heart failure and stage 1 through stage 4 chronic kidney disease, or unspecified chronic kidney disease; I50.9 Heart failure, unspecified; E11.22 Type 2 diabetes mellitus with diabetic chronic kidney disease; N18.9 Chronic kidney disease, unspecified; Z79.01 Long term (current) use of anticoagulants; Z79.4 Long term (current) use of insulin; Z79.899 Other long term (current) drug therapy; Z59.82 Transportation insecurity
CPT/HCPCS: 36415; 80053; 85025; 85610; 85730; 99282